=== PATIENT | female | born 1935 | race Caucasian/White ===

== ENCOUNTER → 2016-12-25 | Outpatient (CLI) | payer MEDICARE ==
--- OUTSIDE RECORDS SUMMARY | 2016-12-25 09:49 | XMS REPORT | Continuity of Care Document ---
Author Author [facility] Organization [facility] Address Unknown Phone Unavailable Allergies Medications Problems Date Dx Coded Attending Type Code Diagnosis Diagnosed By 12/08/2014 Ot V76.12 12/08/2014 Ot V16.3 12/08/2014 Ot V76.11 12/08/2014 Ot V76.12 12/08/2014 Ot 793.82 12/08/2014 Ot V76.12 12/08/2014 Ot 793.89 12/08/2014 MALENA ARECHIGA MD Ot V76.12 01/04/2015 Ot V76.12 12/12/2015 Ot V16.3 12/12/2015 Ot V76.11 12/12/2015 Ot V76.12 12/12/2015 Ot 793.82 12/12/2015 Ot V76.12 12/12/2015 Ot 793.89 12/12/2015 MALENA ARECHIGA MD Ot V76.12 12/12/2015 Ot V76.12 01/01/2016 MALENA ARECHIGA MD Ot Z12.31 Procedures Results Encounters ACCT No. Visit Date/Time Discharge Status Pt. Type Provider Facility Loc./Unit Complaint [id number] 12/07/2013 09:19:00 2013 23:59:59 CLS Outpatient MALENA ARECHIGA MD [facility] RAD [id number] 12/12/2015 11:23:00 ACT Outpatient MALENA ARECHIGA MD [facility] RAD [id number] 12/08/2014 15:14:00 Document Registration [id number] 12/08/2012 10:25:00 Document Registration [id number] 12/01/2012 08:50:00 Document Registration [id number] 12/04/2011 08:28:00 Document Registration [id number] 11/28/2010 10:24:00 Document Registration [id number] 12/04/2009 08:27:00 Document Registration
--- NOTE | 2016-12-26 18:31 | Diagnostic Imaging Report ---
Bilateral screening mammogram The current study was also evaluated with a Computer Aided Detection (CAD) system. INDICATION: Screening. No current complaints stated on the questionnaire. COMPARISON: 12/12/2015. FINDINGS: The breasts are composed of heterogeneously dense parenchyma which may decrease mammographic sensitivity. There are stable multiple calcifications seen in the breasts bilaterally. Allowing for technique and positional differences, no suspicious change is seen. IMPRESSION: Dense breasts with no definite change. ACR BI-RADS Category 2: Benign findings. Result letter will be mailed to the patient. Note: At least 10% of breast cancer is not imaged by mammography. Dictated by: Dictated on workstation # [id number]
== END ==
LOC: RAD 09:47
PROVIDERS: ATTEND Family Medicine
DX: Z12.31 Encounter for screening mammogram for malignant neoplasm of breast (principal)
CPT/HCPCS: 77067

== ENCOUNTER 2017-04-15 11:23 | Emergency (ER) | payer MEDICARE ==
[~2017-04-15] VITALS: Ht 157.5 cm; Wt 68.0 kg
--- NOTE | 2017-04-15 13:03 | Diagnostic Imaging Report ---
EXAMINATION: Three views of the left hand. INDICATION: Pain along the ulnar aspect of the left hand. FINDINGS: Degenerative changes along the intercarpal and carpal/metacarpal joints along the base of the thumb are seen. There are also degenerative changes at the DIP joints. No fracture or dislocation is identified. No radiopaque foreign body is seen. IMPRESSION: Osteoarthritis. Dictated by: Dictated on workstation # [id number]
[2017-04-15] MEDS ORDERED: TETANUS,DIPTH,PERTUSS P/F (BOOSTRIX) 0.5 ML VIAL IM STA (13:08)
--- NOTE | 2017-04-15 13:08 | ED Upper Extremity ---
General Chief Complaint: Upper Extremity Stated Complaint: LT HAND INJ//FALL Nursing Triage Note: Pt fell while pulling out a nail. C/O pain to left hand. Mild bruising noted. Nursing Sepsis Screen: No Definite Risk History of Present Illness Time seen by provider: 12:55 Initial Comments Patient was pulling a nail from a board when she lost her balance and fell landing on her left hand. She is mainly complaining of pain at the fourth and fifth MCPs on the left hand. She denies any wrist pain. Pain/Injury Location: left hand Method of Injury: fell Modifying Factors: Improves With Pain Medication (Tylenol prior to arrival), Improves With Rest Allergies and Home Medications Allergies Coded Allergies: No Known Drug Allergies (Unverified , 04/15/17) Constitutional: no symptoms reported, see HPI EENTM: no symptoms reported, see HPI Respiratory: no symptoms reported, see HPI Cardiovascular: no symptoms reported, see HPI Gastrointestinal: no symptoms reported, see HPI Genitourinary: no symptoms reported, see HPI Musculoskeletal: see HPI, other (left TM pain) Skin: no symptoms reported, see HPI Psychiatric/Neurological: No Symptoms Reported, See HPI All Other Systems Reviewed Negative Unless Noted: Yes Past Rglbuzc-Gkdonp-Bmpmut Hx Patient Social History Alcohol Use: Denies Use Recreational Drug Use: No Smoking Status: Never a Smoker Recent Foreign Travel: No Contact w/Someone Who Travel: No Recent Infectious Disease Expo: No Surgeries Surgeries: Appendectomy, Gallbladder Reproductive System : Yes Reviewed Nursing Assessment Reviewed/Agree w Nursing PMH: Yes Physical Exam Vital Signs Vital Sign - Last 12Hours 04/15/17 12:24 Temp 97.5 Pulse 70 Resp 16 B/P (MAP) 167/94 Pulse Ox 98 Capillary Refill : Less Than 3 Seconds General Appearance: WD/WN, no apparent distress HEENT: PERRL/EOMI, normal ENT inspection, TMs normal, pharynx normal Neck: non-tender, full range of motion, supple, normal inspection Cardiovascular: normal peripheral pulses, regular rate, rhythm, no JVD, no murmur Respiratory: chest non-tender, lungs clear, normal breath sounds Wrist: Yes normal inspection (left), Yes non-tender, Yes no evidence of injury , Yes normal ROM Hand: normal inspection, normal ROM (resisted flexion and extension of all fingers and thumb on the left hand V/V), Left, bone tenderness (fourth and fifth metacarpal heads, volar surface), ecchymosis (trace), soft tissue tenderness, swelling (trace) Neurologic/Tendon: normal sensation, normal motor functions, normal tendon functions, responds to pain Neurologic/Psychiatric: no motor/sensory deficits, alert, normal mood/affect, oriented x 3 Skin: normal color, warm/dry Progress/Results/Core Measures Results/Orders My Orders Orders - LILIAN,CARL 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 INDICATION: Pain along the ulnar aspect of the left hand. FINDINGS: Degenerative changes along the intercarpal and carpal/metacarpal joints along the base of the thumb are seen. There are also degenerative changes at the DIP joints. No fracture or dislocation is identified. No radiopaque foreign body is seen. IMPRESSION: Osteoarthritis. Dictated on workstation # [id number] Dict: 04/15/17 1256 Trans: 04/15/17 1302 [id number] Interpreted by: PRASHANTH DIAZ MD Electronically signed by: Reviewed: Reviewed by Me Departure Impression Impression: Primary Impression: Contusion of hand, left Additional Impression: Left wrist sprain Qualified Codes: S63.502A - Unspecified sprain of left wrist, initial encounter Disposition: 01 HOME, SELF-CARE Condition: Improved Departure-Patient Inst. Decision time for Depature: 13:30 Referrals: HERMILA MORENO DO (PCP/Family) Primary Care Physician Patient Instructions: Contusion (DC), Wrist Sprain (DC) Add. Discharge Instructions: Ice to left hand and wrist 20 minutes every 2-3 hours. Use Billy wrap for 2-3 days and then as needed. Activity as tolerated with left hand. Return to emergency department if symptoms worsen or new problems. Follow-up with Dr. Moreno in one week if continued symptoms. May use ibuprofen 600 mg every 8 hours and Tylenol 650 mg every 6 hours for pain All discharge instructions reviewed with patient and/or family. Voiced understanding. Copy Copies To 1: HERMILA MORENO AMY ARNP Apr 15, 2017 13:08
[2017-04-15 13:45] VITALS: BP 160/90
--- OUTSIDE RECORDS SUMMARY | 2017-04-15 18:09 | XMS REPORT | Continuity of Care Document ---
Author Author [facility] Organization [facility] Address Unknown Phone Unavailable Allergies Medications Problems [...] V76.12 01/01/2016 MALENA ARECHIGA MD Ot Z12.31 12/25/2016 Ot V76.12 OTH SCREEN MAMMO-MALIGN NEOPLASM OF VANESSA 12/25/2016 Ot 793.82 INCONCLUSIVE MAMMOGRAM 12/25/2016 Ot V76.12 OTH SCREEN MAMMO-MALIGN NEOPLASM OF VANESSA 12/25/2016 Ot 793.89 OTH (ABN) FINDINGS ON RADIOLOGICAL EXAMI 12/25/2016 MALENA ARECHIGA MD Ot V76.12 OTH SCREEN MAMMO-MALIGN NEOPLASM OF VANESSA 12/25/2016 Ot V76.12 OTH SCREEN MAMMO-MALIGN NEOPLASM OF VANESSA 12/25/2016 MALENA ARECHIGA MD Ot Z12.31 ENCNTR SCREEN MAMMOGRAM FOR MALIGNANT NE 12/25/2016 HERMILA BARRIENTOS DO Ot Z12.31 ENCNTR SCREEN MAMMOGRAM FOR MALIGNANT NE 12/25/2016 HERMILA BARRIENTOS DO Ot Z12.31 ENCNTR SCREEN MAMMOGRAM FOR MALIGNANT NE 01/15/2017 FLOYD HURLEYAIDAHERMILA Saul Ot Z12.31 ENCNTR SCREEN MAMMOGRAM FOR MALIGNANT NE Procedures Results Encounters ACCT No. Visit Date/Time Discharge Status Pt. Type Provider Facility Loc./Unit Complaint [id number] 12/07/2013 09:19:00 2013 23:59:59 CLS Outpatient MALENA ARECHIGA MD [facility] RAD SCREENING [id number] 12/25/2016 09:47:00 ACT Outpatient HERMILA BARRIENTOS DO [facility] RAD SCREENING [id number] 12/12/2015 11:23:00 ACT Outpatient MALENA ARECHIGA MD [facility] RAD SCREENING [id number] 12/08/2014 15:14:00 Document Registration [id number] 12/08/2012 10:25:00 Document Registration [id number] 12/01/2012 08:50:00 Document Registration [id number] 12/04/2011 08:28:00 Document Registration [id number] 11/28/2010 10:24:00 Document Registration [id number] 12/04/2009 08:27:00 Document Registration
--- OUTSIDE RECORDS SUMMARY | 2017-04-15 18:09 | XMS REPORT ---
Author Author LORI REDMAN Organization [employer] Address Unknown Phone Unavailable Care Team Providers Care Benefits Manager Name Role Phone LORI REDMAN CP Unavailable Allergies, Adverse Reactions, Alerts Substance Reaction Event Type N.K.D.A. Info Not Available Non Drug Allergy Problems Problem Type Condition Code Onset Dates Condition Status Assessment Acute cystitis without hematuria N30.00 Active Medications Medication Code System Code Instructions Start Date End Date Status Dosage Simvastatin [facility] [address]-39 20 MG Orally Once a day 1 tablet in the evening AZO Cranberry [facility] [address]71-47890 250-30 MG Orally not defined Macrobid [facility] [address]-74 100 MG Orally every 12 hrs May 25, 2016May 1 capsule with food Procedures Procedure Coding System Code Date Office Visit, New Pt., Level 3 CPT-4 76212 May 25, 2016 URINALYSIS, AUTO, W/O SCOPE CPT-4 52059 May 25, 2016 [facility] VISIT NEW PATIENT CPT-4 G0466 May 25, 2016 [facility]-4 NOBLL May 25, 2016 Vital Signs Date/Time: May 25, 2016 Cardiac Monitoring Heart Rate 66 bpm Weight 155.2 lbs Height 64 in BMI 26.64 Index Blood Pressure Diastolic 90 mmHg Blood Pressure Systolic 104 mmHg Results No Known Results Summary Purpose [employer] Submission
== END 2017-04-15 13:45 | disposition home or self-care (01) ==
LOC: EDUNIT# 11:23 → ER 11:25
DX: S63.502A Unspecified sprain of left wrist, initial encounter (principal); S60.222A Contusion of left hand, initial encounter; Z90.49 Acquired absence of other specified parts of digestive tract; Z87.42 Personal history of other diseases of the female genital tract; W18.39XA Other fall on same level, initial encounter
CPT/HCPCS: 73130; 90471; 90715; 99284

== ENCOUNTER → 2017-12-30 | Outpatient (CLI) | payer MEDICARE ==
--- NOTE | 2017-12-30 09:12 | Diagnostic Imaging Report ---
INDICATION: Routine screening. Comparison is made with prior exam from 12/25/2016 and 12/12/2015. The current study was also evaluated with a Computer Aided Detection (CAD) system. Both breasts remain heterogeneously dense, limiting the sensitivity of mammography. Extensive calcifications are noted throughout both breasts which appear stable. There is a biopsy clip in the outer left breast. No new mass or malignant appearing microcalcifications are seen. The axillae are unremarkable. IMPRESSION: BI-RADS category 2 No mammographic features suspicious for malignancy are identified. ACR BI-RADS Category 2: Benign findings. Result letter will be mailed to the patient. Note: At least 10% of breast cancer is not imaged by mammography. Dictated by: Dictated on workstation # [id number]
== END ==
LOC: RAD 07:42
PROVIDERS: ATTEND Family Medicine
DX: Z12.31 Encounter for screening mammogram for malignant neoplasm of breast (principal)
CPT/HCPCS: 77067

== ENCOUNTER → 2018-05-06 | Outpatient (CLI) | payer MEDICARE ==
--- NOTE | 2018-05-06 12:32 | Diagnostic Imaging Report ---
PROCEDURE: US Renal Bilateral. TECHNIQUE: Multiple real-time grayscale images were obtained over the kidneys in various projections bilaterally. INDICATION: Renal insufficiency. COMPARISON: There are no prior studies available for comparison. FINDINGS: Both kidneys were identified. The right kidney measures 10.4 x 4.8 x 4.6 cm and the left kidney is estimated 11.9 x 4.7 x 3.8 cm. There is no evidence for solid mass involving either kidney. There are cysts associated with both kidneys however. This includes a 2.4 x 1.8 x 2.2 cm cyst along the inferior pole of the right kidney. There is also a 3.5 x 2.5 x 2.6 cm cyst along the superior pole of the left kidney and a 1.9 x 1.4 x 1.6 cm cyst along the inferior pole of the left kidney. There is no evidence for solid renal mass and there is no sign of hydronephrosis. The renal cortices are somewhat more echogenic in appearance than usually seen. This does raise the question of chronic medical renal disease. Cortices do not seem to be significantly thinned. The bladder is only partially filled and consequently not well evaluated. Neither ureteral jet was identified. IMPRESSION: 1. There is no evidence for solid renal mass or for an acute abnormality of either kidney. 2. There are bilateral renal cysts. 3. The slightly increased echogenicity in the renal cortices does raise the question of chronic medical renal disease. 4. The urinary bladder is only partially filled and consequently not optimally evaluated. Dictated by: Dictated on workstation # [id number]
== END ==
LOC: RAD 09:34
PROVIDERS: ATTEND Family Medicine
DX: N18.9 Chronic kidney disease, unspecified (principal); N28.1 Cyst of kidney, acquired
CPT/HCPCS: 76770

== ENCOUNTER → 2018-12-28 | Outpatient (CLI) | payer MEDICARE ==
--- NOTE | 2018-12-28 12:28 | Diagnostic Imaging Report ---
INDICATION Routine screening. Comparison is made with prior mammogram from 12/30/2017 and 12/25/2016. 2-D and 3-D bilateral screening mammography was performed CAD. Both breasts remain heterogeneously dense, limiting the sensitivity of mammography. The parenchyma pattern is stable. There are benign calcifications throughout both breasts. No mass or malignant-appearing microcalcifications are seen. There is a biopsy clip in the left breast, unchanged. Axillae are unremarkable. Impression: BI-RADS grade 2. No mammographic features suspicious for malignancy are identified. Dictated by: Dictated on workstation # [id number]
== END ==
LOC: RAD 07:47
PROVIDERS: ATTEND Family Medicine
DX: Z12.31 Encounter for screening mammogram for malignant neoplasm of breast (principal)
CPT/HCPCS: 77067

== ENCOUNTER 2021-01-21 14:42 | Inpatient (IN) | payer MEDICARE ==
[~2021-01-21] VITALS: Ht 162.5 cm; Wt 73.0 kg
[2021-01-21] MEDS ORDERED: ENOXAPARIN 40 MG/0.4 ML (LOVENOX) SYR SC SCH (15:00)
[2021-01-21] MEDS ORDERED: PATIENT MAY USE OWN MEDS, ALL PO SCH (15:00)
[2021-01-21 15:53] LABS: BILIRUBIN,URINE NEGATIVE (NEGATIVE); CLARITY,URINE CLEAR; COLOR,URINE YELLOW; GLUCOSE, URINE (UA) NEGATIVE (NEGATIVE); KETONES,URINE NEGATIVE (NEGATIVE); LEUKOCYTE ESTERASE ,URINE NEGATIVE (NEGATIVE); NITRITE,URINE NEGATIVE (NEGATIVE); PROTEIN,URINE 2+ (NEGATIVE)
[2021-01-21] MEDS: NS IV 1000 ML 1,000 ML IV SCH (15:55)
[2021-01-21 15:59] LABS: BACTERIA,URINE NEGATIVE /HPF; SQUAMOUS EPITHELIAL CELL,UR RARE /HPF
--- NOTE | 2021-01-21 16:01 | Diagnostic Imaging Report ---
INDICATION: Atrial fibrillation, new onset. EXAMINATION: Portable chest at 3:33 PM. FINDINGS: The heart size and pulmonary vascularity are normal. The lungs are clear. There are no effusions or pneumothoraces. IMPRESSION: Negative chest. Dictated by: Dictated on workstation # [id number]
[2021-01-21 16:36] LABS: BASOPHILS # (AUTO) 0.1 10^3/uL (0.0-0.1); BASOPHILS % (AUTO) 1 % (0-10); EOSINOPHILS # (AUTO) 0.2 10^3/uL (0.0-0.3); EOSINOPHILS % (AUTO) 2 % (0-10); HEMATOCRIT 39 % (35-52); HEMOGLOBIN 12.2 g/dL (11.5-16.0); LYMPHOCYTES # (AUTO) 1.4 10^3/uL (1.0-4.0); LYMPHOCYTES % (AUTO) 14 % (12-44); MEAN CORPUSCULAR HEMOGLOBIN 30 pg (25-34); MEAN CORPUSCULAR HGB CONC 31 g/dL (32-36); MEAN CORPUSCULAR VOLUME 97 fL (80-99); MEAN PLATELET VOLUME 9.3 fL (9.0-12.2); MONOCYTES # (AUTO) 0.7 10^3/uL (0.0-1.0); MONOCYTES % (AUTO) 7 % (0-12); NEUTROPHILS # (AUTO) 7.1 10^3/uL (1.8-7.8); NEUTROPHILS % (AUTO) 76 % (42-75); PLATELET COUNT 201 10^3/uL (130-400); WHITE BLOOD COUNT 9.4 10^3/uL (4.3-11.0)
[2021-01-21 16:41] LABS: CALCIUM 9.4 MG/DL (8.5-10.1)
[2021-01-21 16:43] LABS: TOTAL PROTEIN 6.2 GM/DL (6.4-8.2)
[2021-01-21 16:45] LABS: BILIRUBIN,TOTAL 0.5 MG/DL (0.1-1.0)
[2021-01-21 16:46] LABS: PHOSPHORUS 3.1 MG/DL (2.3-4.7)
[2021-01-21 16:47] LABS: CREATININE SERUM 1.99 MG/DL (0.60-1.30)
[2021-01-21 16:49] LABS: MAGNESIUM 1.8 MG/DL (1.6-2.4)
[2021-01-21 16:51] LABS: PROTHROMBIN TIME PATIENT 13.9 SEC (12.2-14.7)
[2021-01-21 16:56] LABS: CREATINE KINASE MB 2.5 NG/ML (<6.6)
[2021-01-21] MEDS ORDERED: meTOprolol SUCCINATE 100 MG (TOPROL XL) TAB PO NR (17:00)
[2021-01-22] MEDS: NS IV 1000 ML 1,000 ML IV SCH ×4 (01:24→23:10)
[2021-01-22 03:34] LABS: BASOPHILS % (AUTO) 1 % (0-10); EOSINOPHILS # (AUTO) 0.3 10^3/uL (0.0-0.3); EOSINOPHILS % (AUTO) 4 % (0-10); HEMATOCRIT 34 % (35-52); HEMOGLOBIN 10.7 g/dL (11.5-16.0); LYMPHOCYTES # (AUTO) 1.6 10^3/uL (1.0-4.0); LYMPHOCYTES % (AUTO) 22 % (12-44); MEAN CORPUSCULAR HEMOGLOBIN 30 pg (25-34); MEAN CORPUSCULAR HGB CONC 31 g/dL (32-36); MEAN CORPUSCULAR VOLUME 97 fL (80-99); MEAN PLATELET VOLUME 9.7 fL (9.0-12.2); MONOCYTES # (AUTO) 0.7 10^3/uL (0.0-1.0); MONOCYTES % (AUTO) 9 % (0-12); NEUTROPHILS # (AUTO) 4.6 10^3/uL (1.8-7.8); NEUTROPHILS % (AUTO) 63 % (42-75); PLATELET COUNT 176 10^3/uL (130-400); WHITE BLOOD COUNT 7.2 10^3/uL (4.3-11.0)
[2021-01-22 03:49] LABS: POTASSIUM 3.8 MMOL/L (3.6-5.0)
[2021-01-22 03:50] LABS: CALCIUM 8.2 MG/DL (8.5-10.1)
[2021-01-22 03:54] LABS: CREATININE SERUM 1.9 MG/DL (0.60-1.30); PHOSPHORUS 2.9 MG/DL (2.3-4.7)
[2021-01-22 03:56] LABS: MAGNESIUM 1.7 MG/DL (1.6-2.4)
--- NOTE | 2021-01-22 05:38 | Pulmonary Consultation ---
History of Present Illness History of Present Illness Date Seen by Provider: Jan 22, 2021 Time Seen by Provider: 05:38 Date of Admission Allergies and Home Medications Allergies Coded Allergies: aspirin (Verified Allergy, Unknown, Abdominal Pain, 01/21/21) gi upset Past Zagmrhk-Omevgo-Uagnlf Hx Patient Social History Have you traveled recently?: No Alcohol Use?: No Immunizations Up To Date Date of Influenza Vaccine: Jul 12, 2020 Past Medical History Surgeries: Yes Appendectomy, Gallbladder Respiratory: No Cardiac: No Genitourinary: No Gastrointestinal: No Musculoskeletal: No Endocrine: No HEENT: No Cancer: No Psychosocial: No Integumentary: No Blood Disorders: No Review of Systems Time Seen by Provider: 05:38 Sepsis Event Evaluation Height, Weight, BMI Height: 5'2.00" Weight: 150lbs. oz. 68.693553bd; 26.13 BMI Method:Estimated Exam Exam Vital Signs Date Time Temp Pulse Resp B/P (MAP) Pulse Ox O2 Delivery O2 Flow Rate FiO2 01/22/21 04:00 68 145/74 (97) 96 Room Air 01/22/21 03:15 64 162/82 (108) 97 Room Air 01/22/21 02:00 72 125/71 (89) 92 Room Air 01/22/21 01:00 70 01/22/21 01:00 64 115/78 (90) 95 Room Air 01/22/21 00:15 64 126/67 (86) 95 Room Air 01/21/21 23:59 Room Air 01/21/21 23:00 61 22 123/56 (78) 96 Room Air 01/21/21 22:00 56 18 107/65 (79) 94 Room Air 01/21/21 21:00 71 12 141/95 (110) 88 Room Air 01/21/21 20:34 36.3 01/21/21 20:00 Room Air 01/21/21 20:00 64 34 157/99 (118) 97 Room Air 01/21/21 19:00 70 24 151/88 (109) 98 Room Air 01/21/21 19:00 70 01/21/21 18:00 86 25 155/97 (116) 97 01/21/21 17:00 73 25 190/105 (133) 96 01/21/21 16:00 36.5 01/21/21 16:00 95 15 155/101 (119) 96 01/21/21 15:30 87 17 155/92 (113) 96 01/21/21 15:28 101 01/21/21 15:08 Room Air I & O 01/22/21 07:00 Intake Total 1400 ml Output Total 250 ml Balance 1150 ml Height & Weight Height: 5'2.00" Weight: 150lbs. oz. 68.730992im; 26.13 BMI Method:Estimated Results Lab Laboratory Tests 01/21/21 16:23 01/22/21 03:03 IGOR VAZQUEZ DO Jan 22, 2021 05:38
[2021-01-22] MEDS: MAGNESIUM 1 GM/100 ML IVPB 100 ML IV SCH (06:09)
[2021-01-22] MEDS: KCL 20 MEQ TAB (K-DUR) PO SCH (06:09)
[2021-01-22] MEDS: POTASSIUM CL 10MEQ/50ML IVPB 50 ML IV SCH (06:09)
[2021-01-22] MEDS: meTOprolol SUCCINATE 100 MG (TOPROL XL) TAB PO SCH (08:37)
--- NOTE | 2021-01-22 09:13 | Consultation-Cardiology ---
HPI-Cardiology Cardiology Consultation Date of Consultation 01/22/21 Date of Admission Time Seen by Provider: 07:40 Indication: Atrial fibrillation, hypertension HPI Cardiology was consulted for atrial fibrillation and hypertension. Ms. Fabian is an 85-year-old female who is a direct admit from Dr. Moreno's office for new-onset atrial fibrillation. She states she is here due to hypertension. It was first noticed at the eye doctor last , 01/17, and she followed up with Dr. Moreno on Thursday, 01/21. She denies any chest pain, palpitations, shortness of breath, blurred vision, headaches, diaphoresis, weakness, nausea/vomiting. Home Medications & Allergies Allergies: Coded Allergies: aspirin (Verified Allergy, Unknown, Abdominal Pain, 01/21/21) gi upset Home Medication List Reviewed: Yes PUC-Lkdlfq-Byxdrn Hx Patient Social History Marital Status: Recreational Drug Use: No Smoking Status: Never a Smoker Have you traveled recently?: No Alcohol Use?: No Immunizations Up To Date Date of Influenza Vaccine: Jul 12, 2020 Past Medical History PMHx: HTN HLD PSHx: Cholecystectomy Appendectomy Family Medical History Significant Family History: Heart Disease, CAD Over 55 Years Old, Renal Disease, Stroke Review of Systems-General Review of Systems Constitutional: No diaphoresis, No dizziness EENTM: No blurred vision, No double vision Respiratory: No cough, No short of breath Cardiovascular: No chest pain, No palpitations Gastrointestinal: No nausea, No vomiting Genitourinary: no symptoms reported Musculoskeletal: no symptoms reported Skin: no symptoms reported Psychiatric/Neurological: Denies Headache, Denies Weakness Reviewed Test Results Reviewed Test Results Lab Laboratory Tests Test 01/21/21 15:50 01/21/21 16:23 01/22/21 03:03 Range/Units Urine Color YELLOW Urine Clarity CLEAR Urine pH 6.0 5-9 Urine Specific [place] 1.025 H 1.016-1.022 Urine Protein 2+ H NEGATIVE Urine Glucose (UA) NEGATIVE NEGATIVE Urine Ketones NEGATIVE NEGATIVE Urine Nitrite NEGATIVE NEGATIVE Urine Bilirubin NEGATIVE NEGATIVE Urine Urobilinogen 0.2 < = 1.0 MG/DL Urine Leukocyte Esterase NEGATIVE NEGATIVE Urine RBC (Auto) NEGATIVE NEGATIVE Urine RBC NONE /HPF Urine WBC NONE /HPF Urine Squamous Epithelial Cells RARE /HPF Urine Crystals NONE /LPF Urine Bacteria NEGATIVE /HPF Urine Casts NONE /LPF Urine Mucus NEGATIVE /LPF Urine Culture Indicated NO White Blood Count 9.4 7.2 4.3-11.0 10^3/uL Red Blood Count 4.04 3.56 L 3.80-5.11 10^6/uL Hemoglobin 12.2 10.7 L 11.5-16.0 g/dL Hematocrit 39 34 L 35-52 % Mean Corpuscular Volume 97 97 80-99 fL Mean Corpuscular Hemoglobin 30 30 25-34 pg Mean Corpuscular Hemoglobin Concent 31 L 31 L 32-36 g/dL Red Cell Distribution Width 13.5 13.7 10.0-14.5 % Platelet Count 201 176 130-400 10^3/uL Mean Platelet Volume 9.3 9.7 9.0-12.2 fL Immature Granulocyte % (Auto) 0 0 % Neutrophils (%) (Auto) 76 H 63 42-75 % Lymphocytes (%) (Auto) 14 22 12-44 % Monocytes (%) (Auto) 7 9 0-12 % Eosinophils (%) (Auto) 2 4 0-10 % Basophils (%) (Auto) 1 1 0-10 % Neutrophils # (Auto) 7.1 4.6 1.8-7.8 10^3/uL Lymphocytes # (Auto) 1.4 1.6 1.0-4.0 10^3/uL Monocytes # (Auto) 0.7 0.7 0.0-1.0 10^3/uL Eosinophils # (Auto) 0.2 0.3 0.0-0.3 10^3/uL Basophils # (Auto) 0.1 0.0 0.0-0.1 10^3/uL Immature Granulocyte # (Auto) 0.0 0.0 0.0-0.1 10^3/uL Prothrombin Time 13.9 12.2-14.7 SEC INR Comment 1.0 0.8-1.4 Activated Partial Thromboplast Time 27 24-35 SEC Sodium Level 144 144 135-145 MMOL/L Potassium Level 4.0 3.8 3.6-5.0 MMOL/L Chloride Level 108 H 112 H 98-107 MMOL/L Carbon Dioxide Level 25 21 21-32 MMOL/L Anion Gap 11 11 5-14 MMOL/L Blood Urea Nitrogen 31 H 34 H 7-18 MG/DL Creatinine 1.99 H 1.90 H 0.60-1.30 MG/DL Estimat Glomerular Filtration Rate 24 25 BUN/Creatinine Ratio 16 18 Glucose Level 84 84 70-105 MG/DL Calcium Level 9.4 8.2 L 8.5-10.1 MG/DL Corrected Calcium 9.4 8.5-10.1 MG/DL Phosphorus Level 3.1 2.9 2.3-4.7 MG/DL Magnesium Level 1.8 1.7 1.6-2.4 MG/DL Total Bilirubin 0.5 0.1-1.0 MG/DL Aspartate Amino Transf (AST/SGOT) 21 5-34 U/L Alanine Aminotransferase (ALT/SGPT) 19 0-55 U/L Alkaline Phosphatase 101 40-136 U/L Creatine Kinase MB 2.5 <6.6 NG/ML Troponin I 0.046 H <0.028 NG/ML Total Protein 6.2 L 6.4-8.2 GM/DL Albumin 4.0 3.2-4.5 GM/DL Thyroid Stimulating Hormone (TSH) 0.93 0.35-4.94 UIU/ML Physical Exam Physical Exam Vital Signs Vital Signs - First Documented 01/21/21 01/21/21 01/21/21 01/21/21 15:08 15:28 15:30 16:00 Temp 36.5 Pulse 101 Resp 17 B/P (MAP) 155/92 (113) Pulse Ox 96 O2 Delivery Room Air Capillary Refill : Height, Weight, BMI Height: 5'2.00" Weight: 150lbs. oz. 68.375255ed; 26.13 BMI Method:Estimated General Appearance: No Apparent Distress, WD/WN HEENT: PERRL/EOMI, Pharynx Normal Neck: Non Tender, Supple Respiratory: Chest Non Tender, Lungs Clear, Normal Breath Sounds Cardiovascular: No Murmur, Irregularly Irregular Gastrointestinal: Normal Bowel Sounds, Non Tender, Soft Extremity: Normal Capillary Refill, Pedal Edema Neurologic/Psychiatric: Alert, Oriented x3 Skin: Normal Color, Warm/Dry A/P-Cardiology Admission Diagnosis Atrial fibrillation Hypertension Assessment/Plan Paroxysmal atrial fibrillation, no prior history, currently rate controlled on metoprolol 100mg daily. Started lovenox 1mg/kg BID. Plan for cardioversion 01/23. NPO after midnight. I added diltiazem 30 mg every 6 hours we will monitor tolerance and response CHADsVASc score 4, 4.8% stroke risk per year. Will need Eliquis 2.5mg BID for renal dosing. Currently on therapeutic lovenox. Hypertension, continue metoprolol 100mg daily. Add diltiazem 30 mg every 6 hours and monitor tolerance and response Renal insufficiency, likely chronic, Cr 1.9 today with GFR 25, unknown baseline. Renally dose all medications and monitor response. Hyperlipidemia, continue home atorvastatin. Order lipid panel. Extensive family history of heart disease. Supervisory-Addendum Brief Verification & Attestation Participated in pt care: history, MDM, physical Personally performed: exam, history, MDM, supervision of care Care discussed with: Medical Student Procedures: n/a Results interpretation: Verified all documentation Patient was seen and evaluated, examination performed I reviewed the note and made few correction using italic font JOCELYNE CAMARA, Jan 22, 2021 9:12 am SERGIO LOYOLA MD Jan 22, 2021 5:00 pm
[2021-01-22] MEDS ORDERED: METO50TA7 PO (10:26)
[2021-01-22] MEDS ORDERED: ASCO500C17 PO (10:26)
[2021-01-22] MEDS ORDERED: SIMV20TA26 PO (10:26)
[2021-01-22] MEDS ORDERED: CLC600T PO (10:26)
[2021-01-22] MEDS ORDERED: CRAN400C PO (10:26)
[2021-01-22] MEDS: ENOXAPARIN 80 MG/0.8 ML (LOVENOX) SYR SC SCH (11:10)
[2021-01-22] MEDS: PANTOPRAZOLE 40 MG (PROTONIX) TAB PO SCH (11:10)
[2021-01-22] MEDS ORDERED: ACETAMINOPHEN 325 MG TABLET PO PRN (12:45)
--- NOTE | 2021-01-22 16:59 | History & Physical ---
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 She was found to be in hypertensive urgency in my office with a blood pressure of 200/100 and an irregular pulse up to the 140s. Her son was contacted and her granddaughter came and took her to [facility] for direct admission to the ICU. Date of Admission Jan 21, 2021 at 15:08 Date Seen by a Provider: Jan 22, 2021 Time Seen by a Provider: 12:30 I consulted on this patient on 01/22/21 16:54 Attending Physician Lizy Moreno DO Admitting Physician Lizy Moreno DO Consult Allergies and Home Medications Allergies Coded Allergies: aspirin (Verified Allergy, Unknown, Abdominal Pain, 01/21/21) gi upset Home Medications Ascorbic Acid 500 Mg Capsule, 500 MG PO DAILY, (Reported) Last Action: Reviewed Calcium Carbonate 600 Mg Tablet, 600 MG PO DAILY, (Reported) Last Action: Reviewed Cranberry 400 Mg Capsule, 800 MG PO DAILY, (Reported) Last Action: Reviewed Metoprolol Succinate 50 Mg Tab.er.24h, 50 MG PO BID, (Reported) Last Action: Reviewed Simvastatin 20 Mg Tablet, 20 MG PO DAILY, (Reported) Last Action: Reviewed Patient Home Medication List Home Medication List Reviewed: Yes Past Uxeotur-Onozfp-Pftvwe Hx Past Med/Social Hx: Reviewed Nursing Past Med/Soc Hx Patient Social History Marrital Status: Recreational Drug Use: No Smoking Status: Never a Smoker Immunizations Up To Date Date of Influenza Vaccine: Jul 12, 2020 Past Medical History Surgeries: Appendectomy, Gallbladder History of Blood Disorders: No Family History Heart Disease, CAD Over 55 Years Old, Renal Disease, Stroke Review of Systems Constitutional: weakness EENTM: No see HPI, No no symptoms reported, No ear discharge, No hearing loss, No ear pain, No blurred vision, No double vision, No eye pain, No tearing, No vision loss, No dental problems, No hoarseness, No mouth pain, No mouth swelling, No epistaxis, No nose congestion, No nose pain, No throat pain, No throat swelling, No other Respiratory: No no symptoms reported, No see HPI, No cough, No dyspnea on exertion, No hemoptysis, No orthopnea, No phlegm, No short of breath, No stridor, No wheezing, No other Cardiovascular: No no symptoms reported, No see HPI, No chest pain, No edema, No Hx of Intervention, No palpitations, No syncope, No vascular heart diseas, No other Gastrointestinal: No RUQ, No LUQ, No RLQ, No LLQ, No no symptoms reported, No see HPI, No abdominal pain, No constipation, No diarrhea, No dysphagia, No yonatan temesis, No heartburn, No jaundice, No loss of appetite, No melena, No nausea, No vomiting, No other Genitourinary: No no symptoms reported, No see HPI, No decreased output, No discharge, No dysuria, No frequency, No hematuria, No hesitancy, No incontinence, No nocturia, No pain, No other Musculoskeletal: No no symptoms reported, No see HPI, No back pain, No gout, No joint pain, No joint swelling, No muscle pain, No muscle stiffness, No muscle cramps, No muscle twitching, No muscle weakness, No neck pain, No other Skin: No no symptoms reported, No see HPI, No change in color, No change in hair/nails, No dryness, No hx of skin cancer, No lesions, No lumps, No pruritus, No rash, No other Psychiatric/Neurological: Denies No Symptoms Reported, Denies See HPI, Denies Anxiety, Denies Depressed, Denies Emotional Problems, Denies Headache, Denies Numbness, Denies Paresthesia, Denies Pre-Existing Deficit, Denies Seizure, Denies Tingling, Denies Tremors, Denies Weakness, Denies Other Physical Exam Vital Signs Vital Signs - First Documented 01/21/21 01/21/21 01/21/21 01/21/21 15:08 15:28 15:30 16:00 Temp 36.5 Pulse 101 Resp 17 B/P (MAP) 155/92 (113) Pulse Ox 96 O2 Delivery Room Air Capillary Refill : Height, Weight, BMI Height: 5'2.00" Weight: 150lbs. oz. 68.514335ps; 26.13 BMI Method:Estimated General Appearance: No Apparent Distress HEENT: Normal ENT Inspection Neck: Supple Respiratory: Lungs Clear Cardiovascular: Systolic Murmur, Gallop/S4, Irregularly Irregular, Tachycardia Gastrointestinal: Normal Bowel Sounds, Non Tender, Soft Rectal: Deferred Back: No CVA Tenderness Extremity: Non Tender, No Calf Tenderness, No Pedal Edema Neurologic/Psychiatric: Alert, Oriented x3 Skin: Warm/Dry Comments Laboratory Tests 01/22/21 03:03: White Blood Count 7.2, Red Blood Count 3.56L, Hemoglobin 10.7L, Hematocrit 34L, Mean Corpuscular Volume 97, Mean Corpuscular Hemoglobin 30, Mean Corpuscular Hemoglobin Concent 31L, Red Cell Distribution Width 13.7, Platelet Count 176, Mean Platelet Volume 9.7, Immature Granulocyte % (Auto) 0, Neutrophils (%) (Auto) 63, Lymphocytes (%) (Auto) 22, Monocytes (%) (Auto) 9, Eosinophils (%) (Auto) 4, Basophils (%) (Auto) 1, Neutrophils # (Auto) 4.6, Lymphocytes # (Auto) 1.6, Monocytes # (Auto) 0.7, Eosinophils # (Auto) 0.3, Basophils # (Auto) 0.0, Immature Granulocyte # (Auto) 0.0, Sodium Level 144, Potassium Level 3.8, Chloride Level 112H, Carbon Dioxide Level 21, Anion Gap 11, Blood Urea Nitrogen 34H, Creatinine 1.90H, Estimat Glomerular Filtration Rate 25, BUN/Creatinine Ratio 18, Glucose Level 84, Calcium Level 8.2L, Phosphorus Level 2.9, Magnesium Level 1.7 Microbiology 01/21/21 MRSA Screen - Final, Complete MRSA not isolated Assessment/Plan Assessment and Plan 1. New Onset Atrial Fibrillation with RVR--metoprolol has decreased rate so will do high dose lovenox and cardiology consult with plan for cardioversion to [facility], ECHO done on admit 2. Hypertensive Urgency--metoprolol resumed 3. Acute on Chronic Renal Failure--hydrate and monitor BUN/Cr Admission Diagnosis Admission Status: Inpatient Order (span 2 midnights) Reason for Inpatient Admission: Will need monitoring in ICU and cardioversion LIZY MORENO DO Jan 22, 2021 16:59
[2021-01-22] MEDS ORDERED: SIMvastatin 20 MG (ZOCOR) TAB PO SCH (21:00)
[2021-01-23 03:23] LABS: BASOPHILS # (AUTO) 0.1 10^3/uL (0.0-0.1); BASOPHILS % (AUTO) 1 % (0-10); EOSINOPHILS # (AUTO) 0.3 10^3/uL (0.0-0.3); EOSINOPHILS % (AUTO) 5 % (0-10); HEMATOCRIT 38 % (35-52); HEMOGLOBIN 11.8 g/dL (11.5-16.0); LYMPHOCYTES # (AUTO) 1.6 10^3/uL (1.0-4.0); LYMPHOCYTES % (AUTO) 21 % (12-44); MEAN CORPUSCULAR HEMOGLOBIN 30 pg (25-34); MEAN CORPUSCULAR HGB CONC 31 g/dL (32-36); MEAN CORPUSCULAR VOLUME 97 fL (80-99); MEAN PLATELET VOLUME 9.5 fL (9.0-12.2); MONOCYTES # (AUTO) 0.5 10^3/uL (0.0-1.0); MONOCYTES % (AUTO) 7 % (0-12); NEUTROPHILS # (AUTO) 4.8 10^3/uL (1.8-7.8); NEUTROPHILS % (AUTO) 66 % (42-75); PLATELET COUNT 179 10^3/uL (130-400); WHITE BLOOD COUNT 7.2 10^3/uL (4.3-11.0)
[2021-01-23 03:30] LABS: POTASSIUM 3.6 MMOL/L (3.6-5.0)
[2021-01-23 03:31] LABS: CALCIUM 8.3 MG/DL (8.5-10.1)
[2021-01-23 03:36] LABS: CREATININE SERUM 1.63 MG/DL (0.60-1.30); PHOSPHORUS 2.7 MG/DL (2.3-4.7)
[2021-01-23 03:38] LABS: MAGNESIUM 1.7 MG/DL (1.6-2.4)
[2021-01-23] MEDS: NS IV 1000 ML 1,000 ML IV SCH ×3 (04:06→23:19)
[2021-01-23] MEDS: MAGNESIUM 1 GM/100 ML IVPB 100 ML IV SCH (04:09)
[2021-01-23] MEDS: KCL 20 MEQ TAB (K-DUR) PO SCH (04:09)
[2021-01-23] MEDS: POTASSIUM CL 10MEQ/50ML IVPB 50 ML IV SCH (04:09)
[2021-01-23] MEDS ORDERED: proPOfol 200 MG/20 ML (DIPRIVAN) VIAL IV ONE (07:31)
[2021-01-23] MEDS ORDERED: MIDAZOLAM 5 MG/5 ML (VERSED) VIAL ONE (07:31)
--- NOTE | 2021-01-23 07:57 | Cardiology Progress Note ---
Subjective Date Seen by Provider: Jan 23, 2021 Time Seen by Provider: 07:25 Subjective/Events-last exam Ms. Fabian was seen and examined in the ICU this morning. Denies any chest pain or shortness of breath. No concerns today. Discussed upcoming cardioversion this morning, patient had no questions regarding the procedure. Review of Systems General: No Chills, No Night Sweats, No Fatigue, No Malaise, No Appetite, No Other HEENT: No Head Aches, No Visual Changes, No Eye Pain, No Ear Pain, No Dysphasia, No Sinus Congestion, No Post Nasal Drip, No Sore Throat, No Other Pulmonary: No Dyspnea, No Cough, No Pleuritic Chest Pain, No Other Cardiovascular: No: Chest Pain, Palpitations, Orthopnea, Paroxysmal Noc. Dyspnea, Edema, Lt Headedness, Other Objective-Cardiology Exam Last Set of Vital Signs Vital Signs 01/23/21 01/23/21 15:00 15:15 Temp 36.5 Pulse 65 Resp 18 B/P (MAP) 168/90 (116) Pulse Ox 97 O2 Delivery Room Air Capillary Refill : I&O Intake and Output 01/23/21 00:00 Intake Total 2600 ml Output Total 1950 ml Balance 650 ml Intake Oral 1600 ml IV Total 1000 ml Output Urine Total 1950 ml # Voids 2 General: Alert, Oriented X3 HEENT: PERRLA Neck: Supple Lungs: Clear to Auscultation, Normal Air Movement Heart: Normal S1, Normal S2, Other (irregularly irregular) Abdomen: Normal Bowel Sounds, Soft, No Tenderness Extremities: No Clubbing, No Cyanosis, No Edema Skin: No Rashes Neuro: Normal Speech Psych/Mental Status: Mental Status NL Results Lab Laboratory Tests 01/23/21 02:40 A/P-Cardiology Admission Diagnosis Atrial fibrillation Hypertension Assessment/Plan Paroxysmal atrial fibrillation, no prior history, currently rate controlled on metoprolol 100mg daily. Started lovenox 1mg/kg BID. Diltiazem 30 mg every 6 hours, we will monitor tolerance and response, HR down to 60. Cardioversion for today, 01/23. Patient was started on amiodarone bolus and a drip, converted to sinus rhythm spontaneously on amiodarone drip. We will continue with loading with amiodarone and possible discharge in the morning CHADsVASc score 4, 4.8% stroke risk per year. Will need Eliquis 2.5mg BID for renal dosing on discharge. Currently on therapeutic lovenox, I am planning to start Eliquis. Hypertension, continue metoprolol 100mg daily. Diltiazem 30 mg every 6 hours added, HR down to 60 but BP 159/110, may improve post cardioversion. Renal insufficiency, acute on chronic, Cr 1.63 today with GFR 30, unknown baseline. Renally dose all medications and monitor response. Hyperlipidemia, continue home atorvastatin. Extensive family history of heart disease. Supervisory-Addendum Brief Verification & Attestation Participated in pt care: history, MDM, physical Personally performed: exam, history, MDM, supervision of care Care discussed with: Medical Student Procedures: n/a Results interpretation: Verified all documentation Verification and Attestation of Medical Student E/M Service A medical student performed and documented this service in my presence. I reviewed and verified all information documented by the medical student and made modifications to such information, when appropriate. I personally performed the physical exam and medical decision making. Sergio Loyola, Jan 23, 2021,16:05 JOCELYNE CAMARA, Jan 23, 2021 7:57 am SERGIO LOYOLA MD Jan 23, 2021 4:01 pm
[2021-01-23] MEDS: meTOprolol SUCCINATE 100 MG (TOPROL XL) TAB PO SCH (08:15)
[2021-01-23] MEDS: PANTOPRAZOLE 40 MG (PROTONIX) TAB PO SCH (08:15)
[2021-01-23] MEDS ORDERED: amLODIPine 5 MG (NORVASC) TAB PO ONE (08:45)
[2021-01-23] MEDS ORDERED: LIDOCAINE 2% VISCOUS 15 ML UDC ONE (08:50)
--- NOTE | 2021-01-23 09:38 | Cardiac Procedure Note-CS/ASA ---
Pre-Procedure Note Pre-Op Procedure Note H&P Reviewed The H&P was reviewed, patient examined and no changes noted. Date H&P Reviewed: Jan 23, 2021 Time H&P Reviewed: 09:00 Conscious Sedation Pre-Proced Time 09:00 ASA Score 3 For ASA 3 and 4: Consider anesthesia and medical clearance. Also, for patients with a history of failed moderate sedation consider anesthesia. Airway Lungs Heart ASA score ASA 1: a normal healthy patient ASA 2: a patient with a mild systemic disease (mid diabetes, controlled hypertension, obesity x ASA 3: a patient with a severe systemic disease that limits activity (angina, COPD, prior Myocardial infarction) ASA 4: a patient with an incapacitating disease that is a constant threat to life (CHF, renal failure) ASA 5: a moribund patient not expected to survive 24 hrs. (ruptured aneurysm) ASA 6: a declared brain- patient whose organs are being harvested. For emergent operations, add the letter E after the classification Mallampati Classification Grade 3 Sedation Plan Analgesia, Amnesia, Plan communicated to team members, Discussed options with patient/fam, Discussed risks with patient/fam The patient is an appropriate candidate to undergo the planned procedure, sedation, and anesthesia. The patient immediately re-assessed prior to indication. SERGIO LOYOLA MD Jan 23, 2021 09:38
--- NOTE | 2021-01-23 09:41 | Cardioversion ---
Cardioversion PROCEDURE PHYSICIAN: Sergio Lopez DATE OF PROCEDURE: 01/23/21 DIRECT EXTERNAL ELECTRICAL CARDIOVERSION: Indications: Atrial Fibrillation with rapid ventricular rate Preoperative diagnoses: Atrial Fibrillation with rapid ventricular rate Postoperative diagnosis: Sinus rhythm, Successful Electrical Cardioversion Anesthesia: By Anesthesia services Complications: None Specimen: None Contrast: 0 Flouroscopy: none Procedure Details: The patient was brought the lab pack chemist after informed consent was taken, all the risks and complications were explained including the risk of stroke. Electrical cardioversion was carried out with anesthesia support with propofol. 200 joules of synchronized shock was delivered through external patches which promptly twice, didn't convert to sinus rhythm, I decided to proceed with loading with amiodarone and reattempt tomorrow with cardioversion. The patient tolerated the procedure well. Conclusions: Failed to attempt for cardioversion to restore sinus rhythm. Patient will be loaded with amiodarone and we will attempt another cardioversion tomorrow SERGIO LOPEZ MD Jan 23, 2021 09:41
[2021-01-23] MEDS ORDERED: AMIODARONE INJECTION 150 MG in D5W 100 ML IVPB 100 ML IV NR (10:00)
[2021-01-23] MEDS: AMIODARONE INJECTION 450 MG in D5W IV SOLUTION (EXCEL) 250 ML IV SCH ×2 (10:18→18:29)
[2021-01-23] MEDS: ENOXAPARIN 80 MG/0.8 ML (LOVENOX) SYR SC SCH (11:41)
--- NOTE | 2021-01-23 12:00 | Anesthesia-General Post-Op ---
MAC Patient Condition Mental Status/LOC: Same as Preop Cardiovascular: Satisfactory Nausea/Vomiting: Absent Respiratory: Satisfactory Pain: Controlled Complications: Absent Post Op Complications Complications None Follow Up Care/Instructions Patient Instructions None needed. Anesthesiology Discharge Order Discharge Order Patient is doing well, no complaints, stable vital signs, no apparent adverse anesthesia problems. No complications reported per nursing. BILLIE JONES CRNA Jan 23, 2021 12:00
--- NOTE | 2021-01-23 13:36 | Progress Note ---
Subjective Date Seen by a Provider: Jan 23, 2021 Time Seen by a Provider: 08:30 Subjective/Events-last exam Fwup a fib with RVR, hypertensive urgency, acute on chronic renal failure. Nervous about cardioversion. Objective Exam Vital Signs Date Time Temp Pulse Resp B/P (MAP) Pulse Ox O2 Delivery O2 Flow Rate FiO2 01/23/21 12:00 75 21 171/96 (121) 98 Room Air 01/23/21 11:36 36.3 01/23/21 11:00 50 13 166/82 (110) 94 Room Air 01/23/21 10:00 67 12 134/79 (97) 95 Room Air 01/23/21 09:00 81 18 146/80 (102) 100 Room Air 01/23/21 08:00 Room Air 01/23/21 08:00 71 26 167/122 (137) 97 Room Air 01/23/21 07:13 36.5 01/23/21 07:00 67 21 201/99 (133) 95 Room Air 01/23/21 06:42 62 01/23/21 06:00 60 15 159/110 (126) 92 Room Air 01/23/21 05:00 63 19 151/88 (109) 96 Room Air 01/23/21 04:03 68 10 166/97 (120) 97 Room Air 01/23/21 03:12 90 19 173/75 (107) 95 Room Air 01/23/21 03:04 Room Air 01/23/21 03:04 36.6 01/23/21 02:00 59 11 155/93 (113) 98 Room Air 01/23/21 01:00 62 01/23/21 01:00 62 17 151/87 (108) 96 Room Air 01/23/21 00:00 54 15 156/83 (107) 97 Room Air 01/22/21 23:10 Room Air 01/22/21 23:00 36.4 01/22/21 23:00 71 31 158/96 (116) 97 Room Air 01/22/21 22:00 60 13 154/81 (93) 99 Room Air 01/22/21 21:00 57 35 152/74 (101) 97 Room Air 01/22/21 20:42 36.2 Room Air 01/22/21 20:02 50 139/77 (109) Room Air 01/22/21 20:00 Room Air 01/22/21 19:00 53 01/22/21 19:00 53 18 142/62 (88) 95 Room Air 01/22/21 18:00 74 20 156/111 (126) 98 Room Air 01/22/21 17:00 75 96 Room Air 01/22/21 16:00 166/92 (116) 01/22/21 16:00 Room Air 01/22/21 15:40 36.5 01/22/21 15:00 74 22 181/105 (130) 97 Room Air 01/22/21 14:00 80 24 165/138 (147) 92 Room Air I & O 01/23/21 07:00 Intake Total 1525 ml Output Total 4050 ml Balance -2525 ml Capillary Refill : General Appearance: No Apparent Distress Neck: Supple Respiratory: Lungs Clear Cardiovascular: Systolic Murmur, Irregularly Irregular Gastrointestinal: normal bowel sounds, non tender, soft Extremity: Non Tender, No Calf Tenderness, No Pedal Edema Neurologic/Psychiatric: Alert, Oriented x3 Results Lab Laboratory Tests 01/23/21 02:40: White Blood Count 7.2, Red Blood Count 3.92, Hemoglobin 11.8, Hematocrit 38, Mean Corpuscular Volume 97, Mean Corpuscular Hemoglobin 30, Mean Corpuscular Hemoglobin Concent 31L, Red Cell Distribution Width 13.8, Platelet Count 179, Mean Platelet Volume 9.5, Immature Granulocyte % (Auto) 0, Neutrophils (%) (Auto) 66, Lymphocytes (%) (Auto) 21, Monocytes (%) (Auto) 7, Eosinophils (%) (Auto) 5, Basophils (%) (Auto) 1, Neutrophils # (Auto) 4.8, Lymphocytes # (Auto) 1.6, Monocytes # (Auto) 0.5, Eosinophils # (Auto) 0.3, Basophils # (Auto) 0.1, Immature Granulocyte # (Auto) 0.0, Sodium Level 143, Potassium Level 3.6, Chloride Level 111H, Carbon Dioxide Level 22, Anion Gap 10, Blood Urea Nitrogen 26H, Creatinine 1.63H, Estimat Glomerular Filtration Rate 30, BUN/Creatinine Ratio 16, Glucose Level 86, Calcium Level 8.3L, Phosphorus Level 2.7, Magnesium Level 1.7 Microbiology 01/21/21 MRSA Screen - Final, Complete MRSA not isolated Assessment/Plan Assessment/Plan Assess & Plan/Chief Complaint 1. A fib with RVR--cardioversion per cardiology today 2. Hypertensive Urgency--extra amlodopine now 3. Acute on Renal Failure--improving with hydration Clinical Quality Measures Admission Status Admission Dx 1. New Onset Atrial Fibrillation with RVR--metoprolol has decreased rate so will do high dose lovenox and cardiology consult with plan for cardioversion tomorrow, ECHO done on admit 2. Hypertensive Urgency--metoprolol resumed 3. Acute on Chronic Renal Failure--hydrate and monitor BUN/Cr HERMILA BARRIENTOS DO Jan 23, 2021 13:36
[2021-01-23] MEDS ORDERED: APIXABAN 5 MG (ELIQUIS) TABLET PO SCH (21:00)
[2021-01-24] MEDS ORDERED: hydrALAZINE (APESOLINE) 20 MG/ML VIAL ONE (03:08)
[2021-01-24] MEDS ORDERED: hydrALAZINE (APESOLINE) 20 MG/ML VIAL IV PRN ×2 (03:15)
[2021-01-24 03:18] LABS: BASOPHILS % (AUTO) 0 % (0-10); EOSINOPHILS # (AUTO) 0.3 10^3/uL (0.0-0.3); EOSINOPHILS % (AUTO) 3 % (0-10); HEMATOCRIT 37 % (35-52); HEMOGLOBIN 11.6 g/dL (11.5-16.0); LYMPHOCYTES # (AUTO) 1.5 10^3/uL (1.0-4.0); LYMPHOCYTES % (AUTO) 16 % (12-44); MEAN CORPUSCULAR HEMOGLOBIN 30 pg (25-34); MEAN CORPUSCULAR HGB CONC 32 g/dL (32-36); MEAN CORPUSCULAR VOLUME 96 fL (80-99); MEAN PLATELET VOLUME 9.5 fL (9.0-12.2); MONOCYTES # (AUTO) 0.8 10^3/uL (0.0-1.0); MONOCYTES % (AUTO) 9 % (0-12); NEUTROPHILS # (AUTO) 6.8 10^3/uL (1.8-7.8); NEUTROPHILS % (AUTO) 72 % (42-75); PLATELET COUNT 165 10^3/uL (130-400); WHITE BLOOD COUNT 9.4 10^3/uL (4.3-11.0)
[2021-01-24 03:41] LABS: CALCIUM 8.5 MG/DL (8.5-10.1); CREATININE SERUM 1.89 MG/DL (0.60-1.30); MAGNESIUM 1.6 MG/DL (1.6-2.4); PHOSPHORUS 2.7 MG/DL (2.3-4.7); POTASSIUM 3.5 MMOL/L (3.6-5.0)
[2021-01-24] MEDS: KCL 20 MEQ TAB (K-DUR) PO SCH (03:45)
[2021-01-24] MEDS: MAGNESIUM 1 GM/100 ML IVPB 100 ML IV SCH (03:45)
[2021-01-24] MEDS: POTASSIUM CL 10MEQ/50ML IVPB 50 ML IV SCH (03:45)
[2021-01-24] MEDS ORDERED: ONDANSETRON 4 MG/2 ML (SDV) Z0FRAN ONE (04:30)
[2021-01-24] MEDS ORDERED: NS IV 1000 ML 1,000 ML IV SCH (04:45)
[2021-01-24] MEDS ORDERED: ONDANSETRON 4 MG/2 ML (SDV) Z0FRAN IVP ONE (04:45)
[2021-01-24] MEDS: APIXABAN 2.5 MG (ELIQUIS) TABLET PO SCH ×2 (07:47→20:30)
[2021-01-24] MEDS: PANTOPRAZOLE 40 MG (PROTONIX) TAB PO SCH (07:47)
[2021-01-24 08:21] LABS: ALBUMIN 3.5 GM/DL (3.2-4.5)
[2021-01-24 08:24] LABS: TOTAL PROTEIN 5.9 GM/DL (6.4-8.2)
[2021-01-24 08:26] LABS: BILIRUBIN,TOTAL 0.5 MG/DL (0.1-1.0)
[2021-01-24 08:30] LABS: BILIRUBIN,DIRECT 0.2 MG/DL (0.0-0.3); BILIRUBIN,INDIRECT 0.3 MG/DL
--- NOTE | 2021-01-24 08:49 | Cardiology Progress Note ---
Subjective Date Seen by Provider: Jan 24, 2021 Time Seen by Provider: 08:00 Subjective/Events-last exam Ms. Fabian was seen and examined this morning in the ICU. She is feeling pretty horrible this morning, having nausea and vomiting after hydralazine early this am. Denies any chest pain or shortness of breath. Not ready to go home today. Objective-Cardiology Exam Last Set of Vital Signs Vital Signs 01/24/21 01/24/21 07:00 07:48 Temp 36.6 Pulse 61 Resp 21 B/P (MAP) 142/66 (91) Pulse Ox 92 O2 Delivery Room Air Capillary Refill : I&O Intake and Output 01/24/21 00:00 Intake Total 1850 ml Output Total 4050 ml Balance -2200 ml Intake Oral 850 ml IV Total 1000 ml Output Urine Total 4050 ml # Voids 2 # Bowel Movements 2 General: Alert, Oriented X3 HEENT: PERRLA Neck: Supple Lungs: Clear to Auscultation, Normal Air Movement Heart: Regular Rate, Normal S1, Normal S2 Abdomen: Normal Bowel Sounds, Soft, Other (tender to palpation over epigastric region) Extremities: No Clubbing, No Cyanosis, No Edema Skin: No Rashes Neuro: Normal Speech Psych/Mental Status: Mental Status NL Results Lab Laboratory Tests 01/24/21 02:53 A/P-Cardiology Admission Diagnosis Atrial fibrillation Hypertension Assessment/Plan Nausea and vomiting, likely due to hydralazine, given zofran. Liver enzymes are normal, probably gastritis. Started on Protonix Paroxysmal atrial fibrillation, no prior history, currently rate controlled on metoprolol 100mg daily. Started lovenox 1mg/kg BID. Diltiazem 30 mg every 6 hours, we will monitor tolerance and response, HR down to 60. Cardioversion 01/24, spontaneously converted to sinus rhythm on amiodarone drip post cardioversion. Amiodarone 400mg PO BID started today. CHADsVASc score 4, 4.8% stroke risk per year. Will need Eliquis 2.5mg BID for renal dosing on discharge. Starting Eliquis 01/24. Hypertension, continue metoprolol 100mg daily. Discontinue diltiazem and monitor Renal insufficiency, acute on chronic, Cr 1.89 today with GFR 25, unknown baseline. Renally dose all medications and monitor response. Hyperlipidemia, continue home atorvastatin. Extensive family history of heart disease. Supervisory-Addendum Brief Verification & Attestation Participated in pt care: history, MDM, physical Personally performed: exam, history, MDM, supervision of care Care discussed with: Medical Student Procedures: n/a Results interpretation: Verified all documentation Verification and Attestation of Medical Student E/M Service A medical student performed and documented this service in my presence. I reviewed and verified all information documented by the medical student and made modifications to such information, when appropriate. I personally performed the physical exam and medical decision making. Sergio Loyola, Jan 24, 2021,08:53 JOCELYNE CAMARA, Jan 24, 2021 08:49 SERGIO LOYOLA MD Jan 24, 2021 08:53
--- NOTE | 2021-01-24 08:52 | Cardiology Progress Note ---
Subjective Date Seen by Provider: Jan 24, 2021 Time Seen by Provider: 08:49 Subjective/Events-last exam Patient is laying down in bed, having epigastric pain, nausea and vomiting overnight, required Zofran Review of Systems General: No Chills, No Night Sweats; Fatigue; No Malaise, No Appetite, No Other HEENT: No Head Aches, No Visual Changes, No Eye Pain, No Ear Pain, No Dysphasia, No Sinus Congestion, No Post Nasal Drip, No Sore Throat, No Other Pulmonary: No Dyspnea, No Cough, No Pleuritic Chest Pain, No Other Cardiovascular: No: Chest Pain, Palpitations, Orthopnea, Paroxysmal Noc. Dyspnea, Edema, Lt Headedness, Other Objective-Cardiology Exam Last Set of Vital Signs Vital Signs 01/24/21 01/24/21 07:00 07:48 Temp 36.6 Pulse 61 Resp 21 B/P (MAP) 142/66 (91) Pulse Ox 92 O2 Delivery Room Air Capillary Refill : I&O Intake and Output 01/24/21 00:00 Intake Total 1850 ml Output Total 4050 ml Balance -2200 ml Intake Oral 850 ml IV Total 1000 ml Output Urine Total 4050 ml # Voids 2 # Bowel Movements 2 General: Alert, Oriented X3, Cooperative HEENT: Atraumatic, PERRLA Neck: Supple, No JVD Lungs: Clear to Auscultation, Normal Air Movement Heart: Regular Rate, Normal S1, Normal S2 Abdomen: Normal Bowel Sounds, Soft, Other (Mild epigastric tenderness, no guarding) Extremities: No Clubbing, No Cyanosis, No Edema Skin: No Rashes, No Breakdown Neuro: Normal Speech Psych/Mental Status: Mental Status NL Results Lab Laboratory Tests 01/24/21 02:53 A/P-Cardiology Admission Diagnosis Atrial fibrillation Hypertension Assessment/Plan Paroxysmal atrial fibrillation, new onset, underwent CHAYITO showing no thrombus, failed electrical cardioversion, converted on amiodarone drip. We will continue with oral amiodarone loading dose and monitor tolerance and response. CHADsVASc score 4, 4.8% stroke risk per year. Starting Eliquis 2.5 mg twice daily Epigastric discomfort, nausea and vomiting, probably gastritis, started on PPI, given Zofran. Managed by primary care team Hypertension, elevated blood pressure, did not tolerate hydralazine well, had episode of bradycardia while on diltiazem and metoprolol, I will restart metoprolol for now and continue of diltiazem and monitor Renal insufficiency, acute on chronic, continue to monitor renal function Hyperlipidemia, continue home atorvastatin. Extensive family history of heart disease. SERGIO LOYOLA MD Jan 24, 2021 08:52
[2021-01-24] MEDS: AMIODARONE 200 MG (CORDARONE) TAB PO SCH ×2 (09:38→20:30)
[2021-01-24] MEDS ORDERED: ONDANSETRON 4 MG/2 ML (SDV) Z0FRAN IVP PRN (12:30)
[2021-01-24] MEDS: NS IV 1000 ML 1,000 ML IV SCH (14:41)
--- NOTE | 2021-01-24 18:13 | Progress Note ---
Subjective Date Seen by a Provider: Jan 24, 2021 Time Seen by a Provider: 12:30 Subjective/Events-last exam Fwup a fib with RVR, hypertensive urgency, acute on chronic renal failure. Did not convert after cardioversion but converted with amiodarone drip but had hypertensive urgency overnight requiring hydralazine and then had Nausea and vomiting. Objective Exam Vital Signs Date Time Temp Pulse Resp B/P (MAP) Pulse Ox O2 Delivery O2 Flow Rate FiO2 01/24/21 16:43 Room Air 01/24/21 16:00 74 165/89 (114) 91 Room Air 01/24/21 15:53 36.8 01/24/21 15:00 61 21 148/75 (99) 92 Room Air 01/24/21 14:00 76 22 141/64 (89) 92 Room Air 01/24/21 13:00 54 01/24/21 13:00 63 21 146/67 (93) 93 Room Air 01/24/21 12:09 Room Air 01/24/21 12:00 65 24 155/85 (108) 93 Room Air 01/24/21 11:59 36.8 01/24/21 11:00 64 22 152/88 (109) 91 Room Air 01/24/21 10:00 52 17 142/70 (94) 91 Room Air 01/24/21 09:00 59 20 141/71 (94) 92 Room Air 01/24/21 08:00 66 17 139/67 (91) 91 Room Air 01/24/21 08:00 Room Air 01/24/21 07:48 36.6 01/24/21 07:03 67 01/24/21 07:00 61 21 142/66 (91) 92 Room Air 01/24/21 06:00 69 18 127/71 (89) 90 Room Air 01/24/21 05:00 71 19 145/72 (96) 93 Room Air 01/24/21 04:10 36.8 01/24/21 04:00 67 18 155/67 (96) 97 Room Air 01/24/21 03:15 51 21 203/92 (129) 91 Room Air 01/24/21 03:02 Room Air 01/24/21 03:00 57 21 191/97 (128) 92 Room Air 01/24/21 02:00 60 14 185/95 (125) 93 Room Air 01/24/21 01:00 60 15 189/99 (129) 91 Room Air 01/24/21 01:00 53 01/24/21 00:00 57 22 163/82 (109) 94 Room Air 01/23/21 23:10 36.6 01/23/21 23:09 Room Air 01/23/21 23:00 57 20 122/78 (93) 95 Room Air 01/23/21 22:00 61 25 165/94 (117) 96 Room Air 01/23/21 21:00 72 26 170/91 (117) 96 Room Air 01/23/21 20:00 71 23 166/76 (106) 97 Room Air 01/23/21 19:29 36.8 01/23/21 19:13 Room Air 01/23/21 19:00 49 26 158/72 (100) 96 Room Air 01/23/21 19:00 50 I & O 01/24/21 07:00 Intake Total 2150 ml Output Total 3050 ml Balance -900 ml Capillary Refill : General Appearance: Mild Distress Respiratory: Lungs Clear Cardiovascular: Regular Rate, Rhythm (with skipped beats), Systolic Murmur Extremity: Non Tender, No Calf Tenderness, No Pedal Edema Neurologic/Psychiatric: Alert, Oriented x3 Results Lab Laboratory Tests 01/24/21 02:53: White Blood Count 9.4, Red Blood Count 3.81, Hemoglobin 11.6, Hematocrit 37, Mean Corpuscular Volume 96, Mean Corpuscular Hemoglobin 30, Mean Corpuscular Hemoglobin Concent 32, Red Cell Distribution Width 13.9, Platelet Count 165, Mean Platelet Volume 9.5, Immature Granulocyte % (Auto) 0, Neutrophils (%) ( Auto) 72, Lymphocytes (%) (Auto) 16, Monocytes (%) (Auto) 9, Eosinophils (%) (Auto) 3, Basophils (%) (Auto) 0, Neutrophils # (Auto) 6.8, Lymphocytes # (Auto) 1.5, Monocytes # (Auto) 0.8, Eosinophils # (Auto) 0.3, Basophils # (Auto) 0.0, Immature Granulocyte # (Auto) 0.0, Sodium Level 142, Potassium Level 3.5L, Chloride Level 110H, Carbon Dioxide Level 19L, Anion Gap 13, Blood Urea Nitrogen 25H, Creatinine 1.89H, Estimat Glomerular Filtration Rate 25, BUN/Creatinine Ratio 13, Glucose Level 91, Calcium Level 8.5, Phosphorus Level 2.7, Magnesium Level 1.6, Total Bilirubin 0.5, Direct Bilirubin 0.2, Indirect Bilirubin 0.3, Aspartate Amino Transf (AST/SGOT) 34, Alanine Aminotransferase (ALT/SGPT) 30, Alkaline Phosphatase 103, Total Protein 5.9L, Albumin 3.5 Microbiology 01/21/21 MRSA Screen - Final, Complete MRSA not isolated Assessment/Plan Assessment/Plan Assess & Plan/Chief Complaint 1. A fib with RVR--cardioversion failed but then converted on amiodarone drip so now cardiology loading orally with amiodarone, transfer to cardiac stepdown 2. Hypertensive Urgency--resume metoprolol 3. Acute on Renal Failure--continue gentle IV hydration 4. Nausea/Vomiting--likely from hydralazine--on pantoprazole and given zofran I did call her son and update him on her status. Clinical Quality Measures Admission Status Admission Dx 1. New Onset Atrial Fibrillation with RVR--metoprolol has decreased rate so wi ll do high dose lovenox and cardiology consult with plan for cardioversion tomorrow, ECHO done on admit 2. Hypertensive Urgency--metoprolol resumed 3. Acute on Chronic Renal Failure--hydrate and monitor BUN/Cr HERMILA BARRIENTOS DO Jan 24, 2021 18:13
[2021-01-25 02:57] LABS: BASOPHILS % (AUTO) 0 % (0-10); EOSINOPHILS # (AUTO) 0.2 10^3/uL (0.0-0.3); EOSINOPHILS % (AUTO) 2 % (0-10); HEMATOCRIT 37 % (35-52); HEMOGLOBIN 11.5 g/dL (11.5-16.0); LYMPHOCYTES # (AUTO) 1.2 10^3/uL (1.0-4.0); LYMPHOCYTES % (AUTO) 13 % (12-44); MEAN CORPUSCULAR HEMOGLOBIN 30 pg (25-34); MEAN CORPUSCULAR HGB CONC 31 g/dL (32-36); MEAN CORPUSCULAR VOLUME 99 fL (80-99); MEAN PLATELET VOLUME 9.5 fL (9.0-12.2); MONOCYTES % (AUTO) 11 % (0-12); NEUTROPHILS # (AUTO) 6.6 10^3/uL (1.8-7.8); NEUTROPHILS % (AUTO) 73 % (42-75); PLATELET COUNT 150 10^3/uL (130-400); WHITE BLOOD COUNT 9.1 10^3/uL (4.3-11.0)
[2021-01-25 03:10] LABS: POTASSIUM 3.7 MMOL/L (3.6-5.0)
[2021-01-25 03:11] LABS: CALCIUM 8.3 MG/DL (8.5-10.1)
[2021-01-25 03:15] LABS: CREATININE SERUM 1.85 MG/DL (0.60-1.30)
[2021-01-25 03:17] LABS: MAGNESIUM 1.5 MG/DL (1.6-2.4)
[2021-01-25] MEDS: NS IV 1000 ML 1,000 ML IV SCH (05:55)
[2021-01-25] MEDS: KCL 20 MEQ TAB (K-DUR) PO SCH (05:56)
[2021-01-25] MEDS: POTASSIUM CL 10MEQ/50ML IVPB 50 ML IV SCH (05:56)
[2021-01-25] MEDS: MAGNESIUM 1 GM/100 ML IVPB 100 ML IV SCH ×3 (05:56→06:23)
[2021-01-25] MEDS: APIXABAN 2.5 MG (ELIQUIS) TABLET PO SCH ×2 (09:08→19:57)
[2021-01-25] MEDS: meTOprolol SUCCINATE 100 MG (TOPROL XL) TAB PO SCH (09:08)
[2021-01-25] MEDS: amLODIPine 10 MG (NORVASC) TAB PO SCH (09:08)
[2021-01-25] MEDS: PANTOPRAZOLE 40 MG (PROTONIX) TAB PO SCH (09:08)
[2021-01-25] MEDS: AMIODARONE 200 MG (CORDARONE) TAB PO SCH ×2 (09:08→19:57)
--- NOTE | 2021-01-25 12:08 | Cardiology Progress Note ---
Cardiology SOAP Progress Note Subjective: No cardiac complaints. Objective: I&O/Vital Signs 01/25/21 01/25/21 01/25/21 01/25/21 01:44 03:32 04:00 07:00 Temp 36.7 Pulse 60 69 Resp 17 B/P (MAP) 180/84 (116) Pulse Ox 65 O2 Delivery Nasal Cannula Room Air Room Air O2 Flow Rate 1.00 01/25/21 01/25/21 08:00 11:31 Pulse 66 Resp 17 B/P (MAP) 127/63 (84) Pulse Ox 92 O2 Delivery Room Air Room Air 01/25/21 00:00 Intake Total 690 ml Output Total 475 ml Balance 215 ml Weight (Pounds): 150 Weight (Calculated Kilograms): [id number] Constitutional: AAO x 3 Respiratory: chest is bilaterally symmetric, lungs clear to auscultation Cardiovascular: regular rate-rhythm, S1 and S2 Gastrointestional: soft, audible bowel sounds Extremities: no lower extremity edema bilateral Neurologic/Psychiatric: no motor/sensory deficits, alert, normal mood/affect, oriented x 3 Results/Procedures: Labs Laboratory Tests 01/25/21 02:45: White Blood Count 9.1, Red Blood Count 3.79L, Hemoglobin 11.5, Hematocrit 37, Mean Corpuscular Volume 99, Mean Corpuscular Hemoglobin 30, Mean Corpuscular Hemoglobin Concent 31L, Red Cell Distribution Width 14.1, Platelet Count 150, Mean Platelet Volume 9.5, Immature Granulocyte % (Auto) 1, Neutrophils (%) (Auto) 73, Lymphocytes (%) (Auto) 13, Monocytes (%) (Auto) 11, Eosinophils (%) (Auto) 2, Basophils (%) (Auto) 0, Neutrophils # (Auto) 6.6, Lymphocytes # (Auto) 1.2, Monocytes # (Auto) 1.0, Eosinophils # (Auto) 0.2, Basophils # (Auto) 0.0, Immature Granulocyte # (Auto) 0.1, Sodium Level 142, Potassium Level 3.7, Chloride Level 112H, Carbon Dioxide Level 17L, Anion Gap 13, Blood Urea Nitrogen 22H, Creatinine 1.85H, Estimat Glomerular Filtration Rate 26, BUN/Creatinine Ra partha 12, Glucose Level 89, Calcium Level 8.3L, Phosphorus Level 3.0, Magnesium Level 1.5L Microbiology 4/12/21 MRSA Screen - Final, Complete MRSA not isolated A/P: Assessment/Dx: Persistent atrial fibrillation Hypertension Plan: Persistent atrial fibrillation, new onset, underwent CHAYITO showing no thrombus, failed electrical cardioversion, converted on amiodarone drip. We will continue with oral amiodarone loading dose and monitor tolerance and response. CHADsVASc score 4, 4.8% stroke risk per year. Started on low-dose Eliquis. Epigastric discomfort, nausea and vomiting, probably gastritis, started on PPI, given Zofran. Managed by primary care team Hypertension, elevated blood pressure, did not tolerate hydralazine well, had episode of bradycardia while on diltiazem and metoprolol, I will restart metoprolol for now and continue of diltiazem and monitor Renal insufficiency, acute on chronic, continue to monitor renal function Hyperlipidemia, continue home atorvastatin. Extensive family history of heart disease. Thank you for your consultation. Please call me if you have any questions. Carlos Peter MD, FACP, FACC, FSCAI, FHRS, CCDS Interventional Cardiology Cardiac Electrophysiology Vascular Medicine and Endovascular Interventions Alysa PETER MD Jan 25, 2021 12:08
--- NOTE | 2021-01-25 12:19 | Progress Note ---
Subjective Date Seen by a Provider: Jan 25, 2021 Time Seen by a Provider: 12:14 Subjective/Events-last exam Fwup a fib with RVR, hypertensive urgency, acute on chronic renal failure. Just got out of shower. Appetite poor. Had N/V last night after dinner. Objective Exam Vital Signs Date Time Temp Pulse Resp B/P (MAP) Pulse Ox O2 Delivery O2 Flow Rate FiO2 01/25/21 11:31 66 17 127/63 (84) 92 Room Air 01/25/21 08:00 Room Air 01/25/21 07:00 69 01/25/21 04:00 Room Air 01/25/21 03:32 36.7 60 17 180/84 (116) 65 Room Air 01/25/21 01:44 Nasal Cannula 1.00 01/24/21 23:59 Room Air 01/24/21 23:32 36.7 59 15 166/79 (108) 94 Room Air 01/24/21 20:00 Room Air 01/24/21 19:00 36.9 70 16 177/85 (115) 92 Room Air 01/24/21 19:00 61 01/24/21 16:43 Room Air 01/24/21 16:00 74 165/89 (114) 91 Room Air 01/24/21 15:53 36.8 01/24/21 15:00 61 21 148/75 (99) 92 Room Air 01/24/21 14:00 76 22 141/64 (89) 92 Room Air 01/24/21 13:00 54 01/24/21 13:00 63 21 146/67 (93) 93 Room Air I & O 01/25/21 07:00 Intake Total 1149 ml Output Total 925 ml Balance 224 ml Capillary Refill : General Appearance: No Apparent Distress Neck: Supple Respiratory: Lungs Clear Cardiovascular: Systolic Murmur, Irregularly Irregular Gastrointestinal: normal bowel sounds, non tender, soft Extremity: Non Tender, No Calf Tenderness, No Pedal Edema Neurologic/Psychiatric: Alert, Oriented x3 Results Lab Laboratory Tests 01/25/21 02:45: White Blood Count 9.1, Red Blood Count 3.79L, Hemoglobin 11.5, Hematocrit 37, Mean Corpuscular Volume 99, Mean Corpuscular Hemoglobin 30, Mean Corpuscular Hemoglobin Concent 31L, Red Cell Distribution Width 14.1, Platelet Count 150, Mean Platelet Volume 9.5, Immature Granulocyte % (Auto) 1, Neutrophils (%) (Auto) 73, Lymphocytes (%) (Auto) 13, Monocytes (%) (Auto) 11, Eosinophils (%) (Auto) 2, Basophils (%) (Auto) 0, Neutrophils # (Auto) 6.6, Lymphocytes # (Auto) 1.2, Monocytes # (Auto) 1.0, Eosinophils # (Auto) 0.2, Basophils # (Auto) 0.0, Immature Granulocyte # (Auto) 0.1, Sodium Level 142, Potassium Level 3.7, Chlo ride Level 112H, Carbon Dioxide Level 17L, Anion Gap 13, Blood Urea Nitrogen 22H , Creatinine 1.85H, Estimat Glomerular Filtration Rate 26, BUN/Creatinine Ratio 12, Glucose Level 89, Calcium Level 8.3L, Phosphorus Level 3.0, Magnesium Level 1.5L Microbiology 01/21/21 MRSA Screen - Final, Complete MRSA not isolated Assessment/Plan Assessment/Plan Assess & Plan/Chief Complaint 1. A fib with RVR--cardioversion failed but then converted on amiodarone drip so now cardiology loading orally with amiodarone however sounds irregular again this morning, await cardiology recommendations 2. Hypertensive Urgency--improving, back on metoprolol 3. Acute on Renal Failure--continue gentle IV hydration 4. Nausea/Vomiting--continue pantoprazole and has zofran prn, if continues may need to consider amiodarone as the cause Clinical Quality Measures Admission Status Admission Dx 1. New Onset Atrial Fibrillation with RVR--metoprolol has decreased rate so will do high dose lovenox and cardiology consult with plan for cardioversion tomorrow, ECHO done on admit 2. Hypertensive Urgency--metoprolol resumed 3. Acute on Chronic Renal Failure--hydrate and monitor BUN/Cr HERMILA BARRIENTOS DO Jan 25, 2021 12:19
--- NOTE | 2021-01-25 14:01 | Physical Therapy Evaluation ---
PT Evaluation-General Medical Diagnosis Admission Date Jan 21, 2021 at 15:08 Medical Diagnosis: A-fib Onset Date: Jan 21, 2021 Therapy Diagnosis Therapy Diagnosis: debility/weakness Height/Weight Height (Feet): 5 Height (Inches): 2.00 Weight (Pounds): 150 Precautions Precautions/Isolations: Standard Precautions Referral Physician: Tiffanie Reason for Referral: Evaluation/Treatment Medical History Pertinent Medical History: HTN, Renal Insufficiency Current History Direct admit secondary to HTN and A-fib Reviewed History: Yes Social History Home: Single Level Current Living Status: Alone Entry Into Home: Level Entry Prior Prior Level of Function SCALE: Activities may be completed with or without assistive devices. 0-Kwpkfcqfrq-akndvzh completes the activity by him/herself with no assistance from a helper. 5-Set-up or Clean-up Assistance-helper sets up or cleans up; patient completes activity. [place] assists only prior to or following the activity. 4-Supervision or Touching Assistance-helper provides verbal cues and/or touching /steadying and/or contact guard assistance as patient completes activity. Assistance may be provided throughout the activity or intermittently. 3-Partial/Moderate Assistance-helper does LESS THAN HALF the effort. [place] lifts, holds or supports trunk or limbs, but provides less than half the effort. 2-Substantial/Maximal Assistance-helper does MORE THAN HALF the effort. [place] lifts or holds trunk or limbs and provides more than half the effort. 5-Snrfppwcz-rdxxtc does ALL the effort. Patient does none of the effort to complete the activity. Or, the assistance of 2 or more helpers is required for the patient to complete the activity. If activity was not attempted, code reason: 7-Patient Refused. 9-Not Applicable-not attempted and the patient did not perform the activity before the current illness, exacerbation or injury. 10-Not Attempted due to Environmental Limitations-(lack of equipment, weather restraints, etc.). 88-Not Attempted due to Medical Conditions or Safety Concerns. Bed Mobility: 6 Transfers (B,C,W/C): 6 Gait: 6 Indoor Mobility (Ambulation): Independent Prior Devices Use: None PT Evaluation-Current Subjective Patient agrees to PT Objective Patient Orientation: Normal For Age Attachments: Pittman Catheter, IV ROM/Strength ROM Lower Extremities bilateral LE WFL Strength Lower Extremities 4/5 grossly bilateral LE Integumentary/Posture Integumentary refer to nursing notes Bowel Incontinence: No Bladder Incontinence: Pittman Cath Posture WFL Neuromuscular (Tone, Coordination, Reflexes) grossly intact Sensory Vision: Wears Glasses Hearing: Impaired Transfers Roll Left to Right (QC): 6 Lying to Sitting/Side of Bed(Q: 6 Sit to Stand (QC): 4 Chair/Aym-ow-Ufmum Xfer(QC): 4 Gait Does the Patient Walk?: Yes Mode of Locomotion: Walk Anticipated Mode of Locomotion: Walk Walk 10 feet (QC): 4 Walk 50 ft with 2 Turns(QC): 4 Gait Assistive Device: FWW Balance Sitting Static: Normal Sitting Dynamic: Normal Standing Static: Normal Standing Dynamic: Normal Assessment/Needs 85 y.o. female, will benefit from skilled PT to address functional strength and mobility to improve current LOF to safely return to home at maximum LOF. Rehab Potential: Fair PT Director Clinical Applications Goals Director Clinical Applications Goals PT [facility] Goals Time Frame: Feb 02, 2021 Roll Left & Right (QC): 6 Sit to Lying (QC): 6 Lying-Sitting on Side/Bed(QC): 6 Sit to Stand (QC): 6 Chair/Hek-wx-Obakq Xfer(QC): 6 Toilet Transfer (QC): 6 Does the Patient Walk: Yes Walk 10 feet (QC): 6 Walk 50ft with 2 Turns (QC): 6 Walk 150 ft (QC): 6 PT Plan Problem List Problem List: Activity Tolerance, Functional Strength, Safety Treatment/Plan Treatment Plan: Continue Plan of Care Treatment Plan: Education, Functional Activity Richie, Functional Strength, Gait, Safety, Therapeutic Exercise, Transfers Treatment Duration: Feb 02, 2021 Frequency: 6 times per week Estimated Hrs Per Day: .25 hour per day Patient and/or Family Agrees t: Yes Time/GCodes Time In: 1322 Time Out: 1333 Total Billed Treatment Time: 11 Total Billed Treatment 1 visit EVModC 11 min ADRIANA CARTER PT Jan 25, 2021 14:01
[2021-01-26] MEDS: NS IV 1000 ML 1,000 ML IV SCH ×2 (01:31→13:29)
[2021-01-26 01:54] LABS: BASOPHILS % (AUTO) 0 % (0-10); EOSINOPHILS # (AUTO) 0.3 10^3/uL (0.0-0.3); EOSINOPHILS % (AUTO) 2 % (0-10); HEMATOCRIT 36 % (35-52); HEMOGLOBIN 11.1 g/dL (11.5-16.0); LYMPHOCYTES # (AUTO) 1.1 10^3/uL (1.0-4.0); LYMPHOCYTES % (AUTO) 10 % (12-44); MEAN CORPUSCULAR HEMOGLOBIN 30 pg (25-34); MEAN CORPUSCULAR HGB CONC 31 g/dL (32-36); MEAN CORPUSCULAR VOLUME 96 fL (80-99); MEAN PLATELET VOLUME 9.8 fL (9.0-12.2); MONOCYTES # (AUTO) 1.3 10^3/uL (0.0-1.0); MONOCYTES % (AUTO) 11 % (0-12); NEUTROPHILS # (AUTO) 8.8 10^3/uL (1.8-7.8); NEUTROPHILS % (AUTO) 76 % (42-75); PLATELET COUNT 156 10^3/uL (130-400); WHITE BLOOD COUNT 11.5 10^3/uL (4.3-11.0)
[2021-01-26 02:09] LABS: POTASSIUM 3.6 MMOL/L (3.6-5.0)
[2021-01-26 02:10] LABS: CALCIUM 8.4 MG/DL (8.5-10.1)
[2021-01-26 02:14] LABS: PHOSPHORUS 2.6 MG/DL (2.3-4.7)
[2021-01-26 02:15] LABS: CREATININE SERUM 1.86 MG/DL (0.60-1.30)
[2021-01-26 02:17] LABS: MAGNESIUM 1.5 MG/DL (1.6-2.4)
[2021-01-26] MEDS: POTASSIUM CL 10MEQ/50ML IVPB 50 ML IV SCH (03:06)
[2021-01-26] MEDS: KCL 20 MEQ TAB (K-DUR) PO SCH (03:07)
[2021-01-26] MEDS: MAGNESIUM 1 GM/100 ML IVPB 100 ML IV SCH ×3 (03:07→09:05)
--- NOTE | 2021-01-26 07:55 | Progress Note ---
Subjective Subjective Date Seen by Provider: Jan 26, 2021 Time Seen by Provider: 08:15 PT IS AN [address] Y/[address] OF [address]. 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 PT REPORTS THAT HER STOMACH IS LESS UPSET THAN YESTERDAY. SHE REPORTS EATING BREAKFAST - TOAST AND COFFEE THIS MORNING. SHE DENIES CHEST PAIN, SHORTNESS OF BREATH, OR ANY OTHER CONCERNS. Review of Systems General: No Chills, No Night Sweats; Fatigue; No Malaise HEENT: No Head Aches, No Visual Changes, No Eye Pain, No Ear Pain, No Dysphasia, No Sinus Congestion, No Post Nasal Drip, No Sore Throat Pulmonary: No Dyspnea, No Cough, No Pleuritic Chest Pain Cardiovascular: No: Chest Pain, Palpitations, Orthopnea, Paroxysmal Noc. Dyspnea, Edema Gastrointestinal: No: Nausea, Vomiting, Abdominal Pain Genitourinary: No Dysuria Musculoskeletal: No: back pain Neurological: Weakness; No: Confusion All Other Systems Reviewed All Other Systems Reviewed: Yes Objective Exam Vital Signs Vital Signs - First Documented 01/21/21 01/21/21 01/21/21 01/21/21 01/25/21 15:08 15:28 15:30 16:00 01:44 Temp 36.5 Pulse 101 Resp 17 B/P (MAP) 155/92 (113) Pulse Ox 96 O2 Delivery Room Air O2 Flow Rate 1.00 Capillary Refill : General Appearance: No Apparent Distress HEENT: PERRL/EOMI, Pharynx Normal Neck: Supple Respiratory: Lungs Clear Cardiovascular: Systolic Murmur, Irregularly Irregular Gastrointestinal: Normal Bowel Sounds, Non Tender, Soft Rectal: Deferred Back: No CVA Tenderness Extremity: Non Tender, No Calf Tenderness, No Pedal Edema Neurologic/Psychiatric: Alert, Oriented x3 Skin: Normal Color, Warm/Dry Results Lab Laboratory Tests 01/26/21 01:25: White Blood Count 11.5H, Red Blood Count 3.71L, Hemoglobin 11.1L, Hematocrit 36, Mean Corpuscular Volume 96, Mean Corpuscular Hemoglobin 30, Mean Corpuscular Hemoglobin Concent 31L, Red Cell Distribution Width 14.0, Platelet Count 156, Mean Platelet Volume 9.8, Immature Granulocyte % (Auto) 1, Neutrophils (%) (Auto) 76H, Lymphocytes (%) (Auto) 10L, Monocytes (%) (Auto) 11, Eosinophils (%) (Auto) 2, Basophils (%) (Auto) 0, Neutrophils # (Auto) 8.8H, Lymphocytes # (Auto) 1.1, Monocytes # (Auto) 1.3H, Eosinophils # (Auto) 0.3, Basophils # (Auto) 0.0, Immature Granulocyte # (Auto) 0.1, Sodium Level 141, Potassium Level 3.6, Chloride Level 111H, Carbon Dioxide Level 17L, Anion Gap 13, Blood Urea Nitrogen 23H, Creatinine 1.86H, Estimat Glomerular Filtration Rate 26, BUN/Creatinine Ratio 12, Glucose Level 99, Calcium Level 8.4L, Phosphorus Level 2.6, Magnesium Level 1.5L Microbiology 01/21/21 MRSA Screen - Final, Complete MRSA not isolated Assessment/Plan Assessment/Plan Admission Status: Inpatient Order (span 2 midnights) Reason for Inpatient Admission: AFIB, HYPERTENSIVE EMERGENCY - WILL REQUIRE MORE THAN TWO MIDNIGHTS TO STABILIZE PT Assessment and Plan ATRIAL FIBRILLATION WITH RVR HYPERTENSIVE URGENCY ACUTE ON CHRONIC RENAL FAILURE GASTRITIS HYPOMAGNESEMIA MILD LEUKOCYTOSIS MILD ANEMIA ATRIAL FIBRILLATION WITH RVR - STATUS POST CHAYITO AND CARDIOVERSION WHICH FAILED TO CONVERT PT, THEN STARTED ON AMIODARONE DRIP AND THEN ORAL AMIODARONE. - DEFER TO CLINICAL MICROBIOLOGIST RECOMMENDATIONS FOR FURTHER MANAGEMENT. HYPERTENSIVE URGENCY - RESOLVED, PERSISTENT HYPERTENSION, PT ON METOPROLOL XL 100MG DAILY, AND AMLODIPINE 10MG DAILY (WHICH WAS STARTED ON 01/25), PT HAS PRN HYDRALAZINE, WAIT TO ADJUST MEDS FURTHER, HAS NOT USED A DOSE OF PRN HYDRALAZINE SINCE 01/24. ACUTE ON CHRONIC RENAL FAILURE - AGE AND DISEASE RELATED, MONITOR LABS, RENAL ADJUSTMENT OF MEDS. GASTRITIS - APPEARS IMPROVED, AGE BREAKFAST THIS MORNING WITHOUT NAUSEA/EMESIS. HYPOMAGNESEMIA - REPLACE PER PROTOCOL. MILD LEUKOCYTOSIS - CHECK CXR AND REPEAT LABS TOMORROW. MILD ANEMIA - SERIAL LABS, LIKELY MULTIFACTORIAL, AGE AND DISEASE PROCESS RELATED. RIAN BELL MD Jan 26, 2021 07:55
[2021-01-26] MEDS ORDERED: KCL 20 MEQ TAB (K-DUR) PO ONE (09:00)
[2021-01-26] MEDS: AMIODARONE 200 MG (CORDARONE) TAB PO SCH ×2 (09:05→20:42)
[2021-01-26] MEDS: amLODIPine 10 MG (NORVASC) TAB PO SCH (09:05)
[2021-01-26] MEDS: PANTOPRAZOLE 40 MG (PROTONIX) TAB PO SCH (09:06)
[2021-01-26] MEDS: APIXABAN 2.5 MG (ELIQUIS) TABLET PO SCH ×2 (09:06→20:34)
[2021-01-26] MEDS: meTOprolol SUCCINATE 100 MG (TOPROL XL) TAB PO SCH (09:06)
--- NOTE | 2021-01-26 10:17 | Physical Therapy Daily Note ---
PT Daily Note-Current Subjective Pt awake and alert. Requests to be up in chair. Transfers SCALE: Activities may be completed with or without assistive devices. 7-Pyybipppot-npqxtmh completes the activity by him/herself with no assistance from a helper. 5-Set-up or Clean-up Assistance-helper sets up or cleans up; patient completes activity. [place] assists only prior to or following the activity. 4-Supervision or Touching Assistance-helper provides verbal cues and/or touching/steadying and/or contact guard assistance as patient completes activity. Assistance may be provided throughout the activity or intermittently. 3-Partial/Moderate Assistance-helper does LESS THAN HALF the effort. [place] lifts, holds or supports trunk or limbs, but provides less than half the effort. 2-Substantial/Maximal Assistance-helper does MORE THAN HALF the effort. [place] lifts or holds trunk or limbs and provides more than half the effort. 8-Czymcmrtu-rwtgsx does ALL the effort. Patient does none of the effort to complete the activity. Or, the assistance of 2 or more helpers is required for the patient to complete the activity. If activity was not attempted, code reason: 7-Patient Refused. 9-Not Applicable-not attempted and the patient did not perform the activity before the current illness, exacerbation or injury. 10-Not Attempted due to Environmental Limitations-(lack of equipment, weather restraints, etc.). 88-Not Attempted due to Medical Conditions or Safety Concerns. Chair/Mco-zk-Yosuu Xfer(QC): 5 Gait Training Ambulate 250ft on room air, no assistive device, CGA. Pt educated on safety and use of surroundings for stability and steadying of balance. Assessment Pt unsteady without assistive device. Recommend contiued use of walker until balance improves. PT Student Specialist Goals Custodial Goals PT Student Specialist Goals Time Frame: Feb 02, 2021 Roll Left & Right (QC): 6 Sit to Lying (QC): 6 Lying-Sitting on Side/Bed(QC): 6 Sit to Stand (QC): 6 Chair/Jrl-fh-Sbeje Xfer(QC): 6 Toilet Transfer (QC): 6 Does the Patient Walk: Yes Walk 10 feet (QC): 6 Walk 50ft with 2 Turns (QC): 6 Walk 150 ft (QC): 6 PT Plan Treatment/Plan Treatment Plan: Continue Plan of Care Treatment Plan: Education, Functional Activity Richie, Functional Strength, Gait, Safety, Therapeutic Exercise, Transfers Treatment Duration: Feb 02, 2021 Frequency: 6 times per week Estimated Hrs Per Day: .25 hour per day Patient and/or Family Agrees t: Yes Time/GCodes Time In: 929 Time Out: 944 Total Billed Treatment Time: 15 Total Billed Treatment visit, gait 15min JAMILA LUNDY PT Jan 26, 2021 10:17
--- NOTE | 2021-01-26 11:38 | Diagnostic Imaging Report ---
INDICATION: Leukocytosis, atrial fibrillation. TECHNIQUE: Two view chest 11:05 AM CORRELATION STUDY: 01/21/2021 FINDINGS: There is presence of a small to moderate bilateral pleural effusions, change from prior. Likely associated atelectasis, infiltrate and/or edema about both lung bases. Mid and upper lung alvarado are clear. Heart size is partially obscured but is mildly prominent. No evidence of overt failure. Accentuated thoracic kyphosis and degenerative changes thoracic spine. IMPRESSION: 1. Development of small to moderate bilateral pleural effusions. Likely associated infiltrate, atelectasis and/or edema about both lung bases. Dictated by: Dictated on workstation # [id number]
--- NOTE | 2021-01-26 14:52 | Cardiology Progress Note ---
Cardiology SOAP Progress Note Subjective: No cardiac complaints. Objective: I&O/Vital Signs 01/26/21 01/26/21 01/26/21 01/26/21 03:52 07:00 07:29 08:00 Temp 37.0 36.9 Pulse 70 47 61 Resp 20 20 B/P (MAP) 135/73 (93) 174/90 (118) Pulse Ox 90 91 O2 Delivery Nasal Cannula Nasal Cannula Room Air O2 Flow Rate 3.00 3.00 01/26/21 01/26/21 11:34 12:36 Temp 36.6 Pulse 47 49 Resp 22 B/P (MAP) 152/64 (93) Pulse Ox 92 O2 Delivery Nasal Cannula O2 Flow Rate 3.00 01/26/21 00:00 Intake Total 1025 ml Output Total 200 ml Balance 825 ml Weight (Pounds): 150 Weight (Calculated Kilograms): 68.385025 Constitutional: AAO x 3 Respiratory: chest is bilaterally symmetric, lungs clear to auscultation Cardiovascular: regular rate-rhythm, S1 and S2 Gastrointestional: soft, audible bowel sounds Extremities: no lower extremity edema bilateral Neurologic/Psychiatric: no motor/sensory deficits, alert, normal mood/affect, oriented x 3 Results/Procedures: Labs Laboratory Tests 01/26/21 01:25: White Blood Count 11.5H, Red Blood Count 3.71L, Hemoglobin 11.1L, Hematocrit 36, Mean Corpuscular Volume 96, Mean Corpuscular Hemoglobin 30, Mean Corpuscular Hemoglobin Concent 31L, Red Cell Distribution Width 14.0, Platelet Count 156, Mean Platelet Volume 9.8, Immature Granulocyte % (Auto) 1, Neutrophils (%) (Auto) 76H, Lymphocytes (%) (Auto) 10L, Monocytes (%) (Auto) 11, Eosinophils (%) (Auto) 2, Basophils (%) (Auto) 0, Neutrophils # (Auto) 8.8H, Lymphocytes # (Auto) 1.1, Monocytes # (Auto) 1.3H, Eosinophils # (Auto) 0.3, Basophils # (Auto) 0.0, Immature Granulocyte # (Auto) 0.1, Sodium Level 141, Potassium Level 3.6, Chloride Level 111H, Carbon Dioxide Level 17L, Anion Gap 13, Blood Urea Nitrogen 23H, Creatinine 1.86H, Estimat Glomerular Filtration Rate 26, BUN/Creatinine Ratio 12, Glucose Level 99, Calcium Level 8.4L, Phosphorus Level 2.6, Magnesium Level 1.5L Microbiology 01/21/21 MRSA Screen - Final, Complete MRSA not isolated A/P: Assessment/Dx: Persistent atrial fibrillation Hypertension Plan: Persistent atrial fibrillation, new onset, underwent CHAYITO showing no thrombus, failed electrical cardioversion, converted on amiodarone drip. We will continue with oral amiodarone loading dose and monitor tolerance and response. CHADsVASc score 4, 4.8% stroke risk per year. Started on low-dose Eliquis. Epigastric discomfort, nausea and vomiting, probably gastritis, started on PPI, given Zofran. Managed by primary care team Hypertension, elevated blood pressure, did not tolerate hydralazine well, had episode of bradycardia while on diltiazem and metoprolol, I will restart metoprolol for now and continue of diltiazem and monitor Renal insufficiency, acute on chronic, continue to monitor renal function Hyperlipidemia, continue home atorvastatin. Extensive family history of heart disease. Thank you for your consultation. Please call me if you have any questions. Carlos Peter MD, FACP, FACC, FSCAI, FHRS, CCDS Interventional Cardiology Cardiac Electrophysiology Vascular Medicine and Endovascular Interventions Alysa PETER MD Jan 26, 2021 14:51
[2021-01-27 02:57] LABS: BASOPHILS % (AUTO) 0 % (0-10); EOSINOPHILS # (AUTO) 0.3 10^3/uL (0.0-0.3); EOSINOPHILS % (AUTO) 3 % (0-10); HEMATOCRIT 35 % (35-52); HEMOGLOBIN 11.3 g/dL (11.5-16.0); LYMPHOCYTES % (AUTO) 10 % (12-44); MEAN CORPUSCULAR HEMOGLOBIN 31 pg (25-34); MEAN CORPUSCULAR HGB CONC 32 g/dL (32-36); MEAN CORPUSCULAR VOLUME 96 fL (80-99); MEAN PLATELET VOLUME 10.3 fL (9.0-12.2); MONOCYTES # (AUTO) 1.1 10^3/uL (0.0-1.0); MONOCYTES % (AUTO) 11 % (0-12); NEUTROPHILS # (AUTO) 8.1 10^3/uL (1.8-7.8); NEUTROPHILS % (AUTO) 77 % (42-75); PLATELET COUNT 187 10^3/uL (130-400); WHITE BLOOD COUNT 10.6 10^3/uL (4.3-11.0)
[2021-01-27 03:08] LABS: CALCIUM 8.7 MG/DL (8.5-10.1)
[2021-01-27 03:13] LABS: CREATININE SERUM 1.95 MG/DL (0.60-1.30); PHOSPHORUS 2.4 MG/DL (2.3-4.7)
[2021-01-27 03:16] LABS: MAGNESIUM 1.9 MG/DL (1.6-2.4)
[2021-01-27] MEDS: POTASSIUM CL 10MEQ/50ML IVPB 50 ML IV SCH (06:30)
[2021-01-27] MEDS: MAGNESIUM 1 GM/100 ML IVPB 100 ML IV SCH (06:30)
[2021-01-27] MEDS: KCL 20 MEQ TAB (K-DUR) PO SCH (06:30)
--- NOTE | 2021-01-27 07:54 | Progress Note ---
Subjective Subjective Date Seen by Provider: Jan 27, 2021 Time Seen by Provider: 07:40 PT IS AN 85 Y/[address] OF [address] BARRIENTOS FOR WHOM I AM [employer]IDE [employer] THIS WEEKEND - THE PT WAS ADMITTED FOR AFIB RVR AND HYPERTENSIVE URGENCY. PT DENIES UPSET STOMACH - BUT IS NOT HAPPY WITH HER BREAKFAST - SPECIFICALLY HER PANCAKE. SHE REPORTS THAT IT IS DRY AND SHE "SWALLOWED THE WRONG WAY" CAUSING HER TO COUGH BECAUSE IT WAS DRY. SHE ALSO REPORTS THAT HER IV WENT BAD AND THEY WERE UNABLE TO GET HER IV RESTARTED DESPITE SEVERAL ATTEMPTS BY STAFF. SHE DENIES CHEST PAIN, SHORTNESS OF BREATH, ABDOMINAL PAIN, NAUSEA. Review of Systems General: No Chills, No Night Sweats; Fatigue; No Malaise HEENT: No Head Aches, No Visual Changes, No Eye Pain, No Ear Pain, No Dysphasia, No Sinus Congestion, No Post Nasal Drip, No Sore Throat Pulmonary: No Dyspnea; Cough (AFTER CHOKING ON PANCAKE); No Pleuritic Chest Pain Cardiovascular: No: Chest Pain, Palpitations, Orthopnea, Paroxysmal Noc. Dyspnea, Edema Gastrointestinal: No: Nausea, Vomiting, Abdominal Pain Genitourinary: No Dysuria Musculoskeletal: No: back pain Neurological: Weakness; No: Confusion All Other Systems Reviewed All Other Systems Reviewed: Yes Objective Exam Vital Signs Vital Signs - First Documented 01/21/21 01/21/21 01/21/21 01/21/21 01/25/21 15:08 15:28 15:30 16:00 01:44 Temp 36.5 Pulse 101 Resp 17 B/P (MAP) 155/92 (113) Pulse Ox 96 O2 Delivery Room Air O2 Flow Rate 1.00 Capillary Refill : General Appearance: No Apparent Distress HEENT: PERRL/EOMI, Pharynx Normal Neck: Supple Respiratory: Lungs Clear Cardiovascular: Systolic Murmur, Irregularly Irregular Gastrointestinal: Normal Bowel Sounds, Non Tender, Soft Rectal: Deferred Extremity: Non Tender, No Calf Tenderness, No Pedal Edema Neurologic/Psychiatric: Alert, Oriented x3, No Motor/Sensory Deficits, Normal Mood/Affect Skin: Normal Color, Warm/Dry Results Lab Laboratory Tests 01/27/21 02:45: White Blood Count 10.6, Red Blood Count 3.67L, Hemoglobin 11.3L, Hematocrit 35, Mean Corpuscular Volume 96, Mean Corpuscular Hemoglobin 31, Mean Corpuscular Hemoglobin Concent 32, Red Cell Distribution Width 14.1, Platelet Count 187, Mean Platelet Volume 10.3, Immature Granulocyte % (Auto) 0, Neutrophils (%) (Auto) 77H, Lymphocytes (%) (Auto) 10L, Monocytes (%) (Auto) 11, Eosinophils (%) (Auto) 3, Basophils (%) (Auto) 0, Neutrophils # (Auto) 8.1H, Lymphocytes # (Auto) 1.0, Monocytes # (Auto) 1.1H, Eosinophils # (Auto) 0.3, Basophils # (Auto) 0.0, Immature Granulocyte # (Auto) 0.0, Sodium Level 139, Potassium Level 4.0, Chloride Level 110H, Carbon Dioxide Level 16L, Anion Gap 13, Blood Urea Nitrogen 26H, Creatinine 1.95H, Estimat Glomerular Filtration Rate 24, BUN/Creatinine Ratio 13, Glucose Level 99, Calcium Level 8.7, Phosphorus Level 2.4, Magnesium Level 1.9 Microbiology 01/21/21 MRSA Screen - Final, Complete MRSA not isolated Assessment/Plan Assessment/Plan Assessment and Plan ATRIAL FIBRILLATION WITH RVR HYPERTENSIVE URGENCY ACUTE ON CHRONIC RENAL FAILURE GASTRITIS HYPOMAGNESEMIA MILD LEUKOCYTOSIS MILD ANEMIA ATRIAL FIBRILLATION WITH RVR - STATUS POST CHAYITO AND CARDIOVERSION WHICH FAILED TO CONVERT PT, THEN STARTED ON AMIODARONE DRIP AND THEN TRANSITIONED TO ORAL AMIODARONE - PT APPEARS TO BE TOLERATING AMIODARONE AT THIS TIME. - DEFER TO EXHIBITS COORDINATOR RECOMMENDATIONS FOR FURTHER MANAGEMENT. HYPERTENSIVE URGENCY - RESOLVED, PERSISTENT HYPERTENSION, PT ON METOPROLOL XL 100MG DAILY, AND AMLODIPINE 10MG DAILY (WHICH WAS STARTED ON 01/25), PT HAS PRN HYDRALAZINE, WAIT TO ADJUST MEDS FURTHER, HAS NOT USED A DOSE OF PRN HYDRALAZINE SINCE 01/24. ACUTE ON CHRONIC RENAL FAILURE - AGE AND DISEASE RELATED, MONITOR LABS, RENAL ADJUSTMENT OF MEDS. - WORSENING RENAL FUNCTION - DESPITE PT BEING ON MINIMALLY NEPHROTOXIC AGENTS, MONITOR BMP TOMORROW. GASTRITIS - APPEARS RESOLVED HYPOMAGNESEMIA - REPLACE THROUGH ORAL ROUTE IF NEEDED MILD LEUKOCYTOSIS - IMPROVED FROM YESTERDAY - WE WILL REPEAT A CXR AND CBC TOMORROW. CXR REPORT FOLLOWS: Date of Exam:01/26/21 CHEST PA/LAT (2 VIEW) INDICATION: Leukocytosis, atrial fibrillation. TECHNIQUE: Two view chest 11:05 AM CORRELATION STUDY: 01/21/2021 FINDINGS: There is presence of a small to moderate bilateral pleural effusions, change from prior. Likely associated atelectasis, infiltrate and/or edema about both lung bases. Mid and upper lung alvarado are clear. Heart size is partially obscured but is mildly prominent. No evidence of overt failure. Accentuated thoracic kyphosis and degenerative changes thoracic spine. IMPRESSION: 1. Development of small to moderate bilateral pleural effusions. Likely associated infiltrate, atelectasis and/or edema about both lung bases. MILD ANEMIA - SERIAL LABS, LIKELY MULTIFACTORIAL, AGE AND DISEASE PROCESS RELATED. RIAN BELL MD Jan 27, 2021 07:54
[2021-01-27] MEDS: amLODIPine 10 MG (NORVASC) TAB PO SCH (08:35)
[2021-01-27] MEDS: meTOprolol SUCCINATE 100 MG (TOPROL XL) TAB PO SCH (08:35)
[2021-01-27] MEDS: AMIODARONE 200 MG (CORDARONE) TAB PO SCH ×2 (08:35→20:40)
[2021-01-27] MEDS: APIXABAN 2.5 MG (ELIQUIS) TABLET PO SCH ×2 (08:36→20:40)
[2021-01-27] MEDS: PANTOPRAZOLE 40 MG (PROTONIX) TAB PO SCH (08:36)
[2021-01-27] MEDS ORDERED: BISACODYL 10 MG SUPP (DULCOLAX) PR NR (09:15)
--- NOTE | 2021-01-27 14:04 | Cardiology Progress Note ---
Cardiology SOAP Progress Note Subjective: No cardiac complaints. Objective: I&O/Vital Signs 01/27/21 01/27/21 01/27/21 01/27/21 04:00 07:00 07:29 07:31 Temp 36.7 Pulse 58 54 62 Resp 26 29 B/P (MAP) 164/81 (108) 154/75 (101) Pulse Ox 94 91 O2 Delivery Nasal Cannula Nasal Cannula Nasal Cannula O2 Flow Rate 2.50 2.00 2.50 01/27/21 01/27/21 01/27/21 08:32 08:37 11:33 Temp 36.7 36.5 Pulse 70 52 Resp 29 24 B/P (MAP) 161/70 (100) 151/64 (93) Pulse Ox 94 93 O2 Delivery Nasal Cannula Nasal Cannula Nasal Cannula O2 Flow Rate 2.50 2.50 2.50 01/27/21 00:00 Intake Total 1880 ml Output Total 300 ml Balance 1580 ml Weight (Pounds): 150 Weight (Calculated Kilograms): 68.522454 Constitutional: AAO x 3 Respiratory: chest is bilaterally symmetric, lungs clear to auscultation Cardiovascular: regular rate-rhythm, S1 and S2 Gastrointestional: soft, audible bowel sounds Extremities: no lower extremity edema bilateral Neurologic/Psychiatric: no motor/sensory deficits, alert, normal mood/affect, oriented x 3 Results/Procedures: Labs Laboratory Tests 01/27/21 02:45: White Blood Count 10.6, Red Blood Count 3.67L, Hemoglobin 11.3L, Hematocrit 35, Mean Corpuscular Volume 96, Mean Corpuscular Hemoglobin 31, Mean Corpuscular Hemoglobin Concent 32, Red Cell Distribution Width 14.1, Platelet Count 187, Mean Platelet Volume 10.3, Immature Granulocyte % (Auto) 0, Neutrophils (%) (Auto) 77H, Lymphocytes (%) (Auto) 10L, Monocytes (%) (Auto) 11, Eosinophils (%) (Auto) 3, Basophils (%) (Auto) 0, Neutrophils # (Auto) 8.1H, Lymphocytes # (Auto) 1.0, Monocytes # (Auto) 1.1H, Eosinophils # (Auto) 0.3, Basophils # (Auto) 0.0, Immature Granulocyte # (Auto) 0.0, Sodium Level 139, Potassium Level 4.0, Chloride Level 110H, Carbon Dioxide Level 16L, Anion Gap 13, Blood Urea Nitrogen 26H, Creatinine 1.95H, Estimat Glomerular Filtration Rate 24, BUN/Creatinine Ratio 13, Glucose Level 99, Calcium Level 8.7, Phosphorus Level 2.4, Magnesium Level 1.9 Microbiology 01/21/21 MRSA Screen - Final, Complete MRSA not isolated A/P: Assessment/Dx: Persistent atrial fibrillation Hypertension Plan: Persistent atrial fibrillation, new onset, underwent CHAYITO showing no thrombus, failed electrical cardioversion, converted on amiodarone drip. We will continue with oral amiodarone loading dose and monitor tolerance and response. Currently in sinus rhythm. CHADsVASc score 4, 4.8% stroke risk per year. Started on low-dose Eliquis. Epigastric discomfort, nausea and vomiting, probably gastritis, started on PPI, given Zofran. Managed by primary care team Hypertension, elevated blood pressure, did not tolerate hydralazine well, had episode of bradycardia while on diltiazem and metoprolol, I will restart metoprolol for now and continue of diltiazem and monitor Renal insufficiency, acute on chronic, continue to monitor renal function Hyperlipidemia, continue home atorvastatin. Extensive family history of heart disease. Thank you for your consultation. Please call me if you have any questions. Carlos Peter MD, FACP, FACC, FSCAI, FHRS, CCDS Interventional Cardiology Cardiac Electrophysiology Vascular Medicine and Endovascular Interventions Alysa PETER MD Jan 27, 2021 14:04
[2021-01-28 02:28] LABS: BASOPHILS # (AUTO) 0.1 10^3/uL (0.0-0.1); BASOPHILS % (AUTO) 0 % (0-10); EOSINOPHILS # (AUTO) 0.3 10^3/uL (0.0-0.3); EOSINOPHILS % (AUTO) 2 % (0-10); HEMATOCRIT 38 % (35-52); HEMOGLOBIN 11.8 g/dL (11.5-16.0); LYMPHOCYTES # (AUTO) 0.9 10^3/uL (1.0-4.0); LYMPHOCYTES % (AUTO) 8 % (12-44); MEAN CORPUSCULAR HEMOGLOBIN 30 pg (25-34); MEAN CORPUSCULAR HGB CONC 31 g/dL (32-36); MEAN CORPUSCULAR VOLUME 95 fL (80-99); MONOCYTES # (AUTO) 1.2 10^3/uL (0.0-1.0); MONOCYTES % (AUTO) 10 % (0-12); NEUTROPHILS # (AUTO) 9.5 10^3/uL (1.8-7.8); NEUTROPHILS % (AUTO) 80 % (42-75); PLATELET COUNT 210 10^3/uL (130-400); WHITE BLOOD COUNT 11.9 10^3/uL (4.3-11.0)
[2021-01-28 02:40] LABS: POTASSIUM 3.9 MMOL/L (3.6-5.0)
[2021-01-28 02:46] LABS: CREATININE SERUM 1.73 MG/DL (0.60-1.30); PHOSPHORUS 2.6 MG/DL (2.3-4.7)
[2021-01-28 02:48] LABS: MAGNESIUM 1.8 MG/DL (1.6-2.4)
[2021-01-28] MEDS: KCL 20 MEQ TAB (K-DUR) PO SCH (05:11)
[2021-01-28] MEDS: AMIODARONE 200 MG (CORDARONE) TAB PO SCH ×2 (08:21→21:11)
[2021-01-28] MEDS: PANTOPRAZOLE 40 MG (PROTONIX) TAB PO SCH (08:21)
[2021-01-28] MEDS: amLODIPine 10 MG (NORVASC) TAB PO SCH (08:21)
[2021-01-28] MEDS: APIXABAN 2.5 MG (ELIQUIS) TABLET PO SCH ×2 (08:21→21:11)
--- NOTE | 2021-01-28 08:57 | Progress Note - Cardiology ---
Cardiology SOAP Progress Note Subjective: Returned from CXR No c/o CP or palpitations Some SOB with exertion C/O bilat LE swelling, better than yesterday Objective: I&O/Vital Signs 01/29/21 01/29/21 01/29/21 01/29/21 00:00 01:00 03:47 04:04 Temp 36.6 36.4 Pulse 61 56 68 Resp 20 18 B/P (MAP) 156/75 (102) 162/67 (98) Pulse Ox 94 93 O2 Delivery Nasal Cannula Nasal Cannula O2 Flow Rate 2.00 2.00 01/29/21 01/29/21 01/29/21 07:01 08:00 08:19 Temp 37.0 Pulse 70 Resp 22 Pulse Ox 95 O2 Delivery Nasal Cannula Nasal Cannula Nasal Cannula O2 Flow Rate 2.00 2.00 2.00 01/29/21 00:00 Intake Total 650 ml Output Total 1100 ml Balance -450 ml Weight (Pounds): 150 Weight (Calculated Kilograms): 68.476142 Constitutional: AAO x 3, well-developed, well-nourished Respiratory: chest expansion is symmetric, chest is bilaterally symmetric, crackles (bases bilat) Cardiovascular: regular rate-rhythm, S1 and S2 Gastrointestional: No tender; soft, round, audible bowel sounds Extremities: other (bilat pitting LE swelling) Neurologic/Psychiatric: grossly intact (moves all extremities) Skin: No rash on exposed areas, No ulcerations on exposed areas Results/Procedures: Labs Laboratory Tests 01/29/21 03:24: White Blood Count 10.0, Red Blood Count 3.75L, Hemoglobin 11.4L, Hematocrit 35, Mean Corpuscular Volume 92, Mean Corpuscular Hemoglobin 30, Mean Corpuscular Hemoglobin Concent 33, Red Cell Distribution Width 13.5, Platelet Count 256, Mean Platelet Volume 10.4, Immature Granulocyte % (Auto) 0, Neutrophils (%) (Auto) 77H, Lymphocytes (%) (Auto) 9L, Monocytes (%) (Auto) 12, Eosinophils (%) (Auto) 2, Basophils (%) (Auto) 1, Neutrophils # (Auto) 7.7, Lymphocytes # (Auto) 0.9L, Monocytes # (Auto) 1.2H, Eosinophils # (Auto) 0.2, Basophils # (Auto) 0.1, Immature Granulocyte # (Auto) 0.0 01/29/21 03:31: Sodium Level 140, Potassium Level 3.4L, Chloride Level 106, Carbon Dioxide Level 21, Anion Gap 13, Blood Urea Nitrogen 30H, Creatinine 1.93H, Estimat Glomerular Filtration Rate 25, BUN/Creatinine Ratio 16, Glucose Level 93, Calcium Level 9.0, Phosphorus Level 3.1, Magnesium Level 1.6 Microbiology 01/21/21 MRSA Screen - Final, Complete MRSA not isolated A/P: Assessment: Atrial fib new onset this admission - underwent CHAYITO showing no thrombus, failed electrical cardioversion per Dr. Lopez - converted on amiodarone drip - maintaining SR to SB - CHADsVASc score 4, 4.8% stroke risk per year. Continue on low-dose Eliquis Epigastric discomfort, nausea and vomiting, probably gastritis - resolved Hypertension - intolerant to high dose BB d/t bradycardia - albeit asymptomatic CHAYITO of 01-23-[address] Lopez showed severe MR; mild to mod LVH; LVEF 60% Renal insufficiency, acute on chronic - improved Hyperlipidemia - statin tx Extensive family history of heart disease. Plan: Maintaining SR on oral Amiodarone and BB Intolerant to higher dose BB d/t asymptomatic bradycardia (HR in the 40's) CXR this morning - pending Bilat LE swelling with positive fluid balance Continue current regimen We have reviewed Dr. Peter and Dr. Lopez's note NELLA MORENO Jan 28, 2021 08:57
[2021-01-28] MEDS ORDERED: meTOprolol SUCCINATE 100 MG (TOPROL XL) TAB PO SCH (09:00)
[2021-01-28] MEDS ORDERED: FUROSEMIDE 40 MG/4 ML INJ (LASIX) IVP ONE (09:15)
[2021-01-28] MEDS ORDERED: FUROSEMIDE 40 MG (LASIX) TAB PO NR (10:00)
--- NOTE | 2021-01-28 10:13 | Physical Therapy Daily Note ---
PT Daily Note-Current Subjective Patient reports she hopes to go home today. Agrees to PT. Mental Status Patient Orientation: Person, Time, Situation Attachments: Oxygen (2L NC) Transfers SCALE: Activities may be completed with or without assistive devices. 4-Fuhznvjedy-joajwkd completes the activity by him/herself with no assistance from a helper. 5-Set-up or Clean-up Assistance-helper sets up or cleans up; patient completes activity. [place] assists only prior to or following the activity. 4-Supervision or Touching Assistance-helper provides verbal cues and/or touching/steadying and/or contact guard assistance as patient completes activity. Assistance may be provided throughout the activity or intermittently. 3-Partial/Moderate Assistance-helper does LESS THAN HALF the effort. Chester lifts, holds or supports trunk or limbs, but provides less than half the effort. 2-Substantial/Maximal Assistance-helper does MORE THAN HALF the effort. [place] lifts or holds trunk or limbs and provides more than half the effort. 7-Ylfnsygnz-kadqpo does ALL the effort. Patient does none of the effort to complete the activity. Or, the assistance of 2 or more helpers is required for the patient to complete the activity. If activity was not attempted, code reason: 7-Patient Refused. 9-Not Applicable-not attempted and the patient did not perform the activity before the current illness, exacerbation or injury. 10-Not Attempted due to Environmental Limitations-(lack of equipment, weather restraints, etc.). 88-Not Attempted due to Medical Conditions or Safety Concerns. Sit to Stand (QC): 4 (SBA for safety) Gait Training Does the Patient Walk?: Yes Distance: 300' Walk 10 feet (QC): 4 Walk 50 ft with 2 Turns(QC): 4 Walk 150 ft (QC): 4 Gait Assistive Device: FWW Improved stability with FWW use. Per patient, she does not have one for home use. RN and SW notified. Assessment Patient tolerated treatment well. SBA for safety. Patient has new O2 need for home per report. Increase safety concern with O2 tubing negotiating. PT Senior Living Goals Asphalt [place] Goals PT Senior Living Goals Time Frame: Feb 02, 2021 Roll Left & Right (QC): 6 Sit to Lying (QC): 6 Lying-Sitting on Side/Bed(QC): 6 Sit to Stand (QC): 6 Chair/Soe-wf-Gionj Xfer(QC): 6 Toilet Transfer (QC): 6 Does the Patient Walk: Yes Walk 10 feet (QC): 6 Walk 50ft with 2 Turns (QC): 6 Walk 150 ft (QC): 6 PT Plan Treatment/Plan Treatment Plan: Continue Plan of Care Treatment Plan: Education, Functional Activity Richie, Functional Strength, Gait, Safety, Therapeutic Exercise, Transfers Treatment Duration: Feb 02, 2021 Frequency: 6 times per week Estimated Hrs Per Day: .25 hour per day Patient and/or Family Agrees t: Yes Safety Risks/Education Patient Education: Safety Issues Discharge Recommendations Therapy Discharge Recommendati: Post Acute PT (home health to ensure safe return and to address O2 tubing negotiating) Time/GCodes Time In: 830 Time Out: 841 Total Billed Treatment Time: 11 Total Billed Treatment 1 visit FA 11 min ADRIANA CARTER PT Jan 28, 2021 10:13
[2021-01-28] MEDS: meTOproloL SUCCINATE 50 MG (TOPROL XL) TAB PO SCH (10:25)
--- NOTE | 2021-01-28 13:45 | Diagnostic Imaging Report ---
INDICATION: Atelectasis versus pneumonia. COMPARISON STUDY: Chest from 2 days ago. FINDINGS: Two views of the chest demonstrate a slight increase in the small bilateral pleural effusions and adjacent infiltrates or atelectasis. There has been development of some infiltrates in the right upper lobe. The heart size and vascularity are normal. IMPRESSION: 1. New infiltrates are present in the right upper lobe. 2. Small bilateral pleural effusions and adjacent atelectasis or infiltrates have slightly worsened. Dictated by: Dictated on workstation # [id number]
--- NOTE | 2021-01-28 16:58 | Progress Note - Cardiology ---
Cardiology SOAP Progress Note Subjective: Gen malaise and shortness of breath No cp or palp or syncope No fever No n/v/d Objective: I&O/Vital Signs 01/28/21 01/28/21 01/28/21 01/28/21 07:00 07:11 08:11 08:17 Temp 36.1 Pulse 54 58 Resp 22 B/P (MAP) Pulse Ox 90 93 O2 Delivery Nasal Cannula Nasal Cannula O2 Flow Rate 2.00 2.50 2.00 01/28/21 01/28/21 01/28/21 11:55 13:00 15:43 Temp 36.0 36.2 Pulse 63 54 55 Resp 20 18 B/P (MAP) 139/63 (88) Pulse Ox 92 95 O2 Delivery Nasal Cannula Nasal Cannula O2 Flow Rate 2.00 2.00 01/28/21 00:00 Intake Total 910 ml Output Total 800 ml Balance 110 ml Weight (Pounds): 150 Weight (Calculated Kilograms): 68.209129 Constitutional: AAO x 3, well-developed, well-nourished Respiratory: chest expansion is symmetric, chest is bilaterally symmetric, crackles (bases bilat) Cardiovascular: regular rate-rhythm, S1 and S2 Gastrointestional: No tender; soft, round, audible bowel sounds Extremities: other (bilat pitting LE swelling) Neurologic/Psychiatric: grossly intact (moves all extremities) Skin: No rash on exposed areas, No ulcerations on exposed areas Results/Procedures: Labs Laboratory Tests 01/28/21 02:13: White Blood Count 11.9H, Red Blood Count 3.96, Hemoglobin 11.8, Hematocrit 38, Mean Corpuscular Volume 95, Mean Corpuscular Hemoglobin 30, Mean Corpuscular Hemoglobin Concent 31L, Red Cell Distribution Width 13.7, Platelet Count 210, Mean Platelet Volume 10.0, Immature Granulocyte % (Auto) 1, Neutrophils (%) (Auto) 80H, Lymphocytes (%) (Auto) 8L, Monocytes (%) (Auto) 10, Eosinophils (%) (Auto) 2, Basophils (%) (Auto) 0, Neutrophils # (Auto) 9.5H, Lymphocytes # (Auto) 0.9L, Monocytes # (Auto) 1.2H, Eosinophils # (Auto) 0.3, Basophils # (Auto) 0.1, Immature Granulocyte # (Auto) 0.1, Sodium Level 139, Potassium Level 3.9, Chloride Level 107, Carbon Dioxide Level 17L, Anion Gap 15H, Blood Urea Nitrogen 29H, Creatinine 1.73H, Estimat Glomerular Filtration Rate 28, BUN/Creatinine Ratio 17, Glucose Level 110H, Calcium Level 9.0, Phosphorus Level 2.6, Magnesium Level 1.8 Microbiology 01/21/21 MRSA Screen - Final, Complete MRSA not isolated Laboratory Tests 01/27/21 02:45 01/28/21 02:13 A/P: Assessment: Atrial fib new onset this admission - underwent CHAYITO showing no thrombus, failed electrical cardioversion per Dr. Lopez - converted on amiodarone drip - maintaining SR to SB - CHADsVASc score 4, 4.8% stroke risk per year. Continue on low-dose Eliquis Epigastric discomfort, nausea and vomiting, probably gastritis - resolved Hypertension - intolerant to high dose BB d/t bradycardia - albeit asymptomatic CHAYITO of 01-23-[address] Lopez showed severe MR; mild to mod LVH; LVEF 60% Renal insufficiency, acute on chronic - improved Hyperlipidemia - statin tx Extensive family history of heart disease. Plan: Maintaining SR on oral Amiodarone and BB Intolerant to higher dose BB d/t asymptomatic bradycardia (HR in the 40's) CXR this morning - pending Bilat LE swelling with positive fluid balance Continue current regimen We have reviewed Dr. Peter and Dr. Lopez's note HILLARY MORALES [facility] Jan 28, 2021 16:58
--- NOTE | 2021-01-28 17:59 | Progress Note ---
Subjective Date Seen by a Provider: Jan 28, 2021 Time Seen by a Provider: 12:30 Subjective/Events-last exam Fwup a fib with RVR, hypertensive urgency, acute on chronic renal failure. Weak with edema. Objective Exam Vital Signs Date Time Temp Pulse Resp B/P (MAP) Pulse Ox O2 Delivery O2 Flow Rate FiO2 01/28/21 15:43 36.2 55 18 139/63 (88) 95 Nasal Cannula 2.00 01/28/21 13:00 54 01/28/21 11:55 36.0 63 20 92 Nasal Cannula 2.00 01/28/21 08:17 36.1 58 22 93 Nasal Cannula 2.00 01/28/21 08:11 Nasal Cannula 2.50 01/28/21 07:11 90 2.00 01/28/21 07:00 54 01/28/21 04:00 63 24 94 Nasal Cannula 2.00 01/28/21 00:18 48 01/28/21 00:00 57 20 146/68 (94) 91 Nasal Cannula 3.00 01/27/21 20:00 Nasal Cannula 2.50 01/27/21 19:32 36.4 51 30 158/75 (102) 95 Nasal Cannula 2.00 01/27/21 19:00 53 I & O 01/28/21 07:00 Intake Total 1110 ml Output Total 1550 ml Balance -440 ml Capillary Refill : General Appearance: No Apparent Distress Respiratory: Decreased Breath Sounds Cardiovascular: Regular Rate, Rhythm, Systolic Murmur Gastrointestinal: normal bowel sounds, non tender, soft Extremity: Non Tender, No Calf Tenderness, Pedal Edema Neurologic/Psychiatric: Alert, Oriented x3 Results Lab Laboratory Tests 01/28/21 02:13: White Blood Count 11.9H, Red Blood Count 3.96, Hemoglobin 11.8, Hematocrit 38, Mean Corpuscular Volume 95, Mean Corpuscular Hemoglobin 30, Mean Corpuscular Hemoglobin Concent 31L, Red Cell Distribution Width 13.7, Platelet Count 210, Mean Platelet Volume 10.0, Immature Granulocyte % (Auto) 1, Neutrophils (%) (Auto) 80H, Lymphocytes (%) (Auto) 8L, Monocytes (%) (Auto) 10, Eosinophils (%) (Auto) 2, Basophils (%) (Auto) 0, Neutrophils # (Auto) 9.5H, Lymphocytes # (Auto) 0.9L, Monocytes # (Auto) 1.2H, Eosinophils # (Auto) 0.3, Basophils # ( Auto) 0.1, Immature Granulocyte # (Auto) 0.1, Sodium Level 139, Potassium Level 3.9, Chloride Level 107, Carbon Dioxide Level 17L, Anion Gap 15H, Blood Urea Nitrogen 29H, Creatinine 1.73H, Estimat Glomerular Filtration Rate 28, BUN/Creatinine Ratio 17, Glucose Level 110H, Calcium Level 9.0, Phosphorus Level 2.6, Magnesium Level 1.8 Microbiology 01/21/21 MRSA Screen - Final, Complete MRSA not isolated Assessment/Plan Assessment/Plan Assess & Plan/Chief Complaint 1. A fib with RVR--cardioversion failed but then converted on amiodarone drip so now cardiology loading orally with amiodarone 2. Hypertensive Urgency--improving but not metoprolol has been decreased due to bradycardia 3. Acute on Renal Failure--stable 4. Nausea/Vomiting--improved 5. Edema--Lasix given 6. Weakness--will do SWING bed eval Clinical Quality Measures Admission Status Admission Dx 1. New Onset Atrial Fibrillation with RVR--metoprolol has decreased rate so will do high dose lovenox and cardiology consult with plan for cardioversion tomorrow, ECHO done on admit 2. Hypertensive Urgency--metoprolol resumed 3. Acute on Chronic Renal Failure--hydrate and monitor BUN/Cr HERMILA BARRIENTOS DO Jan 28, 2021 17:59
[2021-01-29 03:52] LABS: BASOPHILS # (AUTO) 0.1 10^3/uL (0.0-0.1); BASOPHILS % (AUTO) 1 % (0-10); EOSINOPHILS # (AUTO) 0.2 10^3/uL (0.0-0.3); EOSINOPHILS % (AUTO) 2 % (0-10); HEMATOCRIT 35 % (35-52); HEMOGLOBIN 11.4 g/dL (11.5-16.0); LYMPHOCYTES # (AUTO) 0.9 10^3/uL (1.0-4.0); LYMPHOCYTES % (AUTO) 9 % (12-44); MEAN CORPUSCULAR HEMOGLOBIN 30 pg (25-34); MEAN CORPUSCULAR HGB CONC 33 g/dL (32-36); MEAN CORPUSCULAR VOLUME 92 fL (80-99); MEAN PLATELET VOLUME 10.4 fL (9.0-12.2); MONOCYTES # (AUTO) 1.2 10^3/uL (0.0-1.0); MONOCYTES % (AUTO) 12 % (0-12); NEUTROPHILS # (AUTO) 7.7 10^3/uL (1.8-7.8); NEUTROPHILS % (AUTO) 77 % (42-75); PLATELET COUNT 256 10^3/uL (130-400)
[2021-01-29 03:55] LABS: POTASSIUM 3.4 MMOL/L (3.6-5.0)
[2021-01-29 04:01] LABS: CREATININE SERUM 1.93 MG/DL (0.60-1.30); PHOSPHORUS 3.1 MG/DL (2.3-4.7)
[2021-01-29 04:03] LABS: MAGNESIUM 1.6 MG/DL (1.6-2.4)
[2021-01-29] MEDS: KCL 20 MEQ TAB (K-DUR) PO SCH (05:13)
[2021-01-29] MEDS: amLODIPine 10 MG (NORVASC) TAB PO SCH (08:15)
[2021-01-29] MEDS: AMIODARONE 200 MG (CORDARONE) TAB PO SCH (08:15)
[2021-01-29] MEDS: PANTOPRAZOLE 40 MG (PROTONIX) TAB PO SCH (08:15)
[2021-01-29] MEDS: APIXABAN 2.5 MG (ELIQUIS) TABLET PO SCH (08:15)
[2021-01-29] MEDS: meTOproloL SUCCINATE 50 MG (TOPROL XL) TAB PO SCH (08:15)
--- NOTE | 2021-01-29 08:56 | Progress Note - Cardiology ---
Cardiology SOAP Progress Note Objective: I&O/Vital Signs 01/29/21 01/29/21 01/29/21 01/29/21 00:00 01:00 03:47 04:04 Temp 36.6 36.4 Pulse 61 56 68 Resp 20 18 B/P (MAP) 156/75 (102) 162/67 (98) Pulse Ox 94 93 O2 Delivery Nasal Cannula Nasal Cannula O2 Flow Rate 2.00 2.00 01/29/21 01/29/21 01/29/21 07:01 08:00 08:19 Temp 37.0 Pulse 70 Resp 22 Pulse Ox 95 O2 Delivery Nasal Cannula Nasal Cannula Nasal Cannula O2 Flow Rate 2.00 2.00 2.00 01/29/21 00:00 Intake Total 650 ml Output Total 1100 ml Balance -450 ml Weight (Pounds): 150 Weight (Calculated Kilograms): 68.344679 Constitutional: AAO x 3, well-developed, well-nourished Respiratory: chest expansion is symmetric, chest is bilaterally symmetric, crackles (bases bilat) Cardiovascular: regular rate-rhythm, S1 and S2 Gastrointestional: No tender; soft, round, audible bowel sounds Extremities: other (bilat pitting LE swelling) Neurologic/Psychiatric: grossly intact (moves all extremities) Skin: No rash on exposed areas, No ulcerations on exposed areas Results/Procedures: Labs Laboratory Tests 01/29/21 03:24: White Blood Count 10.0, Red Blood Count 3.75L, Hemoglobin 11.4L, Hematocrit 35, Mean Corpuscular Volume 92, Mean Corpuscular Hemoglobin 30, Mean Corpuscular Hemoglobin Concent 33, Red Cell Distribution Width 13.5, Platelet Count 256, Mean Platelet Volume 10.4, Immature Granulocyte % (Auto) 0, Neutrophils (%) (Auto) 77H, Lymphocytes (%) (Auto) 9L, Monocytes (%) (Auto) 12, Eosinophils (%) (Auto) 2, Basophils (%) (Auto) 1, Neutrophils # (Auto) 7.7, Lymphocytes # (Auto) 0.9L, Monocytes # (Auto) 1.2H, Eosinophils # (Auto) 0.2, Basophils # (Auto) 0.1, Immature Granulocyte # (Auto) 0.0 01/29/21 03:31: Sodium Level 140, Potassium Level 3.4L, Chloride Level 106, Carbon Dioxide Level 21, Anion Gap 13, Blood Urea Nitrogen 30H, Creatinine 1.93H, Estimat Glomerular Filtration Rate 25, BUN/Creatinine Ratio 16, Glucose Level 93, Calcium Level 9.0, Phosphorus Level 3.1, Magnesium Level 1.6 Microbiology 01/21/21 MRSA Screen - Final, Complete MRSA not isolated A/P: Assessment: Atrial fib new onset this admission - underwent CHAYITO showing no thrombus, failed electrical cardioversion per Dr. Lopez - converted on amiodarone drip - maintaining SR to SB - CHADsVASc score 4, 4.8% stroke risk per year. Continue on low-dose Eliquis Epigastric discomfort, nausea and vomiting, probably gastritis - resolved Hypertension - intolerant to high dose BB d/t bradycardia - albeit asymptomatic CHAYITO of 01-23-[address] Lopez showed severe MR; mild to mod LVH; LVEF 60% Renal insufficiency, acute on chronic - improved Hyperlipidemia - statin tx Extensive family history of heart disease. Plan: Maintaining SR on oral Amiodarone and BB Intolerant to higher dose BB d/t asymptomatic bradycardia (HR in the 40's) Continue current regimen Monitor lab and replace electrolytes as indicated We have reviewed Dr. Peter and Dr. Lopez's note NELLA MORENO Jan 29, 2021 08:56
[2021-01-29] MEDS ORDERED: FUROSEMIDE 20 MG (LASIX) TAB PO SCH (09:00)
--- NOTE | 2021-01-29 10:34 | Progress Note - Cardiology ---
Cardiology SOAP Progress Note Subjective: Gen malaise and weakness Swelling better Shortness of breath with mild to mod activity No cp or palp or syncope Objective: I&O/Vital Signs 01/29/21 01/29/21 01/29/21 01/29/21 00:00 01:00 03:47 04:04 Temp 36.6 36.4 Pulse 61 56 68 Resp 20 18 B/P (MAP) 156/75 (102) 162/67 (98) Pulse Ox 94 93 O2 Delivery Nasal Cannula Nasal Cannula O2 Flow Rate 2.00 2.00 01/29/21 01/29/21 01/29/21 07:01 08:00 08:19 Temp 37.0 Pulse 70 Resp 22 Pulse Ox 95 O2 Delivery Nasal Cannula Nasal Cannula Nasal Cannula O2 Flow Rate 2.00 2.00 2.00 01/29/21 00:00 Intake Total 650 ml Output Total 1100 ml Balance -450 ml Weight (Pounds): 150 Weight (Calculated Kilograms): 68.690445 Constitutional: AAO x 3, well-developed, well-nourished Respiratory: chest expansion is symmetric, chest is bilaterally symmetric, crackles (bases bilat) Cardiovascular: regular rate-rhythm, S1 and S2 Gastrointestional: No tender; soft, round, audible bowel sounds Extremities: other (bilat pitting LE swelling) Neurologic/Psychiatric: grossly intact (moves all extremities) Skin: No rash on exposed areas, No ulcerations on exposed areas Results/Procedures: Labs Laboratory Tests 01/29/21 03:24: White Blood Count 10.0, Red Blood Count 3.75L, Hemoglobin 11.4L, Hematocrit 35, Mean Corpuscular Volume 92, Mean Corpuscular Hemoglobin 30, Mean Corpuscular Hemoglobin Concent 33, Red Cell Distribution Width 13.5, Platelet Count 256, Mean Platelet Volume 10.4, Immature Granulocyte % (Auto) 0, Neutrophils (%) (Auto) 77H, Lymphocytes (%) (Auto) 9L, Monocytes (%) (Auto) 12, Eosinophils (%) (Auto) 2, Basophils (%) (Auto) 1, Neutrophils # (Auto) 7.7, Lymphocytes # (Auto) 0.9L, Monocytes # (Auto) 1.2H, Eosinophils # (Auto) 0.2, Basophils # (Auto) 0.1, Immature Granulocyte # (Auto) 0.0 01/29/21 03:31: Sodium Level 140, Potassium Level 3.4L, Chloride Level 106, Carbon Dioxide Level 21, Anion Gap 13, Blood Urea Nitrogen 30H, Creatinine 1.93H, Estimat Glomerular Filtration Rate 25, BUN/Creatinine Ratio 16, Glucose Level 93, Calcium Level 9.0, Phosphorus Level 3.1, Magnesium Level 1.6 Microbiology 01/21/21 MRSA Screen - Final, Complete MRSA not isolated Laboratory Tests 01/28/21 02:13 01/29/21 03:24 01/29/21 03:31 A/P: Assessment: Atrial fib new onset this admission - underwent CHAYITO showing no thrombus, failed electrical cardioversion per Dr. Lopez - converted on amiodarone drip - maintaining SR to SB - CHADsVASc score 4, 4.8% stroke risk per year. Continue on low-dose Eliquis Epigastric discomfort, nausea and vomiting, probably gastritis - resolved Hypertension - intolerant to high dose BB d/t bradycardia - albeit asymptomatic CHAYITO of 01-23-[address] Lopez showed severe MR; mild to mod LVH; LVEF 60% CKD 4 Hyperlipidemia - statin tx Extensive family history of heart disease. Plan: Continue current regimen to which low-dose furosemide and K have been added Monitor lab and replace electrolytes as indicated Increase ambulation HILLARY MORALES MD FACP [facility] Jan 29, 2021 10:34
[2021-01-29] MEDS ORDERED: KCL 20 MEQ TAB (K-DUR) PO NR (10:38)
[2021-01-30] MEDS ORDERED: KCL 10 MEQ TAB (MICRO K) PO SCH (07:00)
== END 2021-01-29 12:27 | DRG 309 ==
LOC: ICU 15:08 → CSD 01-24 16:57 → 4TH 01-29 09:50
PROVIDERS: ADMIT Family Medicine; ATTEND Family Medicine
DX: I48.19 Other persistent atrial fibrillation (principal); N18.4 Chronic kidney disease, stage 4 (severe); I16.1 Hypertensive emergency; N17.9 Acute kidney failure, unspecified; Z90.49 Acquired absence of other specified parts of digestive tract; T46.5X5A Adverse effect of other antihypertensive drugs, initial encounter; K29.70 Gastritis, unspecified, without bleeding; E83.42 Hypomagnesemia; D72.829 Elevated white blood cell count, unspecified; D64.9 Anemia, unspecified; E78.5 Hyperlipidemia, unspecified; I48.0 Paroxysmal atrial fibrillation; Z82.49 Family history of ischemic heart disease and other diseases of the circulatory system; I12.9 Hypertensive chronic kidney disease with stage 1 through stage 4 chronic kidney disease, or unspecified chronic kidney disease
CPT/HCPCS: 36415; 71045; 71046; 80048; 80053; 80076; 81000; 82553; 83735; 84100; 84443; 84484; 85025; 85610; 85730; 87081; 93005; 93306; 93312; 93320; 93325; 94664; 94761

== ENCOUNTER 2021-01-29 12:28 | Inpatient (IN) | payer MEDICARE ==
[~2021-01-29] VITALS: Ht 162.5 cm; Wt 71.0 kg
[~2021-01-29 12:28] MED LIST: ASCO500C17 PO; CALC600T91 PO; CRAN400C PO; METO50TA7 PO; SIMV20TA26 PO
[2021-01-29] MEDS ORDERED: ONDANSETRON 4 MG/2 ML (SDV) Z0FRAN IVP PRN (12:30)
--- NOTE | 2021-01-29 14:11 | Physical Therapy Evaluation ---
PT Evaluation-General Medical Diagnosis Admission Date Jan 29, 2021 at 12:28 Medical Diagnosis: A-fib Onset Date: Jan 29, 2021 Therapy Diagnosis Therapy Diagnosis: debility Height/Weight Height (Feet): 5 Height (Inches): 2.00 Weight (Pounds): 150 Precautions Precautions/Isolations: Standard Precautions Referral Physician: Joseluis Reason for Referral: Evaluation/Treatment Medical History Pertinent Medical History: HTN, Renal Insufficiency Current History SWB status Reviewed History: Yes Social History Home: Single Level Current Living Status: Alone Entry Into Home: Level Entry Prior Prior Level of Function SCALE: Activities may be completed with or without assistive devices. 5-Crnamgcnmw-fnshgle completes the activity by him/herself with no assistance from a helper. 5-Set-up or Clean-up Assistance-helper sets up or cleans up; patient completes activity. [place] assists only prior to or following the activity. 4-Supervision or Touching Assistance-helper provides verbal cues and/or touching/steadying and/or contact guard assistance as patient completes activity. Assistance may be provided throughout the activity or intermittently. 3-Partial/Moderate Assistance-helper does LESS THAN HALF the effort. [place] lifts, holds or supports trunk or limbs, but provides less than half the effort. 2-Substantial/Maximal Assistance-helper does MORE THAN HALF the effort. [place] lifts or holds trunk or limbs and provides more than half the effort. 2-Kccekdazn-tjcape does ALL the effort. Patient does none of the effort to complete the activity. Or, the assistance of 2 or more helpers is required for the patient to complete the activity. If activity was not attempted, code reason: 7-Patient Refused. 9-Not Applicable-not attempted and the patient did not perform the activity before the current illness, exacerbation or injury. 10-Not Attempted due to Environmental Limitations-(lack of equipment, weather restraints, etc.). 88-Not Attempted due to Medical Conditions or Safety Concerns. Bed Mobility: 6 Transfers (B,C,W/C): 6 Gait: 6 Stairs: 6 Wheelchair Mobility: 9 Indoor Mobility (Ambulation): Independent Stairs: Independent Prior Devices Use: None PT Evaluation-Current Subjective Patient agrees to PT. Objective Patient Orientation: Normal For Age Attachments: Oxygen (2L) ROM/Strength ROM Lower Extremities bilateral LE WFL Strength Lower Extremities 4-/5 grossly bilateral LE Integumentary/Posture Integumentary refer to nursing notes Bowel Incontinence: No Bladder Incontinence: No Posture slightly kyphotic Neuromuscular (Tone, Coordination, Reflexes) grossly intact Sensory Vision: Functional Hearing: Impaired Sensation Right Lower Extremit: Intact Sensation Left Lower Extremity: Intact Transfers Roll Left & Right (QC): 6 Sit to Lying (QC): 6 Lying to Sitting/Side of Bed(Q: 6 Sit to Stand (QC): 4 (SBA) Chair/Znj-od-Aefvz Xfer(QC): 4 (SBA) Toilet Transfer (QC): 4 (SBA) Car Transfer (QC): 4 (SBA) Gait Does the Patient Walk?: Yes Mode of Locomotion: Walk Anticipated Mode of Locomotion: Walk Walk 10 feet (QC): 4 (SBA) Walk 50 ft with 2 Turns(QC): 4 (SBA) Walk 150 ft (QC): 4 (SBA) Walking 10ft/uneven surface-QC: 4 (SBA) Distance: 275' Gait Assistive Device: FWW Comments/Gait Description slow, functional gait sequence Wheelchair Training Does the Pt Use a Wheelchair?: No Wheel 50 ft with 2 turns (QC): 9 Wheel 150 ft (QC): 9 Type of Wheelchair: N/A Stairs #of Steps: 1 1 Step (curb) (QC): 4 (SBA) 4 Steps (QC): 9 12 Steps (QC): 9 Balance Sitting Static: Normal Sitting Dynamic: Normal Standing Static: Normal Standing Dynamic: Normal Picking up an Object (QC): 6 (seated position) Treatment Bilateral LE exercises seated AP, LAQ, hip flexion 12 reps/patient toileted self and washed hands independently Assessment/Needs 85 y.o. female, will benefit from skilled PT to address functional strength and mobility to improve current LOF to safely return to home at maximum LOF. Rehab Potential: Fair PT Penitentiary Goals Penitentiary Goals PT Associate Director Career Services Goals Time Frame: February 09, 2021 Roll Left & Right (QC): 6 Sit to Lying (QC): 6 Lying-Sitting on Side/Bed(QC): 6 Sit to Stand (QC): 6 Chair/Bkh-dj-Wcpeb Xfer(QC): 6 Toilet Transfer (QC): 6 Car Transfer (QC): 6 Does the Patient Walk: Yes Walk 10 feet (QC): 6 Walk 50ft with 2 Turns (QC): 6 Walk 150 ft (QC): 6 Walking 10ft on Uneven Surface: 6 1 Step (curb) (QC): 6 4 Steps (QC): 9 12 Steps (QC): 9 Picking up an Object (QC): 6 Does the Pt use WC or Scooter?: No Wheel 50 feet with 2 turns (QC: 9 Type: N/A Wheel 150 feet: 9 Type: N/A PT Plan Problem List Problem List: Activity Tolerance, Safety, Balance, Gait, Transfer Treatment/Plan Treatment Plan: Continue Plan of Care Treatment Plan: Bed Mobility, Education, Functional Activity Richie, Functional Strength, Gait, Safety, Therapeutic Exercise, Transfers Treatment Duration: February 09, 2021 Frequency: 6 times per week Estimated Hrs Per Day: .5 hour per day Time/GCodes Time In: 1300 Time Out: 1323 Total Billed Treatment Time: 23 Total Billed Treatment 1 visit EVModC 8 min FA 15 min ADRIANA CARTER PT Jan 29, 2021 14:11
--- NOTE | 2021-01-29 14:58 | Occupational Therapy Eval ---
OT Evaluation-General/PLF Medical Diagnosis Admission Date Jan 29, 2021 at 12:28 Medical Diagnosis: A-fib Onset Date: Jan 29, 2021 Therapy Diagnosis Therapy Diagnosis: weakness, decreased ADL Status Height/Weight Height (Feet): 5 Height (Inches): 2.00 Weight (Pounds): 150 Precautions Precautions/Isolations: Standard Precautions Referral Physician: Tiffanie Referral Reason: Evaluation/Treatment Medical History Pertinent Medical History: HTN, Renal Insufficiency Current History 01/22/21 direct admit due to elevated BP, irregular heart beat, hypertensive urgency (BP 200/100), and irregular pulse up to 140s. 01/29/21 transfer to [facility] Reviewed History: Yes Social History Home: Single Level Current Living Status: Alone Entry Into Home: Level Entry ADL-Prior Level of Function SCALE: Activities may be completed with or without assistive devices. 3-Zmlsfsianc-xswqhoe completes the activity by him/herself with no assistance from a helper. 5-Set-up or Clean-up Assistance-helper sets up or cleans up; patient completes activity. [place] assists only prior to or following the activity. 4-Supervision or Touching Assistance-helper provides verbal cues and/or touching/steadying and/or contact guard assistance as patient completes activity. Assistance may be provided throughout the activity or intermittently. 3-Partial/Moderate Assistance-helper does LESS THAN HALF the effort. [place] lifts, holds or supports trunk or limbs, but provides less than half the effort. 2-Substantial/Maximal Assistance-helper does MORE THAN HALF the effort. [place] lifts or holds trunk or limbs and provides more than half the effort. 2-Mwynguvgi-cdwmuz does ALL the effort. Patient does none of the effort to complete the activity. Or, the assistance of 2 or more helpers is required for the patient to complete the activity. If activity was not attempted, code reason: 7-Patient Refused. 9-Not Applicable-not attempted and the patient did not perform the activity before the current illness, exacerbation or injury. 10-Not Attempted due to Environmental Limitations-(lack of equipment, weather restraints, etc.). 88-Not Attempted due to Medical Conditions or Safety Concerns. ADL PLOF Comments Pt reports independent with all ADLs and functional mobility at OF, no AD/AE. Self Care: Independent Functional Cognition: Independent DME/Equipment: Tub/Shower Occupation: Works at [employer] Mon & Fri OT Current Status Subjective Pt seated in recliner, agreeable to OT evaluation and tx. Mental Status/Objective Patient Orientation: Person, Place, Time, Situation Attachments: Oxygen Current Glasses/Contacts: Yes Hearing Aids: No Dentures/Partials: Yes Hand Dominance: Right Upper Extremity ROM WFL, BUE shoulder flexion to approx 140 degrees Upper Extremity Coordination WFL Upper Extremity Sensation WFL Upper Extremity Strength grossly 3/5 BUEs ADL-Treatment Eating (QC): 6 (Per pt report) Oral Hygiene (QC): 88 (Pt does not have dentures with her) Shower/Bathe Self (QC): 4 (SBA sponge bath) Upper Body Dressing (QC): 4 (SBA, assist to manage O2 tubing and telemetry) Lower Body Dressing (QC): 10 (Pt does not have LE clothing available on this date) On/Off Footwear (QC): 6 (IND with gripper socks.) Toileting Hygiene (QC): 4 (SBA per clinical judgement and nursing report.) Other Treatments Pt seated in recliner, OT educated pt on purpose and benefit of OT, she verbalized understanding. Pt provided information about PLOF And home set up, and participated in UE Screen. Pt agreeable to ADL tx, but preferred to take a sponge bath vs shower. OT gathered ADL supplies and set up for sponge bath. Pt completed with SBA in stand at [facility]. Pt completed dressing at recliner, as outli cynthia above. Pt expresses desire to return to bed, transferring back to bed, SBA, cues and assistance with managing O2 tubing. Pt transferred supine, SBA. Post tx, pt laying in bed, call light in reach and all needs met. Education OT Patient Education: Correct positioning, Modified ADL techniques, Progress toward Goal/Update tx plan, Purpose of tx/functional activities, Rehab process Teaching Recipient: Patient Teaching Methods: Discussion Response to Teaching: Verbalize Understanding OT Central Control Room Operator Goals Shelter Goals Time Frame: Feb 08, 2021 Eating (QC): 6 Oral Hygiene (QC): 6 Toileting Hygiene (QC): 6 Shower/Bathe Self (QC): 6 Upper Body Dressing (QC): 6 Lower Body Dressing (QC): 6 On/Off Footwear (QC): 6 Additional Goals: 1-Demonstrate ADL Tasks, 2-Verbalize Understanding, 3- ImproveStrength/Richie 1=Demonstrate adherence to instructed precautions during ADL tasks. 2=Patient will verbalize/demonstrate understanding of assistive devices/modifica tions for ADL. 3=Patient will improve strength/tolerance for activity to enable patient to perform ADL's. OT Education/Plan Problem List/Assessment Assessment: Decreased Activ Tolerance, Decreased Safety Aware, Decreased UE Strength, Impaired Funct Balance, Impaired I ADL's, Impaired Self-Care Skills Pt would benefit from skilled OT services in order to increase safety and independence with ADLs and functional mobility, and increase BUE strength and activity tolerance to maximize LOF for safe return home. Discharge Recommendations Plan/Recommendations: Continue POC Treatment Plan/Plan of Care Patient would benefit from OT for education, treatment and training to promote independence in ADL's, mobility, safety and/or upper extremity function for ADL's. Plan of Care: ADL Retraining, Functional Mobility, UE Funct Exercise/Act Treatment Duration: Feb 08, 2021 Frequency: 5 times per week Estimated Hrs Per Day: .25 hour per day Rehab Potential: Fair Time/GCodes Start Time: 14:15 Stop Time: 14:45 Total Time Billed (hr/min): 30 Billed Treatment Time 1, EVM (10'), ADL (20') CINTHIA CARL OT Jan 29, 2021 14:58
[2021-01-29 17:23] VITALS: BP 176/78
[2021-01-29] MEDS: APIXABAN 2.5 MG (ELIQUIS) TABLET PO SCH (20:45)
[2021-01-29] MEDS: AMIODARONE 200 MG (CORDARONE) TAB PO SCH (20:45)
[2021-01-30 06:00] VITALS: BP 160/70
[2021-01-30] MEDS: KCL 10 MEQ TAB (MICRO K) PO SCH (06:21)
[2021-01-30 08:19] VITALS: BP 158/77
[2021-01-30] MEDS: amLODIPine 10 MG (NORVASC) TAB PO SCH (08:50)
[2021-01-30] MEDS: meTOproloL SUCCINATE 50 MG (TOPROL XL) TAB PO SCH (08:50)
[2021-01-30] MEDS: APIXABAN 2.5 MG (ELIQUIS) TABLET PO SCH ×2 (08:51→20:06)
[2021-01-30] MEDS: FUROSEMIDE 20 MG (LASIX) TAB PO SCH (08:51)
[2021-01-30] MEDS: PANTOPRAZOLE 40 MG (PROTONIX) TAB PO SCH (08:52)
[2021-01-30] MEDS: AMIODARONE 200 MG (CORDARONE) TAB PO SCH ×2 (08:52→20:06)
--- NOTE | 2021-01-30 08:59 | Occupational Ther Daily Note ---
OT Current Status-Daily Note Subjective Pt upright in recliner. Denies pain. AxO. Eating breakfast, denies use of RR, stating she has been up/down from bathroom 3x since waking. Pt agrees to ther ex, states she is mainly concerned with strengthening prior to d/c home as well as a fib dx. Mental Status/Objective Patient Orientation: Person, Place, Situation, Normal For Age Attachments: Oxygen (0L, though NC donned), Telemetry ADL-Treatment Therapy Code Descriptions/Definitions Functional [place] Measure: 0=Not Assessed/NA 4=Minimal Assistance 1=Total Assistance 5=Supervision or Setup 2=Maximal Assistance 6=Modified [place] 3=Moderate Assistance 7=Complete IndependenceSCALE: Activities may be completed with or without assistive devices. 2-Lfiuqrnosv-fmfqmnl completes the activity by him/herself with no assistance from a helper. 5-Set-up or Clean-up Assistance-helper sets up or cleans up; patient completes activity. [place] assists only prior to or following the activity. 4-Supervision or Touching Assistance-helper provides verbal cues and/or touching /steadying and/or contact guard assistance as patient completes activity. Assistance may be provided throughout the activity or intermittently. 3-Partial/Moderate Assistance-helper does LESS THAN HALF the effort. [place] lifts, holds or supports trunk or limbs, but provides less than half the effort. 2-Substantial/Maximal Assistance-helper does MORE THAN HALF the effort. [place] lifts or holds trunk or limbs and provides more than half the effort. 9-Upqddfggx-axmoyn does ALL the effort. Patient does none of the effort to complete the activity. Or, the assistance of 2 or more helpers is required for the patient to complete the activity. If activity was not attempted, code reason: 7-Patient Refused. 9-Not Applicable-not attempted and the patient did not perform the activity before the current illness, exacerbation or injury. 10-Not Attempted due to Environmental Limitations-(lack of equipment, weather restraints, etc.). 88-Not Attempted due to Medical Conditions or Safety Concerns. Eating (QC): 6 Oral Hygiene (QC): 7 Shower/Bathe Self (QC): 7 Toileting Hygiene (QC): 7 Toilet Transfer (QC): 7 Other Treatment Pt in chair, completes feeding task with IND as OT demonstrates UE ex. Pt able to multi task with min cues. Pt able to complete UE ex (10 reps, 5 ex) bilaterally with mod-max cues on hand/ UE positioning. Pt states slight fatigue post activity, pt educated to push self to slight fatigue to encourage UE strengthening 2x daily. Pt requires increased time for all these tasks, denies needs end of session. Call light on lap, pt remains in recliner. Education OT Patient Education: Correct positioning, Exercise program, Home exercise program, Purpose of tx/functional activities Teaching Recipient: Patient Teaching Methods: Demonstration, Handout, Discussion Response to Teaching: Verbalize Understanding, Return Demonstration, Reinforcement Needed OT Alf Goals Change Control Manager Goals Time Frame: Feb 08, 2021 Eating (QC): 6 Oral Hygiene (QC): 6 Toileting Hygiene (QC): 6 Shower/Bathe Self (QC): 6 Upper Body Dressing (QC): 6 Lower Body Dressing (QC): 6 On/Off Footwear (QC): 6 Additional Goals: 1-Demonstrate ADL Tasks, 2-Verbalize Understanding, 3- ImproveStrength/Richie 1=Demonstrate adherence to instructed precautions during ADL tasks. 2=Patient will verbalize/demonstrate understanding of assistive devices/modifications for ADL. 3=Patient will improve strength/tolerance for activity to enable patient to perform ADL's. OT Education/Plan Problem List/Assessment Assessment: Decreased Activ Tolerance, Decreased UE Strength, Impaired Funct Balance, Impaired I ADL's, Impaired Self-Care Skills Pt would benefit from skilled OT services in order to increase safety and independence with ADLs and functional mobility, and increase BUE strength and activity tolerance to maximize LOF for safe return home. Discharge Recommendations Plan/Recommendations: Continue POC Therapy Discharge Recommendati: Home & Family, Post Acute OT Treatment Plan/Plan of Care Treatment,Training & Education: Yes Patient would benefit from OT for education, treatment and training to promote independence in ADL's, mobility, safety and/or upper extremity function for ADL's. Plan of Care: ADL Retraining, Functional Mobility, UE Funct Exercise/Act Treatment Duration: Feb 08, 2021 Frequency: 5 times per week Estimated Hrs Per Day: .25 hour per day Rehab Potential: Fair Time/GCodes Start Time: 08:15 Stop Time: 08:41 Total Time Billed (hr/min): 26 Billed Treatment Time 1, EX 2 (26) FELIZ LEACH OTR Jan 30, 2021 08:59
--- NOTE | 2021-01-30 10:23 | Physical Therapy Daily Note ---
PT Daily Note-Current Subjective Patient reports no pain during today's visit, was upright in recliner, and consented to therapy. Oxygen was donned pre tx, but not turned on. Appearance Patient seated upright in chair post tx, with call button within reach. Oxygen doffed. Mental Status Patient Orientation: Person, Place, Time, Normal For Age Transfers SCALE: Activities may be completed with or without assistive devices. 0-Mujnlxkpaw-oazghqn completes the activity by him/herself with no assistance from a helper. 5-Set-up or Clean-up Assistance-helper sets up or cleans up; patient completes activity. [place] assists only prior to or following the activity. 4-Supervision or Touching Assistance-helper provides verbal cues and/or touching/steadying and/or contact guard assistance as patient completes activity. Assistance may be provided throughout the activity or intermittently. 3-Partial/Moderate Assistance-helper does LESS THAN HALF the effort. [place] lifts, holds or supports trunk or limbs, but provides less than half the effort. 2-Substantial/Maximal Assistance-helper does MORE THAN HALF the effort. [place] lifts or holds trunk or limbs and provides more than half the effort. 6-Ztsmnilyh-dlmgau does ALL the effort. Patient does none of the effort to compl ete the activity. Or, the assistance of 2 or more helpers is required for the patient to complete the activity. If activity was not attempted, code reason: 7-Patient Refused. 9-Not Applicable-not attempted and the patient did not perform the activity before the current illness, exacerbation or injury. 10-Not Attempted due to Environmental Limitations-(lack of equipment, weather restraints, etc.). 88-Not Attempted due to Medical Conditions or Safety Concerns. Sit to Stand (QC): 4 Toilet Transfer (QC): 4 SBA Gait Training Does the Patient Walk?: Yes Distance: 150' Walk 10 feet (QC): 4 Walk 50 ft with 2 Turns(QC): 4 Walk 150 ft (QC): 4 Gait Assistive Device: FWW SBA. Checked O2 after ambulation and measured 95%, patient had no complaints of SOB Exercises Seated Therapy Exercises: Ankle pumps, Long arc quads Seated Reps: 20 Treatments LE strengthening, gait training Assessment Current Status: Good Progress good endurance with ambulation, no demonstration of SOB with gait PT Mcc Goals Mcc Goals PT Tempering Oven Operator Goals Time Frame: February 09, 2021 Roll Left & Right (QC): 6 Sit to Lying (QC): 6 Lying-Sitting on Side/Bed(QC): 6 Sit to Stand (QC): 6 Chair/Ljr-px-Lmcnn Xfer(QC): 6 Toilet Transfer (QC): 6 Car Transfer (QC): 6 Does the Patient Walk: Yes Walk 10 feet (QC): 6 Walk 50ft with 2 Turns (QC): 6 Walk 150 ft (QC): 6 Walking 10ft on Uneven Surface: 6 1 Step (curb) (QC): 6 4 Steps (QC): 9 12 Steps (QC): 9 Picking up an Object (QC): 6 Does the Pt use WC or Scooter?: No Wheel 50 feet with 2 turns (QC: 9 Type: N/A Wheel 150 feet: 9 Type: N/A PT Plan Problem List Problem List: Activity Tolerance, Functional Strength, Safety, Balance, Gait, Transfer, Bed Mobility, ROM Treatment/Plan Treatment Plan: Continue Plan of Care Treatment Plan: Bed Mobility, Education, Functional Activity Richie, Functional Strength, Gait, Safety, Therapeutic Exercise, Transfers Treatment Duration: February 09, 2021 Frequency: 6 times per week Estimated Hrs Per Day: .5 hour per day Safety Risks/Education Patient Education: Gait Training, Transfer Techniques, Correct Positioning, Safety Issues Teaching Recipient: Patient Teaching Methods: Demonstration, Discussion Response to Teaching: Verbalize Understanding, Return Demonstration Time/GCodes Time In: 938 Time Out: 09 Total Billed Treatment Time: 19 Total Billed Treatment 1 visit: CALI MASTERS PT Jan 30, 2021 10:23
[2021-01-30] MEDS ORDERED: KCL 20 MEQ TAB (K-DUR) PO NR (10:38)
--- NOTE | 2021-01-30 15:45 | Progress Note - Cardiology ---
Cardiology SOAP Progress Note Subjective: Gen malaise No cp or palp or syncope No shortness of breath at rest No n/v/d Objective: I&O/Vital Signs 01/30/21 01/30/21 01/30/21 01/30/21 06:00 06:31 08:19 09:00 Temp 36.1 36.2 Pulse 62 58 66 Resp 28 16 B/P (MAP) 160/70 (100) 158/77 (104) Pulse Ox 93 91 O2 Delivery Nasal Cannula Nasal Cannula Nasal Cannula O2 Flow Rate 3.00 1.00 1.00 01/30/21 12:13 Pulse 63 01/30/21 00:00 Intake Total 590 ml Balance 590 ml Weight (Pounds): 150 Weight (Calculated Kilograms): 68.458436 Constitutional: AAO x 3, well-developed, well-nourished Respiratory: No accessory muscle use; other (fair to good, bilateral air entry, diminished at the bases) Cardiovascular: regular rate-rhythm, S1 and S2, systolic murmur (soft CODY at card base) Gastrointestional: No tender; soft; No guarding, No rebound; audible bowel sounds Extremities: No clubbing, No cyanosis, No significant edema Neurologic/Psychiatric: oriented x 3, other (moves all limbs equally) Skin: warm/dry; No cyanosis, No cool, No rash on exposed areas, No ulcerations on exposed areas A/P: Assessment: PAF diagnosed in Jan 2021 - converted on amiodarone - Eliquis for stroke prophylaxis Epigastric discomfort, nausea and vomiting, probably gastritis - resolved Hypertension - intolerant to high-dose BB d/t bradycardia - albeit asymptomatic [facility] of 01-23-[address] Lopez showed severe MR; mild to mod LVH; LVEF 60% CKD 4 Hyperlipidemia - statin tx Extensive family history of heart disease. Plan: * Continue current card regimen * Monitor labs from time to time HILLARY MORALES MD FACP FAC CCDS Jan 30, 2021 15:45
--- NOTE | 2021-01-30 17:41 | Progress Note ---
Subjective Date Seen by a Provider: Jan 30, 2021 Time Seen by a Provider: 12:30 Subjective/Events-last exam Fwup a fib with RVR, hypertensive urgency, acute on chronic renal failure. Sitting up in chair. Objective Exam Vital Signs Date Time Temp Pulse Resp B/P (MAP) Pulse Ox O2 Delivery O2 Flow Rate FiO2 01/30/21 12:13 63 01/30/21 09:00 Nasal Cannula 1.00 01/30/21 08:19 36.2 66 16 158/77 (104) 91 Nasal Cannula 1.00 01/30/21 06:31 58 01/30/21 06:00 36.1 62 28 160/70 (100) 93 Nasal Cannula 3.00 01/30/21 01:00 60 01/29/21 22:48 69 01/29/21 20:10 Nasal Cannula 1.00 01/29/21 18:47 90 Nasal Cannula 1.00 I & O 01/30/21 07:00 Intake Total 865 ml Balance 865 ml Capillary Refill : General Appearance: No Apparent Distress Neck: Supple Respiratory: Lungs Clear Cardiovascular: Regular Rate, Rhythm, Systolic Murmur Gastrointestinal: normal bowel sounds, non tender, soft Extremity: Non Tender, No Calf Tenderness, No Pedal Edema Assessment/Plan Assessment/Plan Assess & Plan/Chief Complaint 1. A Fib with RVR--back in NSR with amiodarone 2. Hypertension--improving 3. Acute on Chronic Renal Failure--stable HERMILA BARRIENTOS DO Jan 30, 2021 17:41
[2021-01-30 17:55] VITALS: BP 165/74
[2021-01-30] MEDS: ACETAMINOPHEN 325 MG TABLET PO PRN (20:07)
[2021-01-31] MEDS: KCL 10 MEQ TAB (MICRO K) PO SCH (05:39)
[2021-01-31 06:00] VITALS: BP 176/78
--- NOTE | 2021-01-31 08:59 | Progress Note - Cardiology ---
Cardiology SOAP Progress Note Subjective: Sitting up in recliner at the bedside No c/o CP, SOB or palpitations Objective: I&O/Vital Signs 01/31/21 01/31/21 01/31/21 00:21 06:00 07:00 Temp 36.0 Pulse 47 59 62 Resp 20 B/P (MAP) 176/78 (110) Pulse Ox 93 O2 Delivery Room Air 01/31/21 00:00 Intake Total 1400 ml Balance 1400 ml Weight (Pounds): 150 Weight (Calculated Kilograms): 68.141326 Constitutional: AAO x 3, well-developed, well-nourished Respiratory: No accessory muscle use; other (fair to good, bilateral air entry, diminished at the bases) Cardiovascular: regular rate-rhythm, S1 and S2, systolic murmur (soft CODY at card base) Gastrointestional: No tender; soft; No guarding, No rebound; audible bowel sounds Extremities: No clubbing, No cyanosis, No significant edema Neurologic/Psychiatric: oriented x 3, other (moves all limbs equally) Skin: warm/dry; No cyanosis, No cool, No rash on exposed areas, No ulcerations on exposed areas A/P: Assessment: PAF diagnosed in Jan 2021 - converted on amiodarone - Eliquis for stroke prophylaxis Epigastric discomfort, nausea and vomiting, probably gastritis - resolved Hypertension - intolerant to high-dose BB d/t bradycardia - albeit asymptomatic [facility] of 01-23-[address] Lopez showed severe MR; mild to mod LVH; LVEF 60% CKD 4 Hyperlipidemia - statin tx Extensive family history of heart disease. Plan: * Continue current card regimen * Monitor labs from time to time NELLA MORENO Jan 31, 2021 08:59
[2021-01-31] MEDS: APIXABAN 2.5 MG (ELIQUIS) TABLET PO SCH ×2 (09:05→21:05)
[2021-01-31] MEDS: FUROSEMIDE 20 MG (LASIX) TAB PO SCH (09:05)
[2021-01-31] MEDS: amLODIPine 10 MG (NORVASC) TAB PO SCH (09:05)
[2021-01-31] MEDS: PANTOPRAZOLE 40 MG (PROTONIX) TAB PO SCH (09:06)
[2021-01-31] MEDS: meTOproloL SUCCINATE 50 MG (TOPROL XL) TAB PO SCH (09:06)
[2021-01-31] MEDS: AMIODARONE 200 MG (CORDARONE) TAB PO SCH ×2 (09:07→21:05)
--- NOTE | 2021-01-31 10:47 | Progress Note - Cardiology ---
Cardiology SOAP Progress Note Subjective: No cp or palp or syncope No shortness of breath at rest No n/v/d Gen malaise and weakness present Objective: I&O/Vital Signs 01/31/21 01/31/21 01/31/21 01/31/21 00:21 06:00 07:00 09:00 Temp 36.0 Pulse 47 59 62 Resp 20 B/P (MAP) 176/78 (110) Pulse Ox 93 93 O2 Delivery Room Air Nasal Cannula O2 Flow Rate 1.00 01/31/21 00:00 Intake Total 1400 ml Balance 1400 ml Weight (Pounds): 150 Weight (Calculated Kilograms): 68.508485 Constitutional: AAO x 3, well-developed, well-nourished Respiratory: No accessory muscle use; other (fair to good, bilateral air entry, diminished at the bases) Cardiovascular: regular rate-rhythm, S1 and S2, systolic murmur (soft CODY at card base) Gastrointestional: No tender; soft; No guarding, No rebound; audible bowel sounds Extremities: No clubbing, No cyanosis, No significant edema Neurologic/Psychiatric: oriented x 3, other (moves all limbs equally) Skin: warm/dry; No cyanosis, No cool, No rash on exposed areas, No ulcerations on exposed areas A/P: Assessment: PAF diagnosed in Jan 2021 - converted on amiodarone - Eliquis for stroke prophylaxis Epigastric discomfort, nausea and vomiting, probably gastritis - resolved Hypertension - intolerant to high-dose BB d/t bradycardia - albeit asymptomatic [facility] of 01-23-[address] Lopez showed severe MR; mild to mod LVH; LVEF 60% CKD 4 Hyperlipidemia - statin tx Extensive family history of heart disease. Plan: * Continue current card regimen * Monitor labs from time to time HILLARY MORALES MD FACP FAC CCDS Jan 31, 2021 10:47
--- NOTE | 2021-01-31 11:50 | Physical Therapy Daily Note ---
PT Daily Note-Current Subjective Patient agrees to PT. No c/o. Mental Status Patient Orientation: Normal For Age Transfers SCALE: Activities may be completed with or without assistive devices. 4-Mdgsrklcgz-oyebtsv completes the activity by him/herself with no assistance from a helper. 5-Set-up or Clean-up Assistance-helper sets up or cleans up; patient completes activity. [place] assists only prior to or following the activity. 4-Supervision or Touching Assistance-helper provides verbal cues and/or touching/steadying and/or contact guard assistance as patient completes activity. Assistance may be provided throughout the activity or intermittently. 3-Partial/Moderate Assistance-helper does LESS THAN HALF the effort. [place] lifts, holds or supports trunk or limbs, but provides less than half the effort. 2-Substantial/Maximal Assistance-helper does MORE THAN HALF the effort. [place] lifts or holds trunk or limbs and provides more than half the effort. 5-Gtdexrksd-zqfhxu does ALL the effort. Patient does none of the effort to c omplete the activity. Or, the assistance of 2 or more helpers is required for the patient to complete the activity. If activity was not attempted, code reason: 7-Patient Refused. 9-Not Applicable-not attempted and the patient did not perform the activity before the current illness, exacerbation or injury. 10-Not Attempted due to Environmental Limitations-(lack of equipment, weather restraints, etc.). 88-Not Attempted due to Medical Conditions or Safety Concerns. Sit to Stand (QC): 4 (SBA) Gait Training Does the Patient Walk?: Yes Distance: 600' Walk 10 feet (QC): 4 Walk 50 ft with 2 Turns(QC): 4 Walk 150 ft (QC): 4 Gait Assistive Device: FWW slow, steady gait sequence Exercises Seated Therapy Exercises: Ankle pumps, Long arc quads, Hip flexion Seated Reps: 15 Assessment Patient tolerated treatment well and is up in recliner with needs met. Improved distance with ambulation. PT Assisted Goals Communications Technician Goals PT Communications Technician Goals Time Frame: February 09, 2021 Roll Left & Right (QC): 6 Sit to Lying (QC): 6 Lying-Sitting on Side/Bed(QC): 6 Sit to Stand (QC): 6 Chair/Bjj-lr-Ibrny Xfer(QC): 6 Toilet Transfer (QC): 6 Car Transfer (QC): 6 Does the Patient Walk: Yes Walk 10 feet (QC): 6 Walk 50ft with 2 Turns (QC): 6 Walk 150 ft (QC): 6 Walking 10ft on Uneven Surface: 6 1 Step (curb) (QC): 6 4 Steps (QC): 9 12 Steps (QC): 9 Picking up an Object (QC): 6 Does the Pt use WC or Scooter?: No Wheel 50 feet with 2 turns (QC: 9 Type: N/A Wheel 150 feet: 9 Type: N/A PT Plan Treatment/Plan Treatment Plan: Continue Plan of Care Treatment Plan: Bed Mobility, Education, Functional Activity Richie, Functional Strength, Gait, Safety, Therapeutic Exercise, Transfers Treatment Duration: February 09, 2021 Frequency: 6 times per week Estimated Hrs Per Day: .5 hour per day Time/GCodes Time In: 1126 Time Out: 1144 Total Billed Treatment Time: 18 Total Billed Treatment 1 visit FA 18 min ADRIANA CARTER PT Jan 31, 2021 11:50
--- NOTE | 2021-01-31 12:41 | Progress Note ---
Subjective Date Seen by a Provider: Jan 31, 2021 Time Seen by a Provider: 12:40 Subjective/Events-last exam Fwup a fib with RVR, hypertensive urgency, acute on chronic renal failure. C/O left sided abdominal cramping last night. States is on constipated side and having more gas. Objective Exam Vital Signs Date Time Temp Pulse Resp B/P (MAP) Pulse Ox O2 Delivery O2 Flow Rate FiO2 01/31/21 09:00 93 Nasal Cannula 1.00 01/31/21 07:00 62 01/31/21 06:00 36.0 59 20 176/78 (110) 93 Room Air 01/31/21 00:21 47 01/30/21 20:00 Room Air 01/30/21 19:00 59 01/30/21 17:55 36.1 58 20 165/74 (104) 96 Room Air I & O 01/31/21 07:00 Intake Total 1850 ml Balance 1850 ml Capillary Refill : General Appearance: No Apparent Distress Neck: Supple Respiratory: Lungs Clear Cardiovascular: Regular Rate, Rhythm, Systolic Murmur Gastrointestinal: normal bowel sounds, non tender, soft Extremity: Non Tender, No Calf Tenderness, No Pedal Edema Neurologic/Psychiatric: Alert, Oriented x3 Skin: Warm/Dry Assessment/Plan Assessment/Plan Assess & Plan/Chief Complaint 1. A Fib with RVR--back in NSR with amiodarone, on eliquis 2. Hypertension--on amlodopine and metoprolol 3. Acute on Chronic Renal Failure--stable 4. Constipation with abdominal cramping--start Senokot-S and levsin to use prn HERMILA BARRIENTOS DO Jan 31, 2021 12:41
[2021-01-31] MEDS ORDERED: SENNA W/DOCUSATE (SENOKOT S) TABLET PO NR (12:45)
[2021-01-31] MEDS ORDERED: HYOSCYAMINE 0.125 MG (LEVSIN) TAB PO PRN (12:45)
--- NOTE | 2021-01-31 13:57 | Occupational Ther Daily Note ---
OT Current Status-Daily Note Subjective Pt alert, sitting in recliner. Pt agrees to therapy. No c/o pain at this time. Mental Status/Objective Patient Orientation: Person, Place, Time, Situation Attachments: Telemetry ADL-Treatment Pt agrees to shower. After set up of shower, pt able to complete sitting on shower bench using hand held shower and grabbars with SBA for safety and verbal cues to sit and cleanse lower body. Pt stated that she only had tub at home and sat in tub to complete bathing. Grabbars at home to assist with standing up from tub after bath. Pt completes toilet transfer and toileting independently using FWW and grabbars. After set up, pt able to complete all dressing by self. After session, pt sitting in recliner with call light/phone in reach. All needs met in room. Therapy Code Descriptions/Definitions Functional [place] Measure: 0=Not Assessed/NA 4=Minimal Assistance 1=Total Assistance 5=Supervision or Setup 2=Maximal Assistance 6=Modified [place] 3=Moderate Assistance 7=Complete IndependenceSCALE: Activities may be completed with or without assistive devices. 0-Ufjmeufyms-pmeolzq completes the activity by him/herself with no assistance from a helper. 5-Set-up or Clean-up Assistance-helper sets up or cleans up; patient completes activity. [place] assists only prior to or following the activity. 4-Supervision or Touching Assistance-helper provides verbal cues and/or touching/steadying and/or contact guard assistance as patient completes activity. Assistance may be provided throughout the activity or intermittently. 3-Partial/Moderate Assistance-helper does LESS THAN HALF the effort. [place] lifts, holds or supports trunk or limbs, but provides less than half the effort. 2-Substantial/Maximal Assistance-helper does MORE THAN HALF the effort. [place] lifts or holds trunk or limbs and provides more than half the effort. 5-Jblodeexn-orshzd does ALL the effort. Patient does none of the effort to complete the activity. Or, the assistance of 2 or more helpers is required for the patient to complete the activity. If activity was not attempted, code reason: 7-Patient Refused. 9-Not Applicable-not attempted and the patient did not perform the activity before the current illness, exacerbation or injury. 10-Not Attempted due to Environmental Limitations-(lack of equipment, weather restraints, etc.). 88-Not Attempted due to Medical Conditions or Safety Concerns. Shower/Bathe Self (QC): 4 (SBA and set up) Upper Body Dressing (QC): 5 Lower Body Dressing (QC): 5 On/Off Footwear: 5 Toileting Hygiene (QC): 6 Toilet Transfer (QC): 6 OT Overhead Crane Truck Loader Goals Longterm Goals Time Frame: Feb 08, 2021 Eating (QC): 6 Oral Hygiene (QC): 6 Toileting Hygiene (QC): 6 Shower/Bathe Self (QC): 6 Upper Body Dressing (QC): 6 Lower Body Dressing (QC): 6 On/Off Footwear (QC): 6 Additional Goals: 1-Demonstrate ADL Tasks, 2-Verbalize Understanding, 3- ImproveStrength/Richie 1=Demonstrate adherence to instructed precautions during ADL tasks. 2=Patient will verbalize/demonstrate understanding of assistive devices/modifications for ADL. 3=Patient will improve strength/tolerance for activity to enable patient to perform ADL's. OT Education/Plan Problem List/Assessment Assessment: Decreased Activ Tolerance, Decreased Safety Aware Pt would benefit from skilled OT services in order to increase safety and independence with ADLs and functional mobility, and increase BUE strength and activity tolerance to maximize LOF for safe return home. Discharge Recommendations Plan/Recommendations: Continue POC Treatment Plan/Plan of Care Patient would benefit from OT for education, treatment and training to promote independence in ADL's, mobility, safety and/or upper extremity function for ADL's. Plan of Care: ADL Retraining, Functional Mobility, UE Funct Exercise/Act Treatment Duration: Feb 08, 2021 Frequency: 5 times per week Estimated Hrs Per Day: .25 hour per day Rehab Potential: Fair Time/GCodes Start Time: 13:00 Stop Time: 13:51 Total Time Billed (hr/min): 51 Billed Treatment Time 1 visit-ADL 4 (51 min) WU MENDOZA Jan 31, 2021 13:57
[2021-01-31 17:58] VITALS: BP 146/68
[2021-01-31] MEDS: SENNA W/DOCUSATE (SENOKOT S) TABLET PO SCH (21:05)
[2021-02-01] MEDS: KCL 10 MEQ TAB (MICRO K) PO SCH (05:20)
[2021-02-01 05:22] VITALS: BP 175/78
[2021-02-01] MEDS: APIXABAN 2.5 MG (ELIQUIS) TABLET PO SCH ×2 (09:23→20:08)
[2021-02-01] MEDS: PANTOPRAZOLE 40 MG (PROTONIX) TAB PO SCH (09:24)
[2021-02-01] MEDS: FUROSEMIDE 20 MG (LASIX) TAB PO SCH (09:24)
[2021-02-01] MEDS: AMIODARONE 200 MG (CORDARONE) TAB PO SCH ×2 (09:24→20:08)
[2021-02-01] MEDS: meTOproloL SUCCINATE 50 MG (TOPROL XL) TAB PO SCH (09:25)
[2021-02-01] MEDS: SENNA W/DOCUSATE (SENOKOT S) TABLET PO SCH ×2 (09:25→20:08)
[2021-02-01] MEDS: amLODIPine 10 MG (NORVASC) TAB PO SCH (09:25)
--- NOTE | 2021-02-01 10:03 | Progress Note - Cardiology ---
Cardiology SOAP Progress Note Objective: I&O/Vital Signs 02/01/21 02/01/21 02/01/21 02/01/21 01:00 05:22 07:00 09:00 Temp 36.4 Pulse 46 62 67 Resp 20 B/P (MAP) 175/78 (110) Pulse Ox 92 93 O2 Delivery Room Air Nasal Cannula O2 Flow Rate 1.00 02/01/21 00:00 Intake Total 1740 ml Balance 1740 ml Weight (Pounds): 150 Weight (Calculated Kilograms): 68.667760 Constitutional: AAO x 3, well-developed, well-nourished Respiratory: No accessory muscle use; other (fair to good, bilateral air entry, diminished at the bases) Cardiovascular: regular rate-rhythm, S1 and S2, systolic murmur (soft CODY at card base) Gastrointestional: No tender; soft; No guarding, No rebound; audible bowel sounds Extremities: No clubbing, No cyanosis, No significant edema Neurologic/Psychiatric: oriented x 3, other (moves all limbs equally) Skin: warm/dry; No cyanosis, No cool, No rash on exposed areas, No ulcerations on exposed areas A/P: Assessment: PAF diagnosed in Jan 2021 - converted on amiodarone - Eliquis for stroke prophylaxis Epigastric discomfort, nausea and vomiting, probably gastritis - resolved Hypertension - intolerant to high-dose BB d/t bradycardia - albeit asymptomatic CH[facility]ITO of 01-23-[address] Lopez showed severe MR; mild to mod LVH; LVEF 60% CKD 4 Hyperlipidemia - statin tx Extensive family history of heart disease. Plan: * Continue current card regimen * BP not well controlled - unable to increase BB d/t bradycardia - start doxazosin and adjust as indicated * Monitor labs from time to time NELLA MORENO Feb 01, 2021 10:03
--- NOTE | 2021-02-01 10:04 | Progress Note ---
Subjective Date Seen by a Provider: Feb 01, 2021 Time Seen by a Provider: 10:02 Subjective/Events-last exam Fwup a fib with RVR, hypertensive urgency, acute on chronic renal failure, constipation. Had large BM yesterday and no abdominal cramping overnight. Objective Exam Vital Signs Date Time Temp Pulse Resp B/P (MAP) Pulse Ox O2 Delivery O2 Flow Rate FiO2 02/01/21 09:00 93 Nasal Cannula 1.00 02/01/21 07:00 67 02/01/21 05:22 36.4 62 20 175/78 (110) 92 Room Air 02/01/21 01:00 46 01/31/21 20:28 Room Air 01/31/21 19:00 52 01/31/21 17:58 35.8 54 24 146/68 (94) 96 Room Air 01/31/21 13:10 53 I & O 02/01/21 06:59 Intake Total 1990 ml Balance 1990 ml Capillary Refill : General Appearance: No Apparent Distress Neck: Supple Respiratory: Lungs Clear Cardiovascular: Regular Rate, Rhythm, Systolic Murmur Gastrointestinal: normal bowel sounds, non tender, soft Extremity: Non Tender, No Calf Tenderness, No Pedal Edema, Pedal Edema (trace) Neurologic/Psychiatric: Alert, Oriented x3 Assessment/Plan Assessment/Plan Assess & Plan/Chief Complaint 1. A Fib with RVR--back in NSR with amiodarone, on eliquis 2. Hypertension--on amlodopine and metoprolol 3. Acute on Chronic Renal Failure--stable 4. Constipation with abdominal cramping--Senokot-S has helped HERMILA BARRIENTOS DO Feb 01, 2021 10:04
--- NOTE | 2021-02-01 11:41 | Physical Therapy Daily Note ---
PT Daily Note-Current Subjective Patient just complete with OT. Agrees to PT. Mental Status Patient Orientation: Normal For Age Transfers SCALE: Activities may be completed with or without assistive devices. 5-Rkzvlgypse-kmgdfyf completes the activity by him/herself with no assistance from a helper. 5-Set-up or Clean-up Assistance-helper sets up or cleans up; patient completes activity. [place] assists only prior to or following the activity. 4-Supervision or Touching Assistance-helper provides verbal cues and/or touching/steadying and/or contact guard assistance as patient completes activity. Assistance may be provided throughout the activity or intermittently. 3-Partial/Moderate Assistance-helper does LESS THAN HALF the effort. [place] lifts, holds or supports trunk or limbs, but provides less than half the effort. 2-Substantial/Maximal Assistance-helper does MORE THAN HALF the effort. [place] lifts or holds trunk or limbs and provides more than half the effort. 0-Yxptaeqax-octzcs does ALL the effort. Patient does none of the effort to complete the activity. Or, the assistance of 2 or more helpers is required for the patient to complete the activity. If activity was not attempted, code reason: 7-Patient Refused. 9-Not Applicable-not attempted and the patient did not perform the activity before the current illness, exacerbation or injury. 10-Not Attempted due to Environmental Limitations-(lack of equipment, weather restraints, etc.). 88-Not Attempted due to Medical Conditions or Safety Concerns. Roll Left & Right (QC): 6 Sit to Lying (QC): 6 Lying to Sitting/Side of Bed(Q: 6 Sit to Stand (QC): 6 Chair/Gkd-bv-Szxcy Xfer(QC): 6 Toilet Transfer (QC): 6 Car Transfer (QC): 6 Gait Training Does the Patient Walk?: Yes Distance: 800' Walk 10 feet (QC): 6 Walk 50 ft with 2 Turns(QC): 6 Walk 150 ft (QC): 6 Walking 10ft/uneven surface-QC: 6 Gait Assistive Device: FWW Wheelchair Training Does the Pt Use a Wheelchair?: No Wheel 50 ft with 2 turns (QC): 9 Wheel 150 ft (QC): 9 Stair Training Stair Training: Handrails/: 1 handrail #of Steps: 6 1 Step (curb) (QC): 9 4 Steps (QC): 9 Stairs: Pattern: Step to Balance Picking up an Object (QC): 6 Assessment Patient tolerated treatment well and is up in recliner with needs met. Patient has currently attained all functional goals. PT District Manager In Training Goals Group Home Goals PT District Manager In Training Goals Time Frame: February 09, 2021 Roll Left & Right (QC): 6 (met 02/01/21) Sit to Lying (QC): 6 (met 02/01/21) Lying-Sitting on Side/Bed(QC): 6 (met 02/01/21) Sit to Stand (QC): 6 (met 02/01/21) Chair/Eoh-pl-Pltaa Xfer(QC): 6 (met 02/01/21) Toilet Transfer (QC): 6 (met 02/01/21) Car Transfer (QC): 6 (met 02/01/21) Does the Patient Walk: Yes Walk 10 feet (QC): 6 (met 02/01/21) Walk 50ft with 2 Turns (QC): 6 (met 02/01/21) Walk 150 ft (QC): 6 (met 02/01/21) Walking 10ft on Uneven Surface: 6 (met 02/01/21) 1 Step (curb) (QC): 6 (met 02/01/21) 4 Steps (QC): 9 12 Steps (QC): 9 Picking up an Object (QC): 6 (met 02/01/21) Does the Pt use WC or Scooter?: No Wheel 50 feet with 2 turns (QC: 9 Type: N/A Wheel 150 feet: 9 Type: N/A PT Plan Treatment/Plan Treatment Plan: Continue Plan of Care Treatment Plan: Bed Mobility, Education, Functional Activity Richie, Functional Strength, Gait, Safety, Therapeutic Exercise, Transfers Treatment Duration: February 09, 2021 Frequency: 6 times per week Estimated Hrs Per Day: .5 hour per day Time/GCodes Time In: 1101 Time Out: 1117 Total Billed Treatment Time: 16 Total Billed Treatment 1 visit FA 16 min ADRIANA CARTER PT Feb 01, 2021 11:41
--- NOTE | 2021-02-01 11:49 | Occupational Ther Daily Note ---
OT Current Status-Daily Note Subjective Pt AxO, denies pain. Agrees to tx. Denies ADLs, stating showered yesterday and no need for RR. Mental Status/Objective Patient Orientation: Normal For Age ADL-Treatment Therapy Code Descriptions/Definitions Functional [place] Measure: 0=Not Assessed/NA 4=Minimal Assistance 1=Total Assistance 5=Supervision or Setup 2=Maximal Assistance 6=Modified [place] 3=Moderate Assistance 7=Complete IndependenceSCALE: Activities may be completed with or without assistive devices. 1-Smtptqjghm-wpwitkq completes the activity by him/herself with no assistance from a helper. 5-Set-up or Clean-up Assistance-helper sets up or cleans up; patient completes activity. [place] assists only prior to or following the activity. 4-Supervision or Touching Assistance-helper provides verbal cues and/or touching /steadying and/or contact guard assistance as patient completes activity. Assistance may be provided throughout the activity or intermittently. 3-Partial/Moderate Assistance-helper does LESS THAN HALF the effort. [place] lifts, holds or supports trunk or limbs, but provides less than half the effort. 2-Substantial/Maximal Assistance-helper does MORE THAN HALF the effort. [place] lifts or holds trunk or limbs and provides more than half the effort. 3-Gzgexihkf-ecvjju does ALL the effort. Patient does none of the effort to complete the activity. Or, the assistance of 2 or more helpers is required for the patient to complete the activity. If activity was not attempted, code reason: 7-Patient Refused. 9-Not Applicable-not attempted and the patient did not perform the activity before the current illness, exacerbation or injury. 10-Not Attempted due to Environmental Limitations-(lack of equipment, weather restraints, etc.). 88-Not Attempted due to Medical Conditions or Safety Concerns. Eating (QC): 6 Oral Hygiene (QC): 7 Shower/Bathe Self (QC): 7 Upper Body Dressing (QC): 7 Lower Body Dressing (QC): 7 On/Off Footwear: 6 Toileting Hygiene (QC): 7 Toilet Transfer (QC): 7 Other Treatment Pt completes sock donning in sit (IND). Stands with SBA, completes standing balance/ UE ex in stance with one or both hands off walker depending on ex. Pt completes 10-15 reps of the following ex bilaterally (stating she has been completing some without therapy). Pt completes back flies, bicep curls, shoulder flexions. min cues for positioning and tolerance. Pt returns to sit with fatmata denneyrol. Left with PT end of session. Education OT Patient Education: Exercise program, Home exercise program, Progress toward Goal/Update tx plan, Safety issues Teaching Recipient: Patient Teaching Methods: Demonstration, Handout, Discussion Response to Teaching: Verbalize Understanding, Return Demonstration OT Residential Goals Residential Goals Time Frame: Feb 08, 2021 Eating (QC): 6 Oral Hygiene (QC): 6 Toileting Hygiene (QC): 6 Shower/Bathe Self (QC): 6 Upper Body Dressing (QC): 6 Lower Body Dressing (QC): 6 On/Off Footwear (QC): 6 Additional Goals: 1-Demonstrate ADL Tasks, 2-Verbalize Understanding, 3- ImproveStrength/Richie 1=Demonstrate adherence to instructed precautions during ADL tasks. 2=Patient will verbalize/demonstrate understanding of assistive devices/modifications for ADL. 3=Patient will improve strength/tolerance for activity to enable patient to perform ADL's. OT Education/Plan Problem List/Assessment Assessment: Decreased Activ Tolerance, Decreased UE Strength, Impaired Funct Balance, Impaired I ADL's, Impaired Self-Care Skills Pt would benefit from skilled OT services in order to increase safety and independence with ADLs and functional mobility, and increase BUE strength and activity tolerance to maximize LOF for safe return home. Discharge Recommendations Plan/Recommendations: Continue POC Therapy Discharge Recommendati: Intermittent Supervision, Home & Family Treatment Plan/Plan of Care Treatment,Training & Education: Yes Patient would benefit from OT for education, treatment and training to promote independence in ADL's, mobility, safety and/or upper extremity function for ADL's. Plan of Care: ADL Retraining, Functional Mobility, UE Funct Exercise/Act Treatment Duration: Feb 08, 2021 Frequency: 5 times per week Estimated Hrs Per Day: .25 hour per day Rehab Potential: Fair Time/GCodes Start Time: 10:42 Stop Time: 11:00 Total Time Billed (hr/min): 18 Billed Treatment Time 1, EX (18) FELIZ LEACH OTR Feb 01, 2021 11:49
--- NOTE | 2021-02-01 12:33 | Progress Note - Cardiology ---
Cardiology SOAP Progress Note Subjective: No shortness of breath at rest Malaise is improving No cp or palp or syncope No n/v/d Objective: I&O/Vital Signs 02/01/21 02/01/21 02/01/21 02/01/21 01:00 05:22 07:00 09:00 Temp 36.4 Pulse 46 62 67 Resp 20 B/P (MAP) 175/78 (110) Pulse Ox 92 93 O2 Delivery Room Air Nasal Cannula O2 Flow Rate 1.00 02/01/21 00:00 Intake Total 1740 ml Balance 1740 ml Weight (Pounds): 150 Weight (Calculated Kilograms): 68.248532 Constitutional: AAO x 3, well-developed, well-nourished Respiratory: No accessory muscle use; other (fair to good, bilateral air entry, diminished at the bases) Cardiovascular: regular rate-rhythm, S1 and S2, systolic murmur (soft CODY at card base) Gastrointestional: No tender; soft; No guarding, No rebound; audible bowel soun ds Extremities: No clubbing, No cyanosis, No significant edema Neurologic/Psychiatric: oriented x 3, other (moves all limbs equally) Skin: warm/dry; No cyanosis, No cool, No rash on exposed areas, No ulcerations on exposed areas A/P: Assessment: PAF diagnosed in Jan 2021 - converted on amiodarone - Eliquis for stroke prophylaxis Epigastric discomfort, nausea and vomiting, probably gastritis - resolved Hypertension - intolerant to high-dose BB d/t bradycardia - albeit asymptomatic [place] of 01-23-[address] Lopez showed severe MR; mild to mod LVH; LVEF 60% CKD 4 Hyperlipidemia - statin tx Extensive family history of heart disease. Plan: * BP not well controlled - unable to increase BB d/t bradycardia - start doxazosin and adjust as indicated * Monitor labs from time to time * I discussed her CV issues with her HILLARY MORALES MD FACP FAC CCDS Feb 01, 2021 12:33
[2021-02-01 17:35] VITALS: BP 155/71
[2021-02-01] MEDS: doxAzosin 1 MG (CARDURA) TAB PO SCH (20:08)
[2021-02-02 06:00] VITALS: BP 126/55
[2021-02-02] MEDS: FUROSEMIDE 20 MG (LASIX) TAB PO SCH (08:52)
[2021-02-02] MEDS: AMIODARONE 200 MG (CORDARONE) TAB PO SCH ×2 (08:52→20:32)
[2021-02-02] MEDS: APIXABAN 2.5 MG (ELIQUIS) TABLET PO SCH ×2 (08:52→20:35)
[2021-02-02] MEDS: amLODIPine 10 MG (NORVASC) TAB PO SCH (08:52)
[2021-02-02] MEDS: PANTOPRAZOLE 40 MG (PROTONIX) TAB PO SCH (08:52)
[2021-02-02] MEDS: KCL 10 MEQ TAB (MICRO K) PO SCH (08:52)
[2021-02-02] MEDS: SENNA W/DOCUSATE (SENOKOT S) TABLET PO SCH ×2 (08:52→20:35)
[2021-02-02] MEDS: meTOproloL SUCCINATE 50 MG (TOPROL XL) TAB PO SCH (08:53)
--- NOTE | 2021-02-02 10:56 | Physical Therapy Daily Note ---
PT Daily Note-Current Subjective Pt. up in chair and readily agrees to therapy. She has no c/o pain. Mental Status Patient Orientation: Person, Place, Time, Situation Transfers SCALE: Activities may be completed with or without assistive devices. 7-Bnrekdaynv-mxwaihz completes the activity by him/herself with no assistance from a helper. 5-Set-up or Clean-up Assistance-helper sets up or cleans up; patient completes activity. [place] assists only prior to or following the activity. 4-Supervision or Touching Assistance-helper provides verbal cues and/or touching/steadying and/or contact guard assistance as patient completes activity. Assistance may be provided throughout the activity or intermittently. 3-Partial/Moderate Assistance-helper does LESS THAN HALF the effort. [place] lifts, holds or supports trunk or limbs, but provides less than half the effort. 2-Substantial/Maximal Assistance-helper does MORE THAN HALF the effort. [place] lifts or holds trunk or limbs and provides more than half the effort. 4-Eaaepjtdm-xrvxie does ALL the effort. Patient does none of the effort to complete the activity. Or, the assistance of 2 or more helpers is required for the patient to complete the activity. If activity was not attempted, code reason: 7-Patient Refused. 9-Not Applicable-not attempted and the patient did not perform the activity before the current illness, exacerbation or injury. 10-Not Attempted due to Environmental Limitations-(lack of equipment, weather restraints, etc.). 88-Not Attempted due to Medical Conditions or Safety Concerns. Sit to Stand (QC): 6 Gait Training Does the Patient Walk?: Yes Distance: 500 ft Walk 150 ft (QC): 6 Gait Persons Needed: 1 Gait Assistive Device: FWW Treatments gait training Assessment Current Status: Good Progress Pt. is steady with gait using FWW and (I) with transfers. She is progressing very well with therapy, hopes to discharge on Thursday. Pt. up in chair post session with call light and all needs met. PT Jail Goals [place] Lead Engineer Goals PT Jail Goals Time Frame: February 09, 2021 Roll Left & Right (QC): 6 (met 02/01/21) Sit to Lying (QC): 6 (met 02/01/21) Lying-Sitting on Side/Bed(QC): 6 (met 02/01/21) Sit to Stand (QC): 6 (met 02/01/21) Chair/Fyn-jj-Lsjvc Xfer(QC): 6 (met 02/01/21) Toilet Transfer (QC): 6 (met 02/01/21) Car Transfer (QC): 6 (met 02/01/21) Does the Patient Walk: Yes Walk 10 feet (QC): 6 (met 02/01/21) Walk 50ft with 2 Turns (QC): 6 (met 02/01/21) Walk 150 ft (QC): 6 (met 02/01/21) Walking 10ft on Uneven Surface: 6 (met 02/01/21) 1 Step (curb) (QC): 6 (met 02/01/21) 4 Steps (QC): 9 12 Steps (QC): 9 Picking up an Object (QC): 6 (met 02/01/21) Does the Pt use WC or Scooter?: No Wheel 50 feet with 2 turns (QC: 9 Type: N/A Wheel 150 feet: 9 Type: N/A PT Plan Treatment/Plan Treatment Plan: Continue Plan of Care Treatment Plan: Bed Mobility, Education, Functional Activity Richie, Functional Strength, Gait, Safety, Therapeutic Exercise, Transfers Treatment Duration: February 09, 2021 Frequency: 6 times per week Estimated Hrs Per Day: .5 hour per day Time/GCodes Time In: 901 Time Out: 918 Total Billed Treatment Time: 17 Total Billed Treatment 1, GT 17' PHILLY DOLL PT Feb 02, 2021 10:56
--- NOTE | 2021-02-02 15:11 | Progress Note - Cardiology ---
Cardiology SOAP Progress Note Subjective: No cp or palp or syncope Shortness of breath and malaise present but improving No n/v/d Objective: I&O/Vital Signs 02/02/21 02/02/21 02/02/21 02/02/21 06:00 07:00 09:00 12:36 Temp 36.5 Pulse 59 53 49 Resp 18 B/P (MAP) 126/55 (78) Pulse Ox 90 93 O2 Delivery Room Air Room Air 02/02/21 00:00 Intake Total 1900 ml Balance 1900 ml Weight (Pounds): 150 Weight (Calculated Kilograms): 68.849902 Constitutional: AAO x 3, well-developed, well-nourished Respiratory: No accessory muscle use; other (fair to good, bilateral air entry, diminished at the bases) Cardiovascular: regular rate-rhythm, S1 and S2, systolic murmur (soft CODY at card base) Gastrointestional: No tender; soft; No guarding, No rebound; audible bowel sounds Extremities: No clubbing, No cyanosis, No significant edema Neurologic/Psychiatric: oriented x 3, other (moves all limbs equally) Skin: warm/dry; No cyanosis, No cool, No rash on exposed areas, No ulcerations on exposed areas A/P: Assessment: PAF diagnosed in Jan 2021 - converted on amiodarone - Eliquis for stroke prophylaxis Epigastric discomfort, nausea and vomiting, probably gastritis - resolved Hypertension - intolerant to high-dose BB d/t bradycardia - albeit asymptomatic [place] of 01-23-[address] Lopez showed severe MR; mild to mod LVH; LVEF 60% CKD 4 Hyperlipidemia - statin tx Extensive family history of heart disease. Plan: * BP now better controlled - continue current regimen * I discussed her CV issues with her HILLARY MORALES MD FACP FACC CCDS Feb 02, 2021 15:11
[2021-02-02 17:24] VITALS: BP 128/63
[2021-02-02] MEDS: doxAzosin 1 MG (CARDURA) TAB PO SCH (20:35)
[2021-02-03 05:17] VITALS: BP 128/51
[2021-02-03] MEDS: KCL 10 MEQ TAB (MICRO K) PO SCH (06:07)
[2021-02-03] MEDS: amLODIPine 10 MG (NORVASC) TAB PO SCH (09:55)
[2021-02-03] MEDS: APIXABAN 2.5 MG (ELIQUIS) TABLET PO SCH ×2 (09:55→20:45)
[2021-02-03] MEDS: SENNA W/DOCUSATE (SENOKOT S) TABLET PO SCH ×2 (09:55→20:45)
[2021-02-03] MEDS: PANTOPRAZOLE 40 MG (PROTONIX) TAB PO SCH (09:55)
[2021-02-03] MEDS: FUROSEMIDE 20 MG (LASIX) TAB PO SCH (09:55)
[2021-02-03] MEDS: meTOproloL SUCCINATE 50 MG (TOPROL XL) TAB PO SCH (09:56)
[2021-02-03] MEDS: AMIODARONE 200 MG (CORDARONE) TAB PO SCH ×2 (15:10→20:45)
[2021-02-03 15:32] VITALS: BP 107/55
--- NOTE | 2021-02-03 16:24 | Progress Note - Cardiology ---
Cardiology SOAP Progress Note Subjective: No cp or palp or syncope Shortness fo breath and malaise are better She is concerned that bp is running a little too low No n/v/d Objective: I&O/Vital Signs 02/03/21 02/03/21 02/03/21 02/03/21 05:17 07:00 09:00 12:35 Temp 36.6 Pulse 57 54 46 Resp 20 B/P (MAP) 128/51 (76) Pulse Ox 94 94 O2 Delivery Room Air Room Air 02/03/21 15:32 Temp 35.9 Pulse 50 Resp 18 B/P (MAP) 107/55 (72) Pulse Ox 96 O2 Delivery Room Air 02/03/21 00:00 Intake Total 1320 ml Balance 1320 ml Weight (Pounds): 150 Weight (Calculated Kilograms): 68.932899 Constitutional: AAO x 3, well-developed, well-nourished Respiratory: No accessory muscle use; other (fair to good, bilateral air entry, diminished at the bases) Cardiovascular: regular rate-rhythm, S1 and S2, systolic murmur (soft CODY at card base) Gastrointestional: No tender; soft; No guarding, No rebound; audible bowel sounds Extremities: No clubbing, No cyanosis, No significant edema Neurologic/Psychiatric: oriented x 3, other (moves all limbs equally) Skin: warm/dry; No cyanosis, No cool, No rash on exposed areas, No ulcerations on exposed areas A/P: Assessment: PAF diagnosed in Jan 2021 - converted on amiodarone - Eliquis for stroke prophylaxis Epigastric discomfort, nausea and vomiting, probably gastritis - resolved Hypertension - intolerant to high-dose BB d/t bradycardia - albeit asymptomatic [facility] of 01-23-[address] Lopez showed severe MR; mild to mod LVH; LVEF 60% CKD 4 Hyperlipidemia - statin tx Extensive family history of heart disease. Plan: * BP now low normal. D/c doxazosin * I discussed her CV issues with her HILLARY MORALES MD FACP FACC CCDS Feb 03, 2021 16:24
[2021-02-03 17:07] VITALS: BP 133/66
[2021-02-03 20:42] VITALS: BP 137/65
[2021-02-04 05:32] VITALS: BP 151/69
[2021-02-04] MEDS: KCL 10 MEQ TAB (MICRO K) PO SCH (05:52)
[2021-02-04 08:16] VITALS: BP 155/66
[2021-02-04] MEDS ORDERED: fluCOnazole (DIFLUCAN) 100 MG TAB PO SCH (08:30)
--- NOTE | 2021-02-04 08:34 | Progress Note ---
Subjective Date Seen by a Provider: Feb 04, 2021 Time Seen by a Provider: 08:32 Subjective/Events-last exam Fwup a fib with RVR, hypertensive urgency, acute on chronic renal failure, constipation. C/O rash under right breast. C/O neuropathy in feet. C/O still weak and feels unsure about going home. Objective Exam Vital Signs Date Time Temp Pulse Resp B/P (MAP) Pulse Ox O2 Delivery O2 Flow Rate FiO2 02/04/21 08:16 35.9 67 17 155/66 (95) 96 Room Air 02/04/21 05:32 36.4 63 18 151/69 (96) 96 Room Air 02/04/21 01:00 51 02/03/21 21:00 97 Room Air 02/03/21 20:42 36.2 52 18 137/65 (89) 97 Room Air 02/03/21 19:00 52 02/03/21 17:07 36.4 59 18 133/66 (88) 93 Room Air 02/03/21 15:32 35.9 50 18 107/55 (72) 96 Room Air 02/03/21 12:35 46 02/03/21 09:00 94 Room Air I & O 02/04/21 06:59 Intake Total 2155 ml Balance 2155 ml Capillary Refill : General Appearance: No Apparent Distress Neck: Supple Respiratory: Lungs Clear Cardiovascular: Regular Rate, Rhythm Gastrointestinal: normal bowel sounds, non tender, soft Extremity: Non Tender, No Calf Tenderness, Pedal Edema (trace) Neurologic/Psychiatric: Alert, Oriented x3 Assessment/Plan Assessment/Plan Assess & Plan/Chief Complaint 1. A Fib with RVR--back in NSR with amiodarone, on eliquis 2. Hypertension--on amlodopine and metoprolol 3. Acute on Chronic Renal Failure--stable 4. Constipation with abdominal cramping--Senokot-S has helped 5. Right Intertrigo--start nystatin cream and diflucan x1 6. Neuropathy--add low dose gabapentin HERMILA BARRIENTOS DO Feb 04, 2021 08:34
[2021-02-04] MEDS: PANTOPRAZOLE 40 MG (PROTONIX) TAB PO SCH (09:17)
[2021-02-04] MEDS: FUROSEMIDE 20 MG (LASIX) TAB PO SCH (09:17)
[2021-02-04] MEDS: SENNA W/DOCUSATE (SENOKOT S) TABLET PO SCH ×2 (09:17→20:40)
[2021-02-04] MEDS: AMIODARONE 200 MG (CORDARONE) TAB PO SCH ×2 (09:17→20:47)
[2021-02-04] MEDS: APIXABAN 2.5 MG (ELIQUIS) TABLET PO SCH ×2 (09:18→20:40)
[2021-02-04] MEDS: meTOproloL SUCCINATE 50 MG (TOPROL XL) TAB PO SCH (09:18)
[2021-02-04] MEDS: amLODIPine 10 MG (NORVASC) TAB PO SCH (09:18)
[2021-02-04] MEDS: NYSTATIN CREAM (MYCOSTATIN) 30 GM TUBE TP SCH ×3 (09:19→20:41)
--- NOTE | 2021-02-04 09:24 | Occupational Ther Daily Note ---
OT Current Status-Daily Note Subjective Pt alert, sitting in recliner. No c/o pain. Agrees to therapy. Pt is anxious about going home today. Mental Status/Objective Patient Orientation: Person, Place, Time, Situation Attachments: Telemetry ADL-Treatment Pt retrieved own clothing and transported to bathroom. Completed toileting and toilet transfer independent using FWW and grabbars. Sitting on shower bench, pt completed shower using grabbars and hand held shower independently. Pt donned/doffed clothing independently. Pt states that she has a bath tub and sits in it every morning to take a shower. Pt stood at sink to complete grooming and using clinical judgment oral care independent. After session, pt sitting in recliner with call light/phone in reach. Nrsg in room. All needs met. Therapy Code Descriptions/Definitions Functional [place] Measure: 0=Not Assessed/NA 4=Minimal Assistance 1=Total Assistance 5=Supervision or Setup 2=Maximal Assistance 6=Modified [place] 3=Moderate Assistance 7=Complete IndependenceSCALE: Activities may be completed with or without assistive devices. 2-Fbqachklsj-nyjidgt completes the activity by him/herself with no assistance from a helper. 5-Set-up or Clean-up Assistance-helper sets up or cleans up; patient completes activity. [place] assists only prior to or following the activity. 4-Supervision or Touching Assistance-helper provides verbal cues and/or touching/steadying and/or contact guard assistance as patient completes activity. Assistance may be provided throughout the activity or intermittently. 3-Partial/Moderate Assistance-helper does LESS THAN HALF the effort. [place] lifts, holds or supports trunk or limbs, but provides less than half the effort. 2-Substantial/Maximal Assistance-helper does MORE THAN HALF the effort. [place] lifts or holds trunk or limbs and provides more than half the effort. 2-Whvqzmwhk-wlflwa does ALL the effort. Patient does none of the effort to complete the activity. Or, the assistance of 2 or more helpers is required for the patient to complete the activity. If activity was not attempted, code reason: 7-Patient Refused. 9-Not Applicable-not attempted and the patient did not perform the activity before the current illness, exacerbation or injury. 10-Not Attempted due to Environmental Limitations-(lack of equipment, weather restraints, etc.). 88-Not Attempted due to Medical Conditions or Safety Concerns. Eating (QC): 6 (Independent using clinical judgment.) Oral Hygiene (QC): 6 Shower/Bathe Self (QC): 6 Upper Body Dressing (QC): 6 Lower Body Dressing (QC): 6 On/Off Footwear: 6 Toileting Hygiene (QC): 6 Toilet Transfer (QC): 6 OT Advanced Solutions Architect Goals Residential Goals Time Frame: Feb 08, 2021 Eating (QC): 6 Oral Hygiene (QC): 6 Toileting Hygiene (QC): 6 Shower/Bathe Self (QC): 6 Upper Body Dressing (QC): 6 Lower Body Dressing (QC): 6 On/Off Footwear (QC): 6 Additional Goals: 1-Demonstrate ADL Tasks, 2-Verbalize Understanding, 3-Impro veStrength/Richie 1=Demonstrate adherence to instructed precautions during ADL tasks. 2=Patient will verbalize/demonstrate understanding of assistive devices/modifications for ADL. 3=Patient will improve strength/tolerance for activity to enable patient to perform ADL's. OT Education/Plan Problem List/Assessment Assessment: Decreased Activ Tolerance Pt would benefit from skilled OT services in order to increase safety and independence with ADLs and functional mobility, and increase BUE strength and activity tolerance to maximize LOF for safe return home. Discharge Recommendations Plan/Recommendations: Continue POC Treatment Plan/Plan of Care Patient would benefit from OT for education, treatment and training to promote independence in ADL's, mobility, safety and/or upper extremity function for ADL's. Plan of Care: ADL Retraining, Functional Mobility, UE Funct Exercise/Act Treatment Duration: Feb 08, 2021 Frequency: 5 times per week Estimated Hrs Per Day: .25 hour per day Rehab Potential: Fair Time/GCodes Start Time: 08:45 Stop Time: 09:18 Total Time Billed (hr/min): 33 Billed Treatment Time 1 visit-ADL 2 (33 min) WU MENDOZA Feb 04, 2021 09:23
--- NOTE | 2021-02-04 10:01 | Cardiology Progress Note ---
Subjective Date Seen by Provider: Feb 04, 2021 Time Seen by Provider: 08:25 Subjective/Events-last exam Patient sitting up in chair, no new complaints. Denies any chest pain or in creased dyspnea Review of Systems General: No Chills, No Night Sweats; Fatigue; No Malaise, No Appetite, No Other HEENT: No Head Aches, No Visual Changes, No Eye Pain, No Ear Pain, No Dysphasia, No Sinus Congestion, No Post Nasal Drip, No Sore Throat, No Other Pulmonary: No Dyspnea, No Cough, No Pleuritic Chest Pain, No Other Cardiovascular: No: Chest Pain, Palpitations, Orthopnea, Paroxysmal Noc. Dyspnea, Edema, Lt Headedness, Other Objective-Cardiology Exam Last Set of Vital Signs Vital Signs 02/01/21 02/04/21 02/04/21 02/04/21 09:00 08:16 09:00 12:33 Temp 35.9 Pulse 52 Resp 17 B/P (MAP) 155/66 (95) Pulse Ox 97 O2 Delivery Room Air O2 Flow Rate 1.00 Capillary Refill : I&O Intake and Output 02/04/21 00:00 Intake Total 2080 ml Balance 2080 ml Intake Oral 2080 ml # Voids 8 # Bowel Movements 4 General: Alert, Oriented X3, Cooperative HEENT: Atraumatic, PERRLA Neck: Supple, No JVD, No Thyromegaly Lungs: Clear to Auscultation, Normal Air Movement Heart: Regular Rate, Normal S1, Normal S2, No Murmurs Abdomen: Normal Bowel Sounds, Soft, No Tenderness, No Hepatosplenomegaly, No Masses Extremities: No Clubbing, No Cyanosis, No Edema, Normal Pulses, No Tenderness/Swelling Skin: No Rashes, No Breakdown, No Significant Lesion Neuro: Normal Gait, Normal Speech, Strength at 5/5 X4 Ext, Normal Tone, Se nsation Intact Psych/Mental Status: Mental Status NL, Mood NL A/P-Cardiology Admission Diagnosis PAF HTN HLP CKD Assessment/Plan PAF diagnosed in Jan 2021, converted on amiodarone, maintainted on Eliquis for stroke prophylaxis Epigastric discomfort, nausea and vomiting, probably gastritis - resolved Hypertension, intolerant to high-dose BB d/t bradycardia, continue to monitor BP/HR CHAYITO of 01-23-21 showed severe MR; mild to mod LVH; LVEF 60% CKD 4 Hyperlipidemia - statin tx Extensive family history of heart disease. Patient was seen and evaluated with Aliyah, interviewed the patient and performed physical examination Discussed with the patient the management plan Currently doing better. I will continue monitoring while receiving therapy Discussed follow-up as an outpatient Patient is showing steady improvement Supervisory-Addendum Brief Supervisory Addendum Participated in pt care: history, MDM, physical Personally performed: exam, history, MDM Care discussed with: ALIYAH ROCHE Feb 04, 2021 10:01 SERGIO LOYOLA MD Feb 04, 2021 15:12
--- NOTE | 2021-02-04 10:57 | Physical Therapy Daily Note ---
PT Daily Note-Current Subjective Patient agrees to PT. She reports she doesn't feel ready to go home. Mental Status Patient Orientation: Normal For Age Transfers SCALE: Activities may be completed with or without assistive devices. 5-Uzqrkyxssa-avtdvcw completes the activity by him/herself with no assistance from a helper. 5-Set-up or Clean-up Assistance-helper sets up or cleans up; patient completes activity. [place] assists only prior to or following the activity. 4-Supervision or Touching Assistance-helper provides verbal cues and/or touching/steadying and/or contact guard assistance as patient completes activity. Assistance may be provided throughout the activity or intermittently. 3-Partial/Moderate Assistance-helper does LESS THAN HALF the effort. [place] lifts, holds or supports trunk or limbs, but provides less than half the effort. 2-Substantial/Maximal Assistance-helper does MORE THAN HALF the effort. [place] lifts or holds trunk or limbs and provides more than half the effort. 8-Ekfnzkewl-igpwuv does ALL the effort. Patient does none of the effort to complete the activity. Or, the assistance of 2 or more helpers is required for the patient to complete the activity. If activity was not attempted, code reason: 7-Patient Refused. 9-Not Applicable-not attempted and the patient did not perform the activity before the current illness, exacerbation or injury. 10-Not Attempted due to Environmental Limitations-(lack of equipment, weather restraints, etc.). 88-Not Attempted due to Medical Conditions or Safety Concerns. Roll Left & Right (QC): 6 Sit to Lying (QC): 6 Lying to Sitting/Side of Bed(Q: 6 Sit to Stand (QC): 6 Chair/Mfi-ji-Vfnis Xfer(QC): 6 Toilet Transfer (QC): 6 Car Transfer (QC): 6 Gait Training Does the Patient Walk?: Yes Distance: 800' Walk 10 feet (QC): 6 Walk 50 ft with 2 Turns(QC): 6 Walk 150 ft (QC): 6 Walking 10ft/uneven surface-QC: 6 Gait Assistive Device: FWW safe and functional with no deviation Wheelchair Training Does the Pt Use a Wheelchair?: No Stair Training Stair Training: Handrails/: 2 handrails #of Steps: 1 1 Step (curb) (QC): 6 4 Steps (QC): 9 12 Steps (QC): 9 Stairs: Pattern: Step to Balance Picking up an Object (QC): 6 Exercises Seated Therapy Exercises: Ankle pumps, Long arc quads, Hip flexion Seated Reps: 12 Assessment Patient is up in recliner and has been instructed to perform all in room and hallway activity independently. Nursing notified. All goals address and attained. PT Picker Packer Goals Alf Goals PT Alf Goals Time Frame: February 09, 2021 Roll Left & Right (QC): 6 (met 02/01/21) Sit to Lying (QC): 6 (met 02/01/21) Lying-Sitting on Side/Bed(QC): 6 (met 02/01/21) Sit to Stand (QC): 6 (met 02/01/21) Chair/Cql-ed-Kalhe Xfer(QC): 6 (met 02/01/21) Toilet Transfer (QC): 6 (met 02/01/21) Car Transfer (QC): 6 (met 02/01/21) Does the Patient Walk: Yes Walk 10 feet (QC): 6 (met 02/01/21) Walk 50ft with 2 Turns (QC): 6 (met 02/01/21) Walk 150 ft (QC): 6 (met 02/01/21) Walking 10ft on Uneven Surface: 6 (met 02/01/21) 1 Step (curb) (QC): 6 (met 02/01/21) 4 Steps (QC): 9 12 Steps (QC): 9 Picking up an Object (QC): 6 (met 02/01/21) Does the Pt use WC or Scooter?: No Wheel 50 feet with 2 turns (QC: 9 Type: N/A Wheel 150 feet: 9 Type: N/A PT Plan Treatment/Plan Treatment Plan: Continue Plan of Care Treatment Plan: Bed Mobility, Education, Functional Activity Richie, Functional Strength, Gait, Safety, Therapeutic Exercise, Transfers Treatment Duration: February 09, 2021 Frequency: 6 times per week Estimated Hrs Per Day: .5 hour per day Time/GCodes Time In: 1035 Time Out: [id number] Total Billed Treatment 1 visit FA 15 min ADRIANA CARTER PT Feb 04, 2021 10:57
[2021-02-04 17:41] VITALS: BP 132/61
[2021-02-04] MEDS: GABAPENTIN 100 MG (NEURONTIN) CAP PO SCH (20:40)
[2021-02-05] MEDS: KCL 10 MEQ TAB (MICRO K) PO SCH (05:54)
[2021-02-05 05:57] VITALS: BP 137/66
[2021-02-05] MEDS ORDERED: fluCOnazole (DIFLUCAN) 100 MG TAB PO NR (07:50)
--- NOTE | 2021-02-05 08:05 | Cardiology Progress Note ---
Subjective Date Seen by Provider: Feb 05, 2021 Time Seen by Provider: 08:04 Subjective/Events-last exam Patient sitting up at bedside, no new complaints. Review of Systems General: No Chills, No Night Sweats; Fatigue; No Malaise, No Appetite, No Other HEENT: No Head Aches, No Visual Changes, No Eye Pain, No Ear Pain, No Dysphasia, No Sinus Congestion, No Post Nasal Drip, No Sore Throat, No Other Pulmonary: No Dyspnea, No Cough, No Pleuritic Chest Pain, No Other Cardiovascular: No: Chest Pain, Palpitations, Orthopnea, Paroxysmal Noc. Dyspnea, Edema, Lt Headedness, Other Objective-Cardiology Exam Last Set of Vital Signs Vital Signs 02/01/21 02/05/21 02/05/21 09:00 05:57 06:37 Temp 36.8 Pulse 48 Resp 20 B/P (MAP) 137/66 (89) Pulse Ox 93 O2 Delivery Room Air O2 Flow Rate 1.00 Capillary Refill : I&O Intake and Output 02/05/21 00:00 Intake Total 2480 ml Balance 2480 ml Intake Oral 2480 ml # Voids 10 # Bowel Movements 3 General: Alert, Oriented X3, Cooperative HEENT: Atraumatic, PERRLA Neck: Supple, No JVD, No Thyromegaly Lungs: Clear to Auscultation, Normal Air Movement Heart: Regular Rate, Normal S1, Normal S2, No Murmurs Abdomen: Normal Bowel Sounds, Soft, No Tenderness, No Hepatosplenomegaly, No Masses Extremities: No Clubbing, No Cyanosis, No Edema, Normal Pulses, No Tenderness/Swelling Skin: No Rashes, No Breakdown, No Significant Lesion Neuro: Normal Gait, Normal Speech, Strength at 5/5 X4 Ext, Normal Tone, Sensation Intact Psych/Mental Status: Mental Status NL, Mood NL A/P-Cardiology Admission Diagnosis PAF HTN HLP CKD Assessment/Plan PAF diagnosed in Jan 2021, converted on amiodarone, maintainted on Eliquis for stroke prophylaxis, slightly bradycardic, asymptomatic. Amiodarone decreased to daily, continue to monitor. Severe mitral regurgitation, continue to monitor, possible mitral valve clip, will consider referral to as an outpatient Epigastric discomfort, nausea and vomiting, probably gastritis - resolved Hypertension, intolerant to high-dose BB d/t bradycardia, continue to monitor BP/HR CHAYITO of 01-23-21 showed severe MR; mild to mod LVH; LVEF 60% CKD 4, continue to monitor renal function Hyperlipidemia - statin tx Extensive family history of heart disease. Patient was seen and evaluated with Aliyah, She was sitting at bedside comfortable, denied any chest pain Heart rate is borderline bradycardic, I decreased amiodarone to once a day Continue to monitor blood pressure Continue with physical therapy ALIYAH FROST Feb 05, 2021 08:05 SERGIO LOYOLA MD Feb 05, 2021 08:22
[2021-02-05] MEDS: SENNA W/DOCUSATE (SENOKOT S) TABLET PO SCH ×2 (09:12→21:34)
[2021-02-05] MEDS: APIXABAN 2.5 MG (ELIQUIS) TABLET PO SCH ×2 (09:12→20:49)
[2021-02-05] MEDS: meTOproloL SUCCINATE 50 MG (TOPROL XL) TAB PO SCH (09:12)
[2021-02-05] MEDS: AMIODARONE 200 MG (CORDARONE) TAB PO SCH (09:12)
[2021-02-05] MEDS: amLODIPine 10 MG (NORVASC) TAB PO SCH (09:12)
[2021-02-05] MEDS: FUROSEMIDE 20 MG (LASIX) TAB PO SCH (09:12)
[2021-02-05] MEDS: PANTOPRAZOLE 40 MG (PROTONIX) TAB PO SCH (09:13)
[2021-02-05] MEDS: NYSTATIN CREAM (MYCOSTATIN) 30 GM TUBE TP SCH ×3 (09:13→20:49)
--- NOTE | 2021-02-05 10:02 | Occupational Ther Daily Note ---
OT Current Status-Daily Note Subjective Pt alert, standing beside bed. Pt agrees to therapy. No c/o pain. Pt states that she just woke up. Mental Status/Objective Patient Orientation: Person, Place, Situation Attachments: Telemetry ADL-Treatment Pt states that she has been getting up and going to the bathroom independently. Pt furniture walked to get from bed to recliner and recliner to <--> bathroom sink. Pt completed oral care independently. After therapy, pt sitting in recliner with call light/phone in reach. All needs met in room. Therapy Code Descriptions/Definitions Functional [place] Measure: 0=Not Assessed/NA 4=Minimal Assistance 1=Total Assistance 5=Supervision or Setup 2=Maximal Assistance 6=Modified [place] 3=Moderate Assistance 7=Complete IndependenceSCALE: Activities may be completed with or without assistive devices. 2-Pxqwlidaha-sgyhwum completes the activity by him/herself with no assistance from a helper. 5-Set-up or Clean-up Assistance-helper sets up or cleans up; patient completes activity. [place] assists only prior to or following the activity. 4-Supervision or Touching Assistance-helper provides verbal cues and/or touching/steadying and/or contact guard assistance as patient completes activity. Assistance may be provided throughout the activity or intermittently. 3-Partial/Moderate Assistance-helper does LESS THAN HALF the effort. [place] lifts, holds or supports trunk or limbs, but provides less than half the effort. 2-Substantial/Maximal Assistance-helper does MORE THAN HALF the effort. [place] lifts or holds trunk or limbs and provides more than half the effort. 3-Zvmnfdquo-hkzpns does ALL the effort. Patient does none of the effort to complete the activity. Or, the assistance of 2 or more helpers is required for the patient to complete the activity. If activity was not attempted, code reason: 7-Patient Refused. 9-Not Applicable-not attempted and the patient did not perform the activity before the current illness, exacerbation or injury. 10-Not Attempted due to Environmental Limitations-(lack of equipment, weather restraints, etc.). 88-Not Attempted due to Medical Conditions or Safety Concerns. Oral Hygiene (QC): 6 Toileting Hygiene (QC): 6 Toilet Transfer (QC): 6 OT Snf Goals Snf Goals Time Frame: Feb 08, 2021 Eating (QC): 6 Oral Hygiene (QC): 6 Toileting Hygiene (QC): 6 Shower/Bathe Self (QC): 6 Upper Body Dressing (QC): 6 Lower Body Dressing (QC): 6 On/Off Footwear (QC): 6 Additional Goals: 1-Demonstrate ADL Tasks, 2-Verbalize Understanding, 3-ImproveStrength/Richie 1=Demonstrate adherence to instructed precautions during ADL tasks. 2=Patient will verbalize/demonstrate understanding of assistive devices/modifications for ADL. 3=Patient will improve strength/tolerance for activity to enable patient to perform ADL's. OT Education/Plan Problem List/Assessment Assessment: Decreased Activ Tolerance Pt would benefit from skilled OT services in order to increase safety and independence with ADLs and functional mobility, and increase BUE strength and activity tolerance to maximize LOF for safe return home. Discharge Recommendations Plan/Recommendations: Continue POC Treatment Plan/Plan of Care Patient would benefit from OT for education, treatment and training to promote independence in ADL's, mobility, safety and/or upper extremity function for ADL's. Plan of Care: ADL Retraining, Functional Mobility, UE Funct Exercise/Act Treatment Duration: Feb 08, 2021 Frequency: 5 times per week Estimated Hrs Per Day: .25 hour per day Rehab Potential: Fair Time/GCodes Start Time: 09:45 Stop Time: 10:00 Total Time Billed (hr/min): 15 Billed Treatment Time 1 visit-ADL 1 (15 min) WU MENDOZA Feb 05, 2021 10:02
--- NOTE | 2021-02-05 10:58 | Physical Therapy Daily Note ---
PT Daily Note-Current Subjective Patient agrees to PT. Mental Status Patient Orientation: Normal For Age Transfers SCALE: Activities may be completed with or without assistive devices. 4-Cdlcltodcq-kwzdsmi completes the activity by him/herself with no assistance from a helper. 5-Set-up or Clean-up Assistance-helper sets up or cleans up; patient completes activity. [place] assists only prior to or following the activity. 4-Supervision or Touching Assistance-helper provides verbal cues and/or touching/steadying and/or contact guard assistance as patient completes activity. Assistance may be provided throughout the activity or intermittently. 3-Partial/Moderate Assistance-helper does LESS THAN HALF the effort. [place] lifts, holds or supports trunk or limbs, but provides less than half the effort. 2-Substantial/Maximal Assistance-helper does MORE THAN HALF the effort. [place] lifts or holds trunk or limbs and provides more than half the effort. 3-Wwjsjkuvv-ftbfao does ALL the effort. Patient does none of the effort to complete the activity. Or, the assistance of 2 or more helpers is required for the patient to complete the activity. If activity was not attempted, code reason: 7-Patient Refused. 9-Not Applicable-not attempted and the patient did not perform the activity befo re the current illness, exacerbation or injury. 10-Not Attempted due to Environmental Limitations-(lack of equipment, weather re straints, etc.). 88-Not Attempted due to Medical Conditions or Safety Concerns. Roll Left & Right (QC): 6 Sit to Lying (QC): 6 Lying to Sitting/Side of Bed(Q: 6 Sit to Stand (QC): 6 Chair/Jmn-ez-Ozktl Xfer(QC): 6 Toilet Transfer (QC): 6 Car Transfer (QC): 6 Gait Training Does the Patient Walk?: Yes Distance: 800' Walk 10 feet (QC): 6 Walk 50 ft with 2 Turns(QC): 6 Walk 150 ft (QC): 6 Walking 10ft/uneven surface-QC: 6 Gait Assistive Device: FWW safe and functional with no deviation. Patient reports she is up independently hallway multiple times yesterday. Stair Training Stair Training: Handrails/: 2 handrails #of Steps: 1 1 Step (curb) (QC): 6 Balance Picking up an Object (QC): 6 Exercises Seated Therapy Exercises: Ankle pumps, Long arc quads Seated Reps: 15 Assessment Patient is currently at independent PLOF with all gross motor skills. Plan dismissal to home this week. PT Long-Term Goals Long-Term Goals PT Long-Term Goals Time Frame: February 09, 2021 Roll Left & Right (QC): 6 (met 02/01/21) Sit to Lying (QC): 6 (met 02/01/21) Lying-Sitting on Side/Bed(QC): 6 (met 02/01/21) Sit to Stand (QC): 6 (met 02/01/21) Chair/Nbl-rf-Lcsbb Xfer(QC): 6 (met 02/01/21) Toilet Transfer (QC): 6 (met 02/01/21) Car Transfer (QC): 6 (met 02/01/21) Does the Patient Walk: Yes Walk 10 feet (QC): 6 (met 02/01/21) Walk 50ft with 2 Turns (QC): 6 (met 02/01/21) Walk 150 ft (QC): 6 (met 02/01/21) Walking 10ft on Uneven Surface: 6 (met 02/01/21) 1 Step (curb) (QC): 6 (met 02/01/21) 4 Steps (QC): 9 12 Steps (QC): 9 Picking up an Object (QC): 6 (met 02/01/21) Does the Pt use WC or Scooter?: No Wheel 50 feet with 2 turns (QC: 9 Type: N/A Wheel 150 feet: 9 Type: N/A PT Plan Treatment/Plan Treatment Plan: Continue Plan of Care Treatment Plan: Bed Mobility, Education, Functional Activity Richie, Functional Strength, Gait, Safety, Therapeutic Exercise, Transfers Treatment Duration: February 09, 2021 Frequency: 6 times per week Estimated Hrs Per Day: .5 hour per day Time/GCodes Time In: 1026 Time Out: 1041 Total Billed Treatment Time: 15 Total Billed Treatment 1 visit FA 15 min ADRIANA CARTER PT Feb 05, 2021 10:58
[2021-02-05 17:36] VITALS: BP 158/68
--- NOTE | 2021-02-05 20:37 | Progress Note ---
Subjective Date Seen by a Provider: Feb 05, 2021 Time Seen by a Provider: 20:34 Subjective/Events-last exam Fwup a fib with RVR, hypertensive urgency, acute on chronic renal failure, constipation, neuropathy of feet, intertrigo. C/O feet/ankles swelling. Heart rate has been in 40s-50s. Objective Exam Vital Signs Date Time Temp Pulse Resp B/P (MAP) Pulse Ox O2 Delivery O2 Flow Rate FiO2 02/05/21 19:04 43 02/05/21 17:36 36.0 45 18 158/68 (98) 97 Room Air 02/05/21 12:13 44 02/05/21 08:00 93 Room Air 02/05/21 06:37 48 02/05/21 05:57 36.8 52 20 137/66 (89) 93 Room Air 02/05/21 01:00 48 02/04/21 20:40 95 Room Air I & O 02/05/21 07:00 Intake Total 2330 ml Output Total 1050 ml Balance 1280 ml Capillary Refill : General Appearance: No Apparent Distress Neck: Supple Respiratory: Lungs Clear Cardiovascular: Regular Rate, Rhythm Gastrointestinal: normal bowel sounds, non tender, soft Extremity: No Calf Tenderness, Pedal Edema (2 plus) Assessment/Plan Assessment/Plan Assess & Plan/Chief Complaint 1. A Fib with RVR--back in NSR with amiodarone, on eliquis 2. Hypertension--on amlodopine and metoprolol 3. Acute on Chronic Renal Failure--stable, repeat lab in AM 4. Constipation with abdominal cramping--Senokot-S has helped 5. Right Intertrigo--started nystatin cream 6. Neuropathy--gabapentin has helped 7. Edema of ankles/feet--decrease amlodoine dose 8. Bradycardia--has been asymptomatic but will see if decrease dose in amlodopine helps 9. Weakness--feels stronger so DC plans for tomorrow or at latest HERMILA BARRIENTOS DO Feb 05, 2021 20:37
[2021-02-05] MEDS ORDERED: ACETAMINOPHEN 325 MG TABLET PO ONE (20:45)
[2021-02-05] MEDS: GABAPENTIN 100 MG (NEURONTIN) CAP PO SCH (20:49)
[2021-02-06 03:40] LABS: BASOPHILS # (AUTO) 0.1 10^3/uL (0.0-0.1); BASOPHILS % (AUTO) 1 % (0-10); EOSINOPHILS # (AUTO) 0.3 10^3/uL (0.0-0.3); EOSINOPHILS % (AUTO) 4 % (0-10); HEMATOCRIT 33 % (35-52); HEMOGLOBIN 10.5 g/dL (11.5-16.0); LYMPHOCYTES # (AUTO) 1.4 10^3/uL (1.0-4.0); LYMPHOCYTES % (AUTO) 20 % (12-44); MEAN CORPUSCULAR HEMOGLOBIN 30 pg (25-34); MEAN CORPUSCULAR HGB CONC 32 g/dL (32-36); MEAN CORPUSCULAR VOLUME 93 fL (80-99); MEAN PLATELET VOLUME 9.8 fL (9.0-12.2); MONOCYTES # (AUTO) 0.7 10^3/uL (0.0-1.0); MONOCYTES % (AUTO) 10 % (0-12); NEUTROPHILS # (AUTO) 4.3 10^3/uL (1.8-7.8); NEUTROPHILS % (AUTO) 64 % (42-75); PLATELET COUNT 228 10^3/uL (130-400); WHITE BLOOD COUNT 6.7 10^3/uL (4.3-11.0)
[2021-02-06 03:59] LABS: CALCIUM 8.5 MG/DL (8.5-10.1); CREATININE SERUM 2.69 MG/DL (0.60-1.30); POTASSIUM 3.8 MMOL/L (3.6-5.0)
[2021-02-06 05:23] VITALS: BP 121/61
[2021-02-06] MEDS: KCL 10 MEQ TAB (MICRO K) PO SCH (06:17)
[2021-02-06] MEDS: amLODIPine 10 MG (NORVASC) TAB PO SCH (08:26)
[2021-02-06] MEDS: APIXABAN 2.5 MG (ELIQUIS) TABLET PO SCH ×2 (08:27→20:46)
[2021-02-06] MEDS: PANTOPRAZOLE 40 MG (PROTONIX) TAB PO SCH (08:27)
[2021-02-06] MEDS: FUROSEMIDE 20 MG (LASIX) TAB PO SCH (08:27)
[2021-02-06] MEDS: SENNA W/DOCUSATE (SENOKOT S) TABLET PO SCH ×2 (08:27→20:48)
[2021-02-06] MEDS: meTOproloL SUCCINATE 50 MG (TOPROL XL) TAB PO SCH (08:27)
[2021-02-06] MEDS: NYSTATIN CREAM (MYCOSTATIN) 30 GM TUBE TP SCH ×3 (08:27→20:46)
[2021-02-06] MEDS: AMIODARONE 200 MG (CORDARONE) TAB PO SCH (08:27)
--- NOTE | 2021-02-06 09:02 | Cardiology Progress Note ---
Subjective Date Seen by Provider: Feb 06, 2021 Time Seen by Provider: 09:01 Subjective/Events-last exam Patient is walking with PT, denies any chest pain, dizziness or lightheadedness. Objective-Cardiology Exam Last Set of Vital Signs Vital Signs 02/01/21 02/06/21 02/06/21 02/06/21 09:00 05:23 08:00 12:25 Temp 36.9 Pulse 37 Resp 18 B/P (MAP) 121/61 (81) Pulse Ox 93 O2 Delivery Room Air O2 Flow Rate 1.00 Capillary Refill : I&O Intake and Output 02/06/21 00:00 Intake Total 2525 ml Output Total 1050 ml Balance 1475 ml Intake Oral 2525 ml Output Urine Total 1050 ml # Voids 10 # Bowel Movements 2 General: Alert, Oriented X3, Cooperative HEENT: Atraumatic, PERRLA Neck: Supple, No JVD, No Thyromegaly Lungs: Clear to Auscultation, Normal Air Movement Heart: Regular Rate, Normal S1, Normal S2, No Murmurs Abdomen: Normal Bowel Sounds, Soft, No Tenderness, No Hepatosplenomegaly, No Masses Extremities: No Clubbing, No Cyanosis, No Edema, Normal Pulses, No Tenderness/Swelling Skin: No Rashes, No Breakdown, No Significant Lesion Neuro: Normal Gait, Normal Speech, Strength at 5/5 X4 Ext, Normal Tone, Sensation Intact Psych/Mental Status: Mental Status NL, Mood NL Results Lab Laboratory Tests 02/06/21 03:05 A/P-Cardiology Admission Diagnosis PAF HTN HLP CKD Assessment/Plan PAF diagnosed in Jan 2021, converted on amiodarone, maintainted on Eliquis for stroke prophylaxis, slightly bradycardic, asymptomatic. Amiodarone decreased to daily, I will hold Toprol XL, continue to monitor. Severe mitral regurgitation, continue to monitor, possible mitral valve clip, will consider referral to [facility] as an outpatient Epigastric discomfort, nausea and vomiting, probably gastritis - resolved Hypertension, intolerant to high-dose BB d/t bradycardia, continue to monitor BP/HR CHAYITO of 01-23-21 showed severe MR; mild to mod LVH; LVEF 60% CKD 4, continue to monitor renal function Hyperlipidemia - statin tx Extensive family history of heart disease. Patient was seen and evaluated with Aliyah, has been doing well, has been bradycardic I will discontinue Toprol, decrease the dose of amiodarone, monitor tolerance and response We will require mitral valve clip after discharge ALIYAH FROST Feb 06, 2021 9:02 am SERGIO LOYOLA MD Feb 06, 2021 4:01 pm
--- NOTE | 2021-02-06 10:16 | Physical Therapy Daily Note ---
PT Daily Note-Current Subjective Pt agreeable. Pt denies pain but says she would like to use restroom. Pt states she does not have a FWW at home and has never used FWW before this hospital stay. Mental Status Patient Orientation: Person, Place, Situation Transfers SCALE: Activities may be completed with or without assistive devices. 8-Bhdxfwepog-zbkjapr completes the activity by him/herself with no assistance from a helper. 5-Set-up or Clean-up Assistance-helper sets up or cleans up; patient completes activity. [place] assists only prior to or following the activity. 4-Supervision or Touching Assistance-helper provides verbal cues and/or touching/steadying and/or contact guard assistance as patient completes activity. Assistance may be provided throughout the activity or intermittently. 3-Partial/Moderate Assistance-helper does LESS THAN HALF the effort. [place] lifts, holds or supports trunk or limbs, but provides less than half the effort. 2-Substantial/Maximal Assistance-helper does MORE THAN HALF the effort. [place] lifts or holds trunk or limbs and provides more than half the effort. 5-Jznntqwgm-iktins does ALL the effort. Patient does none of the effort to complete the activity. Or, the assistance of 2 or more helpers is required for the patient to complete the activity. If activity was not attempted, code reason: 7-Patient Refused. 9-Not Applicable-not attempted and the patient did not perform the activity before the current illness, exacerbation or injury. 10-Not Attempted due to Environmental Limitations-(lack of equipment, weather restraints, etc.). 88-Not Attempted due to Medical Conditions or Safety Concerns. Gait Training Gait Assistive Device: FWW Pt amb slow and steady with FWW and SBA-CGA x 800ft. Exercises Seated Therapy Exercises: Ankle pumps, Long arc quads Seated Reps: 15 Treatments Pt used BR (I). Pt tends to amb in room without FWW. Pt used FWW in hallway for gait training/endurance training. Assessment Current Status: Good Progress Pt mod (I) with all functional mobility. Pt would benefit from FWW in her home. Recommend pt have FWW at home for days she is tired of unsteady. Pt appeared mildly SOB with above activities but pt denied fatigue. Pt resting in recliner with call light and all needs met. PT Skilled Nursing Goals Skilled Nursing Goals PT Cnc Lathe Programmer Goals Time Frame: February 09, 2021 Roll Left & Right (QC): 6 (met 02/01/21) Sit to Lying (QC): 6 (met 02/01/21) Lying-Sitting on Side/Bed(QC): 6 (met 02/01/21) Sit to Stand (QC): 6 (met 02/01/21) Chair/Eem-ht-Ptxaj Xfer(QC): 6 (met 02/01/21) Toilet Transfer (QC): 6 (met 02/01/21) Car Transfer (QC): 6 (met 02/01/21) Does the Patient Walk: Yes Walk 10 feet (QC): 6 (met 02/01/21) Walk 50ft with 2 Turns (QC): 6 (met 02/01/21) Walk 150 ft (QC): 6 (met 02/01/21) Walking 10ft on Uneven Surface: 6 (met 02/01/21) 1 Step (curb) (QC): 6 (met 02/01/21) 4 Steps (QC): 9 12 Steps (QC): 9 Picking up an Object (QC): 6 (met 02/01/21) Does the Pt use WC or Scooter?: No Wheel 50 feet with 2 turns (QC: 9 Type: N/A Wheel 150 feet: 9 Type: N/A PT Plan Treatment/Plan Treatment Plan: Continue Plan of Care Treatment Plan: Bed Mobility, Education, Functional Activity Richie, Functional Strength, Gait, Safety, Therapeutic Exercise, Transfers Treatment Duration: February 09, 2021 Frequency: 6 times per week Estimated Hrs Per Day: .5 hour per day Time/GCodes Time In: 830 Time Out: 854 Total Billed Treatment Time: 24 Total Billed Treatment 1, gait 15', ther ex 9' NILSA MEZA CPTA Feb 06, 2021 10:16
--- NOTE | 2021-02-06 10:58 | Occupational Ther Daily Note ---
OT Current Status-Daily Note Subjective Pt alert, sitting in recliner. Son present in room. Pt agrees to therapy. Mental Status/Objective Patient Orientation: Person, Place, Time, Situation Attachments: IV, Telemetry ADL-Treatment Pt agrees to shower. Pt uses furniture surfing to move around room and bathroom. Pt does use FWW for longer distances and in standing for balance when dressing. Pt independent with toileting and toilet transfer. Pt independent with shower using hand held shower, grabbars and shower bench. Pt independent with upper/lower body dressing. Standing at sink, pt able to complete oral care independently. After session, pt sitting in recliner with call light/phone in reach. All needs met in room. Therapy Code Descriptions/Definitions Functional [place] Measure: 0=Not Assessed/NA 4=Minimal Assistance 1=Total Assistance 5=Supervision or Setup 2=Maximal Assistance 6=Modified [place] 3=Moderate Assistance 7=Complete IndependenceSCALE: Activities may be completed with or without assistive devices. 0-Xhbxdkvzkw-vobwpas completes the activity by him/herself with no assistance from a helper. 5-Set-up or Clean-up Assistance-helper sets up or cleans up; patient completes activity. [place] assists only prior to or following the activity. 4-Supervision or Touching Assistance-helper provides verbal cues and/or touching/steadying and/or contact guard assistance as patient completes activity. Assistance may be provided throughout the activity or intermittently. 3-Partial/Moderate Assistance-helper does LESS THAN HALF the effort. [place] lifts, holds or supports trunk or limbs, but provides less than half the effort. 2-Substantial/Maximal Assistance-helper does MORE THAN HALF the effort. [place] lifts or holds trunk or limbs and provides more than half the effort. 9-Yclavapcl-tuwfgy does ALL the effort. Patient does none of the effort to complete the activity. Or, the assistance of 2 or more helpers is required for the patient to complete the activity. If activity was not attempted, code reason: 7-Patient Refused. 9-Not Applicable-not attempted and the patient did not perform the activity before the current illness, exacerbation or injury. 10-Not Attempted due to Environmental Limitations-(lack of equipment, weather restraints, etc.). 88-Not Attempted due to Medical Conditions or Safety Concerns. Oral Hygiene (QC): 6 Shower/Bathe Self (QC): 6 Upper Body Dressing (QC): 6 Lower Body Dressing (QC): 6 On/Off Footwear: 6 Toileting Hygiene (QC): 6 Toilet Transfer (QC): 6 OT Senior Living Goals Senior Living Goals Time Frame: Feb 08, 2021 Eating (QC): 6 Oral Hygiene (QC): 6 Toileting Hygiene (QC): 6 Shower/Bathe Self (QC): 6 Upper Body Dressing (QC): 6 Lower Body Dressing (QC): 6 On/Off Footwear (QC): 6 Additional Goals: 1-Demonstrate ADL Tasks, 2-Verbalize Understanding, 3-ImproveStrength/Richie 1=Demonstrate adherence to instructed precautions during ADL tasks. 2=Patient will verbalize/demonstrate understanding of assistive devices/modifications for ADL. 3=Patient will improve strength/tolerance for activity to enable patient to perform ADL's. OT Education/Plan Problem List/Assessment Assessment: Decreased Activ Tolerance Pt would benefit from skilled OT services in order to increase safety and independence with ADLs and functional mobility, and increase BUE strength and activity tolerance to maximize LOF for safe return home. Discharge Recommendations Plan/Recommendations: Continue POC Treatment Plan/Plan of Care Patient would benefit from OT for education, treatment and training to promote independence in ADL's, mobility, safety and/or upper extremity function for ADL's. Plan of Care: ADL Retraining, Functional Mobility, UE Funct Exercise/Act Treatment Duration: Feb 08, 2021 Frequency: 5 times per week Estimated Hrs Per Day: .25 hour per day Rehab Potential: Fair Time/GCodes Start Time: 10:25 Stop Time: 10:52 Total Time Billed (hr/min): 27 Billed Treatment Time 1 visit-ADL 2 (27 min) WU MENDOZA Feb 06, 2021 10:57
[2021-02-06 17:22] VITALS: BP 136/66
--- NOTE | 2021-02-06 18:21 | Progress Note ---
Subjective Date Seen by a Provider: Feb 06, 2021 Time Seen by a Provider: 12:30 Subjective/Events-last exam Fwup a fib with RVR, hypertensive urgency, acute on chronic renal failure, constipation, neuropathy of feet, intertrigo, bradycardia. Objective Exam Vital Signs Date Time Temp Pulse Resp B/P (MAP) Pulse Ox O2 Delivery O2 Flow Rate FiO2 02/06/21 17:22 36.3 41 18 136/66 (89) 95 Room Air 02/06/21 12:25 37 02/06/21 08:00 Room Air 02/06/21 06:37 44 02/06/21 05:23 36.9 46 18 121/61 (81) 93 Room Air 02/06/21 01:00 39 02/05/21 20:00 95 Room Air 02/05/21 19:04 43 I & O 02/06/21 07:00 Intake Total 2425 ml Balance 2425 ml Capillary Refill : General Appearance: No Apparent Distress Neck: Supple Respiratory: Lungs Clear Cardiovascular: Bradycardia, Systolic Murmur Gastrointestinal: normal bowel sounds, non tender, soft Extremity: Pedal Edema (2 plus) Neurologic/Psychiatric: Alert, Oriented x3 Skin: Warm/Dry Results Lab Laboratory Tests 02/06/21 03:05: White Blood Count 6.7, Red Blood Count 3.50L, Hemoglobin 10.5L, Hematocrit 33L, Mean Corpuscular Volume 93, Mean Corpuscular Hemoglobin 30, Mean Corpuscular Hemoglobin Concent 32, Red Cell Distribution Width 13.1, Platelet Count 228, Mean Platelet Volume 9.8, Immature Granulocyte % (Auto) 1, Neutrophils (%) (Auto) 64, Lymphocytes (%) (Auto) 20, Monocytes (%) (Auto) 10, Eosinophils (%) (Auto) 4, Basophils (%) (Auto) 1, Neutrophils # (Auto) 4.3, Lymphocytes # (Auto) 1.4, Monocytes # (Auto) 0.7, Eosinophils # (Auto) 0.3, Basophils # (Auto) 0.1, Immature Granulocyte # (Auto) 0.1, Sodium Level 136, Potassium Level 3.8, Chloride Level 102, Carbon Dioxide Level 24, Anion Gap 10, Blood Urea Nitrogen 41H, Creatinine 2.69H, Estimat Glomerular Filtration Rate 17, BUN/Creatinine Ratio 15, Glucose Level 83, Calcium Level 8.5 Assessment/Plan Assessment/Plan Assess & Plan/Chief Complaint 1. A Fib with RVR--back in NS[facility] with amiodarone, on eliquis 2. Hypertension-amlodopine decreased and will hold metoprolol 3. Acute on Chronic Renal Failure--worsened--likely from lasix and poor fluid intake 4. Constipation with abdominal cramping--Senokot-S has helped 5. Right Intertrigo--started nystatin cream 6. Neuropathy--gabapentin has helped 7. Edema of ankles/feet--decrease amlodoine dose 8. Bradycardia--DC toprol 9. Weakness--feels stronger so DC plans for tomorrow if bradycardia improving HERMILA BARRIENTOS DO Feb 06, 2021 18:21
[2021-02-06] MEDS: GABAPENTIN 100 MG (NEURONTIN) CAP PO SCH (20:46)
[2021-02-06] MEDS: ACETAMINOPHEN 325 MG TABLET PO PRN (20:46)
[2021-02-07 05:57] VITALS: BP 125/75
[2021-02-07] MEDS: KCL 10 MEQ TAB (MICRO K) PO SCH (06:50)
--- NOTE | 2021-02-07 08:12 | Cardiology Progress Note ---
Subjective Date Seen by Provider: Feb 07, 2021 Time Seen by Provider: 08:11 Subjective/Events-last exam Sitting up in bed, eating breakfast, denies any chest pain or dyspnea. Noted to be bradycardic Review of Systems General: No Chills, No Night Sweats; Fatigue, Malaise; No Appetite, No Other HEENT: No Head Aches, No Visual Changes, No Eye Pain, No Ear Pain, No Dysphasia, No Sinus Congestion, No Post Nasal Drip, No Sore Throat, No Other Pulmonary: No Dyspnea, No Cough, No Pleuritic Chest Pain, No Other Cardiovascular: No: Chest Pain, Palpitations, Orthopnea, Paroxysmal Noc. Dyspnea, Edema, Lt Headedness, Other Objective-Cardiology Exam Last Set of Vital Signs Vital Signs 02/01/21 02/07/21 09:00 05:57 Temp 36.6 Pulse 45 Resp 14 B/P (MAP) 125/75 (92) Pulse Ox 95 O2 Delivery Room Air O2 Flow Rate 1.00 Capillary Refill : I&O Intake and Output 02/06/21 23:59 Intake Total 2020 ml Output Total 200 ml Balance 1820 ml Intake Oral 2020 ml Output Urine Total 200 ml # Voids 7 # Bowel Movements 1 General: Alert, Oriented X3, Cooperative HEENT: Atraumatic, PERRLA Neck: Supple, No JVD, No Thyromegaly Lungs: Clear to Auscultation, Normal Air Movement Heart: Regular Rate, Normal S1, Normal S2, No Murmurs Abdomen: Normal Bowel Sounds, Soft, No Tenderness, No Hepatosplenomegaly, No Masses Extremities: No Clubbing, No Cyanosis, No Edema, Normal Pulses, No Tenderness/Swelling Skin: No Rashes, No Breakdown, No Significant Lesion Neuro: Normal Gait, Normal Speech, Strength at 5/5 X4 Ext, Normal Tone, Sensation Intact Psych/Mental Status: Mental Status NL, Mood NL A/P-Cardiology Admission Diagnosis PAF HTN HLP CKD Assessment/Plan PAF diagnosed in Jan 2021, converted on amiodarone, maintainted on Eliquis for stroke prophylaxis, slightly bradycardic, asymptomatic. Amiodarone decreased to daily, Toprol XL was discontinued yesterday, She received the morning dose on February 06, 2021 Severe mitral regurgitation, continue to monitor, possible mitral valve clip, will consider referral to [facility] as an outpatient Epigastric discomfort, nausea and vomiting, probably gastritis - resolved Hypertension, intolerant to high-dose BB d/t bradycardia, continue to monitor BP/HR CHAYITO of 01-23- showed severe MR; mild to mod LVH; LVEF 60% CKD 4, continue to monitor renal function Hyperlipidemia - statin tx Extensive family history of heart disease. Patient was seen and evaluated with Aliyah, has been doing well. Still having episodes of bradycardia, received Toprol 50 mg yesterday morning, I will give her another 24 hours off Toprol and monitor her heart rate Continue to monitor blood pressure. ALIYAH FROST Feb 07, 2021 08:12 SERGIO LOYOLA MD Feb 07, 2021 09:04
[2021-02-07] MEDS: APIXABAN 2.5 MG (ELIQUIS) TABLET PO SCH ×2 (08:43→20:37)
[2021-02-07] MEDS: amLODIPine 10 MG (NORVASC) TAB PO SCH (08:43)
[2021-02-07] MEDS: SENNA W/DOCUSATE (SENOKOT S) TABLET PO SCH ×2 (08:43→20:00)
[2021-02-07] MEDS: FUROSEMIDE 20 MG (LASIX) TAB PO SCH (08:43)
[2021-02-07] MEDS: NYSTATIN CREAM (MYCOSTATIN) 30 GM TUBE TP SCH ×3 (08:45→20:37)
[2021-02-07] MEDS: AMIODARONE 200 MG (CORDARONE) TAB PO SCH (09:00)
[2021-02-07] MEDS: PANTOPRAZOLE 40 MG (PROTONIX) TAB PO SCH (09:00)
--- NOTE | 2021-02-07 10:08 | Physical Therapy Daily Note ---
PT Daily Note-Current Subjective Patient agrees to PT. Mental Status Patient Orientation: Normal For Age Transfers SCALE: Activities may be completed with or without assistive devices. 6-Yuopiicieg-jbnavbb completes the activity by him/herself with no assistance from a helper. 5-Set-up or Clean-up Assistance-helper sets up or cleans up; patient completes activity. [place] assists only prior to or following the activity. 4-Supervision or Touching Assistance-helper provides verbal cues and/or touching/steadying and/or contact guard assistance as patient completes activity. Assistance may be provided throughout the activity or intermittently. 3-Partial/Moderate Assistance-helper does LESS THAN HALF the effort. [place] lifts, holds or supports trunk or limbs, but provides less than half the effort. 2-Substantial/Maximal Assistance-helper does MORE THAN HALF the effort. [place] lifts or holds trunk or limbs and provides more than half the effort. 0-Dnwtnogeg-fsosqx does ALL the effort. Patient does none of the effort to complete the activity. Or, the assistance of 2 or more helpers is required for the patient to complete the activity. If activity was not attempted, code reason: 7-Patient Refused. 9-Not Applicable-not attempted and the patient did not perform the activity befo re the current illness, exacerbation or injury. 10-Not Attempted due to Environmental Limitations-(lack of equipment, weather re straints, etc.). 88-Not Attempted due to Medical Conditions or Safety Concerns. Roll Left & Right (QC): 6 Sit to Lying (QC): 6 Lying to Sitting/Side of Bed(Q: 6 Sit to Stand (QC): 6 Chair/Wis-ze-Sbjit Xfer(QC): 6 Toilet Transfer (QC): 6 Car Transfer (QC): 6 up ad kathy in room and hallway Gait Training Does the Patient Walk?: Yes Distance: 800' Walk 10 feet (QC): 6 Walk 50 ft with 2 Turns(QC): 6 Walk 150 ft (QC): 6 Walking 10ft/uneven surface-QC: 6 Gait Assistive Device: FWW functional gait sequence with no deviation Wheelchair Training Does the Pt Use a Wheelchair?: No Stair Training Stair Training: Handrails/: 2 handrails #of Steps: 1 1 Step (curb) (QC): 6 4 Steps (QC): 9 12 Steps (QC): 9 Stairs: Pattern: Step to Balance Picking up an Object (QC): 6 Assessment Patient tolerated treatment well and is independent with all gross motor skills. Goals addressed and attained. Patient will require a FWW for home use upon dismissal to home for safety and stability. Patient is up in room ad kathy without FWW. PT instructed patient to use FWW at all times to prevent falls. Patient voices understanding. PT Marine Fuel Dock Attendant Goals Mcc Goals PT Mcc Goals Time Frame: February 09, 2021 Roll Left & Right (QC): 6 (met 02/01/21) Sit to Lying (QC): 6 (met 02/01/21) Lying-Sitting on Side/Bed(QC): 6 (met 02/01/21) Sit to Stand (QC): 6 (met 02/01/21) Chair/Ppg-ag-Zebib Xfer(QC): 6 (met 02/01/21) Toilet Transfer (QC): 6 (met 02/01/21) Car Transfer (QC): 6 (met 02/01/21) Does the Patient Walk: Yes Walk 10 feet (QC): 6 (met 02/01/21) Walk 50ft with 2 Turns (QC): 6 (met 02/01/21) Walk 150 ft (QC): 6 (met 02/01/21) Walking 10ft on Uneven Surface: 6 (met 02/01/21) 1 Step (curb) (QC): 6 (met 02/01/21) 4 Steps (QC): 9 12 Steps (QC): 9 Picking up an Object (QC): 6 (met 02/01/21) Does the Pt use WC or Scooter?: No Wheel 50 feet with 2 turns (QC: 9 Type: N/A Wheel 150 feet: 9 Type: N/A PT Plan Treatment/Plan Treatment Plan: Continue Plan of Care Treatment Plan: Bed Mobility, Education, Functional Activity Richie, Functional Strength, Gait, Safety, Therapeutic Exercise, Transfers Treatment Duration: February 09, 2021 Frequency: 6 times per week Estimated Hrs Per Day: .5 hour per day Time/GCodes Time In: 924 Time Out: 941 Total Billed Treatment Time: 17 Total Billed Treatment 1 visit FA 17 min ADRIANA CARTER PT Feb 07, 2021 10:08
[2021-02-07 10:32] LABS: BILIRUBIN,URINE NEGATIVE (NEGATIVE); CLARITY,URINE CLEAR; COLOR,URINE YELLOW; GLUCOSE, URINE (UA) NEGATIVE (NEGATIVE); KETONES,URINE NEGATIVE (NEGATIVE); LEUKOCYTE ESTERASE ,URINE NEGATIVE (NEGATIVE); NITRITE,URINE NEGATIVE (NEGATIVE); PROTEIN,URINE NEGATIVE (NEGATIVE)
[2021-02-07 10:44] LABS: BACTERIA,URINE NEGATIVE /HPF; SQUAMOUS EPITHELIAL CELL,UR RARE /HPF
--- NOTE | 2021-02-07 14:36 | Occupational Ther Daily Note ---
OT Current Status-Daily Note Subjective Pt alert, sitting in recliner. Pt agrees to therapy. No c/o pain at this time. Mental Status/Objective Patient Orientation: Person, Place, Time, Situation Attachments: IV ADL-Treatment Pt is independent with oral care, toilet transfer and toileting. Pt used furniture and [place] to ambulate into bathroom with no LOB noted. Pt able to set up own meal and use regular utensils to eat. After session, pt sitting in recliner eating lunch. Call light/phone in reach. All needs met in room. Therapy Code Descriptions/Definitions Functional [place] Measure: 0=Not Assessed/NA 4=Minimal Assistance 1=Total Assistance 5=Supervision or Setup 2=Maximal Assistance 6=Modified [place] 3=Moderate Assistance 7=Complete IndependenceSCALE: Activities may be completed with or without assistive devices. 7-Qvszozejwg-vkwjfex completes the activity by him/herself with no assistance from a helper. 5-Set-up or Clean-up Assistance-helper sets up or cleans up; patient completes activity. [place] assists only prior to or following the activity. 4-Supervision or Touching Assistance-helper provides verbal cues and/or touching/steadying and/or contact guard assistance as patient completes activity. Assistance may be provided throughout the activity or intermittently. 3-Partial/Moderate Assistance-helper does LESS THAN HALF the effort. [place] lifts, holds or supports trunk or limbs, but provides less than half the effort. 2-Substantial/Maximal Assistance-helper does MORE THAN HALF the effort. [place] lifts or holds trunk or limbs and provides more than half the effort. 5-Xohjydoch-yrghgb does ALL the effort. Patient does none of the effort to complete the activity. Or, the assistance of 2 or more helpers is required for the patient to complete the activity. If activity was not attempted, code reason: 7-Patient Refused. 9-Not Applicable-not attempted and the patient did not perform the activity befo re the current illness, exacerbation or injury. 10-Not Attempted due to Environmental Limitations-(lack of equipment, weather re straints, etc.). 88-Not Attempted due to Medical Conditions or Safety Concerns. Eating (QC): 6 Oral Hygiene (QC): 6 Toileting Hygiene (QC): 6 Toilet Transfer (QC): 6 OT Fdc Goals Personal Banking Assistant Goals Time Frame: Feb 08, 2021 Eating (QC): 6 Oral Hygiene (QC): 6 Toileting Hygiene (QC): 6 Shower/Bathe Self (QC): 6 Upper Body Dressing (QC): 6 Lower Body Dressing (QC): 6 On/Off Footwear (QC): 6 Additional Goals: 1-Demonstrate ADL Tasks, 2-Verbalize Understanding, 3- ImproveStrength/Richie 1=Demonstrate adherence to instructed precautions during ADL tasks. 2=Patient will verbalize/demonstrate understanding of assistive devices/modifications for ADL. 3=Patient will improve strength/tolerance for activity to enable patient to perform ADL's. OT Education/Plan Problem List/Assessment Assessment: Decreased Activ Tolerance Pt would benefit from skilled OT services in order to increase safety and independence with ADLs and functional mobility, and increase BUE strength and activity tolerance to maximize LOF for safe return home. Discharge Recommendations Plan/Recommendations: Continue POC Treatment Plan/Plan of Care Patient would benefit from OT for education, treatment and training to promote independence in ADL's, mobility, safety and/or upper extremity function for ADL's. Plan of Care: ADL Retraining, Functional Mobility, UE Funct Exercise/Act Treatment Duration: Feb 08, 2021 Frequency: 5 times per week Estimated Hrs Per Day: .25 hour per day Rehab Potential: Fair Time/GCodes Start Time: 11:15 Stop Time: 11:30 Total Time Billed (hr/min): 15 Billed Treatment Time 1 visit-ADL 1 (15 min) WU MENDOZA Feb 07, 2021 14:36
[2021-02-07 17:41] VITALS: BP 152/70
--- NOTE | 2021-02-07 18:02 | Progress Note ---
Subjective Date Seen by a Provider: Feb 07, 2021 Time Seen by a Provider: 12:45 Subjective/Events-last exam Fwup a fib with RVR, hypertensive urgency, acute on chronic renal failure, constipation, neuropathy of feet, intertrigo, bradycardia. Feet still swollen. Objective Exam Vital Signs Date Time Temp Pulse Resp B/P (MAP) Pulse Ox O2 Delivery O2 Flow Rate FiO2 02/07/21 17:41 35.5 46 18 152/70 (97) 96 Room Air 02/07/21 13:00 43 02/07/21 08:00 95 Room Air 02/07/21 06:55 53 02/07/21 05:57 36.6 45 14 125/75 (92) 95 Room Air 02/07/21 01:00 42 02/06/21 20:00 Room Air 02/06/21 19:00 40 I & O 02/07/21 06:59 Intake Total 2120 ml Output Total 200 ml Balance 1920 ml Capillary Refill : General Appearance: No Apparent Distress Respiratory: Lungs Clear Cardiovascular: Bradycardia, Systolic Murmur Gastrointestinal: normal bowel sounds, non tender, soft Extremity: Non Tender, No Calf Tenderness, Pedal Edema Neurologic/Psychiatric: Alert, Oriented x3 Skin: Warm/Dry Results Lab Laboratory Tests 02/07/21 09:35: Urine Color YELLOW, Urine Clarity CLEAR, Urine pH 6.0, Urine Specific [place] <=1.005, Urine Protein NEGATIVE, Urine Glucose (UA) NEGATIVE, Urine Ketones NEGATIVE, Urine Nitrite NEGATIVE, Urine Bilirubin NEGATIVE, Urine Urobilinogen 0.2, Urine Leukocyte Esterase NEGATIVE, Urine RBC (Auto) NEGATIVE, Urine RBC NONE, Urine WBC NONE, Urine Squamous Epithelial Cells RARE, Urine Crystals NONE, Urine Bacteria NEGATIVE, Urine Casts NONE, Urine Mucus NEGATIVE, Urine Culture Indicated NO Assessment/Plan Assessment/Plan Assess & Plan/Chief Complaint 1. A Fib with RVR--back in NSR with amiodarone, on eliquis 2. Hypertension-amlodopine decreased and metoprolol DCed 3. Acute on Chronic Renal Failure--worsened--likely from lasix and poor fluid intake 4. Constipation with abdominal cramping--Senokot-S has helped 5. Right Intertrigo--started nystatin cream 6. Neuropathy--gabapentin has helped 7. Edema of ankles/feet--improved slightly with decreased amlodopine dose 8. Bradycardia--will monitor pulse with DC of metoprolol 9. Weakness--feels stronger so DC plans for tomorrow if bradycardia improving HERMILA BARRIENTOS DO Feb 07, 2021 18:02
[2021-02-07] MEDS: GABAPENTIN 100 MG (NEURONTIN) CAP PO SCH (20:37)
[2021-02-07] MEDS: ACETAMINOPHEN 325 MG TABLET PO PRN (20:37)
[2021-02-08] MEDS: KCL 10 MEQ TAB (MICRO K) PO SCH (05:51)
[2021-02-08 05:53] VITALS: BP 142/75
[2021-02-08] MEDS ORDERED: GABA-486 PO (08:44)
[2021-02-08] MEDS ORDERED: AMLO-251 PO (08:44)
[2021-02-08] MEDS ORDERED: AMIO200T6 PO (08:44)
[2021-02-08] MEDS ORDERED: APIX2.5T PO (08:44)
--- NOTE | 2021-02-08 08:53 | Cardiology Progress Note ---
Subjective Date Seen by Provider: Feb 08, 2021 Time Seen by Provider: 08:52 Subjective/Events-last exam Patient was seen at bedside, laying down comfortably, complaining of fatigue. Review of Systems General: No Chills, No Night Sweats; Fatigue; No Malaise, No Appetite, No Other HEENT: No Head Aches, No Visual Changes, No Eye Pain, No Ear Pain, No Dysphasia, No Sinus Congestion, No Post Nasal Drip, No Sore Throat, No Other Pulmonary: No Dyspnea, No Cough, No Pleuritic Chest Pain, No Other Cardiovascular: No: Chest Pain, Palpitations, Orthopnea, Paroxysmal Noc. Dyspnea, Edema, Lt Headedness, Other Objective-Cardiology Exam Last Set of Vital Signs Vital Signs 02/08/21 02/08/21 02/08/21 05:53 07:00 08:00 Temp 36.5 Pulse 46 Resp 16 B/P (MAP) 142/75 (97) Pulse Ox 97 O2 Delivery Room Air Capillary Refill : I&O Intake and Output 02/08/21 00:00 Intake Total 3020 ml Output Total 2000 ml Balance 1020 ml Intake Oral 3020 ml Output Urine Total 2000 ml # Voids 3 # Bowel Movements 3 General: Alert, Oriented X3, Cooperative HEENT: Atraumatic, PERRLA Neck: Supple, No JVD, No Thyromegaly Lungs: Clear to Auscultation, Normal Air Movement Heart: Regular Rate, Normal S1, Normal S2, No Murmurs Abdomen: Normal Bowel Sounds, Soft, No Tenderness, No Hepatosplenomegaly, No Masses Extremities: No Clubbing, No Cyanosis, No Edema, Normal Pulses, No Tenderness/Swelling Skin: No Rashes, No Breakdown, No Significant Lesion Neuro: Normal Gait, Normal Speech, Strength at 5/5 X4 Ext, Normal Tone, Sensat ion Intact Psych/Mental Status: Mental Status NL, Mood NL A/P-Cardiology Admission Diagnosis PAF HTN HLP CKD Assessment/Plan PAF diagnosed in Jan 2021, converted on amiodarone, maintainted on Eliquis for stroke prophylaxis, slightly bradycardic, asymptomatic. I have stopped Toprol and decreased amiodarone 200 mg daily and decrease amlodipine dose. Continue to monitor Severe mitral regurgitation, continue to monitor, possible mitral valve clip, will consider referral to [facility] as an outpatient Epigastric discomfort, nausea and vomiting, probably gastritis - resolved Hypertension, intolerant to high-dose BB d/t bradycardia, continue to monitor BP/HR CHAYITO of 01-23- showed severe MR; mild to mod LVH; LVEF 60% CKD 4, continue to monitor renal function Hyperlipidemia - statin tx Extensive family history of heart disease. Okay for discharge from cardiology standpoint, I will see her in my office early next week SERGIO LOYOLA MD Feb 08, 2021 8:53 am
[2021-02-08] MEDS ORDERED: AMIODARONE 200 MG (CORDARONE) TAB PO SCH (09:00)
[2021-02-08] MEDS: APIXABAN 2.5 MG (ELIQUIS) TABLET PO SCH (09:43)
[2021-02-08] MEDS: SENNA W/DOCUSATE (SENOKOT S) TABLET PO SCH (09:43)
[2021-02-08] MEDS: amLODIPine 10 MG (NORVASC) TAB PO SCH (09:43)
[2021-02-08] MEDS: FUROSEMIDE 20 MG (LASIX) TAB PO SCH (09:43)
[2021-02-08] MEDS: PANTOPRAZOLE 40 MG (PROTONIX) TAB PO SCH (09:43)
[2021-02-08] MEDS: NYSTATIN CREAM (MYCOSTATIN) 30 GM TUBE TP SCH ×2 (09:45→13:16)
--- NOTE | 2021-02-08 10:47 | Therapy Team Discharge Summary ---
Therapy Discharge Summary Discharge Recommendations Date of Discharge Physical Therapy Patient seen by skilled PT to address functional strength and mobility to safely return to home at maximum LOF. Upon initial evaluation, patient required SBA for all mobility and ambulation with FWW. Patient is currently at independent PLOF with use of FWW for stability and safety. Patient has attained all goals and will dismiss to home with home health per physician. Occupational Therapy Decreased Activ Tolerance PT Paint Tester Goals Nursing Home Goals PT Nursing Home Goals Time Frame: February 09, 2021 Roll Left to Right (QC): 6 (met 02/01/21) Sit to Lying (QC): 6 (met 02/01/21) Lying-Sitting on Side/Bed(QC): 6 (met 02/01/21) Sit to Stand (QC): 6 (met 02/01/21) Chair/Nmm-li-Tdmyb Xfer(QC): 6 (met 02/01/21) Car Transfer (QC): 6 (met 02/01/21) Does the Patient Walk: Yes Walk 10 feet (QC): 6 (met 02/01/21) Walk 10ft-Uneven Surface(QC): 6 (met 02/01/21) Walk 50ft with 2 Turns (QC): 6 (met 02/01/21) Walk 150 ft (QC): 6 (met 02/01/21) Does the Pt use WC or Scooter?: No Wheel 50 feet with 2 turns (QC: 9 1 Step (curb) (QC): 6 (met 02/01/21) 4 Steps (QC): 9 12 Steps (QC): 9 Picking up an Object (QC): 6 (met 02/01/21) OT Nursing Home Goals Paint Tester Goals Time Frame: Feb 08, 2021 Eating (QC): 6 Oral Hygiene (QC): 6 Shower/Bathe Self (QC): 6 Upper Body Dressing (QC): 6 Lower Body Dressing (QC): 6 On/Off Footwear (QC): 6 Toileting Hygiene (QC): 6 Toilet/Commode Transfer (QC): 6 (met 02/01/21) Additional Goals: 1-Demonstrate ADL Tasks, 2-Verbalize Understanding, 3-ImproveStrength/Richie 1=Demonstrate adherence to instructed precautions during ADL tasks. 2=Patient will verbalize/demonstrate understanding of assistive devices/modifications for ADL. 3=Patient will improve strength/tolerance for activity to enable patient to perform ADL's. ADRIANA CARTER PT Feb 08, 2021 10:47
--- NOTE | 2021-02-08 14:56 | Therapy Team Discharge Summary ---
Therapy Discharge Summary Discharge Recommendations Date of Discharge Occupational Therapy Pt admitted to [facility] with Afib. At [facility], pt was independent with all ADLs and functional mobility, no AD. Upon initial evaluation, pt was independent with eating, required SBA with showering and upper body dressing, IND footwear and SBA toileting. OT txs focused on increasing safety and independence with ADLs and functional mobility, as well as increasing BUE Strength and activity tolerance. At discharge, pt was completing all ADLs independently, meeting all LTGs. Pt to d/c from facility on this date, d/c from OT at this time. Decreased Activ Tolerance PT Shelter Goals Pipe Fitter Ammonia Goals PT Pipe Fitter Ammonia Goals Time Frame: February 09, 2021 Roll Left to Right (QC): 6 (met 02/01/21) Sit to Lying (QC): 6 (met 02/01/21) Lying-Sitting on Side/Bed(QC): 6 (met 02/01/21) Sit to Stand (QC): 6 (met 02/01/21) Chair/Kcd-ao-Imjji Xfer(QC): 6 (met 02/01/21) Car Transfer (QC): 6 (met 02/01/21) Does the Patient Walk: Yes Walk 10 feet (QC): 6 (met 02/01/21) Walk 10ft-Uneven Surface(QC): 6 (met 02/01/21) Walk 50ft with 2 Turns (QC): 6 (met 02/01/21) Walk 150 ft (QC): 6 (met 02/01/21) Does the Pt use WC or Scooter?: No Wheel 50 feet with 2 turns (QC: 9 1 Step (curb) (QC): 6 (met 02/01/21) 4 Steps (QC): 9 12 Steps (QC): 9 Picking up an Object (QC): 6 (met 02/01/21) OT Pipe Fitter Ammonia Goals Shelter Goals Time Frame: Feb 08, 2021 Eating (QC): 6 (met) Oral Hygiene (QC): 6 Shower/Bathe Self (QC): 6 (met) Upper Body Dressing (QC): 6 (met) Lower Body Dressing (QC): 6 (met) On/Off Footwear (QC): 6 (met) Toileting Hygiene (QC): 6 (met) Toilet/Commode Transfer (QC): 6 (met 02/01/21) Additional Goals: 1-Demonstrate ADL Tasks, 2-Verbalize Understanding, 3- ImproveStrength/Richie 1=Demonstrate adherence to instructed precautions during ADL tasks. 2=Patient will verbalize/demonstrate understanding of assistive devices/modifications for ADL. 3=Patient will improve strength/tolerance for activity to enable patient to perform ADL's. CINTHIA CARL OT Feb 08, 2021 14:56
== END 2021-02-08 15:45 | disposition home health service (06) | DRG 309 ==
LOC: 4TH 12:28
PROVIDERS: ADMIT Family Medicine; ATTEND Family Medicine
DX: I48.0 Paroxysmal atrial fibrillation (principal); N17.9 Acute kidney failure, unspecified; N18.4 Chronic kidney disease, stage 4 (severe); I16.0 Hypertensive urgency; K59.00 Constipation, unspecified; Z79.01 Long term (current) use of anticoagulants; L30.4 Erythema intertrigo; G62.9 Polyneuropathy, unspecified; R60.0 Localized edema; R53.1 Weakness; K29.70 Gastritis, unspecified, without bleeding; I12.9 Hypertensive chronic kidney disease with stage 1 through stage 4 chronic kidney disease, or unspecified chronic kidney disease; E78.5 Hyperlipidemia, unspecified; Z82.49 Family history of ischemic heart disease and other diseases of the circulatory system; I34.0 Nonrheumatic mitral (valve) insufficiency
CPT/HCPCS: 36415; 80048; 81000; 85025

== ENCOUNTER → 2021-03-25 | Outpatient (CLI) | payer MEDICARE ==
[~2021-03-25] MED LIST changes: +AMIO200T6 PO; +AMLO-251 PO; +APIX2.5T PO; +GABA-486 PO
--- NOTE | 2021-03-25 14:57 | Diagnostic Imaging Report ---
PROCEDURE: US Renal Bilateral. TECHNIQUE: Multiple real-time grayscale images were obtained over the kidneys in various projections bilaterally. INDICATION: Chronic kidney disease. FINDINGS: Right kidney measures 9.5 x 3.7 x 5.3 cm and left kidney is small measuring 6.7 x 3.0 x 3.2 cm. Right kidney does contain a cyst in lower pole measuring 2.9 x 2.3 x 3.1 cm. Left kidney contains 2 cysts. A cyst in the upper pole measures 1.4 x 1.1 x 1.1 cm. A cyst in the lower pole measures 1.7 x 1.5 x 1.1 cm. No definite solid renal mass is detected. No calculi or hydronephrosis is identified. Cortical thickness and echogenicity is normal. Bladder demonstrates bilateral ureteral jets. IMPRESSION: Bilateral renal cysts. There is no evidence of hydronephrosis. Dictated by: Dictated on workstation # [id number]
== END ==
LOC: RAD 13:53
PROVIDERS: ATTEND Family Medicine
DX: N28.1 Cyst of kidney, acquired (principal); N18.4 Chronic kidney disease, stage 4 (severe)
CPT/HCPCS: 76770

== ENCOUNTER → 2021-05-29 | Outpatient (CLI) | payer MEDICARE ==
--- NOTE | 2021-05-29 18:25 | Diagnostic Imaging Report ---
PROCEDURE: US Renal Bilateral. INDICATION: Chronic renal disease, renal cysts. TECHNIQUE: Multiple real-time grayscale sonographic images were obtained of the kidneys. CORRELATION: 03/25/2021. FINDINGS: RIGHT KIDNEY: 9.5 x 4.4 x 5.3 cm. LEFT KIDNEY: 7.5 x 3.1 x 3.9 cm. Again demonstration of asymmetry with the left kidney measuring smaller than the right. Slight generalized increased echogenicity of the renal parenchyma of both kidneys. Bilateral hypoechoic masses are present compatible with cysts. Largest at the inferior pole of the right kidney, 2.7 x 2.3 x 2.7 cm (previous 2.9 x 2.3 x 3.1 cm). Largest superior pole left kidney, 3.1 x 2.3 x 2.9 cm (1.4 x 1.1 x 1.1 cm). No evidence for hydronephrosis or obstruction. URINARY BLADDER: Generally unremarkable in appearance. The ureteral jets are not identified. Examination is reportedly difficult to perform which does limit assessment on this study. IMPRESSION: 1. Slight asymmetrically smaller left kidney again demonstrated. Some generalized increased echogenicity suggestive of chronic medical renal disease. 2. Bilateral renal cysts. 3. No evidence for obstructive uropathy. Dictated by: Dictated on workstation # [id number]
== END ==
LOC: RAD 14:56
PROVIDERS: ATTEND Internal Medicine Nephrology
DX: N28.1 Cyst of kidney, acquired (principal); I12.9 Hypertensive chronic kidney disease with stage 1 through stage 4 chronic kidney disease, or unspecified chronic kidney disease; N18.4 Chronic kidney disease, stage 4 (severe)
CPT/HCPCS: 76770

== ENCOUNTER 2021-05-31 12:51 | Emergency (ER) | payer MEDICARE ==
[~2021-05-31] VITALS: Ht 162.5 cm; Wt 55.0 kg
--- NOTE | 2021-05-31 13:16 | ED EENT ---
History of Present Illness General Chief Complaint: Facial Problems Stated Complaint: FELL HIT FACE Source: patient Exam Limitations: no limitations History of Present Illness Date Seen by Provider: May 31, 2021 Time Seen by Provider: 13:12 Initial Comments To ER with reports of right sided forehead bruising. She fell while gardening about 2 weeks ago. She was in a kneeling position and fell forward striking the right side of her forehead on a brick. No loss of consciousness. Has some ongoing bruising which is spreading inferiorly over the past 2 weeks. No headaches no vomiting. She is on eliquis for afib. Timing/Duration: abrupt Severity: moderate Location: facial Prearrival Treatment: no prearrival treatment Associated Symptoms: denies symptoms Allergies and Home Medications Allergies Coded Allergies: aspirin (Verified Allergy, Unknown, Abdominal Pain, 01/21/21) gi upset Home Medications Amiodarone HCl 200 Mg Tablet, 100 MG PO DAILY Prescribed by: HERMILA BARRIENTOS on 02/08/21 0844 Amlodipine Besylate 10 Mg Tablet, 5 MG PO DAILY Prescribed by: HERMILA BARRIENTOS on 02/08/21 0844 Apixaban 2.5 Mg Tablet, 2.5 MG PO BID Prescribed by: HERMILA BARRIENTOS on 02/08/21 0844 Calcium Carbonate 600 Mg Tablet, 600 MG PO DAILY, (Reported) Cranberry 400 Mg Capsule, 800 MG PO DAILY, (Reported) Gabapentin 100 Mg Capsule, 100 MG PO HS Prescribed by: HERMILA BARRIENTOS on 02/08/21 0844 Simvastatin 20 Mg Tablet, 20 MG PO DAILY, (Reported) Patient Home Medication List Home Medication List Reviewed: Yes Review of Systems Review of Systems Constitutional: see HPI Eyes: No Symptoms Reported Ears: No Symptoms Reported Nose: no symptoms reported Mouth: no symptoms reported Throat: no symptoms reported Respiratory: no symptoms reported Cardiovascular: no symptoms reported Musculoskeletal: no symptoms reported Neurological: Headache Past Pnwwsku-Iodryk-Iwaktf Hx Past Medical History Surgeries: Yes Appendectomy, Gallbladder Respiratory: No Cardiac: No Genitourinary: No Gastrointestinal: No Musculoskeletal: No Endocrine: No HEENT: No Cancer: No Psychosocial: No Integumentary: No Blood Disorders: No Family Medical History Heart Disease, CAD Over 55 Years Old, Renal Disease, Stroke Physical Exam Vital Signs Vital Signs - First Documented 05/31/21 13:07 Temp 36.8 Pulse 63 Resp 18 B/P (MAP) 189/83 (118) Pulse Ox 98 O2 Delivery Room Air Height, Weight, BMI Height: 5'2.00" Weight: 150lbs. oz. 68.621812dt; 26.13 BMI Method:Estimated General Appearance: WD/WN, no apparent distress Eyes: left eye other (There is a right-sided periorbital ecchymosis. Superior to the right side of the forehead and hoahaoism is some yellowish brown-colored bruising consistent with subacute bruise. More inferiorly such as the bridge of the nose there is some more purplish bruising.); bilateral eye normal inspection, bilateral eye PERRL, bilateral eye EOMI Ears: bilateral ear auricle normal, bilateral ear canal normal, bilateral ear TM normal Neck: non-tender, full range of motion Respiratory: no respiratory distress, no accessory muscle use Gastrointestinal: normal bowel sounds, non tender, soft Neurologic/Psychiatric: alert, normal mood/affect, oriented x 3 Skin: normal color, warm/dry Progress/Results/Core Measures Results/Orders My Orders Orders - BRISEIDA LAM APRN Ct Head Wo (05/31/21 13:10) Vital Signs/I&O 05/31/21 13:07 Temp 36.8 Pulse 63 Resp 18 B/P (MAP) 189/83 (118) Pulse Ox 98 O2 Delivery Room Air Departure Communication (Admissions) NAME: KENNEY LATIF [facility] REC#: [id number] PT STATUS: REG ER : 1935 PHYSICIAN: BRISEIDA LAM APRN ADMIT DATE: 05/31/21/ER Draft Date of Exam:05/31/21 CT HEAD WO CLINICAL INDICATION: Patient is status post fall two weeks ago. Patient has bruising above right eye which seems to be getting worse. EXAM: Axial CT scan of the brain without IV contrast with coronal and sagittal reformatted images. Auto Exposure Controls were utilized during the CT exam to meet ALARA standards for radiation dose reduction. COMPARISON: None. FINDINGS: There is no evidence of acute cerebral infarct, intracranial hemorrhage, or gross mass effect. Diffuse brain parenchymal volume loss is seen. There are patchy and confluent areas of low-attenuation white matter changes involving both cerebral hemispheres, likely representing chronic small vessel ischemic disease and leukoaraiosis. There is normal silva-white matter distinction. There is no significant midline shift or herniation. There is no evidence of hydrocephalus. The basal cisterns are unremarkable. There is minimal soft tissue swelling in the right periorbital region. There is no skull fracture. Otherwise, the skull, extracranial soft tissue, and orbits are unremarkable. The paranasal sinuses are unremarkable. Temporal bones show no significant abnormality. IMPRESSION: 1: There is no evidence of acute intracranial process. 2: There is minimal soft tissue swelling in the right periorbital region. There is no skull fracture. 3: There is brain parenchymal volume loss, chronic small vessel ischemic disease, and leukoaraiosis. Dictated on workstation # [id number] Dict: 05/31/21 1408 Trans: 05/31/21 1418 [id number] [id number] Interpreted by: MARY SHIELDS MD Electronically signed by: Impression Primary Impression: Traumatic hematoma of forehead Disposition: 01 HOME, SELF-CARE Condition: Stable Departure-Patient Inst. Decision time for Depature: 13:16 Referrals: HERMILA BARRIENTOS DO (PCP/Family) Primary Care Physician Patient Instructions: HEMATOMA Add. Discharge Instructions: All discharge instructions reviewed with patient and/or family. Voiced unde rstanding. BRISEIDA LAM APRN May 31, 2021 13:16
--- NOTE | 2021-05-31 14:18 | Diagnostic Imaging Report ---
CLINICAL INDICATION: Patient is status post fall two weeks ago. Patient has bruising above right eye which seems to be getting worse. EXAM: Axial CT scan of the brain without IV contrast with coronal and sagittal reformatted images. Auto Exposure Controls were utilized during the CT exam to meet ALARA standards for radiation dose reduction. COMPARISON: None. FINDINGS: There is no evidence of acute cerebral infarct, intracranial hemorrhage, or gross mass effect. Diffuse brain parenchymal volume loss is seen. There are patchy and confluent areas of low-attenuation white matter changes involving both cerebral hemispheres, likely representing chronic small vessel ischemic disease and leukoaraiosis. There is normal silva-white matter distinction. There is no significant midline shift or herniation. There is no evidence of hydrocephalus. The basal cisterns are unremarkable. There is minimal soft tissue swelling in the right periorbital region. There is no skull fracture. Otherwise, the skull, extracranial soft tissue, and orbits are unremarkable. The paranasal sinuses are unremarkable. Temporal bones show no significant abnormality. IMPRESSION: 1: There is no evidence of acute intracranial process. 2: There is minimal soft tissue swelling in the right periorbital region. There is no skull fracture. 3: There is brain parenchymal volume loss, chronic small vessel ischemic disease, and leukoaraiosis. Dictated by: Dictated on workstation # [id number]
[2021-05-31 14:24] VITALS: BP 139/58
== END 2021-05-31 14:24 | disposition home or self-care (01) ==
LOC: EDUNIT# 12:51 → ER 12:53
DX: S05.11XA Contusion of eyeball and orbital tissues, right eye, initial encounter (principal); Z79.01 Long term (current) use of anticoagulants; W22.8XXA Striking against or struck by other objects, initial encounter
CPT/HCPCS: 70450

== ENCOUNTER → 2021-06-25 | Outpatient (CLI) | payer MEDICARE | LOC: CARD 13:48 | PROVIDERS: ATTEND Internal Medicine Cardiovascular Disease | DX: I11.9 Hypertensive heart disease without heart failure (principal); I08.3 Combined rheumatic disorders of mitral, aortic and tricuspid valves | CPT/HCPCS: 93306 ==

== ENCOUNTER 2022-01-26 17:50 | Emergency (ER) | payer MEDICARE ==
[~2022-01-26 17:50] MED LIST changes: -AMIO200T6 PO; +AMIO200T65 PO
[2022-01-26] MEDS ORDERED: TETANUS,DIPTH,PERTUSS P/F (BOOSTRIX) 0.5 ML VIAL IM ONE (19:00)
[2022-01-26 19:21] LABS: BASOPHILS # (AUTO) 0.1 10^3/uL (0.0-0.1); BASOPHILS % (AUTO) 1 % (0-10); EOSINOPHILS # (AUTO) 0.1 10^3/uL (0.0-0.3); EOSINOPHILS % (AUTO) 1 % (0-10); HEMATOCRIT 33 % (35-52); HEMOGLOBIN 10.4 g/dL (11.5-16.0); LYMPHOCYTES # (AUTO) 0.8 10^3/uL (1.0-4.0); LYMPHOCYTES % (AUTO) 9 % (12-44); MEAN CORPUSCULAR HEMOGLOBIN 30 pg (25-34); MEAN CORPUSCULAR HGB CONC 32 g/dL (32-36); MEAN CORPUSCULAR VOLUME 94 fL (80-99); MEAN PLATELET VOLUME 10.2 fL (9.0-12.2); MONOCYTES # (AUTO) 0.9 10^3/uL (0.0-1.0); MONOCYTES % (AUTO) 10 % (0-12); NEUTROPHILS # (AUTO) 7.4 10^3/uL (1.8-7.8); NEUTROPHILS % (AUTO) 79 % (42-75); PLATELET COUNT 192 10^3/uL (130-400); WHITE BLOOD COUNT 9.4 10^3/uL (4.3-11.0)
[2022-01-26 19:31] LABS: INR 1.2 (0.8-1.4); PROTHROMBIN TIME PATIENT 15.4 SEC (12.2-14.7)
[2022-01-26 19:38] LABS: ALBUMIN 3.6 GM/DL (3.2-4.5); BILIRUBIN,TOTAL 0.5 MG/DL (0.1-1.0); CREATININE SERUM 3.02 MG/DL (0.60-1.30); POTASSIUM 4.2 MMOL/L (3.6-5.0); TOTAL PROTEIN 5.9 GM/DL (6.4-8.2)
--- NOTE | 2022-01-26 19:53 | ED Fall/Injury ---
General Chief Complaint: Trauma-Non Activation Stated Complaint: FALL/HEAD LAC/ON BLOOD THINNERS Source: patient History of Present Illness Date Seen by Provider: Jan 26, 2022 Time Seen by Provider: 18:43 Initial Comments PT ARRIVES VIA POV FROM HOME STATES AT 1345 TODAY, SHE WAS WALKING INTO HER HOUSE FROM THE [place] AND SLIPPED/LOST HER BALANCE AND FELL, HITTING HER HEAD ON BRICK ALSO CAUGHT HER LEFT 5TH FINGER ON THE DOOR DENIES LOSS OF CONSCIOUSNESS DENIES HEADACHE DENIES VISION CHANGES DENIES NECK OR BACK PAIN DENIES PARESTHESIAS OR MOTOR DEFICITS' DENIES CHEST OR ABDOMINAL PAIN DENIES HIP OR LEG PAIN DENIES PAIN TO RIGHT ARM HAS ONGOING LEFT SHOULDER PAIN AND STILL HAS A SIGNIFICANT OLD BRUISE TO LEFT SHOULDER--STATES IS FROM A FALL IN OCTOBER PT IS ON ELIQUIS--TOOK A DOSE THIS MORNING PT STATES WOUND TO HER LEFT FOREHEAD CONTINUES TO BLEED PCP: DR. BARRIENTOS Allergies and Home Medications Allergies Coded Allergies: aspirin (Verified Allergy, Unknown, Abdominal Pain, 01/21/21) gi upset Patient Home Medication List Home Medication List Reviewed: Yes Amiodarone HCl (Amiodarone HCl) 200 Mg Tablet, 100 MG PO DAILY Prescribed by: HERMILA BARRIENTOS on 02/08/21 0844 Amlodipine Besylate (Amlodipine Besylate) 10 Mg Tablet, 5 MG PO DAILY Prescribed by: HERMILA BARRIENTOS on 02/08/21 0844 Apixaban (Eliquis) 2.5 Mg Tablet, 2.5 MG PO BID Prescribed by: HERMILA BARRIENTOS on 02/08/21 0844 Calcium Carbonate (Calcium) 600 Mg Tablet, 600 MG PO DAILY, (Reported) Entered as Reported by: ADILIA MARTINEZ on 01/22/21 1026 Cephalexin (Cephalexin) 500 Mg Tablet, 500 MG PO QID Prescribed by: AN OATES on 01/26/222037 Cranberry (Cranberry) 400 Mg Capsule, 800 MG PO DAILY, (Reported) Entered as Reported by: ADILIA MARTINEZ on 01/22/21 1026 Gabapentin (Gabapentin) 100 Mg Capsule, 100 MG PO HS Prescribed by: HERMILA BARRIENTOS on 02/08/21 0844 Simvastatin (Simvastatin) 20 Mg Tablet, 20 MG PO DAILY, (Reported) Entered as Reported by: ADILIA MARTINEZ on 01/22/21 1026 Review of Systems Review of Systems Constitutional: no symptoms reported; No dizziness Eyes: No Symptoms Reported Ears, Nose, Mouth, Throat: no symptoms reported Respiratory: no symptoms reported Cardiovascular: no symptoms reported Genitourinary: no symptoms reported Musculoskeletal: see HPI Skin: see HPI Psychiatric/Neurological: No Symptoms Reported; Denies Headache, Denies Numbness, Denies Seizure, Denies Tingling, Denies Weakness Past Dhuylin-Ngrwpv-Jfkkpx Hx Past Medical History Surgeries: Yes Appendectomy, Gallbladder Respiratory: No Cardiac: Yes Atrial Fibrillation, Chronic Edema/Swelling, High Cholesterol, Hypertension Neuropathy Genitourinary: Yes (NO DIALYSIS) Renal Failure Gastrointestinal: Yes (S/P CHOLECYSTECTOMY AND APPENDECTOMY) Liver Disease/Jaundice Musculoskeletal: Yes Arthritis Endocrine: No HEENT: No Cancer: No Psychosocial: No Integumentary: No Blood Disorders: No Family Medical History Heart Disease, CAD Over 55 Years Old, Renal Disease, Stroke Physical Exam Vital Signs Vital Signs - First Documented 01/26/22 01/26/22 19:00 21:08 Temp 36.3 Pulse 61 Resp 16 B/P (MAP) 168/80 (109) Pulse Ox 98 O2 Delivery Room Air Capillary Refill : Height, Weight, BMI Height: 5'2.00" Weight: 150lbs. oz. 68.439124xf; 20.00 BMI Method:Estimated General Appearance: WD/WN, no apparent distress HEENT: PERRL/EOMI, TMs normal, pharynx normal, other (LARGE HEMATOMA TO LEFT FOREHEAD WITH PERIORBITAL HEMATOMA AND BRUSING TO MOST OF LEFT CHEEK. HAS SUBQ LACERATION TO LEFT BROW WITH SLOW OOZING OF BLOOD. MOST OF SKIN OF LEFT FORE HEAD, INCLUDING LEFT BROW IS COMPLETELY ABRADED AWAY, IS SKIN TO LEFT ZYGOMA. NO HYPHEMA. NO TRISMUS. NO MANDIBLE TENDERNESS OR SWELLING. NO NASAL INJURY OR BLEEDING. ) Neck: non-tender, full range of motion, supple, normal inspection Cardiovascular: regular rate, rhythm, no murmur Respiratory: chest non-tender, normal breath sounds, no respiratory distress Gastrointestinal: non tender, soft Back: no CVA tenderness, no vertebral tenderness Extremities: pedal edema (2+ EDEMA BILATERALLY), other (TENDERNESS WITH OLD BRUSING TO LEFT SHOULDER. TENDERNESS, SWELLING AND BRUISING TO LEFT 5TH FINGER --SENSORY / VASCULAR INTACT, LIMITED ROM DUE TO PAIN . MOTOR/SENSORY/VASCULAR INTACT IN ALL EXTREMITIES. HISTORY OF PERIPHERAL NEUROPATHY. 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, no motor/sensory deficits, alert, normal mood/affect, oriented x 3 Skin: warm/dry, ecchymosis [place] Coma Score Best Eye Response: (4) Open Spontaneously Best Verbal Response: (5) Oriented Best Motor Response: (6) Obeys Commands [place] Total: 15 Procedures/Interventions Wound Location: Face Other Wound Location LEFT BROW Wound Length (cm): 2 Wound's Depth, Shape: linear, sub Q Wound Explored: clean Betadine Prep?: No (BETASEPT) Anesthesia: Lidocaine w/ Epi (1%) Suture: Ethlion Suture Size: 5-0 Number of Sutures: 4 Sterile Dressing Applied?: Yes Splinting and Joint Reduction : Splint Application: Finger Progress/Results/Core Measures Results/Orders Lab Results Laboratory Tests Test 01/26/22 19:13 Range/Units White Blood Count 9.4 4.3-11.0 10^3/uL Red Blood Count 3.47 L 3.80-5.11 10^6/uL Hemoglobin 10.4 L 11.5-16.0 g/dL Hematocrit 33 L 35-52 % Mean Corpuscular Volume 94 80-99 fL Mean Corpuscular Hemoglobin 30 25-34 pg Mean Corpuscular Hemoglobin Concent 32 32-36 g/dL Red Cell Distribution Width 14.7 H 10.0-14.5 % Platelet Count 192 130-400 10^3/uL Mean Platelet Volume 10.2 9.0-12.2 fL Immature Granulocyte % (Auto) 0 % Neutrophils (%) (Auto) 79 H 42-75 % Lymphocytes (%) (Auto) 9 L 12-44 % Monocytes (%) (Auto) 10 0-12 % Eosinophils (%) (Auto) 1 0-10 % Basophils (%) (Auto) 1 0-10 % Neutrophils # (Auto) 7.4 1.8-7.8 10^3/uL Lymphocytes # (Auto) 0.8 L 1.0-4.0 10^3/uL Monocytes # (Auto) 0.9 0.0-1.0 10^3/uL Eosinophils # (Auto) 0.1 0.0-0.3 10^3/uL Basophils # (Auto) 0.1 0.0-0.1 10^3/uL Immature Granulocyte # (Auto) 0.0 0.0-0.1 10^3/uL Prothrombin Time 15.4 H 12.2-14.7 SEC INR Comment 1.2 0.8-1.4 Activated Partial Thromboplast Time 31 24-35 SEC Sodium Level 142 135-145 MMOL/L Potassium Level 4.2 3.6-5.0 MMOL/L Chloride Level 103 98-107 MMOL/L Carbon Dioxide Level 27 21-32 MMOL/L Anion Gap 12 5-14 MMOL/L Blood Urea Nitrogen 42 H 7-18 MG/DL Creatinine 3.02 H 0.60-1.30 MG/DL Estimat Glomerular Filtration Rate 14 BUN/Creatinine Ratio 14 Glucose Level 108 H 70-105 MG/DL Calcium Level 9.0 8.5-10.1 MG/DL Corrected Calcium 9.3 8.5-10.1 MG/DL Total Bilirubin 0.5 0.1-1.0 MG/DL Aspartate Amino Transf (AST/SGOT) 32 5-34 U/L Alanine Aminotransferase (ALT/SGPT) 35 0-55 U/L Alkaline Phosphatase 132 40-136 U/L Total Protein 5.9 L 6.4-8.2 GM/DL Albumin 3.6 3.2-4.5 GM/DL My Orders Orders - AN OATES DO Ct Head/Face/Cervical Wo (01/26/22 18:49) Hand, Left, 3 Views (01/26/22 18:49) Dipht,Pertuss(Acell),Tet Adult (Boostrix (01/26/22 19:00) Cbc With Automated Diff (01/26/22 18:49) Comprehensive Metabolic Panel (01/26/22 18:49) Protime With Inr (01/26/22 18:49) Partial Thromboplastin Time (01/26/22 18:49) Chest 1 View, Ap/Pa Only (01/26/22 18:49) Pelvis (01/26/22 18:49) Lidocaine/Epi 2% 1:100,000 (Xylocaine/Ep (01/26/22 20:15) Lidocaine/Epi 1% 1:100,000 (Xylocaine 1% (01/26/22 20:10) Wound Dressing-Ed (01/26/22 20:38) Rx-Cephalexin Capsule (Rx-Keflex Capsule (01/26/22 20:38) Rx-Cephalexin Capsule (Rx-Keflex Capsule (01/26/22 20:46) Ed Ortho/Other Supplies Order (01/26/22 21:11) Medications Given in ED Current Medications Medications Dose Ordered Sig/Keke Route Start Time Stop Time Status Last Admin Dose Admin Diphtheria/ Tetanus/Acell Pertussis 0.5 ml ONCE ONCE IM 01/26/22 19:00 01/26/22 19:01 DC 01/26/22 20:56 0.5 ML Lidocaine/ Epinephrine 10 ml STK-MED ONCE .ROUTE 01/26/22 20:10 01/26/22 20:13 DC 01/26/22 20:57 10 ML Vital Signs/I&O 01/26/22 01/26/22 19:00 21:08 Temp 36.3 Pulse 61 61 Resp 16 B/P (MAP) 168/80 (109) 162/61 Pulse Ox 98 98 O2 Delivery Room Air Diagnostic Imaging Comments CT HEAD/MAXILLOFACIALS/CERVICAL SPINE--PER RADIOLOGIST REPORT AT 2002 FINDINGS: The silva-white matter differentiation is normal. No mass effect or midline shift. The ventricles are normal in size and configuration. Basilar cisterns are patent. There are no intra-axial or extra-axial fluid collections. There is no intracranial hemorrhage. The orbits are normal. Paranasal sinuses are normal. Mastoid air cells are clear. There is a left periorbital hematoma. No osseus lesions or fractures are seen. No fracture is seen in the face. The nasal bones are normal. Mandible and maxillae are normal. Zygomatic arches are normal. Pterygoid plates are normal. No soft tissue abnormality is seen. The alignment of the cervical spine is normal. There is a mild age-indeterminate T1 compression fracture. The craniocervical junction is normal. There is moderate degenerative disease in the cervical spine. There is no spinal canal stenosis. No soft tissue abnormality is seen in the neck. Limited views of the superior thorax are normal. IMPRESSION: 1. No acute intracranial abnormality. 2. Mild age-indeterminate T1 compression fracture. 3. No fracture in the face. XRAYS--PER RADIOLOGIST REPORTS AT 2028 LEFT HAND-- FINDINGS: There is an intra-articular mildly comminuted fracture of the proximal phalanx of the small finger. No other fracture is seen. No dislocation. IMPRESSION: Intra-articular mildly comminuted fracture of the proximal phalanx of the left 5th finger. CXR-- FINDINGS: The lungs are clear without edema or pneumonia. No pleural effusion or pneumothorax. Heart size is normal. There is calcified granuloma in the right lung base. IMPRESSION: Clear lungs. 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 No fracture. No dislocation. IMPRESSION: No fracture in the pelvis. Reviewed: Reviewed by Me Departure Impression Primary Impression: Fall from standing Additional Impressions: Closed head injury without loss of consciousness LEFT BROW LACERATION Periorbital hematoma of left eye Abrasion of face LEFT FIFTH FINGER FRACTURE Etyaxlopsm-kvhticgwm-bjtwkjo (DPT) vaccination administered at current visit Disposition: HOME, SELF-CARE Condition: Stable Departure-Patient Inst. Decision time for Depature: 20:30 Referrals: HERMILA BARRIENTOS DO (PCP/Family) Primary Care Physician Patient Instructions: Abrasions ED, [place] ED, Closed Head Injury (DC), Diphtheria and Tetanus Toxoids, and Acellular Pertussis Vaccine, Finger Fracture (DC), Laceration Repair With Stitches ED, Preventing Falls in Older Adults Add. Discharge Instructions: ICE TO SORE AREAS AT 20 MINUTE INTERVALS TYLENOL NEEDED FOR PAIN CLEAN WOUNDS TWICE A DAY WITH ANTIBACTERIAL SOAP AND WATER ON A Q-TIP, OTHERWISE KEEP CLEAN AND DRY. SUTURES OUT IN 5-7 DAYS--YOU MAY RETURN TO ER OR YOUR FAMILY DR MAY REMOVE THEM FOLLOW UP WITH DR. BARRIENTOS IN 2-3 DAYS FOR FURTHER CARE FOLLOW UP WITH DR. JUNIOR THIS WEEK FOR FINGER FRACTURE RETURN TO ER IF SYMPTOMS WORSEN All discharge instructions reviewed with patient and/or family. Voiced understanding. Scripts Cephalexin (Cephalexin) 500 Mg Tablet 500 MG PO QID, #20 TAB 0 Refills Prov: AN OATES DO 01/26/22 AN OATES DO Jan 26, 2022 19:53
--- NOTE | 2022-01-26 19:55 | Diagnostic Imaging Report ---
EXAMINATION: CT head, face and CT cervical spine without contrast. TECHNIQUE: Multiple contiguous axial images were obtained through the face, brain and cervical spine without the use of intravenous contrast. Sagittal and coronal reformations through the cervical spine were then performed. All CT scans use one or more of the following dose optimizing techniques: automated exposure control, MA and/or KvP adjustment based on patient size and exam type or iterative reconstruction. HISTORY: Head and neck injury, face injury. COMPARISON: 05/31/2021. FINDINGS: The silva-white matter differentiation is normal. No mass effect or midline shift. The ventricles are normal in size and configuration. Basilar cisterns are patent. There are no intra-axial or extra-axial fluid collections. There is no intracranial hemorrhage. The orbits are normal. Paranasal sinuses are normal. Mastoid air cells are clear. There is a left periorbital hematoma. No osseus lesions or fractures are seen. No fracture is seen in the face. The nasal bones are normal. Mandible and maxillae are normal. Zygomatic arches are normal. Pterygoid plates are normal. No soft tissue abnormality is seen. The alignment of the cervical spine is normal. There is a mild age-indeterminate T1 compression fracture. The craniocervical junction is normal. There is moderate degenerative disease in the cervical spine. There is no spinal canal stenosis. No soft tissue abnormality is seen in the neck. Limited views of the superior thorax are normal. IMPRESSION: 1. No acute intracranial abnormality. 2. Mild age-indeterminate T1 compression fracture. 3. No fracture in the face. Dictated by: Dictated on workstation # [id number]
[2022-01-26] MEDS ORDERED: LIDOCAINE/EPI 1%-1:100,000 (XYLOCAINE) 10 ML ONE (20:10)
[2022-01-26] MEDS ORDERED: LIDOCAINE/EPI 2% 1:100,00 (XYLOCAINE) 20 ML VIAL INJ ONE (20:15)
--- NOTE | 2022-01-26 20:20 | Diagnostic Imaging Report ---
EXAMINATION: Chest, 1 view. HISTORY: Chest pain. COMPARISON: 01/21/2021. FINDINGS: The lungs are clear without edema or pneumonia. No pleural effusion or pneumothorax. Heart size is normal. There is calcified granuloma in the right lung base. IMPRESSION: Clear lungs. Dictated by: Dictated on workstation # [id number]
--- NOTE | 2022-01-26 20:22 | Diagnostic Imaging Report ---
EXAMINATION: Pelvis, 1 or 2 views. HISTORY: Pelvic pain. COMPARISON: None available. FINDINGS: There is mild bilateral hip joint osteoarthritis. No fracture. No dislocation. IMPRESSION: No fracture in the pelvis. Dictated by: Dictated on workstation # [id number]
--- NOTE | 2022-01-26 20:22 | Diagnostic Imaging Report ---
EXAMINATION: Left hand, 3 views. HISTORY: Hand pain. COMPARISON: 04/15/2017. FINDINGS: There is an intra-articular mildly comminuted fracture of the proximal phalanx of the small finger. No other fracture is seen. No dislocation. IMPRESSION: Intra-articular mildly comminuted fracture of the proximal phalanx of the left 5th finger. Dictated by: Dictated on workstation # [id number]
[2022-01-26] MEDS ORDERED: RX-CEPHALEXIN (KEFLEX) 250 MG CAP PPK#4 PO STA (20:38)
[2022-01-26] MEDS ORDERED: CEPH500T PO (20:38)
[2022-01-26] MEDS ORDERED: RX-CEPHALEXIN (KEFLEX) 250 MG CAP PPK#4 PO ONE (20:46)
[2022-01-26 21:08] VITALS: BP 162/61
== END 2022-01-26 21:22 | disposition home or self-care (01) ==
LOC: EDUNIT# 17:50 → ER 17:52
DX: S62.607A Fracture of unspecified phalanx of left little finger, initial encounter for closed fracture (principal); S01.81XA Laceration without foreign body of other part of head, initial encounter; S05.12XA Contusion of eyeball and orbital tissues, left eye, initial encounter; S09.90XA Unspecified injury of head, initial encounter; R40.2410 Glasgow coma scale score 13-15, unspecified time; Z23 Encounter for immunization; W22.8XXA Striking against or struck by other objects, initial encounter
CPT/HCPCS: 12011; 29130; 36415; 70450; 70486; 71045; 72125; 72170; 73130; 80053; 85025; 85610; 85730; 90715

== ENCOUNTER → 2022-02-11 | Outpatient (CLI) | payer MEDICARE ==
[~2022-02-11] MED LIST changes: +CEPH500T PO
--- NOTE | 2022-02-11 12:28 | Diagnostic Imaging Report ---
PROCEDURE: CT head and CT cervical spine without contrast. TECHNIQUE: Multiple contiguous axial images were obtained through the brain and cervical spine without the use of intravenous contrast. Sagittal and coronal reformations through the cervical spine were then performed. Auto Exposure Controls were utilized during the CT exam to meet ALARA standards for radiation dose reduction. INDICATION: Fall with head and neck pain. Correlation is made with prior CT from 01/26/2022. CT HEAD: Left frontal and left periorbital soft tissue swelling has improved since recent CT. Ventricles and sulci appears stable. No sulcal effacement or midline shift is detected. No acute intra-axial or extra-axial hemorrhage is detected. Cisterns are patent. Visualized paranasal sinuses are clear. IMPRESSION: Improving left periorbital and left frontal scalp swelling. No acute intracranial process is detected. CT cervical spine: Curvature of the cervical spine is normal. There is minimal anterolisthesis of C5 on C6. Age-indeterminate superior endplate fracture T1 appears similar to prior exam. No cervical spine fractures are identified. Prevertebral tissues are within normal limits. The odontoid is intact. IMPRESSION: Stable CT cervical spine study since exam from 01/26/2022. No acute cervical spine fracture seen. There is an age-indeterminate superior endplate fracture of T1. Dictated by: Dictated on workstation # [id number]
== END ==
LOC: RAD 12:15
PROVIDERS: ATTEND Family Medicine
DX: R51.9 Headache, unspecified (principal); M54.2 Cervicalgia; W19.XXXA Unspecified fall, initial encounter
CPT/HCPCS: 70450; 72125

== ENCOUNTER 2022-02-23 21:15 | Inpatient (IN) | payer MEDICARE ==
[~2022-02-23] VITALS: Ht 162.5 cm; Wt 62.4 kg
[2022-02-23] MEDS ORDERED: fentaNYL INJ 100 MCG/2 ML AMP IVP STA ×2 (21:21→21:58)
[2022-02-23 21:29] LABS: BASOPHILS # (AUTO) 0.1 10^3/uL (0.0-0.1); BASOPHILS % (AUTO) 0 % (0-10); EOSINOPHILS # (AUTO) 0.1 10^3/uL (0.0-0.3); EOSINOPHILS % (AUTO) 1 % (0-10); HEMATOCRIT 33 % (35-52); HEMOGLOBIN 10.6 g/dL (11.5-16.0); LYMPHOCYTES # (AUTO) 0.6 10^3/uL (1.0-4.0); LYMPHOCYTES % (AUTO) 5 % (12-44); MEAN CORPUSCULAR HEMOGLOBIN 30 pg (25-34); MEAN CORPUSCULAR HGB CONC 32 g/dL (32-36); MEAN CORPUSCULAR VOLUME 92 fL (80-99); MEAN PLATELET VOLUME 9.3 fL (9.0-12.2); MONOCYTES # (AUTO) 0.7 10^3/uL (0.0-1.0); MONOCYTES % (AUTO) 6 % (0-12); NEUTROPHILS # (AUTO) 11.1 10^3/uL (1.8-7.8); NEUTROPHILS % (AUTO) 88 % (42-75); PLATELET COUNT 232 10^3/uL (130-400); WHITE BLOOD COUNT 12.6 10^3/uL (4.3-11.0)
[2022-02-23] MEDS ORDERED: LACTATED RINGERS 1,000 ML IV ONE (21:30)
[2022-02-23 21:40] LABS: ALBUMIN 3.9 GM/DL (3.2-4.5); INR 1.1 (0.8-1.4); PROTHROMBIN TIME PATIENT 14.4 SEC (12.2-14.7)
[2022-02-23 21:41] LABS: CALCIUM 9.5 MG/DL (8.5-10.1)
[2022-02-23 21:43] LABS: TOTAL PROTEIN 6.4 GM/DL (6.4-8.2)
[2022-02-23 21:44] LABS: BILIRUBIN,TOTAL 0.6 MG/DL (0.1-1.0)
[2022-02-23 21:46] LABS: CREATININE SERUM 2.11 MG/DL (0.60-1.30)
[2022-02-23 21:54] LABS: BAND NEUTROPHILS 1 %; BASOPHILS % (MANUAL) 0 %; ELLIPT/OVALOCYTES SLIGHT; EOSINOPHILS % (MANUAL) 0 %; LYMPHOCYTES % (MANUAL) 8 %; MONOCYTES % (MANUAL) 8 %; NEUTROPHILS % (MANUAL) 83 %; POIKILOCYTOSIS SLIGHT
[2022-02-23 21:56] LABS: BILIRUBIN,URINE NEGATIVE (NEGATIVE); CLARITY,URINE CLEAR; COLOR,URINE YELLOW; GLUCOSE, URINE (UA) NEGATIVE (NEGATIVE); KETONES,URINE NEGATIVE (NEGATIVE); LEUKOCYTE ESTERASE ,URINE NEGATIVE (NEGATIVE); NITRITE,URINE NEGATIVE (NEGATIVE); PROTEIN,URINE 2+ (NEGATIVE)
[2022-02-23 22:07] LABS: BACTERIA,URINE NEGATIVE /HPF; SQUAMOUS EPITHELIAL CELL,UR RARE /HPF; WBC,URINE RARE /HPF
--- NOTE | 2022-02-23 22:20 | Diagnostic Imaging Report ---
INDICATION: Pain post fall. TECHNIQUE: Single view chest 9:40 PM. CORRELATION STUDY: 01/26/2022. FINDINGS: Heart size enlarged with vasculature increased. Some fullness of left hilum. Opacity of left lung base likely effusion with atelectasis or infiltrate. No definitive acute displaced fracture. IMPRESSION: Likely combination of effusion with consolidation of the left lung base. Cardiac enlargement with component of mild vascular congestion. Dictated by: Dictated on workstation # [id number]
--- NOTE | 2022-02-23 22:22 | Diagnostic Imaging Report ---
INDICATION: Pain post fall, fracture. TECHNIQUE: AP pelvis along with 2 views left hip, 9:37 PM. CORRELATION STUDY: 01/26/2022. FINDINGS: Comminuted, impacted and angulated left intertrochanteric femur fracture. Significant coxa vera alignment is noted. There is mild medial retraction of lesser trochanter fracture fragment. Femoral head acetabular relationship is maintained. Remainder of the pelvis as well as right hip joint maintained. Leftward curvature of the lumbar spine. IMPRESSION: Comminuted, impacted and angulated proximal left femur fracture. Dictated by: Dictated on workstation # [id number]
--- NOTE | 2022-02-23 22:24 | Diagnostic Imaging Report ---
INDICATION: Leg pain post fall, fracture. TECHNIQUE: AP and lateral view of left femur, 9:38 PM. CORRELATION STUDY: None. FINDINGS: Comminuted, impacted left intertrochanteric femur fracture. There is significant coxa vera alignment present. The lesser trochanter is retracted and displaced medially and superiorly. The mid and distal femur appears intact and unremarkable. Limited visualization of the knee demonstrates mild degenerative change but otherwise unremarkable. Vascular calcification present. IMPRESSION: Comminuted, impacted and angulated left intertrochanteric proximal femur fracture. Dictated by: Dictated on workstation # [id number]
--- NOTE | 2022-02-23 22:25 | Diagnostic Imaging Report ---
INDICATION: Shoulder pain post fall, femur fracture. TECHNIQUE: Three views of the left shoulder. CORRELATION STUDY: None. FINDINGS: The acromioclavicular and glenohumeral joint appear to be maintained. No dislocation. There is questioned irregularity at the lateral body of the scapula for which a nondisplaced fracture is not excluded. IMPRESSION: Negative for dislocation of the left shoulder. Questionable irregularity of the left scapula raising concern for nondisplaced fracture. Dictated by: Dictated on workstation # [id number]
--- NOTE | 2022-02-23 22:29 | ED Fall/Injury ---
General Chief Complaint: Lower Extremity Stated Complaint: FALL FROM STANDING - L HIP FRACTURE Nursing Triage Note: PATIENT STATES THAT SHE STUMBLED AND FELL APPROX A HOUR AND A HALF AGO. SHE WAS UNABLE TO GET UP AND THEN PUSHED HER EMERGENCY ALERT BUTTON THAT SHE HAS WITH HER AT ALL TIMES. SHE C/O LEFT LOWER EXTREM. PAIN. Source: patient, EMS History of Present Illness Date Seen by Provider: February 23, 2022 Time Seen by Provider: 21:17 Initial Comments PT ARRIVES VIA EMS FROM HOME--PT LIVES ALONE PT STATES SHE JUST STUMBLED AND FELL, LANDING ON HER LEFT HIP. OCCURRED APPROXIMATELY 1 1/2 HOURS AGO PT WAS UNABLE TO GET UP, SO SHE PUSHED HER EMERGENCY ALERT BUTTON AND EMS ARRIVED. HER SON WAS ALSO NOTIFED WHEN SHE PUSHED THE ALERT BUTTON. HE LIVES IN [facility], 2 GRAND DAUGHTERS LIVE HERE IN [facility]. PT DENIES HITTING HER HEAD OR HAVING LOSS OF CONSCIOUSNESS DENIES NECK OR BACK PAIN ONLY C/O LEFT HIP PAIN NO PARESTHESIAS OR MOTOR DEFICITS. DENIES ANY OTHER INJURIES OR AREAS OF PAIN AT THIS TIME. EMS GAVE FENTANYL 50 MCG PRIOR TO ARRIVAL. PT WAS SEEN HERE 01/26/22 AFTER A FALL FROM STANDING, SUSTAINING A LARGE HEMATOMA TO HER FACE AND PERIORBITAL AREA. SHE ALSO SUSTAINED A FRACTURE OF HER LEFT 5TH FINGER. SHE WAS ON ELIQUIS AT THAT TIME FOR CHRONIC ATRIAL FIBRILLATION PT STATES THE ELIQUIS WAS STOPPED AFTER THAT FALL. SHE SAW DR. JUNIOR ON Thursday02/20/22 FOR FOLLOW UP ON HER FINGER FRACTURE. PT IS NOT WEARING A SPLINT ON HER FINGER AT THIS TIME. PT HAS AN OLD BRUISE ON HER LEFT SHOULDER AND UPPER ARM--SHE STATES IT HAS BEEN THERE SINCE OCTOBER AFTER A FALL TP HAS FALLEN SEVERAL TIMES IN THE LAST FEW MONTHS. PCP: DR. BARRIENTOS HEEL SEAT FITTER: DR. LOYOLA ORTHOPEDIC SURGEON: Yesica JUNIOR Allergies and Home Medications Allergies Coded Allergies: aspirin (Verified Allergy, Unknown, Abdominal Pain, 01/21/21) gi upset Patient Home Medication List Home Medication List Reviewed: Yes Amiodarone HCl (Amiodarone HCl) 200 Mg Tablet, 100 MG PO DAILY Prescribed by: HERMILA BARRIENTOS on 02/08/21 0844 Amlodipine Besylate (Amlodipine Besylate) 10 Mg Tablet, 5 MG PO DAILY Prescribed by: HERMILA BARRIENTOS on 02/08/21 0844 Apixaban (Eliquis) 2.5 Mg Tablet, 2.5 MG PO BID Prescribed by: HERMILA BARRIENTOS on 02/08/21 08 Calcium Carbonate (Calcium) 600 Mg Tablet, 600 MG PO DAILY, (Reported) Entered as Reported by: ADILIA MARTINEZ on 01/22/21 1026 Cephalexin (Cephalexin) 500 Mg Tablet, 500 MG PO QID Prescribed by: AN OATES on 01/26/222037 Cranberry (Cranberry) 400 Mg Capsule, 800 MG PO DAILY, (Reported) Entered as Reported by: ADILIA MARTINEZ on 01/22/21 1026 Gabapentin (Gabapentin) 100 Mg Capsule, 100 MG PO HS Prescribed by: HERMILA BARRIENTOS on 02/08/21843 Simvastatin (Simvastatin) 20 Mg Tablet, 20 MG PO DAILY, (Reported) Entered as Reported by: ADILIA MARTINEZ on 01/22/21 1026 Review of Systems Review of Systems Constitutional: no symptoms reported Eyes: No Symptoms Reported Ears, Nose, Mouth, Throat: no symptoms reported Respiratory: no symptoms reported Cardiovascular: no symptoms reported Gastrointestinal: no symptoms reported Genitourinary: no symptoms reported Musculoskeletal: see HPI Skin: no symptoms reported Psychiatric/Neurological: No Symptoms Reported Past Wfkewzz-Lxneam-Dgtdjc Hx Patient Social History Tobacco Use?: No Substance use?: No Alcohol Use?: No Immunizations Up To Date First/Initial COVID19 Vaccinat: 01/30 Second COVID19 Vaccination Greyson: 01/30 Third COVID19 Vaccination Date: 01/30 Past Medical History Surgeries: Yes Appendectomy, Gallbladder Respiratory: No Cardiac: Yes Atrial Fibrillation, Chronic Edema/Swelling, High Cholesterol, Hypertension Neurological: Yes Neuropathy Genitourinary: Yes (NO DIALYSIS) Renal Failure Gastrointestinal: Yes (S/P CHOLECYSTECTOMY AND APPENDECTOMY) Liver Disease/Jaundice, Gall Bladder Disease Musculoskeletal: Yes (LEFT 5TH FINGER FX 01/2022) Arthritis, Fractures Endocrine: No HEENT: No Cancer: No Psychosocial: No Integumentary: No Blood Disorders: No Family Medical History Heart Disease, CAD Over 55 Years Old, Renal Disease, Stroke Physical Exam Vital Signs Vital Signs - First Documented 02/23/22 21:18 Temp 37.0 Pulse 66 Resp 22 B/P (MAP) 178/80 (112) Pulse Ox 96 O2 Delivery Room Air Capillary Refill : Less Than 3 Seconds Height, Weight, BMI Height: 5'2.00" Weight: 150lbs. oz. 68.828751ce; 21.00 BMI Method:Estimated General Appearance: WD/WN, no apparent distress Neck: normal inspection Cardiovascular: normal peripheral pulses, regular rate, rhythm, no murmur Respiratory: chest non-tender, normal breath sounds, no respiratory distress, no accessory muscle use Peripheral Pulses: 2+ Dorsalis Pedis (R), 2+ Left Dors-Pedis (L) Gastrointestinal: normal bowel sounds, non tender, soft Back: normal inspection, no CVA tenderness, no vertebral tenderness Extremities: normal capillary refill, pedal edema (1+ EDEMA BILATERALLY), other (OLD BRUISING TO RIGHT SHOULDER-=-PT STATES HAS BEEN PRESENT SINCE OCTOBER AFTER A FALL. NO TENDERENESS OR DEFORMITY. LEFT HIP TENDERNESS. WITH SHORTENING AND EXTERNAL ROTATION. DISTAL MOTOR / SENSORY/VASCULAR INTACT. ) Neurologic/Psychiatric: rn ed II-XII nml as tested, no motor/sensory deficits, alert, normal mood/affect, oriented x 3 Skin: normal color, warm/dry [place] Coma Score Best Eye Response: (4) Open Spontaneously Best Verbal Response: (5) Oriented Best Motor Response: (6) Obeys Commands [place] Total: 15 Procedures/Interventions Suture Size: 5-0 Progress/Results/Core Measures Results/Orders Lab Results Laboratory Tests Test 02/23/22 21:20 02/23/22 21:50 Range/Units White Blood Count 12.6 H 4.3-11.0 10^3/uL Red Blood Count 3.58 L 3.80-5.11 10^6/uL Hemoglobin 10.6 L 11.5-16.0 g/dL Hematocrit 33 L 35-52 % Mean Corpuscular Volume 92 80-99 fL Mean Corpuscular Hemoglobin 30 25-34 pg Mean Corpuscular Hemoglobin Concent 32 32-36 g/dL Red Cell Distribution Width 13.6 10.0-14.5 % Platelet Count 232 130-400 10^3/uL Mean Platelet Volume 9.3 9.0-12.2 fL Immature Granulocyte % (Auto) 1 % Neutrophils (%) (Auto) 88 H 42-75 % Lymphocytes (%) (Auto) 5 L 12-44 % Monocytes (%) (Auto) 6 0-12 % Eosinophils (%) (Auto) 1 0-10 % Basophils (%) (Auto) 0 0-10 % Neutrophils # (Auto) 11.1 H 1.8-7.8 10^3/uL Lymphocytes # (Auto) 0.6 L 1.0-4.0 10^3/uL Monocytes # (Auto) 0.7 0.0-1.0 10^3/uL Eosinophils # (Auto) 0.1 0.0-0.3 10^3/uL Basophils # (Auto) 0.1 0.0-0.1 10^3/uL Immature Granulocyte # (Auto) 0.1 0.0-0.1 10^3/uL Neutrophils % (Manual) 83 % Lymphocytes % (Manual) 8 % Monocytes % (Manual) 8 % Eosinophils % (Manual) 0 % Basophils % (Manual) 0 % Band Neutrophils 1 % Poikilocytosis SLIGHT Elliptocytes SLIGHT Prothrombin Time 14.4 12.2-14.7 SEC INR Comment 1.1 0.8-1.4 Activated Partial Thromboplast Time 27 24-35 SEC Sodium Level 140 135-145 MMOL/L Potassium Level 4.0 3.6-5.0 MMOL/L Chloride Level 102 98-107 MMOL/L Carbon Dioxide Level 22 21-32 MMOL/L Anion Gap 16 H 5-14 MMOL/L Blood Urea Nitrogen 37 H 7-18 MG/DL Creatinine 2.11 H 0.60-1.30 MG/DL Estimat Glomerular Filtration Rate 22 BUN/Creatinine Ratio 18 Glucose Level 114 H 70-105 MG/DL Calcium Level 9.5 8.5-10.1 MG/DL Corrected Calcium 9.6 8.5-10.1 MG/DL Total Bilirubin 0.6 0.1-1.0 MG/DL Aspartate Amino Transf (AST/SGOT) 30 5-34 U/L Alanine Aminotransferase (ALT/SGPT) 28 0-55 U/L Alkaline Phosphatase 155 H 40-136 U/L Total Protein 6.4 6.4-8.2 GM/DL Albumin 3.9 3.2-4.5 GM/DL Urine Color YELLOW Urine Clarity CLEAR Urine pH 6.0 5-9 Urine Specific [place] 1.025 H 1.016-1.022 Urine Protein 2+ H NEGATIVE Urine Glucose (UA) NEGATIVE NEGATIVE Urine Ketones NEGATIVE NEGATIVE Urine Nitrite NEGATIVE NEGATIVE Urine Bilirubin NEGATIVE NEGATIVE Urine Urobilinogen 0.2 < = 1.0 MG/DL Urine Leukocyte Esterase NEGATIVE NEGATIVE Urine RBC (Auto) NEGATIVE NEGATIVE Urine RBC NONE /HPF Urine WBC RARE /HPF Urine Squamous Epithelial Cells RARE /HPF Urine Crystals NONE /LPF Urine Bacteria NEGATIVE /HPF Urine Casts NONE /LPF Urine Mucus NEGATIVE /LPF Urine Culture Indicated NO My Orders Orders - AN OATES DO Ed Iv/Invasive Line Start (02/23/22 21:21) Catheter(Urinary) Insert & Ass ,15 (02/23/22 21:21) Monitor-Rhythm Ecg Trace Only (02/23/22 21:21) Chest 1 View, Ap/Pa Only (02/23/22 21:21) Femur, Left, 2 Views (02/23/22 21:21) Pelvis With Left Hip 2-3 Views (02/23/22 21:21) Cbc With Automated Diff (02/23/22 21:21) Comprehensive Metabolic Panel (02/23/22 21:21) Protime With Inr (02/23/22 21:21) Partial Thromboplastin Time (02/23/22 21:21) Ua Culture If Indicated (02/23/22 21:21) Type And Screen (02/23/22 21:21) Ed Iv/Invasive Line Start (02/23/22 21:21) Lactated Ringers (Lr 1000 Ml Iv Solution (02/23/22 21:30) Fentanyl Inj (Sublimaze Injection) (02/23/22 21:21) Manual Differential (02/23/22 21:20) Shoulder, Left, 3 Views (02/23/22 21:57) Fentanyl Inj (Sublimaze Injection) (02/23/22 21:58) Medications Given in ED Current Medications Medications Dose Ordered Sig/Keke Route Start Time Stop Time Status Last Admin Dose Admin Lactated Ringer's 1,000 ml @ 0 mls/hr Q0M ONCE IV 02/23/22 21:30 02/23/22 21:31 DC 02/23/22 21:27 0 MLS/HR Vital Signs/I&O 02/23/22 21:18 Temp 37.0 Pulse 66 Resp 22 B/P (MAP) 178/80 (112) Pulse Ox 96 O2 Delivery Room Air Blood Pressure Mean: 112 Progress Progress Note : Progress Note GIVEN FENTANYL FOR PAIN WITH MODERATE RELIEF. JUST PRIOR TO BEING TRANSFERRED TO THE FLOOR, PT NOW C/O LEFT SHOULDER PAIN. XRAYS ORDERED. NO DETERIORATION IN PT'S CONDITION DURING ER STAY DISCUSSED WITH PT AND SON, AND PT WISHES TO BE A FULL CODE Diagnostic Imaging Comments XRAYS--PER RADIOLOGIST REPORTS AT 2300 CXR--FINDINGS: Heart size enlarged with vasculature increased. Some fullness of left hilum. Opacity of left lung base likely effusion with atelectasis or infiltrate. No definitive acute displaced fracture. IMPRESSION: Likely combination of effusion with consolidation of the left lung base. Cardiac enlargement with component of mild vascular congestion. PELVIS AND LEFT HIP--FINDINGS: Comminuted, impacted and angulated left intertrochanteric femur fracture. Significant coxa vera alignment is noted. There is mild medial retraction of lesser trochanter fracture fragment. Femoral head acetabular relationship is maintained. Remainder of the pelvis as well as right hip joint maintained. Leftward curvature of the lumbar spine. IMPRESSION: Comminuted, impacted and angulated proximal left femur fracture. LEFT FEMUR--FINDINGS: Comminuted, impacted left intertrochanteric femur fracture. There is significant coxa vera alignment present. The lesser trochanter is retracted and displaced medially and superiorly. The mid and distal femur appears intact and unremarkable. Limited visualization of the knee demonstrates mild degenerative change but otherwise unremarkable. Vascular calcification present. IMPRESSION: Comminuted, impacted and angulated left intertrochanteric proximal femur fracture. LEFT SHOULDER--FINDINGS: The acromioclavicular and glenohumeral joint appear to be maintained. No dislocation. There is questioned irregularity at the lateral body of the scapula for which a nondisplaced fracture is not excluded. IMPRESSION: Negative for dislocation of the left shoulder. Questionable irregularity of the left scapula raising concern for nondisplaced fracture. Reviewed: Reviewed by Me Departure Communication (Admissions) 2153--SPOKE WITH DR. JUNIOR, ORTHOPEDIC SURGEON, HE ADVISES TO ADMIT TO PRIMARY CARE, AND HE PLANS ON TAKING PT TO SURGERY TOMORROW. WILL ALSO CONSULT CARDIOLOGY WITH PT'S HISTORY OF ATRIAL FIBRILLATION 2199--SPOKE WITH DR. BELL, DIGITAL CONTENT PRODUCER FOR DR. BARRIENTOS. ACCEPTS PT FOR ADMIT. Impression Primary Impression: Fall from standing Additional Impressions: Closed left hip fracture Contusion of left shoulder History of atrial fibrillation HTN (hypertension) POSSIBLE LEFT SCAPULAR FRACTURE Disposition: ADMITTED INPATIENT Condition: Stable Admissions Decision to Admit Reason: Admit from ER (Trauma) Decision to Admit/Date: February 23, 2022 Time/Decision to Admit Time: 21:55 Departure-Patient Inst. Referrals: HERMILA BARRIENTOS DO (PCP/Family) Primary Care Physician AN OATES DO February 23, 2022 22:29
[2022-02-23] MEDS ORDERED: D5 1/2 NS W/KCL 20 MEQ/L 1,000 ML IV ONE (22:48)
[2022-02-24] VITALS (12 sets, daily range): BP systolic 129–176; BP diastolic 62–78
[2022-02-24] MEDS: D5 1/2 NS W/KCL 20 MEQ/L 1,000 ML IV SCH ×4 (00:36→20:52)
[2022-02-24] MEDS: fentaNYL INJ 100 MCG/2 ML AMP IV PRN ×4 (00:43→16:14)
[2022-02-24] MEDS ORDERED: ONDANSETRON 4 MG/2 ML (SDV) Z0FRAN IV PRN (00:45)
[2022-02-24 06:22] LABS: BASOPHILS % (AUTO) 0 % (0-10); EOSINOPHILS % (AUTO) 0 % (0-10); HEMATOCRIT 28 % (35-52); LYMPHOCYTES # (AUTO) 0.6 10^3/uL (1.0-4.0); LYMPHOCYTES % (AUTO) 7 % (12-44); MEAN CORPUSCULAR HEMOGLOBIN 30 pg (25-34); MEAN CORPUSCULAR HGB CONC 32 g/dL (32-36); MEAN CORPUSCULAR VOLUME 93 fL (80-99); MEAN PLATELET VOLUME 9.9 fL (9.0-12.2); MONOCYTES # (AUTO) 0.8 10^3/uL (0.0-1.0); MONOCYTES % (AUTO) 9 % (0-12); NEUTROPHILS # (AUTO) 7.9 10^3/uL (1.8-7.8); NEUTROPHILS % (AUTO) 84 % (42-75); PLATELET COUNT 206 10^3/uL (130-400); WHITE BLOOD COUNT 9.4 10^3/uL (4.3-11.0)
[2022-02-24 06:35] LABS: POTASSIUM 4.1 MMOL/L (3.6-5.0)
[2022-02-24 06:36] LABS: CALCIUM 8.8 MG/DL (8.5-10.1)
[2022-02-24 06:40] LABS: CREATININE SERUM 1.76 MG/DL (0.60-1.30)
--- NOTE | 2022-02-24 07:57 | Progress Note-Pre Operative ---
Pre-Operative Progress Note H&P Reviewed The H&P was reviewed, patient examined and no changes noted. Date Seen by Provider: February 24, 2022 Time Seen by Provider: 07:57 Date H&P Reviewed: February 24, 2022 Time H&P Reviewed: 07:57 Pre-Operative Diagnosis: closed, displaced left intertrochanteric femur fracture SILVIO JUNIOR MD February 24, 2022 07:57
--- NOTE | 2022-02-24 07:58 | Progress Note-Post Operative ---
Post-Operative Progess Note Surgeon (s)/Manager Biostatistics (s) Surgeon SILVIO JUNIOR MD Manager Biostatistics: Rob Reeves Pre-Operative Diagnosis closed, displaced left intertrochanteric femur fracture Post-Operative Diagnosis closed, displaced left intertrochanteric femur fracture Procedure & Operative Findings Date of Procedure 02/24/22 Procedure Performed/Findings left hip IM frank Anesthesia Type GETA Estimated Blood Loss Estimated blood loss (mL): 100ml Specimens/Packing Specimens Removed none Packing: none SILVIO JUNIOR MD February 24, 2022 07:58
--- NOTE | 2022-02-24 08:44 | CONSULTATION REPORT ---
DATE OF SERVICE: 02/24/2022 INPATIENT CONSULTATION DIAGNOSIS: Left intertrochanteric femur fracture. HISTORY OF PRESENT ILLNESS: The patient is an 86-year-old independently living female who fell at home and presented to the Emergency Department where she was found to have a left intertrochanteric femur fracture. The patient denies antecedent pain. She has had frequent falls, but reports no antecedent pain prior to her fall. MEDICATIONS: Amiodarone, amlodipine; Eliquis, which she has stopped, calcium, gabapentin, simvastatin. PAST MEDICAL HISTORY: Significant for hypercholesterolemia, hypertension, neuropathy, cholecystectomy, appendectomy. PHYSICAL EXAMINATION: GENERAL: The patient is a well-developed, well-nourished, in mild distress. EXTREMITIES: Left lower extremity shortened and externally rotated. She has symmetric pulses. She has intact dorsiflexion and plantarflexion of the toes. Sensation is intact to light touch throughout. IMPRESSION: Displaced closed left intertrochanteric femur fracture. PLAN: Left hip intramedullary nail. The risks, benefits, options, ramifications and recovery were discussed at length with the patient. She understands and wishes to proceed. In addition, this was discussed with her son. Job ID: [id number] DocumentID: [id number] Dictated Date: 02/24/2022 07:49:34 Inside Sales Associate Date: 02/24/2022 08:43:59 Dictated By: SILVIO JUNIOR MD
--- NOTE | 2022-02-24 09:37 | Consultation-Cardiology ---
HPI-Cardiology Cardiology Consultation Date of Consultation 02/24/22 Date of Admission Time Seen by Provider: 07:57 HPI Patient is an 87 y/o female with history of PAF, severe MR, frequent falls. Presented to the ER with fall at home resulting in left hip fracture and left s houlder contusion. Denies any recent chest pain or dizziness. c/o some dyspnea on exertion. Home Medications & Allergies Allergies: Coded Allergies: aspirin (Verified Allergy, Unknown, Abdominal Pain, 01/21/21) gi upset Home Medication List Reviewed: Yes HPC-Dzgmlg-Egritr Hx Patient Social History Marital Status: Employed/Student: retired Smoking Status: Never a Smoker Have you traveled recently?: No Alcohol Use?: No Immunizations Up To Date Date of Influenza Vaccine: Jul 12, 2020 Past Medical History PAF, HTN, mitral regurgitation Family Medical History Significant Family History: Heart Disease, CAD Over 55 Years Old, Renal Disease, Stroke Family Medical Hx Noncontributory to her current condition Review of Systems-General Review of Systems Constitutional: no symptoms reported, see HPI; No chills, No diaphoresis; fever EENTM: see HPI; No blurred vision, No double vision Respiratory: no symptoms reported; No cough, No dyspnea on exertion Cardiovascular: no symptoms reported; No chest pain, No Hx of Intervention, No syncope, No vascular heart diseas Gastrointestinal: no symptoms reported Genitourinary: no symptoms reported Musculoskeletal: see HPI Skin: no symptoms reported Psychiatric/Neurological: No Symptoms Reported Reviewed Test Results Reviewed Test Results Lab Laboratory Tests 02/23/22 21:20: White Blood Count 12.6H, Red Blood Count 3.58L, Hemoglobin 10.6L, Hematocrit 33L , Mean Corpuscular Volume 92, Mean Corpuscular Hemoglobin 30, Mean Corpuscular Hemoglobin Concent 32, Red Cell Distribution Width 13.6, Platelet Count 232, Mean Platelet Volume 9.3, Immature Granulocyte % (Auto) 1, Neutrophils (%) (Auto) 88H, Lymphocytes (%) (Auto) 5L, Monocytes (%) (Auto) 6, Eosinophils (%) (Auto) 1, Basophils (%) (Auto) 0, Neutrophils # (Auto) 11.1H, Lymphocytes # (Auto) 0.6L, Monocytes # (Auto) 0.7, Eosinophils # (Auto) 0.1, Basophils # (Auto) 0.1, Immature Granulocyte # (Auto) 0.1, Neutrophils % (Manual) 83, Lymphocytes % (Manual) 8, Monocytes % (Manual) 8, Eosinophils % (Manual) 0, Basophils % (Manual) 0, Band Neutrophils 1, Poikilocytosis SLIGHT, Elliptocytes SLIGHT, Prothrombin Time 14.4, INR Comment 1.1, Activated Partial Thromboplast Time 27, Sodium Level 140, Potassium Level 4.0, Chloride Level 102, Carbon Dioxide Level 22, Anion Gap 16H, Blood Urea Nitrogen 37H, Creatinine 2.11H, Estimat Glomerular Filtration Rate 22, BUN/Creatinine Ratio 18, Glucose Level 114H, Calcium Level 9.5, Corrected Calcium 9.6, Total Bilirubin 0.6, Aspartate Amino Transf (AST/SGOT) 30, Alanine Aminotransferase (ALT/SGPT) 28, Alkaline Phosphatase 155H, Total Protein 6.4, Albumin 3.9 02/23/22 21:50: Urine Color YELLOW, Urine Clarity CLEAR, Urine pH 6.0, Urine Specific [place] 1.025H, Urine Protein 2+H, Urine Glucose (UA) NEGATIVE, Urine Ketones NEGATIVE, Urine Nitrite NEGATIVE, Urine Bilirubin NEGATIVE, Urine Urobilinogen 0.2, Urine Leukocyte Esterase NEGATIVE, Urine RBC (Auto) NEGATIVE, Urine RBC NONE, Urine WBC RARE, Urine Squamous Epithelial Cells RARE, Urine Crystals NONE, Urine Bacteria NEGATIVE, Urine Casts NONE, Urine Mucus NEGATIVE, Urine Culture Indicated NO 02/24/22 05:49: White Blood Count 9.4, Red Blood Count 3.04L, Hemoglobin 9.0L, Hematocrit 28L, Mean Corpuscular Volume 93, Mean Corpuscular Hemoglobin 30, Mean Corpuscular Hemoglobin Concent 32, Red Cell Distribution Width 14.0, Platelet Count 206, Mean Platelet Volume 9.9, Immature Granulocyte % (Auto) 1, Neutrophils (%) (Auto) 84H, Lymphocytes (%) (Auto) 7L, Monocytes (%) (Auto) 9, Eosinophils (%) (Auto) 0, Basophils (%) (Auto) 0, Neutrophils # (Auto) 7.9H, Lymphocytes # (Auto) 0.6L, Monocytes # (Auto) 0.8, Eosinophils # (Auto) 0.0, Basophils # (Auto) 0.0, Immature Granulocyte # (Auto) 0.1, Sodium Level 138, Potassium Level 4.1, Chloride Level 103, Carbon Dioxide Level 25, Anion Gap 10, Blood Urea Nitrogen 32H, Creatinine 1.76H, Estimat Glomerular Filtration Rate 27, BUN/C reatinine Ratio 18, Glucose Level 104, Calcium Level 8.8 Physical Exam Physical Exam Vital Signs Vital Signs - First Documented 02/23/22 21:18 Temp 37.0 Pulse 66 Resp 22 B/P (MAP) 178/80 (112) Pulse Ox 96 O2 Delivery Room Air Capillary Refill : Less Than 3 Seconds Height, Weight, BMI Height: 5'2.00" Weight: 150lbs. oz. 68.472182br; 21.77 BMI Method:Estimated General Appearance: No Apparent Distress, WD/WN HEENT: PERRL/EOMI Neck: Non Tender, Supple Respiratory: Chest Non Tender, Lungs Clear Cardiovascular: Regular Rate, Rhythm, No Edema, No JVD, Systolic Murmur Gastrointestinal: Non Tender, Soft Neurologic/Psychiatric: Alert, Oriented x3 Skin: Normal Color, Warm/Dry Lymphatic: No Adenopathy A/P-Cardiology Admission Diagnosis Left hip fx PAF Severe MR HTN Assessment/Plan Fall resulting in left hip fracture, planning for OR later today History of frequent falls Paroxysmal atrial fibrillation, converted to sinus rhythm on amiodarone drip after failing electrical cardioversion in January 2021. Currently in sinus rhythm maintained on low-dose amiodarone as outpatient. [id number] score of 4, yearly risk of stroke without oral anticoagulation is 4%. Geoff currently on hold Sinus node dysfunction, severe bradycardia while on beta-blockers, tolerating low-dose amiodarone and I have stopped Toprol due to severe bradycardia. I am hesitant to proceed with pacemaker placement at this time due to the fact that she might qualify for mitral clip, functioning normally not requiring pacemaker at this point Severe mitral regurgitation, CHAYITO done showing severe mitral regurgitation, dilated left atrium and left atrial appendage. Pulmonary artery pressure of 40 to 45 mmHg. Discussed referral for mitral valve clip evaluation, after long discussion with patient and family they prefer to continue with conservative management without any intervention at this time. We discussed the possibility of referral to [facility] for evaluation for mitral valve clip. A 2D echo was done on June 25, 2021 showing normal left ventricular size, EF 65 to 70%, severe mitral regurgitation, mild aortic regurgitation, severe tricuspid regurgitation, PA pressure 55 to 60 mmHg Severe hypertension, difficult to control blood pressure, had few episode of low blood pressure but generally elevated blood pressure, unable to tolerate multiple medications due to her chronic renal insufficiency and severe bradycardia. Restart home blood pressure and continue to monitor. Chronic kidney disease stage IV, chronic renal insufficiency. Followed and managed by primary care physician Hyperlipidemia maintained on statin, monitored as outpatient. Abdominal pain, nausea and vomiting, gastritis, resolved Mild bilateral carotid stenosis, ultrasound was done in March 2021. Continue to monitor Preoperative cardiovascular clearance- overall, patient is considered intermediate risk for perioperative cardiovascular complications. Risk vs benef its of procedure will be deferred to surgeon Thank you for allowing us to participate in the management of Ms. Fabian. This is Aliyah Lobo PA-C, as a scribe for Dr. Lopez. Patient was seen and evaluated with Aliyah, I interviewed and examined the patient, discussed in detail the management plan, and agree with the current scribed note Patient sustained a nonsyncopal fall resulted in hip fracture. She is scheduled for hip surgery today. She has extensive history including paroxysmal atrial fibrillation, sinus node dysfunction, severe mitral regurgitation, severe hypertension and severe pulmonary hypertension Patient is considered at intermediate risk for perioperative cardiovascular complication, decision regarding the surgery, risk versus benefit is deferred to the surgeon. ALIYAH FROST February 24, 2022 09:37 SERGIO LOPEZ MD February 24, 2022 11:06
[2022-02-24] MEDS ORDERED: POTA10TA PO (11:04)
[2022-02-24] MEDS ORDERED: FLUO40CA PO (11:05)
[2022-02-24] MEDS ORDERED: CALC0.253 PO (11:05)
[2022-02-24] MEDS ORDERED: AMLO2.5T4 PO (11:06)
[2022-02-24] MEDS ORDERED: FURO20TA4 PO (11:07)
[2022-02-24] MEDS ORDERED: GABA-486 PO (11:08)
[2022-02-24] MEDS ORDERED: AMIO200T65 PO (11:08)
[2022-02-24] MEDS ORDERED: DOCU100T7 PO (11:12)
[2022-02-24] MEDS ORDERED: CALC-1102 PO (11:12)
[2022-02-24] MEDS ORDERED: C,E,1CAP PO (11:13)
[2022-02-24] MEDS ORDERED: ACET-2267 PO (11:14)
[2022-02-24] MEDS ORDERED: CARB15DR OP (11:14)
--- NOTE | 2022-02-24 12:38 | Consultation ---
History of Present Illness History of Present Illness Patient Consulted On(greyson/time) 02/24/22 12:33 Date Seen by Provider: February 24, 2022 Time Seen by Provider: 08:30 History of Present Illness This is an 87 year old female with a history of recent falls with head trauma. She has a history of atrial fibrillation, labile hypertension, severe mitral regurgitation and stage 4 kidney disease. Her eliquis has been on hold due to her recurrent falls with head trauma. Homehealth has been started for PT for strengthening and gait due to her recent falls. I also discussed AL vs NH with the patient and family due to her recurrent falls which she refused. She did get a life alert recently which is how she was able to get help after her fall. She states she was cleaning out her cabinets for more space so she was placing things in her porch area. She tripped fell over the items she was moving out to the porch and landed on her left shoulder and hip. She was found to have a proximal left femur fracture. She is admitted for pain control and will go to surgery today with Dr. Mosquera. Allergies and Home Medications Allergies Coded Allergies: aspirin (Verified Allergy, Unknown, Abdominal Pain, 01/21/21) gi upset Patient Home Medication List Home Medication List Reviewed: Yes Acetaminophen (Tylenol Extra Strength) 500 Mg Tablet, 500 MG PO Q8H PRN for PAIN-MILD (1-4), (Reported) Entered as Reported by: ASHLEY CORBETT on 02/24/22 1114 Last Action: Reviewed Amiodarone HCl (Amiodarone HCl) 200 Mg Tablet, 100 MG PO DAILY, (Reported) Entered as Reported by: ASHLEY CORBETT on 02/24/22 1108 Last Action: Reviewed Amlodipine Besylate (Amlodipine Besylate) 2.5 Mg Tablet, 2.5 MG PO DAILY, (Reported) Entered as Reported by: ASHLEY CORBETT on 02/24/22 1106 Last Action: Reviewed C,E,Zinc,Copper 11/Rhcqe5q/Lut (Ocuvite Adult 50 Plus Softgel) 250 Mg (90 Mg-160 Mg)-5 Mg-1 Mg Capsule, 1 EACH PO DAILY, (Reported) Entered as Reported by: ASHLEY CORBETT on 02/24/22 1113 Last Action: Reviewed Calcitriol (Calcitriol) 0.25 Mcg Capsule, 0.25 MG PO MON,WED,FRI, (Reported) Entered as Reported by: ASHLEY CORBETT on 02/24/221104 Last Action: Reviewed Calcium Carbonate/Vitamin D3 (Calcium 500 mg Chewable Tablet) 500 Mg-2.5 Tab.chew, 1 EACH PO DAILY, (Reported) Entered as Reported by: ASHLEY CORBETT on 02/24/221111 Last Action: Reviewed Carboxymethylcellulose Sodium (Refresh Tears) 0.5 % Drops, 1 DROP OP DAILY PRN for DRY EYES, (Reported) Entered as Reported by: ASHLEY CORBETT on 02/24/22 111 Last Action: Reviewed Cranberry (Cranberry) 400 Mg Capsule, 400 MG PO DAILY, (Reported) Entered as Reported by: ADILIA MARTINEZ on 01/22/21 102 Last Action: Reviewed Docusate Sodium (Stool Softener) 100 Mg Tablet, 100 MG PO DAILY, (Reported) Entered as Reported by: ASHLEY CORBETT on 02/24/221111 Last Action: Reviewed Fluoxetine HCl (Fluoxetine HCl) 40 Mg Capsule, 40 MG PO DAILY, (Reported) Entered as Reported by: ASHLEY CORBETT on 02/24/221104 Last Action: Reviewed Furosemide (Furosemide) 20 Mg Tablet, 20 MG PO Q48H, (Reported) Entered as Reported by: ASHLEY CORBETT on 02/24/221106 Last Action: Reviewed Gabapentin (Gabapentin) 100 Mg Capsule, 100 MG PO HS, (Reported) Entered as Reported by: ASHLEY CORBETT on 02/24/221107 Last Action: Reviewed Potassium Chloride (K-Tab ER) 10 Meq Tablet.er, 10 MG PO DAILY, (Reported) Entered as Reported by: ASHLEY CORBETT on 02/24/221103 Last Action: Reviewed Simvastatin (Simvastatin) 20 Mg Tablet, 20 MG PO DAILY, (Reported) Entered as Reported by: ADILIA MARTINEZ on 01/22/21 1026 Last Action: Reviewed Discontinued Medications Amiodarone HCl (Amiodarone HCl) 200 Mg Tablet, 100 MG PO DAILY Discontinued Reason: No Longer Taking Prescribed by: HERMILA BARRIENTOS on 02/08/21843 Last Action: Discontinued Amlodipine Besylate (Amlodipine Besylate) 10 Mg Tablet, 5 MG PO DAILY Discontinued Reason: No Longer Taking Prescribed by: HERMILA BARRIENTOS on 02/08/21843 Last Action: Discontinued Apixaban (Eliquis) 2.5 Mg Tablet, 2.5 MG PO BID Discontinued Reason: No Longer Taking Prescribed by: HERMILA BARRIENTOS on 02/08/21843 Last Action: Discontinued Calcium Carbonate (Calcium) 600 Mg Tablet, 600 MG PO DAILY, (Reported) Discontinued Reason: No Longer Taking Entered as Reported by: ADILIA MARTINEZ on 01/22/21 1026 Last Action: Discontinued Cephalexin (Cephalexin) 500 Mg Tablet, 500 MG PO QID Discontinued Reason: No Longer Taking Prescribed by: AN OATES on 01/26/222037 Last Action: Discontinued Gabapentin (Gabapentin) 100 Mg Capsule, 100 MG PO HS Discontinued Reason: No Longer Taking Prescribed by: HERMILA BARRIENTOS on 02/08/21843 Last Action: Discontinued Past Mjnyoqz-Xdhdfa-Hukixb Hx Patient Social History Marrital Status: Employed/Student: retired Tobacco Use?: No Smoking Status: Never a Smoker Smokeless Tobacco Frequency: Never a User Use of E-Cig and/or Vaping dev: No Substance use?: No Alcohol Use?: No Pt feels they are or have been: No Immunizations Up To Date Date of Influenza Vaccine: Jul 12, 2020 First/Initial COVID19 Vaccinat: 01/30 Second COVID19 Vaccination Greyson: 01/30 Tetanus Booster (TDap): Unknown Current Status status: No Advance Directives: No Communicates: Verbally Primary Language: Korean Preferred Spoken Language: Korean Is interpretation needed?: No Sensory deficits: Vision impairment Implanted or Applied Medical D: None Past Medical History Surgeries: Appendectomy, Gallbladder Atrial Fibrillation, Chronic Edema/Swelling, High Cholesterol, Hypertension Neuropathy Renal Failure Liver Disease/Jaundice, Gall Bladder Disease Arthritis, Fractures Blood Disorders: No Family Medical History Heart Disease, CAD Over 55 Years Old, Renal Disease, Stroke Review of Systems Review of Systems General: Fatigue HEENT: No Head Aches, No Visual Changes, No Eye Pain, No Ear Pain, No Dysphasi a, No Sinus Congestion, No Post Nasal Drip, No Sore Throat, No Other Pulmonary: No Dyspnea, No Cough, No Pleuritic Chest Pain, No Other Cardiovascular: Edema Gastrointestinal: No: Nausea, Vomiting, Abdominal Pain, Diarrhea, Constipation, Melena, Hematochezia, Other Genitourinary: No Dysuria, No Frequency, No Incontinence, No Hematuria, No Retention, No Other Musculoskeletal: shoulder pain (left shoulder), leg pain (left hip) Neurological: Weakness Physical Exam Vital Signs Vital Signs - First Documented 02/23/22 21:18 Temp 37.0 Pulse 66 Resp 22 B/P (MAP) 178/80 (112) Pulse Ox 96 O2 Delivery Room Air Capillary Refill : Less Than 3 Seconds Height, Weight, BMI Height: 5'2.00" Weight: 150lbs. oz. [id number]; 21.77 BMI Method:Estimated General Appearance: No Apparent Distress HEENT: Pharynx Normal Neck: Supple Respiratory: Lungs Clear Cardiovascular: Regular Rate, Rhythm, Systolic Murmur, Gallop/S4 Rectal: Deferred Genital/Rectal: No Normal Genital Exam, No Normal Rectal Exam, No Normal Rectal Tone, No Normal Vaginal Exam, No Heme Negative Stool, No Blood at Uretheral Meatus, No Decreased Rectal Tone, No Heme Positive Stool, No Tenderness, No Other Back: No CVA Tenderness Extremity: No Calf Tenderness, Pedal Edema Neurologic/Psychiatric: Alert, Oriented x3 Skin: Warm/Dry Comments Laboratory Tests 02/23/22 21:20: White Blood Count 12.6H, Red Blood Count 3.58L, Hemoglobin 10.6L, Hematocrit 33L , Mean Corpuscular Volume 92, Mean Corpuscular Hemoglobin 30, Mean Corpuscular Hemoglobin Concent 32, Red Cell Distribution Width 13.6, Platelet Count 232, Mean Platelet Volume 9.3, Immature Granulocyte % (Auto) 1, Neutrophils (%) (Auto) 88H, Lymphocytes (%) (Auto) 5L, Monocytes (%) (Auto) 6, Eosinophils (%) (Auto) 1, Basophils (%) (Auto) 0, Neutrophils # (Auto) 11.1H, Lymphocytes # (Auto) 0.6L, Monocytes # (Auto) 0.7, Eosinophils # (Auto) 0.1, Basophils # (Auto) 0.1, Immature Granulocyte # (Auto) 0.1, Neutrophils % (Manual) 83, Lymphocytes % (Manual) 8, Monocytes % (Manual) 8, Eosinophils % (Manual) 0, Basophils % (Manual) 0, Band Neutrophils 1, Poikilocytosis SLIGHT, Elliptocytes SLIGHT, Prothrombin Time 14.4, INR Comment 1.1, Activated Partial Thromboplast Time 27, Sodium Level 140, Potassium Level 4.0, Chloride Level 102, Carbon Dioxide Level 22, Anion Gap 16H, Blood Urea Nitrogen 37H, Creatinine 2.11H, Estimat Glomerular Filtration Rate 22, BUN/Creatinine Ratio 18, Glucose Level 114H, Calcium Level 9.5, Corrected Calcium 9.6, Total Bilirubin 0.6, Aspartate Amino Transf (AST/SGOT) 30, Alanine Aminotransferase (ALT/SGPT) 28, Alkaline Phosphatase 155H, Total Protein 6.4, Albumin 3.9 02/23/22 21:50: Urine Color YELLOW, Urine Clarity CLEAR, Urine pH 6.0, Urine Specific [place] 1.025H, Urine Protein 2+H, Urine Glucose (UA) NEGATIVE, Urine Ketones NEGATIVE, Urine Nitrite NEGATIVE, Urine Bilirubin NEGATIVE, Urine Urobilinogen 0.2, Urine Leukocyte Esterase NEGATIVE, Urine RBC (Auto) NEGATIVE, Urine RBC NONE, Urine WBC RARE, Urine Squamous Epithelial Cells RARE, Urine Crystals NONE, Urine Ba cteria NEGATIVE, Urine Casts NONE, Urine Mucus NEGATIVE, Urine Culture Indicated NO 02/24/22 05:49: White Blood Count 9.4, Red Blood Count 3.04L, Hemoglobin 9.0L, Hematocrit 28L, Mean Corpuscular Volume 93, Mean Corpuscular Hemoglobin 30, Mean Corpuscular Hemoglobin Concent 32, Red Cell Distribution Width 14.0, Platelet Count 206, Mean Platelet Volume 9.9, Immature Granulocyte % (Auto) 1, Neutrophils (%) (Auto) 84H, Lymphocytes (%) (Auto) 7L, Monocytes (%) (Auto) 9, Eosinophils (%) (Auto) 0, Basophils (%) (Auto) 0, Neutrophils # (Auto) 7.9H, Lymphocytes # (Auto) 0.6L, Monocytes # (Auto) 0.8, Eosinophils # (Auto) 0.0, Basophils # (Auto) 0.0, Immature Granulocyte # (Auto) 0.1, Sodium Level 138, Potassium Level 4.1, Chloride Level 103, Carbon Dioxide Level 25, Anion Gap 10, Blood Urea Nitrogen 32H, Creatinine 1.76H, Estimat Glomerular Filtration Rate 27, BUN/Creatinine Ratio 18, Glucose Level 104, Calcium Level 8.8 Assessment/Plan Assessment/Plan Admission Dx 1. Proximal Left Femur Fracture--surgery today with Dr. Mosquera, will need SNF on discharge 2. Paroxysmal Atrial Fibrillation--in NSR on amidarone, will resume eliquis on DC at low dose for both DVT prophylaxis and her a fib and since will be only up with PT or assist 3. Severe Mitral Regurgitation with left atrial appendage--has refused seeing EP about possible clip to appendage 4. Labile Hypertension--resume low dose amlodopine 5. Chronic Stage IV Kidney Disease--seeing nephrology 6. Recurrent Falls--will go to SNF on discharge then either needs to stay vs transition to AL as has ongoing fall risk HERMILA BARRIENTOS DO February 24, 2022 12:38
[2022-02-24] MEDS ORDERED: ARTIFICAL TEARS 0.4 ML UNIT DOSE (REFRESH PLUS) OP PRN (13:00)
[2022-02-24] MEDS ORDERED: SEVOFLURANE (ULTANE) 15 ML INHAL SOLN ONE ×3 (13:16→15:04)
[2022-02-24] MEDS ORDERED: ONDANSETRON 4 MG/2 ML (SDV) Z0FRAN ONE (13:16)
[2022-02-24] MEDS ORDERED: LIDOCAINE PF 2% 5 ML (XYLOCAINE) VIAL ONE (13:16)
[2022-02-24] MEDS ORDERED: proPOfol 200 MG/20 ML (DIPRIVAN) VIAL IV ONE (13:16)
[2022-02-24] MEDS ORDERED: fentaNYL INJ 100 MCG/2 ML AMP ONE (13:16)
[2022-02-24] MEDS ORDERED: BUPIVACAINE 0.25% 10 ML (SENSORCAINE) VIAL ONE (13:19)
[2022-02-24] MEDS: LACTATED RINGERS 1,000 ML IV PRN ×2 (13:35→15:05)
[2022-02-24] MEDS ORDERED: ceFAZolin 2 GM IV Premixed 50 ML IV NR (14:30)
[2022-02-24] MEDS ORDERED: ONDANSETRON 4 MG/2 ML (SDV) Z0FRAN IVP PRN ×2 (15:30→16:15)
[2022-02-24] MEDS ORDERED: morphine INJ 10 MG/ML 1ML (SYR OR VIAL) IVP ONE (15:30)
[2022-02-24] MEDS ORDERED: morphine INJ 4 MG/ML 1 ML (VIAL/SYRINGE) IVP PRN (16:15)
[2022-02-24] MEDS ORDERED: NALOXONE 0.4 MG/ML 1 ML (NARCAN) VIAL IV PRN (16:15)
--- NOTE | 2022-02-24 16:41 | Diagnostic Imaging Report ---
INDICATION: Left femur fracture. ORIF. COMPARISON: 02/23/2022. TOTAL NUMBER OF FLUOROSCOPIC IMAGES SAVED: 4. TOTAL FLUOROSCOPY TIME: 124 seconds. FINDINGS: Multiple intraoperative image intensifier views of the left hip were obtained during ORIF. Images provided show indwelling short intramedullary frank within the proximal left femoral shaft. Cypress screw is noted. This intersects a screw which also traverses the femoral head and neck. As a result, there is improved alignment of the fracture fragments. Femoroacetabular joint space appears appropriate. Please note, interpreting radiologist was not present during the procedure. IMPRESSION: 1. Fluoroscopic guidance provided during left femoral ORIF. Dictated by: Dictated on workstation # [id number]
[2022-02-24] MEDS: GABAPENTIN 100 MG (NEURONTIN) CAP PO SCH (20:51)
--- NOTE | 2022-02-24 21:37 | OPERATIVE REPORT ---
DATE OF SERVICE: 02/24/2022 PREOPERATIVE DIAGNOSIS: Closed displaced left intertrochanteric femur fracture. POSTOPERATIVE DIAGNOSIS: Closed displaced left intertrochanteric femur fracture. PROCEDURE: Left hip intramedullary nail. SURGEON: Rah Junior MD [employer]AREHOUSE MANAGER: Rob Reeves, who assisted throughout the procedure and closed the incisions. ANESTHESIA: General endotracheal by Ugo Goldberg CRNA. ESTIMATED BLOOD LOSS: 100 mL. DRAINS: None. COMPLICATIONS: None. POSTOPERATIVE PLAN: Weightbearing as tolerated left lower extremity. MATERIALS: Synthes short 11 mm nail with 105 mm blade statically locked. STATEMENT OF MEDICAL NECESSITY: The patient is an 87-year-old female, who fell last evening and presented to the Emergency Department with a closed displaced left intertrochanteric femur fracture. The patient and her family were counseled regarding treatment options and elected to proceed with surgical intervention. DESCRIPTION OF PROCEDURE: After risks and benefits of procedure were discussed and questions were answered, informed consent was signed and placed on chart, the operative site was confirmed in the preoperative holding area initialed by the surgeon. The patient was then transferred to the operating room. After adequate levels of general endotracheal anesthetic were obtained, a timeout was called, confirming the operative site. The patient was carefully placed on the fracture table and gentle longitudinal traction was applied. The fracture was well reduced in the AP and lateral planes. The left hip and lower extremity were prepped and draped in the usual sterile fashion. An incision was made from the greater trochanter extending proximally. The guidewire was passed into the femoral canal. The greater trochanter piece was independent of the remainder of the femur. This made reduction somewhat difficult at the medial calcar. The guidewire was passed. Reamer was placed and then an 11 mm nail was placed. AP and lateral planes revealed a well-aligned fracture with well-placed nail. Through a percutaneous incision, the guidewire was passed into the femoral head. This was felt to be in excellent position. This was then over reamed and a 105 mm blade was placed. This was then compressed and then locked proximally. A distal static screw was then placed with excellent purchase obtained. Fluoroscopy in AP and lateral planes revealed well-reduced fracture with well-placed hardware. Under live time fluoroscopy, the femur was rotated and the fracture moved as a unit. The wound was copiously irrigated. The iliotibial band was closed with #1 Vicryl in [id number] interrupted fashion. The wound was further irrigated, 2-0 Vicryl was used for subcutaneous tissue and vernon used on the skin. Incisions were infiltrated with plain Marcaine. A soft dressing was applied and the patient was transferred to the recovery room awake and in stable condition. Job ID: [id number] DocumentID: [id number] Dictated Date: 02/24/2022 15:09:00 Sample Display Preparer Date: 02/24/2022 21:37:12 Dictated By: RAH JUNIOR MD
[2022-02-25] VITALS (7 sets, daily range): BP systolic 106–135; BP diastolic 51–65
[2022-02-25] MEDS: D5 1/2 NS W/KCL 20 MEQ/L 1,000 ML IV SCH ×2 (00:17→06:22)
[2022-02-25 05:37] LABS: HEMATOCRIT 23 % (35-52); MEAN CORPUSCULAR HEMOGLOBIN 29 pg (25-34); MEAN CORPUSCULAR HGB CONC 31 g/dL (32-36); MEAN CORPUSCULAR VOLUME 95 fL (80-99); MEAN PLATELET VOLUME 10.1 fL (9.0-12.2); PLATELET COUNT 151 10^3/uL (130-400); WHITE BLOOD COUNT 9.4 10^3/uL (4.3-11.0)
[2022-02-25 06:01] LABS: CALCIUM 8.1 MG/DL (8.5-10.1); CREATININE SERUM 1.88 MG/DL (0.60-1.30); POTASSIUM 5.1 MMOL/L (3.6-5.0)
[2022-02-25] MEDS: CALCIUM CARB + VIT D 600 MG (CALCARB + D) TAB PO SCH (06:15)
--- NOTE | 2022-02-25 07:02 | Progress Note ---
Standard Progress Note Progress Notes/Assess & Plan Date Seen by a Provider: February 25, 2022 Time Seen by a Provider: 07:00 Progress/Assessment & Plan no complaints Vital Signs Date Time Temp Pulse Resp B/P (MAP) Pulse Ox O2 Delivery O2 Flow Rate FiO2 02/25/22 04:42 37.0 65 20 111/54 (73) 95 Nasal Cannula 2.00 02/25/22 01:05 62 02/25/22 00:18 36.9 67 20 115/56 (75) 96 Nasal Cannula 2.00 02/24/22 20:00 Room Air 02/24/22 19:19 37.0 67 20 145/67 (93) 99 Nasal Cannula 2.00 02/24/22 19:00 60 02/24/22 16:10 Nasal Cannula 2 02/24/22 16:10 36.4 18 155/76 (102) 96 Nasal Cannula 2 02/24/22 16:00 36.7 60 18 168/70 (102) 97 Nasal Cannula 2.00 02/24/22 16:00 18 148/72 (97) 99 Nasal Cannula 2 02/24/22 16:00 Nasal Cannula 2 02/24/22 15:55 Nasal Cannula 2 02/24/22 15:50 18 151/70 (97) 97 Nasal Cannula 2 02/24/22 15:42 OxyMask 4 02/24/22 15:40 18 159/72 (101) 97 OxyMask 3 02/24/22 15:30 18 160/78 (105) 97 OxyMask 6 02/24/22 15:30 OxyMask 6 02/24/22 15:20 18 176/76 (109) 99 OxyMask 6 02/24/22 15:18 36.2 16 171/78 (109) 97 OxyMask 6 02/24/22 15:18 OxyMask 6 02/24/22 13:00 55 02/24/22 11:23 36.6 55 18 151/70 (97) 95 Room Air 02/24/22 08:00 Room Air 02/24/22 07:51 36.5 54 18 129/62 (84) 94 Room Air I & O 02/25/22 07:00 Intake Total 1200 ml Output Total 935 ml Balance 265 ml Laboratory Tests Test 02/25/22 05:10 Range/Units White Blood Count 9.4 4.3-11.0 10^3/uL Red Blood Count 2.39 L 3.80-5.11 10^6/uL Hemoglobin 7.0 L 11.5-16.0 g/dL Hematocrit 23 L 35-52 % Mean Corpuscular Volume 95 80-99 fL Mean Corpuscular Hemoglobin 29 25-34 pg Mean Corpuscular Hemoglobin Concent 31 L 32-36 g/dL Red Cell Distribution Width 13.8 10.0-14.5 % Platelet Count 151 130-400 10^3/uL Mean Platelet Volume 10.1 9.0-12.2 fL Sodium Level 135 135-145 MMOL/L Potassium Level 5.1 H 3.6-5.0 MMOL/L Chloride Level 106 98-107 MMOL/L Carbon Dioxide Level 21 21-32 MMOL/L Anion Gap 8 5-14 MMOL/L Blood Urea Nitrogen 34 H 7-18 MG/DL Creatinine 1.88 H 0.60-1.30 MG/DL Estimat Glomerular Filtration Rate 25 BUN/Creatinine Ratio 18 Glucose Level 187 H 70-105 MG/DL Calcium Level 8.1 L 8.5-10.1 MG/DL LLE--dressing intact. Intact DF and PF of toes and ankle. intact sensation to light touch throughout s/p L hip IM frank 50% WB LLE will likely require placement SILVIO JUNIOR MD February 25, 2022 07:02
--- NOTE | 2022-02-25 08:04 | Cardiology Progress Note ---
Subjective Date Seen by Provider: February 25, 2022 Time Seen by Provider: 08:02 Subjective/Events-last exam Patient was seen at bedside, laying down comfortably, denied any chest pain. Review of Systems General: No Chills, No Night Sweats; Fatigue; No Malaise, No Appetite, No Other HEENT: No Head Aches, No Visual Changes, No Eye Pain, No Ear Pain, No Dysphasia, No Sinus Congestion, No Post Nasal Drip, No Sore Throat, No Other Pulmonary: No Dyspnea, No Cough, No Pleuritic Chest Pain, No Other Cardiovascular: No: Chest Pain, Palpitations, Orthopnea, Paroxysmal Noc. Dyspnea, Edema, Lt Headedness, Other Objective-Cardiology Exam Last Set of Vital Signs Vital Signs 02/25/22 07:17 Temp 37.2 Pulse 63 Resp 20 B/P (MAP) 135/61 (85) Pulse Ox 98 O2 Delivery Nasal Cannula O2 Flow Rate 2.00 I&O Intake and Output 02/25/22 00:00 Intake Total 1050 ml Output Total 1160 ml Balance -110 ml Intake Oral 0 ml IV Total 1050 ml Output Urine Total 1160 ml General: Alert, Oriented X3, Cooperative HEENT: Atraumatic, PERRLA Neck: Supple, No JVD, No Thyromegaly Lungs: Clear to Auscultation, Normal Air Movement Heart: Regular Rate, Normal S1, Normal S2, No Murmurs Abdomen: Normal Bowel Sounds, Soft, No Tenderness, No Hepatosplenomegaly, No Masses Extremities: No Clubbing, No Cyanosis, No Edema, Normal Pulses, No Tenderness/ Swelling, Other (Health surgery) Skin: No Rashes Neuro: Normal Speech, Strength at 5/5 X4 Ext, Normal Tone, Sensation Intact Psych/Mental Status: Mental Status NL, Mood NL Results Lab Laboratory Tests 02/25/22 05:10 A/P-Cardiology Admission Diagnosis Left hip fx PAF Severe MR HTN Assessment/Plan Status post fall resulting in left hip fracture, hip surgery was done on February 24, 2022, recovering slowly Anemia, postoperatively, possible transfusion today. Monitor H&H History of frequent falls Paroxysmal atrial fibrillation, converted to sinus rhythm on amiodarone drip after failing electrical cardioversion in January 2021. Currently in sinus rhythm maintained on low-dose amiodarone as outpatient. [id number] score of 4, yearly risk of stroke without oral anticoagulation is 4%. Geoff currently on hold Sinus node dysfunction, severe bradycardia while on beta-blockers, tolerating low-dose amiodarone and I have stopped Toprol due to severe bradycardia. I am hesitant to proceed with pacemaker placement at this time due to the fact that she might qualify for mitral clip, functioning normally not requiring pacemaker at this point Severe mitral regurgitation, CHAYITO done showing severe mitral regurgitation, dilated left atrium and left atrial appendage. Pulmonary artery pressure of 40 to 45 mmHg. Discussed referral for mitral valve clip evaluation, after long discussion with patient and family they prefer to continue with conservative management without any intervention at this time. We discussed the possibility of referral to [facility] for evaluation for mitral valve clip. A 2D echo was done on June 25, 2021 showing normal left ventricular size, EF 65 to 70%, severe mitral regurgitation, mild aortic regurgitation, severe tricuspid regurgitation, PA pressure 55 to 60 mmHg Severe hypertension, difficult to control blood pressure, had few episode of low blood pressure but generally elevated blood pressure, unable to tolerate multiple medications due to her chronic renal insufficiency and severe br adycardia. Continue to monitor blood pressure Chronic kidney disease stage IV, chronic renal insufficiency. Followed and managed by primary care physician Hyperlipidemia maintained on statin, monitored as outpatient. Abdominal pain, nausea and vomiting, gastritis, resolved Mild bilateral carotid stenosis, ultrasound was done in March 2021. Continue to monitor SERGIO LOYOLA MD February 25, 2022 08:04
[2022-02-25] MEDS: ENOXAPARIN INJECTION 30 MG/0.3 ML SYR SC SCH (08:19)
[2022-02-25] MEDS: HYDROcodone/APAP 5 MG/325 MG (LORTAB) TAB PO PRN ×2 (08:19→14:17)
[2022-02-25] MEDS: amLODIPine 2.5MG (NORVASC) TAB PO SCH (08:19)
[2022-02-25] MEDS: FLUoxetine HCL 20 MG (PROzac) CAP PO SCH (08:19)
[2022-02-25] MEDS: SIMvastatin 20 MG (ZOCOR) TAB PO SCH (08:19)
[2022-02-25] MEDS ORDERED: PANTOPRAZOLE 40 MG (PROTONIX) TAB PO NR (09:39)
--- NOTE | 2022-02-25 10:08 | Physical Therapy Evaluation ---
PT Evaluation-General Medical Diagnosis Admission Date February 23, 2022 at 22:00 Medical Diagnosis: displaced left intertrochanteric femur fracture Onset Date: February 23, 2022 Therapy Diagnosis Therapy Diagnosis: impaired mobility, strength, endurance Height/Weight Height (Feet): 5 Height (Inches): 2.00 Weight (Pounds): 150 Precautions Precautions/Isolations: Fall Prevention, Standard Precautions Weight Bear Status Right Lower Extremity: Right Full Weight Bearing Left Lower Extremity: Left Partial Weight Bearing Referral Physician: Leandro Reason for Referral: Evaluation/Treatment Medical History Pertinent Medical History: HTN, Renal Insufficiency Current History left IM frank Reviewed History: Yes Social History Home: Single Level Current Living Status: Alone Entry Into Home: Stairs With Railing PT Steps Into Home: 2 Prior Prior Level of Function SCALE: Activities may be completed with or without assistive devices. 8-Deffaocfco-sonerur completes the activity by him/herself with no assistance from a helper. 5-Set-up or Clean-up Assistance-helper sets up or cleans up; patient completes activity. [place] assists only prior to or following the activity. 4-Supervision or Touching Assistance-helper provides verbal cues and/or touching/steadying and/or contact guard assistance as patient completes activity. Assistance may be provided throughout the activity or intermittently. 3-Partial/Moderate Assistance-helper does LESS THAN HALF the effort. [place] lifts, holds or supports trunk or limbs, but provides less than half the effort. 2-Substantial/Maximal Assistance-helper does MORE THAN HALF the effort. [place] lifts or holds trunk or limbs and provides more than half the effort. 0-Kmloixswl-ozharw does ALL the effort. Patient does none of the effort to complete the activity. Or, the assistance of 2 or more helpers is required for the patient to complete the activity. If activity was not attempted, code reason: 7-Patient Refused. 9-Not Applicable-not attempted and the patient did not perform the activity before the current illness, exacerbation or injury. 10-Not Attempted due to Environmental Limitations-(lack of equipment, weather restraints, etc.). 88-Not Attempted due to Medical Conditions or Safety Concerns. Bed Mobility: 6 Transfers (B,C,W/C): 6 Gait: 6 Stairs: 6 Indoor Mobility (Ambulation): Independent Stairs: Independent Patient states she has a walker and SPC PT Evaluation-Current Subjective Patient in bed pre tx, agrees to PT, has unrated but severe pain in left hip Pt/Family Goals to be independent at home Objective Patient Orientation: Person, Place, Situation Attachments: Pittman Catheter, IV Sensory Hearing: Functional Sensation Right Lower Extremit: Intact Sensation Left Lower Extremity: Intact Transfers Roll Left to Right (QC): 2 Lying to Sitting/Side of Bed(Q: 2 Sit to Stand (QC): 3 Chair/Dmy-iy-Tcqbe Xfer(QC): 3 Patient needs max assist for supine to sit, min assist for sit to stand and transfer to the recliner. She is able to take several steps to the recliner before sitting but needs min assist, is very painful, has no foot clearance. Balance Sitting Static: Fair Sitting Dynamic: Fair Standing Static: Poor Standing Dynamic: Poor Treatment BLE seated exercises x20 (AP, LAQ) Assessment/Needs Patient in recliner post tx with nurse call, phone, tray, chair alarm on. Clinton walters has impaired mobility, strength, endurance. She seemed to be compliant with PWB on the left side but most likely due to the pain. Rehab Potential: Fair PT Chcf Goals Chcf Goals PT Chcf Goals Time Frame: March 04, 2022 Roll Left & Right (QC): 3 Sit to Lying (QC): 3 Lying-Sitting on Side/Bed(QC): 3 Sit to Stand (QC): 4 Chair/Qpx-gd-Szipq Xfer(QC): 4 Walk 10 feet (QC): 4 PT Plan Problem List Problem List: Activity Tolerance, Functional Strength, Safety, Balance, Gait, Transfer, Bed Mobility, ROM Treatment/Plan Treatment Plan: Continue Plan of Care Treatment Plan: Bed Mobility, Education, Functional Activity Richie, Functional Strength, Gait, Safety, Therapeutic Exercise, Transfers Treatment Duration: March 04, 2022 Frequency: 11 times per week Estimated Hrs Per Day: .25 hour per day Patient and/or Family Agrees t: Yes Safety Risks/Education Patient Education: Transfer Techniques, Reviewed Precautions, Correct Positioning, Safety Issues Teaching Recipient: Patient Teaching Methods: Demonstration, Discussion Response to Teaching: Reinforcement Needed Discharge Recommendations Plan Patient will perform bed mobility and transfer training, balance and endurance training, functional strengthening, stair training, gait training, and education, to improve functional mobility and independence at home. Therapy Discharge Recommendati: Scheduled Assistance, Home & Family, Post Acute PT Time/GCodes Time In: 930 Time Out: 942 Total Billed Treatment Time: 12 Total Billed Treatment 1 visit CALI ANDRES PT February 25, 2022 10:08
--- NOTE | 2022-02-25 10:09 | Anesthesia-General Post-Op ---
General Patient Condition Mental Status/LOC: Same as Preop Cardiovascular: Satisfactory Nausea/Vomiting: Absent Respiratory: Satisfactory Pain: Controlled Complications: Absent Post Op Complications Complications None Follow Up Care/Instructions Patient Instructions None needed. Anesthesia/Patient Condition Patient Condition Patient is doing well, no complaints, stable vital signs, no apparent adverse anesthesia problems. No complications reported per nursing. YASMEEN SANTOS CRNA February 25, 2022 10:09
--- NOTE | 2022-02-25 15:21 | Physical Therapy Daily Note ---
PT Daily Note-Current Subjective Pt laying Supine in bed upon arrival. Pt advises just got back to bed from recliner. Pt reluctantly agrees to minimal Supine Ex due to fatigue and discomfort with movement. AUTOMATION LEAD encourages pt to try to move to promote strengthening and ROM. Pain Location: Left Location Body Site: Hip Comment: Reported but not rated Mental Status Patient Orientation: Person, Place Transfers SCALE: Activities may be completed with or without assistive devices. 6-Vqloqbbfxw-kiiisia completes the activity by him/herself with no assistance from a helper. 5-Set-up or Clean-up Assistance-helper sets up or cleans up; patient completes activity. [place] assists only prior to or following the activity. 4-Supervision or Touching Assistance-helper provides verbal cues and/or touching/steadying and/or contact guard assistance as patient completes activity. Assistance may be provided throughout the activity or intermittently. 3-Partial/Moderate Assistance-helper does LESS THAN HALF the effort. [place] lifts, holds or supports trunk or limbs, but provides less than half the effort. 2-Substantial/Maximal Assistance-helper does MORE THAN HALF the effort. [place] lifts or holds trunk or limbs and provides more than half the effort. 1-Bdjfwnwxe-uvjotl does ALL the effort. Patient does none of the effort to complete the activity. Or, the assistance of 2 or more helpers is required for the patient to complete the activity. If activity was not attempted, code reason: 7-Patient Refused. 9-Not Applicable-not attempted and the patient did not perform the activity before the current illness, exacerbation or injury. 10-Not Attempted due to Environmental Limitations-(lack of equipment, weather restraints, etc.). 88-Not Attempted due to Medical Conditions or Safety Concerns. Weight Bearing Right Lower Extremity: Right Full Weight Bearing Left Lower Extremity: Left Partial Weight Bearing Exercises Supine Ex: Ankle pumps, Quad Set, Hip abd/add Supine Reps: 10 Treatments Pt completes minimal Supine Ex with increased encouragement before pt stating "I just want to sleep". All needs met, call light in hand. Assessment Current Status: Fair Progress Pt is drowsy and fatigued during tx. Pt needed increased encouragement to complete EX. PT Mcc Goals Mcc Goals PT Mcc Goals Time Frame: March 04, 2022 Roll Left & Right (QC): 3 Sit to Lying (QC): 3 Lying-Sitting on Side/Bed(QC): 3 Sit to Stand (QC): 4 Chair/Glv-rm-Kinwj Xfer(QC): 4 Walk 10 feet (QC): 4 PT Plan Problem List Problem List: Activity Tolerance, Functional Strength Treatment/Plan Treatment Plan: Continue Plan of Care Treatment Plan: Bed Mobility, Education, Functional Activity Richie, Functional Strength, Gait, Safety, Therapeutic Exercise, Transfers Treatment Duration: March 04, 2022 Frequency: 11 times per week Estimated Hrs Per Day: .25 hour per day Patient and/or Family Agrees t: Yes Time/GCodes Time In: 1500 Time Out: 1514 Total Billed Treatment Time: 14 Total Billed Treatment 1, EX (14m) VIC CARDOZO PTA February 25, 2022 15:21
--- NOTE | 2022-02-25 16:46 | Progress Note ---
Subjective Date Seen by a Provider: February 25, 2022 Time Seen by a Provider: 12:45 Subjective/Events-last exam Fwup proximal left femur fracture, PAF, severe mitral regurgitation, anemia of chronic disease, Chronic Stage 4 kidney disease, labile HTN. Up in chair. Pain well controlled. No BM since admission. Objective Exam Vital Signs Date Time Temp Pulse Resp B/P (MAP) Pulse Ox O2 Delivery O2 Flow Rate FiO2 02/25/22 16:00 37.2 61 18 116/56 (76) 93 Room Air 02/25/22 13:00 71 02/25/22 11:33 36.8 70 20 127/65 (85) 92 Room Air 02/25/22 10:38 98 Nasal Cannula 2.00 02/25/22 08:00 Room Air 02/25/22 07:17 37.2 63 20 135/61 (85) 98 Nasal Cannula 2.00 02/25/22 07:00 67 02/25/22 04:42 37.0 65 20 111/54 (73) 95 Nasal Cannula 2.00 02/25/22 01:05 62 02/25/22 00:18 36.9 67 20 115/56 (75) 96 Nasal Cannula 2.00 02/24/22 20:00 Room Air 02/24/22 19:19 37.0 67 20 145/67 (93) 99 Nasal Cannula 2.00 02/24/22 19:00 60 I & O 02/25/22 07:00 Intake Total 1200 ml Output Total 935 ml Balance 265 ml Capillary Refill : Less Than 3 SecondsLess Than 3 Seconds General Appearance: No Apparent Distress Neck: Supple Respiratory: Lungs Clear, Decreased Breath Sounds Cardiovascular: Regular Rate, Rhythm, Systolic Murmur, Gallop/S4 Gastrointestinal: normal bowel sounds, non tender, soft Extremity: No Calf Tenderness, Pedal Edema Neurologic/Psychiatric: Alert, Oriented x3 Skin: Warm/Dry, Other (left hip with dry dressing in place) Results Lab Laboratory Tests 02/25/22 05:10: White Blood Count 9.4, Red Blood Count 2.39L, Hemoglobin 7.0L, Hematocrit 23L, Mean Corpuscular Volume 95, Mean Corpuscular Hemoglobin 29, Mean Corpuscular Hemoglobin Concent 31L, Red Cell Distribution Width 13.8, Platelet Count 151, Mean Platelet Volume 10.1, Sodium Level 135, Potassium Level 5.1H, Chloride Level 106, Carbon Dioxide Level 21, Anion Gap 8, Blood Urea Nitrogen 34H, Creatinine 1.88H, Estimat Glomerular Filtration Rate 25, BUN/Creatinine Ratio 18, Glucose Level 187H, Calcium Level 8.1L 02/25/22 14:02: Hemoglobin 7.0L, Hematocrit 22L Assessment/Plan Assessment/Plan Assess & Plan/Chief Complaint 1. Proximal Left Femur Fracture--S/P left hip IM frank-pain control, lovenox for DVT prophylaxis, PT/OT started, will need SNF on DC 2. Acute on Chronic Anemia--repeat H/H later today and if stable then in AM, add protonix for ulcer prophylaxis 3. Labile HTN--BP stable on low dose amlodopine 4. PAF--Eliquis was being held due to recurrent falls--will plan on resuming at low dose on DC since will be up only with assist 5. Chronic Stage IV Kidney Disease--BUN/Cr stable postoperatively 6. Severe Mitral Regurgitation with Left Atrial Appendage--has refused eval for possible atrial appendage clip Clinical Quality Measures Admission Status Admission Dx 1. Proximal Left Femur Fracture--surgery today with Dr. Mosquera, will need SNF on discharge 2. Paroxysmal Atrial Fibrillation--in NSR on amidarone, will resume eliquis on DC at low dose for both DVT prophylaxis and her a fib and since will be only up with PT or assist 3. Severe Mitral Regurgitation with left atrial appendage--has refused seeing EP about possible clip to appendage 4. Labile Hypertension--resume low dose amlodopine 5. Chronic Stage IV Kidney Disease--seeing nephrology 6. Recurrent Falls--will go to SNF on discharge then either needs to stay vs transition to [place] as has ongoing fall risk HERMILA BARRIENTOS DO February 25, 2022 16:46
[2022-02-25] MEDS: FERROUS SULF 325 MG (IRON) TAB PO SCH (17:29)
[2022-02-25] MEDS: GABAPENTIN 100 MG (NEURONTIN) CAP PO SCH (20:50)
[2022-02-25] MEDS: SENNA W/DOCUSATE (SENOKOT S) TABLET PO SCH (20:51)
[2022-02-26] VITALS (9 sets, daily range): BP systolic 114–165; BP diastolic 58–68
[2022-02-26 06:03] LABS: HEMOGLOBIN 6.8 g/dL (11.5-16.0)
[2022-02-26] MEDS: CALCIUM CARB + VIT D 600 MG (CALCARB + D) TAB PO SCH (06:09)
[2022-02-26 06:13] LABS: POTASSIUM 5.5 MMOL/L (3.6-5.0)
[2022-02-26 06:14] LABS: CALCIUM 8.3 MG/DL (8.5-10.1)
[2022-02-26 06:19] LABS: CREATININE SERUM 2.09 MG/DL (0.60-1.30)
[2022-02-26] MEDS ORDERED: NS IV 500 ML 500 ML IV SCH (07:30)
[2022-02-26] MEDS: SENNA W/DOCUSATE (SENOKOT S) TABLET PO SCH ×2 (08:24→20:06)
[2022-02-26] MEDS: FLUoxetine HCL 20 MG (PROzac) CAP PO SCH (08:24)
[2022-02-26] MEDS: amLODIPine 2.5MG (NORVASC) TAB PO SCH (08:24)
[2022-02-26] MEDS: ENOXAPARIN INJECTION 30 MG/0.3 ML SYR SC SCH (08:24)
[2022-02-26] MEDS: SIMvastatin 20 MG (ZOCOR) TAB PO SCH (08:24)
[2022-02-26] MEDS: FERROUS SULF 325 MG (IRON) TAB PO SCH ×3 (08:24→17:54)
[2022-02-26] MEDS: PANTOPRAZOLE 40 MG (PROTONIX) TAB PO SCH (08:24)
[2022-02-26] MEDS: HYDROcodone/APAP 5 MG/325 MG (LORTAB) TAB PO PRN (08:25)
--- NOTE | 2022-02-26 08:49 | Progress Note ---
Standard Progress Note Progress Notes/Assess & Plan Date Seen by a Provider: February 26, 2022 Time Seen by a Provider: 08:48 Progress/Assessment & Plan no complaints Vital Signs Date Time Temp Pulse Resp B/P (MAP) Pulse Ox O2 Delivery O2 Flow Rate FiO2 02/25/22 04:42 37.0 65 20 111/54 (73) 95 Nasal Cannula 2.00 02/25/22 01:05 62 02/25/22 00:18 36.9 67 20 115/56 (75) 96 Nasal Cannula 2.00 02/24/22 20:00 Room Air 02/24/22 19:19 37.0 67 20 145/67 (93) 99 Nasal Cannula 2.00 02/24/22 19:00 60 02/24/22 16:10 Nasal Cannula 2 02/24/22 16:10 36.4 18 155/76 (102) 96 Nasal Cannula 2 02/24/22 16:00 36.7 60 18 168/70 (102) 97 Nasal Cannula 2.00 02/24/22 16:00 18 148/72 (97) 99 Nasal Cannula 2 02/24/22 16:00 Nasal Cannula 2 02/24/22 15:55 Nasal Cannula 2 02/24/22 15:50 18 151/70 (97) 97 Nasal Cannula 2 02/24/22 15:42 OxyMask 4 02/24/22 15:40 18 159/72 (101) 97 OxyMask 3 02/24/22 15:30 18 160/78 (105) 97 OxyMask 6 02/24/22 15:30 OxyMask 6 02/24/22 15:20 18 176/76 (109) 99 OxyMask 6 02/24/22 15:18 36.2 16 171/78 (109) 97 OxyMask 6 02/24/22 15:18 OxyMask 6 02/24/22 13:00 55 02/24/22 11:23 36.6 55 18 151/70 (97) 95 Room Air 02/24/22 08:00 Room Air 02/24/22 07:51 36.5 54 18 129/62 (84) 94 Room Air I & O 02/25/22 07:00 Intake Total 1200 ml Output Total 935 ml Balance 265 ml Laboratory Tests Test 02/25/22 05:10 Range/Units White Blood Count 9.4 4.3-11.0 10^3/uL Red Blood Count 2.39 L 3.80-5.11 10^6/uL Hemoglobin 7.0 L 11.5-16.0 g/dL Hematocrit 23 L 35-52 % Mean Corpuscular Volume 95 80-99 fL Mean Corpuscular Hemoglobin 29 25-34 pg Mean Corpuscular Hemoglobin Concent 31 L 32-36 g/dL Red Cell Distribution Width 13.8 10.0-14.5 % Platelet Count 151 130-400 10^3/uL Mean Platelet Volume 10.1 9.0-12.2 fL Sodium Level 135 135-145 MMOL/L Potassium Level 5.1 H 3.6-5.0 MMOL/L Chloride Level 106 98-107 MMOL/L Carbon Dioxide Level 21 21-32 MMOL/L Anion Gap 8 5-14 MMOL/L Blood Urea Nitrogen 34 H 7-18 MG/DL Creatinine 1.88 H 0.60-1.30 MG/DL Estimat Glomerular Filtration Rate 25 BUN/Creatinine Ratio 18 Glucose Level 187 H 70-105 MG/DL Calcium Level 8.1 L 8.5-10.1 MG/DL LLE--dressing intact. Intact DF and PF of toes and ankle. intact sensation to light touch throughout s/p L hip IM frank 50% WB LLE will likely require placement Final Diagnosis no complaints Vital Signs Date Time Temp Pulse Resp B/P (MAP) Pulse Ox O2 Delivery O2 Flow Rate FiO2 02/26/22 07:49 36.5 69 18 153/66 (95) 95 Nasal Cannula 2.00 02/26/22 04:04 36.7 61 20 114/66 (82) 93 Nasal Cannula 2.00 02/26/22 01:00 62 02/25/22 23:54 36.9 63 20 106/51 (69) 92 Nasal Cannula 2.00 02/25/22 20:00 Room Air 02/25/22 19:19 37.3 65 20 114/54 (74) 90 Room Air 02/25/22 19:00 71 02/25/22 16:00 37.2 61 18 116/56 (76) 93 Room Air 02/25/22 13:00 71 02/25/22 11:33 36.8 70 20 127/65 (85) 92 Room Air 02/25/22 10:38 98 Nasal Cannula 2.00 I & O 02/26/22 07:00 Intake Total 1140 ml Output Total 430 ml Balance 710 ml Laboratory Tests Test 02/25/22 14:02 02/26/22 05:40 Range/Units Hemoglobin 7.0 L 6.8 *L 11.5-16.0 g/dL Hematocrit 22 L 22 L 35-52 % Sodium Level 133 L 135-145 MMOL/L Potassium Level 5.5 H 3.6-5.0 MMOL/L Chloride Level 103 98-107 MMOL/L Carbon Dioxide Level 20 L 21-32 MMOL/L Anion Gap 10 5-14 MMOL/L Blood Urea Nitrogen 42 H 7-18 MG/DL Creatinine 2.09 H 0.60-1.30 MG/DL Estimat Glomerular Filtration Rate 22 BUN/Creatinine Ratio 20 Glucose Level 91 70-105 MG/DL Calcium Level 8.3 L 8.5-10.1 MG/DL L hip incisions clean and dry no calf tenderness s/p L hip IM frank with post op anemia give 1 Unit of PRBC will likely require placement SILVIO JUNIOR MD February 26, 2022 08:49
--- NOTE | 2022-02-26 08:50 | Cardiology Progress Note ---
Subjective Date Seen by Provider: February 26, 2022 Time Seen by Provider: 08:48 Subjective/Events-last exam Patient in bed, complaining of weakness and fatigue. Denies any chest pain Review of Systems General: No Chills, No Night Sweats; Fatigue, Malaise; No Appetite, No Other HEENT: No Head Aches, No Visual Changes, No Eye Pain, No Ear Pain, No Dysphasia, No Sinus Congestion, No Post Nasal Drip, No Sore Throat, No Other Pulmonary: No Dyspnea, No Cough, No Pleuritic Chest Pain, No Other Cardiovascular: No: Chest Pain, Palpitations, Orthopnea, Paroxysmal Noc. Dyspnea, Edema, Lt Headedness, Other Objective-Cardiology Exam Last Set of Vital Signs Vital Signs 02/26/22 02/26/22 12:13 13:00 Temp 36.7 Pulse 59 Resp 18 B/P (MAP) 145/67 (93) Pulse Ox 95 O2 Delivery Nasal Cannula O2 Flow Rate 3.00 I&O Intake and Output 02/26/22 00:00 Intake Total 1170 ml Output Total 500 ml Balance 670 ml Intake Oral 1170 ml Output Urine Total 500 ml General: Alert, Oriented X3, Cooperative HEENT: Atraumatic, PERRLA Neck: Supple, No JVD, No Thyromegaly Lungs: Clear to Auscultation, Normal Air Movement Heart: Regular Rate, Normal S1, Normal S2, No Murmurs Abdomen: Normal Bowel Sounds, Soft, No Tenderness, No Hepatosplenomegaly, No Masses Extremities: No Clubbing, No Cyanosis, No Edema, Normal Pulses, No Tenderness/Swelling, Other (Health surgery) Skin: No Rashes Neuro: Normal Speech, Strength at 5/5 X4 Ext, Normal Tone, Sensation Intact Psych/Mental Status: Mental Status NL, Mood NL Results Lab Laboratory Tests 02/26/22 05:40 02/26/22 12:14 A/P-Cardiology Admission Diagnosis Left hip fx PAF Severe MR HTN Assessment/Plan Status post fall resulting in left hip fracture, hip surgery was done on February 24, 2022, recovering slowly Anemia, postoperatively, possible transfusion again today. Monitor H&H History of frequent falls Paroxysmal atrial fibrillation, converted to sinus rhythm on amiodarone drip after failing electrical cardioversion in January 2021. Currently in sinus rhythm maintained on low-dose amiodarone as outpatient. [id number] score of 4, yearly risk of stroke without oral anticoagulation is 4%. Not on OAC d/t history of frequent falls Sinus node dysfunction, severe bradycardia while on beta-blockers, tolerating low-dose amiodarone and I have stopped Toprol due to severe bradycardia. I am hesitant to proceed with pacemaker placement at this time due to the fact that she might qualify for mitral clip, functioning normally not requiring pacemaker at this point Severe mitral regurgitation, CHAYITO done showing severe mitral regurgitation, dilated left atrium and left atrial appendage. Pulmonary artery pressure of 40 to 45 mmHg. Discussed referral for mitral valve clip evaluation, after long discussion with patient and family they prefer to continue with conservative management without any intervention at this time. We discussed the possibility of referral to [facility] for evaluation for mitral valve clip. A 2D echo was done on June 25, 2021 showing normal left ventricular size, EF 65 to 70%, severe mitral regurgitation, mild aortic regurgitation, severe tricuspid regurgitation, PA pressure 55 to 60 mmHg Severe hypertension, difficult to control blood pressure, had few episode of low blood pressure but generally elevated blood pressure, unable to tolerate multiple medications due to her chronic renal insufficiency and severe bradycardia. Continue to monitor blood pressure Hyperkalemia, continue to monitor. Chronic kidney disease stage IV, chronic renal insufficiency. Followed and managed by primary care physician Hyperlipidemia maintained on statin, monitored as outpatient. Abdominal pain, nausea and vomiting, gastritis, resolved Mild bilateral carotid stenosis, ultrasound was done in March 2021. Continue to monitor Supervisory-Addendum Brief Supervisory Addendum Participated in pt care: history, MDM, physical Personally performed: exam, history, MDM Care discussed with: LOLLY Results interpretation: Verified all documentation Notes: Patient was seen and evaluated with Aliyah, examination performed, management plan was discussed, agree with the current scribed note, I made few changes to the note using Italic font Patient was seen at bedside laying down comfortably, still having generalized fatigue Continue to monitor H&H Monitor blood pressure Cardiac status is stable. ALIYAH FROST February 26, 2022 08:50 SERGIO LOYOLA MD February 26, 2022 16:15
--- NOTE | 2022-02-26 09:04 | Physical Therapy Daily Note ---
PT Daily Note-Current Subjective Patient in bed pre tx. Her Hgb is only 6.7 this morning, nurse is setting her up with some blood. Patient is very pale and lethargic. Will perform total hip protocol in bed and try getting out of bed this afternoon if she perks up from the blood. Appearance Patient in bed post tx with nurse call, phone, tray, all needs met. Mental Status Patient Orientation: Person, [place] Attachments: Oxygen, Pittman Catheter Transfers SCALE: Activities may be completed with or without assistive devices. 8-Msaponjdzc-bgegckg completes the activity by him/herself with no assistance from a helper. 5-Set-up or Clean-up Assistance-helper sets up or cleans up; patient completes activity. [place] assists only prior to or following the activity. 4-Supervision or Touching Assistance-helper provides verbal cues and/or touching/steadying and/or contact guard assistance as patient completes activity. Assistance may be provided throughout the activity or intermittently. 3-Partial/Moderate Assistance-helper does LESS THAN HALF the effort. [place] lifts, holds or supports trunk or limbs, but provides less than half the effort. 2-Substantial/Maximal Assistance-helper does MORE THAN HALF the effort. [place] lifts or holds trunk or limbs and provides more than half the effort. 5-Gxncbqlwg-cuzpyl does ALL the effort. Patient does none of the effort to complete the activity. Or, the assistance of 2 or more helpers is required for the patient to complete the activity. If activity was not attempted, code reason: 7-Patient Refused. 9-Not Applicable-not attempted and the patient did not perform the activity before the current illness, exacerbation or injury. 10-Not Attempted due to Environmental Limitations-(lack of equipment, weather restraints, etc.). 88-Not Attempted due to Medical Conditions or Safety Concerns. Weight Bearing Right Lower Extremity: Right Full Weight Bearing Left Lower Extremity: Left Partial Weight Bearing Exercises Supine Ex: Ankle pumps, Quad Set, Glut sets, Heel Slides, Short Arc Quads, Straight leg raise, Hip abd/add Supine Reps: 10 (mostly AAROM except for AP, QS, GS) Treatments LLE total hip exercise protocol Assessment Current Status: Poor Progress Patient performed poorly, very lethargic, seems to have more pain today but rated pain at 4-5/10. PT Senior Care Goals Continuous Miner Operator Helper Goals PT Senior Care Goals Time Frame: March 04, 2022 Roll Left & Right (QC): 3 Sit to Lying (QC): 3 Lying-Sitting on Side/Bed(QC): 3 Sit to Stand (QC): 4 Chair/Opj-fd-Lzztm Xfer(QC): 4 Walk 10 feet (QC): 4 PT Plan Problem List Problem List: Activity Tolerance, Functional Strength, Safety, Balance, Gait, Transfer, Bed Mobility, ROM Treatment/Plan Treatment Plan: Continue Plan of Care Treatment Plan: Bed Mobility, Education, Functional Activity Richie, Functional Strength, Gait, Safety, Therapeutic Exercise, Transfers Treatment Duration: March 04, 2022 Frequency: 11 times per week Estimated Hrs Per Day: .25 hour per day Patient and/or Family Agrees t: Yes Safety Risks/Education Patient Education: Correct Positioning, Safety Issues Teaching Recipient: Patient Teaching Methods: Demonstration, Discussion Response to Teaching: Reinforcement Needed Time/GCodes Time In: 0819 Time Out: 0830 Total Billed Treatment Time: 11 Total Billed Treatment 1 visit EX 11' CALI ADKINS PT February 26, 2022 09:04
[2022-02-26 12:21] LABS: HEMOGLOBIN 8.4 g/dL (11.5-16.0)
--- NOTE | 2022-02-26 13:05 | Progress Note ---
Subjective Date Seen by a Provider: February 26, 2022 Time Seen by a Provider: 13:01 Subjective/Events-last exam Fwup proximal left femur fracture, PAF, severe mitral regurgitation, anemia of chronic disease, Chronic Stage 4 kidney disease, labile HTN. In bed eating lunch. Little confusion--states she just got back up here and finally got something to eat. Did not work with PT this morning due to fatigue. Objective Exam Vital Signs Date Time Temp Pulse Resp B/P (MAP) Pulse Ox O2 Delivery O2 Flow Rate FiO2 02/26/22 12:13 36.7 58 18 145/67 (93) 95 Nasal Cannula 3.00 02/26/22 11:41 36.7 58 18 145/67 95 Nasal Cannula 3.00 02/26/22 09:03 37.4 62 18 165/68 96 Nasal Cannula 3.00 02/26/22 08:48 36.8 63 18 152/66 Nasal Cannula 3.00 02/26/22 08:00 95 Nasal Cannula 3.00 02/26/22 07:49 36.5 69 18 153/66 (95) 95 Nasal Cannula 2.00 02/26/22 07:00 62 02/26/22 04:04 36.7 61 20 114/66 (82) 93 Nasal Cannula 2.00 02/26/22 01:00 62 02/25/22 23:54 36.9 63 20 106/51 (69) 92 Nasal Cannula 2.00 02/25/22 20:00 Room Air 02/25/22 19:19 37.3 65 20 114/54 (74) 90 Room Air 02/25/22 19:00 71 02/25/22 16:00 37.2 61 18 116/56 (76) 93 Room Air I & O 02/26/22 07:00 Intake Total 1140 ml Output Total 430 ml Balance 710 ml Capillary Refill : Less Than 3 SecondsLess Than 3 Seconds General Appearance: No Apparent Distress Respiratory: Lungs Clear, Decreased Breath Sounds Cardiovascular: Regular Rate, Rhythm, Systolic Murmur, Extra Beats, Gallop/S4 Gastrointestinal: normal bowel sounds, non tender, soft Extremity: Non Tender, No Calf Tenderness, No Pedal Edema, Other (JASON hose and SCDs in place) Neurologic/Psychiatric: Alert Skin: Warm/Dry, Other (left hip dressing in place and dry) Results Lab Laboratory Tests 02/25/22 14:02: Hemoglobin 7.0L, Hematocrit 22L 02/26/22 05:40: Hemoglobin 6.8*L, Hematocrit 22L, Sodium Level 133L, Potassium Level 5.5H, Chloride Level 103, Carbon Dioxide Level 20L, Anion Gap 10, Blood Urea Nitrogen 42H, Creatinine 2.09H, Estimat Glomerular Filtration Rate 22, BUN/Creatinine Ratio 20, Glucose Level 91, Calcium Level 8.3L 02/26/22 12:14: Hemoglobin 8.4#L, Hematocrit 26L Assessment/Plan Assessment/Plan Assess & Plan/Chief Complaint 1. Proximal Left Femur Fracture--S/P left hip IM frank-pain control, lovenox for DVT prophylaxis, PT/OT started, SS to work on SNF for DC---really needs group home placement due to recurrent falls but patient wants to try to return home after rehab at SNF 2. Acute on Chronic Anemia--H/H improved post 1u pRBCs 3. Labile HTN--BP stable on low dose amlodopine 4. PAF--Eliquis was being held due to recurrent falls--will plan on resuming at low dose on DC since will be up only with assist 5. Chronic Stage IV Kidney Disease--BUN/Cr stable postoperatively 6. Severe Mitral Regurgitation with Left Atrial Appendage--has refused eval for possible atrial appendage clip Clinical Quality Measures Admission Status Admission Dx 1. Proximal Left Femur Fracture--surgery today with Dr. Mosquera, will need SNF on discharge 2. Paroxysmal Atrial Fibrillation--in NSR on amidarone, will resume eliquis on DC at low dose for both DVT prophylaxis and her a fib and since will be only up with PT or assist 3. Severe Mitral Regurgitation with left atrial appendage--has refused seeing EP about possible clip to appendage 4. Labile Hypertension--resume low dose amlodopine 5. Chronic Stage IV Kidney Disease--seeing nephrology 6. Recurrent Falls--will go to SNF on discharge then either needs to stay vs transition to [place] as has ongoing fall risk HERMILA BARRIENTOS DO February 26, 2022 13:05
[2022-02-26] MEDS ORDERED: FUROSEMIDE 40 MG/4 ML INJ (LASIX) IVP ONE (13:15)
--- NOTE | 2022-02-26 14:23 | Physical Therapy Daily Note ---
PT Daily Note-Current Subjective Patient in bed pre tx, agrees reluctantly to PT, has 6-7/10 pain in left hip. Appearance Patient in recliner post tx with nurse call, phone, tray, chair alarm on. Mental Status Patient Orientation: Person, Confused Attachments: Oxygen, Pittman Catheter Transfers SCALE: Activities may be completed with or without assistive devices. 1-Xlpodtfnom-cbllmsj completes the activity by him/herself with no assistance from a helper. 5-Set-up or Clean-up Assistance-helper sets up or cleans up; patient completes activity. [place] assists only prior to or following the activity. 4-Supervision or Touching Assistance-helper provides verbal cues and/or touching/steadying and/or contact guard assistance as patient completes activity. Assistance may be provided throughout the activity or intermittently. 3-Partial/Moderate Assistance-helper does LESS THAN HALF the effort. [place] lifts, holds or supports trunk or limbs, but provides less than half the effort. 2-Substantial/Maximal Assistance-helper does MORE THAN HALF the effort. [place] lifts or holds trunk or limbs and provides more than half the effort. 8-Swegldjgz-qkeqig does ALL the effort. Patient does none of the effort to complete the activity. Or, the assistance of 2 or more helpers is required for the patient to complete the activity. If activity was not attempted, code reason: 7-Patient Refused. 9-Not Applicable-not attempted and the patient did not perform the activity before the current illness, exacerbation or injury. 10-Not Attempted due to Environmental Limitations-(lack of equipment, weather restraints, etc.). 88-Not Attempted due to Medical Conditions or Safety Concerns. Roll Left & Right (QC): 2 Lying to Sitting/Side of Bed(Q: 2 Sit to Stand (QC): 1 Chair/Vgh-qg-Lnmre Xfer(QC): 1 Max assist for supine to sit, patient is not able to stand fully using a walker and therapist assist. A dependent transfer is used to stand and perform transfer to recliner. Weight Bearing Right Lower Extremity: Right Full Weight Bearing Left Lower Extremity: Left Partial Weight Bearing Exercises Seated Therapy Exercises: Ankle pumps, Long arc quads Seated Reps: 20 Treatments bed mobility and transfers, LE ROM Assessment Current Status: Poor Progress Patient performed much worse today, much more assist needed for bed mobility and transfers PT Sole Stapler Welt Goals Sole Stapler Welt Goals PT [facility] Goals Time Frame: March 04, 2022 Roll Left & Right (QC): 3 Sit to Lying (QC): 3 Lying-Sitting on Side/Bed(QC): 3 Sit to Stand (QC): 4 Chair/Osb-kf-Agxpo Xfer(QC): 4 Walk 10 feet (QC): 4 PT Plan Problem List Problem List: Activity Tolerance, Functional Strength, Safety, Balance, Gait, Transfer, Bed Mobility, ROM Treatment/Plan Treatment Plan: Continue Plan of Care Treatment Plan: Bed Mobility, Education, Functional Activity Richie, Functional Strength, Gait, Safety, Therapeutic Exercise, Transfers Treatment Duration: March 04, 2022 Frequency: 11 times per week Estimated Hrs Per Day: .25 hour per day Patient and/or Family Agrees t: Yes Safety Risks/Education Patient Education: Transfer Techniques, Correct Positioning, Safety Issues Teaching Recipient: Patient Teaching Methods: Demonstration, Discussion Response to Teaching: Reinforcement Needed Time/GCodes Time In: 1355 Time Out: 1407 Total Billed Treatment Time: 12 Total Billed Treatment 1 visit FA CALI HARDEN PT February 26, 2022 14:23
[2022-02-26] MEDS: GABAPENTIN 100 MG (NEURONTIN) CAP PO SCH (20:06)
[2022-02-27 04:43] VITALS: BP 136/68
[2022-02-27 05:29] LABS: HEMOGLOBIN 8.7 g/dL (11.5-16.0)
[2022-02-27] MEDS: CALCIUM CARB + VIT D 600 MG (CALCARB + D) TAB PO SCH (06:36)
[2022-02-27 07:33] VITALS: BP 139/60
--- NOTE | 2022-02-27 07:48 | Progress Note ---
Standard Progress Note Progress Notes/Assess & Plan Date Seen by a Provider: February 27, 2022 Time Seen by a Provider: 07:47 Progress/Assessment & Plan no complaints Vital Signs Date Time Temp Pulse Resp B/P (MAP) Pulse Ox O2 Delivery O2 Flow Rate FiO2 02/25/22 04:42 37.0 65 20 111/54 (73) 95 Nasal Cannula 2.00 02/25/22 01:05 62 02/25/22 00:18 36.9 67 20 115/56 (75) 96 Nasal Cannula 2.00 02/24/22 20:00 Room Air 02/24/22 19:19 37.0 67 20 145/67 (93) 99 Nasal Cannula 2.00 02/24/22 19:00 60 02/24/22 16:10 Nasal Cannula 2 02/24/22 16:10 36.4 18 155/76 (102) 96 Nasal Cannula 2 02/24/22 16:00 36.7 60 18 168/70 (102) 97 Nasal Cannula 2.00 02/24/22 16:00 18 148/72 (97) 99 Nasal Cannula 2 02/24/22 16:00 Nasal Cannula 2 02/24/22 15:55 Nasal Cannula 2 02/24/22 15:50 18 151/70 (97) 97 Nasal Cannula 2 02/24/22 15:42 OxyMask 4 02/24/22 15:40 18 159/72 (101) 97 OxyMask 3 02/24/22 15:30 18 160/78 (105) 97 OxyMask 6 02/24/22 15:30 OxyMask 6 02/24/22 15:20 18 176/76 (109) 99 OxyMask 6 02/24/22 15:18 36.2 16 171/78 (109) 97 OxyMask 6 02/24/22 15:18 OxyMask 6 02/24/22 13:00 55 02/24/22 11:23 36.6 55 18 151/70 (97) 95 Room Air 02/24/22 08:00 Room Air 02/24/22 07:51 36.5 54 18 129/62 (84) 94 Room Air I & O 02/25/22 07:00 Intake Total 1200 ml Output Total 935 ml Balance 265 ml Laboratory Tests Test 02/25/22 05:10 Range/Units White Blood Count 9.4 4.3-11.0 10^3/uL Red Blood Count 2.39 L 3.80-5.11 10^6/uL Hemoglobin 7.0 L 11.5-16.0 g/dL Hematocrit 23 L 35-52 % Mean Corpuscular Volume 95 80-99 fL Mean Corpuscular Hemoglobin 29 25-34 pg Mean Corpuscular Hemoglobin Concent 31 L 32-36 g/dL Red Cell Distribution Width 13.8 10.0-14.5 % Platelet Count 151 130-400 10^3/uL Mean Platelet Volume 10.1 9.0-12.2 fL Sodium Level 135 135-145 MMOL/L Potassium Level 5.1 H 3.6-5.0 MMOL/L Chloride Level 106 98-107 MMOL/L Carbon Dioxide Level 21 21-32 MMOL/L Anion Gap 8 5-14 MMOL/L Blood Urea Nitrogen 34 H 7-18 MG/DL Creatinine 1.88 H 0.60-1.30 MG/DL Estimat Glomerular Filtration Rate 25 BUN/Creatinine Ratio 18 Glucose Level 187 H 70-105 MG/DL Calcium Level 8.1 L 8.5-10.1 MG/DL LLE--dressing intact. Intact DF and PF of toes and ankle. intact sensation to light touch throughout s/p L hip IM frank 50% WB LLE will likely require placement Final Diagnosis confused Vital Signs Date Time Temp Pulse Resp B/P (MAP) Pulse Ox O2 Delivery O2 Flow Rate FiO2 02/27/22 07:33 37.7 77 18 139/60 (86) 92 Nasal Cannula 4.00 02/27/22 04:43 36.0 60 18 136/68 (90) 93 Nasal Cannula 4.00 02/27/22 01:00 74 02/26/22 23:28 36.4 65 18 138/67 (90) 92 Nasal Cannula 4.00 02/26/22 20:00 Nasal Cannula 3.00 02/26/22 20:00 36.0 65 18 136/65 (88) 93 Nasal Cannula 4.00 02/26/22 19:50 98 Nasal Cannula 2.00 02/26/22 19:00 69 02/26/22 16:21 37.1 62 18 130/58 (82) 94 Nasal Cannula 4.00 02/26/22 13:00 59 02/26/22 12:13 36.7 58 18 145/67 (93) 95 Nasal Cannula 3.00 02/26/22 11:41 36.7 58 18 145/67 95 Nasal Cannula 3.00 02/26/22 09:03 37.4 62 18 165/68 96 Nasal Cannula 3.00 02/26/22 08:48 36.8 63 18 152/66 Nasal Cannula 3.00 02/26/22 08:00 95 Nasal Cannula 3.00 02/26/22 07:49 36.5 69 18 153/66 (95) 95 Nasal Cannula 2.00 I & O 02/27/22 07:00 Intake Total 2140 ml Output Total 3250 ml Balance -1110 ml Laboratory Tests Test 02/26/22 12:14 02/27/22 05:22 Range/Units Hemoglobin 8.4 #L 8.7 L 11.5-16.0 g/dL Hematocrit 26 L 26 L 35-52 % L hip incision with sl bloody dc but no erythema or warmth s/p L hip IM frank PT as tolerated SILVIO JUNIOR MD February 27, 2022 07:48
--- NOTE | 2022-02-27 08:26 | Cardiology Progress Note ---
Subjective Date Seen by Provider: February 27, 2022 Time Seen by Provider: 08:00 Subjective/Events-last exam Patient appears confused this morning. Oriented to person. Denies any chest pain Objective-Cardiology Exam Last Set of Vital Signs Vital Signs 02/27/22 07:33 Temp 37.7 Pulse 77 Resp 18 B/P (MAP) 139/60 (86) Pulse Ox 92 O2 Delivery Nasal Cannula O2 Flow Rate 4.00 I&O Intake and Output 02/26/22 23:59 Intake Total 1560 ml Output Total 2630 ml Balance -1070 ml Intake Oral 1460 ml IV Total 50 ml Other 50 ml Output Urine Total 2630 ml General: Alert, Oriented X3, Cooperative HEENT: Atraumatic, PERRLA Neck: Supple, No JVD, No Thyromegaly Lungs: Clear to Auscultation, Normal Air Movement Heart: Regular Rate, Normal S1, Normal S2, No Murmurs Abdomen: Normal Bowel Sounds, Soft, No Tenderness, No Hepatosplenomegaly, No Masses Extremities: No Clubbing, No Cyanosis, No Edema, Normal Pulses, No Tenderness/S welling, Other (Health surgery) Skin: No Rashes Neuro: Normal Speech, Strength at 5/5 X4 Ext, Normal Tone, Sensation Intact Psych/Mental Status: Mental Status NL, Mood NL Results Lab Laboratory Tests 02/26/22 12:14 02/27/22 05:22 A/P-Cardiology Admission Diagnosis Left hip fx PAF Severe MR HTN Assessment/Plan Acute delerium, underlying dementia, managed by primary care physician Status post fall resulting in left hip fracture, hip surgery was done on February 24, 2022, recovering slowly Anemia, postoperatively, s/p transfusion Monitor H&H History of frequent falls Paroxysmal atrial fibrillation, converted to sinus rhythm on amiodarone drip after failing electrical cardioversion in January 2021. Currently in sinus rhythm maintained on low-dose amiodarone as outpatient. [id number] score of 4, yearly risk of stroke without oral anticoagulation is 4%. Not on OAC d/t history of frequent falls Sinus node dysfunction, severe bradycardia while on beta-blockers, tolerating low-dose amiodarone and I have stopped Toprol due to severe bradycardia. I am hesitant to proceed with pacemaker placement at this time due to the fact that she might qualify for mitral clip, functioning normally not requiring pacemaker at this point Severe mitral regurgitation, CHAYITO done showing severe mitral regurgitation, dilated left atrium and left atrial appendage. Pulmonary artery pressure of 40 to 45 mmHg. Discussed referral for mitral valve clip evaluation, after long discussion with patient and family they prefer to continue with conservative management without any intervention at this time. We discussed the possibility of referral to [facility] for evaluation for mitral valve clip. A 2D echo was done on June 25, 2021 showing normal left ventricular size, EF 65 to 70%, severe mitral regurgitation, mild aortic regurgitation, severe tricuspid regurgitation, PA pressure 55 to 60 mmHg Severe hypertension, difficult to control blood pressure, had few episode of low blood pressure but generally elevated blood pressure, unable to tolerate multiple medications due to her chronic renal insufficiency and severe b radycardia. Continue to monitor blood pressure Hyperkalemia, continue to monitor. Chronic kidney disease stage IV, chronic renal insufficiency. Followed and managed by primary care physician Hyperlipidemia maintained on statin, monitored as outpatient. Abdominal pain, nausea and vomiting, gastritis, resolved Mild bilateral carotid stenosis, ultrasound was done in March 2021. Continue to monitor Supervisory-Addendum Brief Supervisory Addendum Participated in pt care: history, MDM, physical Personally performed: exam, history, MDM Care discussed with: LOLLY Results interpretation: Verified all documentation Notes: Patient was seen and evaluated with Aliyah, examination performed, management plan was discussed, agree with the current scribed note, I made few changes to the note using Italic font Patient was seen at bedside, sitting comfortably, confused, knows that she is confused. Denies any chest pain or shortness of breath. H&H are better Continue to monitor. ALIYAH FROST February 27, 2022 08:26 SERGIO LOYOLA MD February 27, 2022 08:41
[2022-02-27] MEDS: FLUoxetine HCL 20 MG (PROzac) CAP PO SCH (08:49)
[2022-02-27] MEDS: PANTOPRAZOLE 40 MG (PROTONIX) TAB PO SCH (08:49)
[2022-02-27] MEDS: SIMvastatin 20 MG (ZOCOR) TAB PO SCH (08:49)
[2022-02-27] MEDS: FERROUS SULF 325 MG (IRON) TAB PO SCH ×3 (08:49→18:23)
[2022-02-27] MEDS: amLODIPine 2.5MG (NORVASC) TAB PO SCH (08:49)
[2022-02-27] MEDS: SENNA W/DOCUSATE (SENOKOT S) TABLET PO SCH ×2 (08:49→20:49)
[2022-02-27] MEDS: ENOXAPARIN INJECTION 30 MG/0.3 ML SYR SC SCH (08:50)
--- NOTE | 2022-02-27 10:05 | Physical Therapy Daily Note ---
PT Daily Note-Current Subjective Patient is very confused. Mental Status Patient Orientation: Person, Confused Attachments: Oxygen, Pittman Catheter, IV Transfers SCALE: Activities may be completed with or without assistive devices. 7-Niuhgrbsrz-oifasiz completes the activity by him/herself with no assistance from a helper. 5-Set-up or Clean-up Assistance-helper sets up or cleans up; patient completes activity. [place] assists only prior to or following the activity. 4-Supervision or Touching Assistance-helper provides verbal cues and/or touching/steadying and/or contact guard assistance as patient completes activity. Assistance may be provided throughout the activity or intermittently. 3-Partial/Moderate Assistance-helper does LESS THAN HALF the effort. [place] lifts, holds or supports trunk or limbs, but provides less than half the effort. 2-Substantial/Maximal Assistance-helper does MORE THAN HALF the effort. [place] lifts or holds trunk or limbs and provides more than half the effort. 2-Kwtvxhdql-kulziv does ALL the effort. Patient does none of the effort to complete the activity. Or, the assistance of 2 or more helpers is required for the patient to complete the activity. If activity was not attempted, code reason: 7-Patient Refused. 9-Not Applicable-not attempted and the patient did not perform the activity before the current illness, exacerbation or injury. 10-Not Attempted due to Environmental Limitations-(lack of equipment, weather restraints, etc.). 88-Not Attempted due to Medical Conditions or Safety Concerns. Lying to Sitting/Side of Bed(Q: 1 Sit to Stand (QC): 1 Chair/Tbs-ye-Uabnk Xfer(QC): 1 patient unable to follow simple direction to perform PWB left LE Weight Bearing Right Lower Extremity: Right Full Weight Bearing Left Lower Extremity: Left Partial Weight Bearing Gait Training Does the Patient Walk?: No and Walking Goal IS indicated Exercises Supine Ex: Ankle pumps, Heel Slides, Straight leg raise Supine Reps: 12 (AAROM) Seated Therapy Exercises: Long arc quads Seated Reps: 12 (AAROM) Assessment Patient requires redirection to remain on task and perform exercises. Patient up in recliner with chair alarm activated. PT Learning Analyst Goals Group Home Goals PT Learning Analyst Goals Time Frame: March 04, 2022 Roll Left & Right (QC): 3 Sit to Lying (QC): 3 Lying-Sitting on Side/Bed(QC): 3 Sit to Stand (QC): 4 Chair/Uta-gr-Ykclu Xfer(QC): 4 Walk 10 feet (QC): 4 PT Plan Treatment/Plan Treatment Plan: Continue Plan of Care Treatment Plan: Bed Mobility, Education, Functional Activity Richie, Functional Strength, Gait, Safety, Therapeutic Exercise, Transfers Treatment Duration: March 04, 2022 Frequency: 11 times per week Estimated Hrs Per Day: .25 hour per day Patient and/or Family Agrees t: Yes Time/GCodes Time In: 750 Time Out: 813 Total Billed Treatment Time: 23 Total Billed Treatment 1 visit FA 10 min EX 13 min ADRIANA CARTER PT February 27, 2022 10:05
[2022-02-27 11:14] VITALS: BP 160/67
--- NOTE | 2022-02-27 13:07 | Progress Note ---
Subjective Date Seen by a Provider: February 27, 2022 Time Seen by a Provider: 13:04 Subjective/Events-last exam Fwup proximal left femur fracture, PAF, severe mitral regurgitation, anemia of chronic disease, Chronic Stage 4 kidney disease, labile HTN. Up in chair. More confused today. Did cough up some sputum. Objective Exam Vital Signs Date Time Temp Pulse Resp B/P (MAP) Pulse Ox O2 Delivery O2 Flow Rate FiO2 02/27/22 11:14 37.0 72 18 160/67 (98) 93 Nasal Cannula 4.00 02/27/22 09:58 Nasal Cannula 4.00 02/27/22 08:00 Nasal Cannula 3.00 02/27/22 07:33 37.7 77 18 139/60 (86) 92 Nasal Cannula 4.00 02/27/22 07:00 71 02/27/22 04:43 36.0 60 18 136/68 (90) 93 Nasal Cannula 4.00 02/27/22 01:00 74 02/26/22 23:28 36.4 65 18 138/67 (90) 92 Nasal Cannula 4.00 02/26/22 20:00 Nasal Cannula 3.00 02/26/22 20:00 36.0 65 18 136/65 (88) 93 Nasal Cannula 4.00 02/26/22 19:50 98 Nasal Cannula 2.00 02/26/22 19:00 69 02/26/22 16:21 37.1 62 18 130/58 (82) 94 Nasal Cannula 4.00 I & O 02/27/22 07:00 Intake Total 2140 ml Output Total 3250 ml Balance -1110 ml Capillary Refill : Less Than 3 SecondsLess Than 3 Seconds General Appearance: No Apparent Distress Neck: Supple Respiratory: Decreased Breath Sounds Cardiovascular: Regular Rate, Rhythm, Systolic Murmur Gastrointestinal: normal bowel sounds, non tender, soft Extremity: Non Tender, No Calf Tenderness, No Pedal Edema Neurologic/Psychiatric: Alert, Disoriented Skin: Warm/Dry, Other (left hip dressing in place and dry) Results Lab Laboratory Tests 02/27/22 05:22: Hemoglobin 8.7L, Hematocrit 26L Assessment/Plan Assessment/Plan Assess & Plan/Chief Complaint 1. Proximal Left Femur Fracture--S/P left hip IM frank-pain control, lovenox for DVT prophylaxis, PT/OT started, plan is DC to [facility] tomorrow---really needs retirement placement due to recurrent falls and son is in agreement with this 2. Acute on Chronic Anemia--H/H improved post 1u pRBCs 3. Labile HTN--BP stable on low dose amlodopine 4. PAF--Eliquis was being held due to recurrent falls--will plan on resuming at low dose on DC since will be up only with assist 5. Chronic Stage IV Kidney Disease--BUN/Cr stable postoperatively--will recheck tomorrow 6. Severe Mitral Regurgitation with Left Atrial Appendage--has refused eval for possible atrial appendage clip 7. Confusion--will DC reveles catheter and check UA, will also check CXR due to productive cough Clinical Quality Measures Admission Status Admission Dx 1. Proximal Left Femur Fracture--surgery today with Dr. Mosquera, will need SNF on discharge 2. Paroxysmal Atrial Fibrillation--in NSR on amidarone, will resume eliquis on DC at low dose for both DVT prophylaxis and her a fib and since will be only up with PT or assist 3. Severe Mitral Regurgitation with left atrial appendage--has refused seeing EP about possible clip to appendage 4. Labile Hypertension--resume low dose amlodopine 5. Chronic Stage IV Kidney Disease--seeing nephrology 6. Recurrent Falls--will go to SNF on discharge then either needs to stay vs transition to [place] as has ongoing fall risk HERMILA BARRIENTOS DO February 27, 2022 13:07
--- NOTE | 2022-02-27 13:20 | Diagnostic Imaging Report ---
EXAMINATION: Chest 1 view HISTORY: Cough, hypoxia, confusion COMPARISON: 02/23/2022 FINDINGS: Heart size is enlarged with prominence of pulmonary vasculature. The perihilar hazy opacities. There is a left-sided pleural effusion with left basilar atelectasis or consolidation. No pneumothorax. Degenerative changes of the thoracic spine. Osseous structures are otherwise intact. IMPRESSION: 1. Findings of cardiomegaly and pulmonary vascular congestion. 2. Left pleural effusion and adjacent atelectasis or consolidation. 3. Perihilar patchy interstitial opacities within the lungs which can be seen with pulmonary edema. Dictated by: Dictated on workstation # [id number]
--- NOTE | 2022-02-27 13:24 | Physical Therapy Daily Note ---
PT Daily Note-Current Subjective Patient remains very confused. Physician in for assessment. Mental Status Patient Orientation: Confused Attachments: Oxygen, [place] Catheter Transfers SCALE: Activities may be completed with or without assistive devices. 7-Xpkanxegka-uzazowb completes the activity by him/herself with no assistance from a helper. 5-Set-up or Clean-up Assistance-helper sets up or cleans up; patient completes activity. [place] assists only prior to or following the activity. 4-Supervision or Touching Assistance-helper provides verbal cues and/or touching/steadying and/or contact guard assistance as patient completes act ivity. Assistance may be provided throughout the activity or intermittently. 3-Partial/Moderate Assistance-helper does LESS THAN HALF the effort. [place] lifts, holds or supports trunk or limbs, but provides less than half the effort. 2-Substantial/Maximal Assistance-helper does MORE THAN HALF the effort. [place] lifts or holds trunk or limbs and provides more than half the effort. 5-Kxoehstpt-umuavl does ALL the effort. Patient does none of the effort to complete the activity. Or, the assistance of 2 or more helpers is required for the patient to complete the activity. If activity was not attempted, code reason: 7-Patient Refused. 9-Not Applicable-not attempted and the patient did not perform the activity before the current illness, exacerbation or injury. 10-Not Attempted due to Environmental Limitations-(lack of equipment, weather restraints, etc.). 88-Not Attempted due to Medical Conditions or Safety Concerns. Sit to Lying (QC): 1 Sit to Stand (QC): 1 Chair/Dec-cy-Axamy Xfer(QC): 1 Weight Bearing Right Lower Extremity: Right Full Weight Bearing Left Lower Extremity: Left Partial Weight Bearing Exercises Supine Ex: Heel Slides, Straight leg raise Supine Reps: 10 (PROM) Assessment Patient tolerates minimal activity due to fatigue and confusion. Increase activity as tolerated by patient. PT Long-Term Goals Custodial Manager Goals PT Custodial Manager Goals Time Frame: March 04, 2022 Roll Left & Right (QC): 3 Sit to Lying (QC): 3 Lying-Sitting on Side/Bed(QC): 3 Sit to Stand (QC): 4 Chair/Dov-sk-Zyuoh Xfer(QC): 4 Walk 10 feet (QC): 4 PT Plan Treatment/Plan Treatment Plan: Continue Plan of Care Treatment Plan: Bed Mobility, Education, Functional Activity Richie, Functional Strength, Gait, Safety, Therapeutic Exercise, Transfers Treatment Duration: March 04, 2022 Frequency: 11 times per week Estimated Hrs Per Day: .25 hour per day Patient and/or Family Agrees t: Yes Time/GCodes Time In: 1255 Time Out: 1306 Total Billed Treatment Time: 11 Total Billed Treatment 1 visit FA 11 min ADRIANA CARTER PT February 27, 2022 13:24
[2022-02-27] MEDS: HYDROcodone/APAP 5 MG/325 MG (LORTAB) TAB PO PRN ×2 (14:45→20:49)
[2022-02-27 15:22] VITALS: BP 161/68
[2022-02-27 16:34] LABS: BACTERIA,URINE NEGATIVE /HPF; BILIRUBIN,URINE NEGATIVE (NEGATIVE); CLARITY,URINE CLEAR; COLOR,URINE YELLOW; GLUCOSE, URINE (UA) NEGATIVE (NEGATIVE); KETONES,URINE NEGATIVE (NEGATIVE); LEUKOCYTE ESTERASE ,URINE TRACE (NEGATIVE); NITRITE,URINE NEGATIVE (NEGATIVE); PH,URINE 5.5 (5-9); PROTEIN,URINE TRACE (NEGATIVE); RENAL EPITHELIAL CELLS,URINE 0-2 /HPF; SQUAMOUS EPITHELIAL CELL,UR 0-2 /HPF
[2022-02-27] MEDS ORDERED: FUROSEMIDE 40 MG/4 ML INJ (LASIX) IVP ONE (17:30)
[2022-02-27] MEDS: cefTRIAXone 1 GM PRE-MIX 50 ML IV SCH (18:22)
[2022-02-27] MEDS: RT-ALBUTEROL/IPRATROPIUM 3 ML (DUONEB) VIAL INH SCH ×2 (18:27→21:51)
[2022-02-27 19:29] VITALS: BP 130/73
[2022-02-27] MEDS: GABAPENTIN 100 MG (NEURONTIN) CAP PO SCH (20:49)
[2022-02-28 00:27] VITALS: BP 115/62
[2022-02-28] MEDS: RT-ALBUTEROL/IPRATROPIUM 3 ML (DUONEB) VIAL INH SCH ×6 (01:57→21:48)
[2022-02-28 04:10] VITALS: BP 179/83
[2022-02-28 05:52] LABS: HEMATOCRIT 28 % (35-52); HEMOGLOBIN 9.7 g/dL (11.5-16.0); MEAN CORPUSCULAR HEMOGLOBIN 31 pg (25-34); MEAN CORPUSCULAR HGB CONC 34 g/dL (32-36); MEAN CORPUSCULAR VOLUME 90 fL (80-99); MEAN PLATELET VOLUME 10.2 fL (9.0-12.2); PLATELET COUNT 307 10^3/uL (130-400); WHITE BLOOD COUNT 19.6 10^3/uL (4.3-11.0)
[2022-02-28 05:59] LABS: CALCIUM 8.9 MG/DL (8.5-10.1)
[2022-02-28 06:04] LABS: CREATININE SERUM 1.86 MG/DL (0.60-1.30)
[2022-02-28] MEDS: CALCIUM CARB + VIT D 600 MG (CALCARB + D) TAB PO SCH (06:14)
[2022-02-28 08:24] VITALS: BP 119/67
[2022-02-28] MEDS: SENNA W/DOCUSATE (SENOKOT S) TABLET PO SCH ×2 (08:43→19:42)
[2022-02-28] MEDS: FLUoxetine HCL 20 MG (PROzac) CAP PO SCH (08:43)
[2022-02-28] MEDS: ENOXAPARIN INJECTION 30 MG/0.3 ML SYR SC SCH (08:43)
[2022-02-28] MEDS: FERROUS SULF 325 MG (IRON) TAB PO SCH ×3 (08:43→16:44)
[2022-02-28] MEDS: PANTOPRAZOLE 40 MG (PROTONIX) TAB PO SCH (08:43)
[2022-02-28] MEDS: cefTRIAXone 1 GM PRE-MIX 50 ML IV SCH (08:43)
[2022-02-28] MEDS: SIMvastatin 20 MG (ZOCOR) TAB PO SCH (08:43)
[2022-02-28] MEDS: amLODIPine 2.5MG (NORVASC) TAB PO SCH (08:44)
--- NOTE | 2022-02-28 09:47 | Physical Therapy Daily Note ---
PT Daily Note-Current Subjective Patient very confused and currently on 9L O2 NC Mental Status Patient Orientation: Confused Attachments: Oxygen (9L NC) Transfers SCALE: Activities may be completed with or without assistive devices. 1-Jfblivdgxy-hyhssdm completes the activity by him/herself with no assistance from a helper. 5-Set-up or Clean-up Assistance-helper sets up or cleans up; patient completes activity. [place] assists only prior to or following the activity. 4-Supervision or Touching Assistance-helper provides verbal cues and/or touching/steadying and/or contact guard assistance as patient completes activity. Assistance may be provided throughout the activity or intermittently. 3-Partial/Moderate Assistance-helper does LESS THAN HALF the effort. [place] lifts, holds or supports trunk or limbs, but provides less than half the effort. 2-Substantial/Maximal Assistance-helper does MORE THAN HALF the effort. [place] lifts or holds trunk or limbs and provides more than half the effort. 7-Vsxncfent-yfyawr does ALL the effort. Patient does none of the effort to complete the activity. Or, the assistance of 2 or more helpers is required for the patient to complete the activity. If activity was not attempted, code reason: 7-Patient Refused. 9-Not Applicable-not attempted and the patient did not perform the activity before the current illness, exacerbation or injury. 10-Not Attempted due to Environmental Limitations-(lack of equipment, weather restraints, etc.). 88-Not Attempted due to Medical Conditions or Safety Concerns. Roll Left & Right (QC): 1 Weight Bearing Right Lower Extremity: Right Full Weight Bearing Left Lower Extremity: Left Partial Weight Bearing Exercises Supine Ex: Heel Slides, Straight leg raise Supine Reps: 10 Assessment Patient currently not safe for OOB activity. Patient repositioned in bed to slight side lying right with pillow placement. bilateral PROM performed. Per , patient will dismiss to [place] on this date. PT Senior Care Goals Earth Science Professor Goals PT Senior Care Goals Time Frame: March 04, 2022 Roll Left & Right (QC): 3 Sit to Lying (QC): 3 Lying-Sitting on Side/Bed(QC): 3 Sit to Stand (QC): 4 Chair/Hib-hi-Qjvjv Xfer(QC): 4 Walk 10 feet (QC): 4 PT Plan Treatment/Plan Treatment Plan: Continue Plan of Care Treatment Plan: Bed Mobility, Education, Functional Activity Richie, Functional Strength, Gait, Safety, Therapeutic Exercise, Transfers Treatment Duration: March 04, 2022 Frequency: 11 times per week Estimated Hrs Per Day: .25 hour per day Patient and/or Family Agrees t: Yes Time/GCodes Time In: 932 Time Out: 943 Total Billed Treatment Time: 11 Total Billed Treatment 1 visit FA 11 min ADRIANA CARTER PT February 28, 2022 09:47
--- NOTE | 2022-02-28 10:04 | Progress Note ---
Subjective Date Seen by a Provider: February 28, 2022 Time Seen by a Provider: 10:00 Subjective/Events-last exam Fwup proximal left femur fracture, PAF, severe mitral regurgitation, anemia of chronic disease, Chronic Stage 4 kidney disease, labile HTN. CXR shows left sided pleural effusion with possible infiltrate. WBC count up to 19.000 today. Objective Exam Vital Signs Date Time Temp Pulse Resp B/P (MAP) Pulse Ox O2 Delivery O2 Flow Rate FiO2 02/28/22 08:24 36.4 72 20 119/67 (84) 92 High Flow N/C 8.00 02/28/22 08:09 Nasal Cannula 4.00 02/28/22 07:00 78 02/28/22 06:50 91 Nasal Cannula 8.00 02/28/22 04:10 36.8 80 18 179/83 (115) 92 High Flow N/C 5.00 02/28/22 01:57 96 Nasal Cannula 4.00 02/28/22 01:00 69 02/28/22 00:27 36.6 69 18 115/62 (79) 92 High Flow N/C 5.00 02/27/22 21:51 93 Nasal Cannula 4.00 02/27/22 19:29 36.5 75 18 130/73 (92) 92 Nasal Cannula 4.00 02/27/22 19:20 Nasal Cannula 4.00 02/27/22 19:00 71 02/27/22 18:29 95 Nasal Cannula 4.00 02/27/22 15:22 36.0 71 18 161/68 (99) 92 Nasal Cannula 4.00 02/27/22 13:00 66 02/27/22 11:14 37.0 72 18 160/67 (98) 93 Nasal Cannula 4.00 I & O 02/28/22 07:00 Intake Total 800 ml Output Total 2300 ml Balance -1500 ml Capillary Refill : Less Than 3 SecondsLess Than 3 Seconds General Appearance: No Apparent Distress Neck: Supple Respiratory: Crackles (left side) Cardiovascular: Regular Rate, Rhythm, Systolic Murmur Gastrointestinal: normal bowel sounds, non tender, soft Extremity: Non Tender, No Calf Tenderness, Pedal Edema Neurologic/Psychiatric: Alert Skin: Other (left hip dressing dry and in place) Results Lab Laboratory Tests 02/27/22 13:30: Urine Color YELLOW, Urine Clarity CLEAR, Urine pH 5.5, Urine Specific [place] 1.010L, Urine Protein TRACEH, Urine Glucose (UA) NEGATIVE, Urine Ketones NEGATIVE, Urine Nitrite NEGATIVE, Urine Bilirubin NEGATIVE, Urine Urobilinogen 0.2, Urine Leukocyte Esterase TRACEH, Urine RBC (Auto) 1+H, Urine RBC NONE, Urine WBC 2-5, Urine Squamous Epithelial Cells 0-2, Urine Renal Epithelial Cells 0-2, Urine Crystals NONE, Urine Bacteria NEGATIVE, Urine Casts NONE, Urine Mucus NEGATIVE, Urine Culture Indicated NO 02/28/22 05:43: White Blood Count 19.6H, Red Blood Count 3.14L, Hemoglobin 9.7L, Hematocrit 28L, Mean Corpuscular Volume 90, Mean Corpuscular Hemoglobin 31, Mean Corpuscular Hemoglobin Concent 34, Red Cell Distribution Width 14.0, Platelet Count 307, Mean Platelet Volume 10.2, Sodium Level 131L, Potassium Level 4.0, Chloride Level 99, Carbon Dioxide Level 17L, Anion Gap 15H, Blood Urea Nitrogen 46H, Creatinine 1.86H, Estimat Glomerular Filtration Rate 26, BUN/Creatinine Ratio 25, Glucose Level 108H, Calcium Level 8.9 Assessment/Plan Assessment/Plan Assess & Plan/Chief Complaint 1. Proximal Left Femur Fracture--S/P left hip IM frank-pain control, lovenox for DVT prophylaxis, PT/OT started, plan is DC to [facility] Thursday since WBC count jumped---really needs mcfp placement due to recurrent falls and son is in agreement with this 2. Acute on Chronic Anemia--H/H improved post 1u pRBCs 3. Labile HTN--BP stable on low dose amlodopine 4. PAF--Eliquis was being held due to recurrent falls--will plan on resuming at low dose on DC since will be up only with assist 5. Chronic Stage IV Kidney Disease--BUN/Cr stable postoperatively--will recheck tomorrow 6. Severe Mitral Regurgitation with Left Atrial Appendage--has refused eval for possible atrial appendage clip 7. Confusion--, pain med and infection 8. Acute Respiratory Distress with Left Sided pleural effusion--give lasix now and daily 9. Post-Op Pneumonia--patient has not been doing IS due to confusion, weakness, change to zosyn, continue SVNs with duoneb, discussed with son Clinical Quality Measures Admission Status Admission Dx 1. Proximal Left Femur Fracture--surgery today with Dr. Mosquera, will need SNF on discharge 2. Paroxysmal Atrial Fibrillation--in NSR on amidarone, will resume eliquis on DC at low dose for both DVT prophylaxis and her a fib and since will be only up with PT or assist 3. Severe Mitral Regurgitation with left atrial appendage--has refused seeing EP about possible clip to appendage 4. Labile Hypertension--resume low dose amlodopine 5. Chronic Stage IV Kidney Disease--seeing nephrology 6. Recurrent Falls--will go to SNF on discharge then either needs to stay vs transition to [place] as has ongoing fall risk HERMILA BARRIENTOS DO February 28, 2022 10:03
[2022-02-28] MEDS ORDERED: FUROSEMIDE 20 MG (LASIX) TAB PO NR ×2 (10:15→14:00)
[2022-02-28] MEDS ORDERED: PIPERACILLIN SODIUM/TAZOBACTAM 4.5 GM in NS (IVPB) 100 ML IV NR (10:30)
--- NOTE | 2022-02-28 11:03 | Cardiology Progress Note ---
Subjective Date Seen by Provider: February 28, 2022 Time Seen by Provider: 11:02 Subjective/Events-last exam Patient was seen at bedside. Laying down comfortably, complaining of fatigue and loss of energy. Generalized body ache Review of Systems General: No Chills, No Night Sweats; Fatigue, Malaise; No Appetite, No Other HEENT: No Head Aches, No Visual Changes, No Eye Pain, No Ear Pain, No Dysphasia, No Sinus Congestion, No Post Nasal Drip, No Sore Throat, No Other Pulmonary: Dyspnea; No Cough, No Pleuritic Chest Pain, No Other Cardiovascular: No: Chest Pain, Palpitations, Orthopnea, Paroxysmal Noc. Dyspnea, Edema, Lt Headedness, Other Objective-Cardiology Exam Last Set of Vital Signs Vital Signs 02/28/22 02/28/22 08:24 10:53 Temp 36.4 Pulse 72 Resp 20 B/P (MAP) 119/67 (84) Pulse Ox 93 O2 Delivery Nasal Cannula O2 Flow Rate 8.00 I&O Intake and Output 02/28/22 00:00 Intake Total 1400 ml Output Total 2300 ml Balance -900 ml Intake Oral 1400 ml Output Urine Total 2300 ml General: Alert, Oriented X3, Cooperative HEENT: Atraumatic, PERRLA Neck: Supple, No JVD, No Thyromegaly Lungs: Clear to Auscultation, Normal Air Movement Heart: Regular Rate, Normal S1, Normal S2, No Murmurs Abdomen: Normal Bowel Sounds, Soft, No Tenderness, No Hepatosplenomegaly, No Masses Extremities: No Clubbing, No Cyanosis, No Edema, Normal Pulses, No Tenderness/Swelling, Other (Health surgery) Skin: No Rashes Neuro: Normal Speech, Sensation Intact Psych/Mental Status: Mental Status NL, Mood NL Results Lab Laboratory Tests 02/28/22 05:43 A/P-Cardiology Admission Diagnosis Left hip fx PAF Severe MR HTN Assessment/Plan Acute delerium, underlying dementia, confused today, managed by primary care physician Status post fall resulting in left hip fracture, hip surgery was done on February 24, 2022, recovering slowly Anemia, postoperatively, s/p transfusion Monitor H&H History of frequent falls Paroxysmal atrial fibrillation, converted to sinus rhythm on amiodarone drip after failing electrical cardioversion in January 2021. Currently in sinus rhythm maintained on low-dose amiodarone as outpatient. [id number] score of 4, yearly risk of stroke without oral anticoagulation is 4%. Not on OAC d/t history of frequent falls Sinus node dysfunction, severe bradycardia while on beta-blockers, tolerating low-dose amiodarone and I have stopped Toprol due to severe bradycardia. I am hesitant to proceed with pacemaker placement at this time due to the fact that she might qualify for mitral clip, functioning normally not requiring pacemaker at this point Severe mitral regurgitation, CHAYITO done showing severe mitral regurgitation, dilated left atrium and left atrial appendage. Pulmonary artery pressure of 40 to 45 mmHg. Discussed referral for mitral valve clip evaluation, after long discussion with patient and family they prefer to continue with conservative management without any intervention at this time. We discussed the possibility of referral to [facility] for evaluation for mitral valve clip. A 2D echo was done on June 25, 2021 showing normal left ventricular size, EF 65 to 70%, severe mitral regurgitation, mild aortic regurgitation, severe tricuspid regurgitation, PA pressure 55 to 60 mmHg Severe hypertension, difficult to control blood pressure, had few episode of low blood pressure but generally elevated blood pressure, unable to tolerate multiple medications due to her chronic renal insufficiency and severe bradyc ardia. Continue to monitor blood pressure Hyperkalemia, continue to monitor. Chronic kidney disease stage IV, chronic renal insufficiency. Followed and managed by primary care physician Hyperlipidemia maintained on statin, monitored as outpatient. Abdominal pain, nausea and vomiting, gastritis, resolved Mild bilateral carotid stenosis, ultrasound was done in March 2021. Continue to monitor SERGIO LOYOLA MD February 28, 2022 11:03
[2022-02-28 11:44] VITALS: BP 115/61
--- NOTE | 2022-02-28 13:41 | Progress Note ---
Standard Progress Note Progress Notes/Assess & Plan Date Seen by a Provider: February 28, 2022 Time Seen by a Provider: 13:40 Progress/Assessment & Plan no complaints Vital Signs Date Time Temp Pulse Resp B/P (MAP) Pulse Ox O2 Delivery O2 Flow Rate FiO2 02/25/22 04:42 37.0 65 20 111/54 (73) 95 Nasal Cannula 2.00 02/25/22 01:05 62 02/25/22 00:18 36.9 67 20 115/56 (75) 96 Nasal Cannula 2.00 02/24/22 20:00 Room Air 02/24/22 19:19 37.0 67 20 145/67 (93) 99 Nasal Cannula 2.00 02/24/22 19:00 60 02/24/22 16:10 Nasal Cannula 2 02/24/22 16:10 36.4 18 155/76 (102) 96 Nasal Cannula 2 02/24/22 16:00 36.7 60 18 168/70 (102) 97 Nasal Cannula 2.00 02/24/22 16:00 18 148/72 (97) 99 Nasal Cannula 2 02/24/22 16:00 Nasal Cannula 2 02/24/22 15:55 Nasal Cannula 2 02/24/22 15:50 18 151/70 (97) 97 Nasal Cannula 2 02/24/22 15:42 OxyMask 4 02/24/22 15:40 18 159/72 (101) 97 OxyMask 3 02/24/22 15:30 18 160/78 (105) 97 OxyMask 6 02/24/22 15:30 OxyMask 6 02/24/22 15:20 18 176/76 (109) 99 OxyMask 6 02/24/22 15:18 36.2 16 171/78 (109) 97 OxyMask 6 02/24/22 15:18 OxyMask 6 02/24/22 13:00 55 02/24/22 11:23 36.6 55 18 151/70 (97) 95 Room Air 02/24/22 08:00 Room Air 02/24/22 07:51 36.5 54 18 129/62 (84) 94 Room Air I & O 02/25/22 07:00 Intake Total 1200 ml Output Total 935 ml Balance 265 ml Laboratory Tests Test 02/25/22 05:10 Range/Units White Blood Count 9.4 4.3-11.0 10^3/uL Red Blood Count 2.39 L 3.80-5.11 10^6/uL Hemoglobin 7.0 L 11.5-16.0 g/dL Hematocrit 23 L 35-52 % Mean Corpuscular Volume 95 80-99 fL Mean Corpuscular Hemoglobin 29 25-34 pg Mean Corpuscular Hemoglobin Concent 31 L 32-36 g/dL Red Cell Distribution Width 13.8 10.0-14.5 % Platelet Count 151 130-400 10^3/uL Mean Platelet Volume 10.1 9.0-12.2 fL Sodium Level 135 135-145 MMOL/L Potassium Level 5.1 H 3.6-5.0 MMOL/L Chloride Level 106 98-107 MMOL/L Carbon Dioxide Level 21 21-32 MMOL/L Anion Gap 8 5-14 MMOL/L Blood Urea Nitrogen 34 H 7-18 MG/DL Creatinine 1.88 H 0.60-1.30 MG/DL Estimat Glomerular Filtration Rate 25 BUN/Creatinine Ratio 18 Glucose Level 187 H 70-105 MG/DL Calcium Level 8.1 L 8.5-10.1 MG/DL LLE--dressing intact. Intact DF and PF of toes and ankle. intact sensation to light touch throughout s/p L hip IM frank 50% WB LLE will likely require placement Final Diagnosis no complaints sitting up Vital Signs Date Time Temp Pulse Resp B/P (MAP) Pulse Ox O2 Delivery O2 Flow Rate FiO2 02/28/22 11:44 36.7 81 17 115/61 (79) 93 High Flow N/C 9.00 02/28/22 10:53 93 Nasal Cannula 8.00 02/28/22 08:24 36.4 72 20 119/67 (84) 92 High Flow N/C 8.00 02/28/22 08:09 Nasal Cannula 4.00 02/28/22 07:00 78 02/28/22 06:50 91 Nasal Cannula 8.00 02/28/22 04:10 36.8 80 18 179/83 (115) 92 High Flow N/C 5.00 02/28/22 01:57 96 Nasal Cannula 4.00 02/28/22 01:00 69 02/28/22 00:27 36.6 69 18 115/62 (79) 92 High Flow N/C 5.00 02/27/22 21:51 93 Nasal Cannula 4.00 02/27/22 19:29 36.5 75 18 130/73 (92) 92 Nasal Cannula 4.00 02/27/22 19:20 Nasal Cannula 4.00 02/27/22 19:00 71 02/27/22 18:29 95 Nasal Cannula 4.00 02/27/22 15:22 36.0 71 18 161/68 (99) 92 Nasal Cannula 4.00 I & O 02/28/22 07:00 Intake Total 800 ml Output Total 2300 ml Balance -1500 ml Laboratory Tests Test 02/28/22 05:43 Range/Units White Blood Count 19.6 H 4.3-11.0 10^3/uL Red Blood Count 3.14 L 3.80-5.11 10^6/uL Hemoglobin 9.7 L 11.5-16.0 g/dL Hematocrit 28 L 35-52 % Mean Corpuscular Volume 90 80-99 fL Mean Corpuscular Hemoglobin 31 25-34 pg Mean Corpuscular Hemoglobin Concent 34 32-36 g/dL Red Cell Distribution Width 14.0 10.0-14.5 % Platelet Count 307 130-400 10^3/uL Mean Platelet Volume 10.2 9.0-12.2 fL Sodium Level 131 L 135-145 MMOL/L Potassium Level 4.0 3.6-5.0 MMOL/L Chloride Level 99 98-107 MMOL/L Carbon Dioxide Level 17 L 21-32 MMOL/L Anion Gap 15 H 5-14 MMOL/L Blood Urea Nitrogen 46 H 7-18 MG/DL Creatinine 1.86 H 0.60-1.30 MG/DL Estimat Glomerular Filtration Rate 26 BUN/Creatinine Ratio 25 Glucose Level 108 H 70-105 MG/DL Calcium Level 8.9 8.5-10.1 MG/DL L hip dressings intact no calf tenderness s/p L hip IM frank mobilize as able SILVIO JUNIOR MD February 28, 2022 13:41
[2022-02-28] MEDS ORDERED: KCL 8 MEQ (MICRO K) TABLET PO NR (14:00)
[2022-02-28 15:34] VITALS: BP 144/64
[2022-02-28] MEDS: PIPERACILLIN SODIUM/TAZOBACTAM 4.5 GM in NS (IVPB) 100 ML IV SCH ×2 (16:45→23:47)
[2022-02-28] MEDS: GABAPENTIN 100 MG (NEURONTIN) CAP PO SCH (19:42)
[2022-02-28 20:07] VITALS: BP 114/60
[2022-02-28] MEDS: HYDROcodone/APAP 5 MG/325 MG (LORTAB) TAB PO PRN (22:13)
[2022-03-01 00:23] VITALS: BP 146/57
[2022-03-01] MEDS: RT-ALBUTEROL/IPRATROPIUM 3 ML (DUONEB) VIAL INH SCH ×6 (02:34→21:04)
[2022-03-01 04:28] VITALS: BP 127/64
[2022-03-01] MEDS: CALCIUM CARB + VIT D 600 MG (CALCARB + D) TAB PO SCH (05:32)
[2022-03-01 05:54] LABS: HEMATOCRIT 27 % (35-52); HEMOGLOBIN 8.9 g/dL (11.5-16.0); MEAN CORPUSCULAR HEMOGLOBIN 31 pg (25-34); MEAN CORPUSCULAR HGB CONC 34 g/dL (32-36); MEAN CORPUSCULAR VOLUME 91 fL (80-99); MEAN PLATELET VOLUME 10.1 fL (9.0-12.2); PLATELET COUNT 301 10^3/uL (130-400); WHITE BLOOD COUNT 17.8 10^3/uL (4.3-11.0)
[2022-03-01 06:27] LABS: ALBUMIN 2.9 GM/DL (3.2-4.5); BILIRUBIN,TOTAL 1.7 MG/DL (0.1-1.0); CALCIUM 8.4 MG/DL (8.5-10.1); CREATININE SERUM 1.86 MG/DL (0.60-1.30); POTASSIUM 3.4 MMOL/L (3.6-5.0); TOTAL PROTEIN 5.2 GM/DL (6.4-8.2)
[2022-03-01 07:37] VITALS: BP 177/76
[2022-03-01] MEDS: SENNA W/DOCUSATE (SENOKOT S) TABLET PO SCH ×2 (08:50→19:31)
[2022-03-01] MEDS: PIPERACILLIN SODIUM/TAZOBACTAM 4.5 GM in NS (IVPB) 100 ML IV SCH ×2 (08:50→19:31)
[2022-03-01] MEDS: FLUoxetine HCL 20 MG (PROzac) CAP PO SCH (08:51)
[2022-03-01] MEDS: FERROUS SULF 325 MG (IRON) TAB PO SCH ×3 (08:51→17:51)
[2022-03-01] MEDS: PANTOPRAZOLE 40 MG (PROTONIX) TAB PO SCH (08:51)
[2022-03-01] MEDS: ENOXAPARIN INJECTION 30 MG/0.3 ML SYR SC SCH (08:52)
[2022-03-01] MEDS ORDERED: FUROSEMIDE 20 MG (LASIX) TAB PO SCH (09:00)
[2022-03-01] MEDS: amLODIPine 5 MG (NORVASC) TAB PO SCH (09:05)
[2022-03-01] MEDS: HYDROcodone/APAP 5 MG/325 MG (LORTAB) TAB PO PRN (09:08)
[2022-03-01] MEDS ORDERED: KCL 8 MEQ (MICRO K) TABLET PO ONE (10:30)
[2022-03-01 11:03] VITALS: BP 114/57
--- NOTE | 2022-03-01 11:06 | Cardiology Progress Note ---
Subjective Date Seen by Provider: March 01, 2022 Time Seen by Provider: 11:04 Subjective/Events-last exam Patient was seen at bedside, laying down comfortably, complaining of fatigue and shortness of breath in addition to cough. Review of Systems General: No Chills, No Night Sweats; Fatigue, Malaise; No Appetite, No Other HEENT: No Head Aches, No Visual Changes, No Eye Pain, No Ear Pain, No Dysphasia, No Sinus Congestion, No Post Nasal Drip, No Sore Throat, No Other Pulmonary: Dyspnea, Cough; No Pleuritic Chest Pain, No Other Cardiovascular: No: Chest Pain, Palpitations, Orthopnea, Paroxysmal Noc. Dyspnea, Edema, Lt Headedness, Other Objective-Cardiology Exam Last Set of Vital Signs Vital Signs 03/01/22 11:03 Temp 36.2 Pulse 67 Resp 16 B/P (MAP) 114/57 (76) Pulse Ox 95 O2 Delivery High Flow N/C O2 Flow Rate 9.00 I&O Intake and Output 03/01/22 00:00 Intake Total 1110 ml Output Total 1450 ml Balance -340 ml Intake Oral 810 ml IV Total 300 ml Output Urine Total 1450 ml # Voids 2 General: Alert, Oriented X3, Cooperative HEENT: Atraumatic, PERRLA Neck: Supple, No JVD, No Thyromegaly Lungs: Clear to Auscultation, Normal Air Movement Heart: Regular Rate, Normal S1, Normal S2, No Murmurs Abdomen: Normal Bowel Sounds, Soft, No Tenderness, No Hepatosplenomegaly, No Masses Extremities: No Clubbing, No Cyanosis, No Edema, Normal Pulses, No Tenderness/Swelling, Other (Health surgery) Skin: No Rashes Neuro: Normal Speech, Sensation Intact Psych/Mental Status: Mental Status NL, Mood NL Results Lab Laboratory Tests 03/01/22 05:35 A/P-Cardiology Admission Diagnosis Left hip fx PAF Severe MR HTN Assessment/Plan Acute delerium, underlying dementia, slightly better today. Continue to monitor, managed by primary care physician. Shortness of breath, cough, pulmonary infiltrate on chest x-ray Started empirically on antibiotics. Managed by primary care physician Status post fall resulting in left hip fracture, hip surgery was done on February 24, 2022, recovering slowly Anemia, postoperatively, s/p transfusion Monitor H&H History of frequent falls Paroxysmal atrial fibrillation, converted to sinus rhythm on amiodarone drip after failing electrical cardioversion in January 2021. Currently in sinus rhythm maintained on low-dose amiodarone as outpatient. [id number] score of 4, yearly risk of stroke without oral anticoagulation is 4%. Not on OAC d/t history of frequent falls Sinus node dysfunction, severe bradycardia while on beta-blockers, tolerating low-dose amiodarone and I have stopped Toprol due to severe bradycardia. I am hesitant to proceed with pacemaker placement at this time due to the fact that she might qualify for mitral clip, functioning normally not requiring pacemaker at this point Severe mitral regurgitation, CHAYITO done showing severe mitral regurgitation, dilated left atrium and left atrial appendage. Pulmonary artery pressure of 40 to 45 mmHg. Discussed referral for mitral valve clip evaluation, after long d iscussion with patient and family they prefer to continue with conservative management without any intervention at this time. We discussed the possibility of referral to [facility] for evaluation for mitral valve clip. A 2D echo was done on June 25, 2021 showing normal left ventricular size, EF 65 to 70%, severe mitral regurgitation, mild aortic regurgitation, severe tricuspid regurgitation, PA pressure 55 to 60 mmHg Severe hypertension, difficult to control blood pressure, had few episode of low blood pressure but generally elevated blood pressure, unable to tolerate multi ple medications due to her chronic renal insufficiency and severe bradycardia. I increased her amlodipine to 5 mg daily. Continue to monitor Hyperlipidemia, was maintained on simvastatin, I changed it to Lipitor after increasing amlodipine dose Continue to monitor. Chronic kidney disease stage IV, chronic renal insufficiency. Followed and managed by primary care physician Hyperlipidemia maintained on statin, monitored as outpatient. Abdominal pain, nausea and vomiting, gastritis, resolved Mild bilateral carotid stenosis, ultrasound was done in March 2021. Continue to monitor SERGIO LOYOLA MD March 01, 2022 11:06
--- NOTE | 2022-03-01 11:16 | Progress Note ---
Subjective Date Seen by a Provider: March 01, 2022 Time Seen by a Provider: 11:12 Subjective/Events-last exam Fwup proximal left femur fracture, PAF, severe mitral regurgitation, anemia of chronic disease, Chronic Stage 4 kidney disease, labile HTN, left pleural effusion, pneumonia. Seems less confused today. Knows she is in [place] and reported that Dr. Lopez was just in. Objective Exam Vital Signs Date Time Temp Pulse Resp B/P (MAP) Pulse Ox O2 Delivery O2 Flow Rate FiO2 03/01/22 11:03 36.2 67 16 114/57 (76) 95 High Flow N/C 9.00 03/01/22 10:51 High Flow N/C 9.00 03/01/22 07:38 94 High Flow N/C 9.00 03/01/22 07:37 36.3 70 16 177/76 (109) 94 High Flow N/C 9.00 03/01/22 07:00 71 03/01/22 04:28 36.5 69 18 127/64 (85) 91 High Flow N/C 9.00 03/01/22 02:35 91 Nasal Cannula 9.00 03/01/22 01:00 66 03/01/22 00:23 36.6 73 18 146/57 (86) 94 High Flow N/C 9.00 02/28/22 21:49 91 Nasal Cannula 9.00 02/28/22 20:07 35.9 81 18 114/60 (78) 92 High Flow N/C 9.00 02/28/22 19:40 High Flow N/C 9.00 02/28/22 19:00 70 02/28/22 18:32 90 Nasal Cannula 9.00 02/28/22 15:34 36.7 79 24 144/64 (90) 90 High Flow N/C 9.00 02/28/22 14:13 85 Nasal Cannula 8.00 02/28/22 13:00 79 02/28/22 11:44 36.7 81 17 115/61 (79) 93 High Flow N/C 9.00 I & O 03/01/22 07:00 Intake Total 1110 ml Output Total 850 ml Balance 260 ml Capillary Refill : Less Than 3 SecondsLess Than 3 Seconds General Appearance: No Apparent Distress Respiratory: Crackles (left), Decreased Breath Sounds Cardiovascular: Regular Rate, Rhythm, Systolic Murmur, Gallop/S4 Gastrointestinal: normal bowel sounds, non tender, soft Extremity: Non Tender, No Calf Tenderness, No Pedal Edema Neurologic/Psychiatric: Alert Skin: Other (left hip wound with dry dressing in place) Results Lab Laboratory Tests 03/01/22 05:35: White Blood Count 17.8H, Red Blood Count 2.90L, Hemoglobin 8.9L, Hematocrit 27L, Mean Corpuscular Volume 91, Mean Corpuscular Hemoglobin 31, Mean Corpuscular Hemoglobin Concent 34, Red Cell Distribution Width 14.0, Platelet Count 301, Mean Platelet Volume 10.1, Sodium Level 136, Potassium Level 3.4L, Chloride Level 101, Carbon Dioxide Level 20L, Anion Gap 15H, Blood Urea Nitrogen 51H, Creatinine 1.86H, Estimat Glomerular Filtration Rate 26, BUN/Creatinine Ratio 27, Glucose Level 98, Calcium Level 8.4L, Corrected Calcium 9.3, Total Bilirubin 1.7H, Aspartate Amino Transf (AST/SGOT) 97H, Alanine Aminotransferase (ALT/SGPT) 73H, Alkaline Phosphatase 114, Total Protein 5.2L, Albumin 2.9L Microbiology 02/27/22 Gram Stain - Final, Resulted 02/27/22 Sputum Culture - Preliminary, Resulted Usual upper respiratory erinn Assessment/Plan Assessment/Plan Assess & Plan/Chief Complaint 1. Proximal Left Femur Fracture--S/P left hip IM frank-pain control, lovenox for DVT prophylaxis, PT/OT started, plan [facility]--really needs penitentiary placement due to recurrent falls and son is in agreement with this 2. Acute on Chronic Anemia--H/H improved post 1u pRBCs 3. Labile HTN--BP jumped this morning so Dr. Lopez increased amlodopine dose 4. PAF--Eliquis was being held due to recurrent falls--will plan on resuming at low dose on DC since will be up only with assist 5. Chronic Stage IV Kidney Disease--BUN/Cr stable postoperatively--will recheck tomorrow 6. Severe Mitral Regurgitation with Left Atrial Appendage--has refused eval for possible atrial appendage clip 7. Confusion--owning, pain med and infection, more oriented today 8. Acute Respiratory Distress with Left Sided pleural effusion--extra lasix t samm and repeat CXR in AM, on oxygen via NC 9. Post-Op Pneumonia--patient has not been doing IS due to confusion, weakness, continue zosyn, continue SVNs with duoneb, repeat CXR in AM Clinical Quality Measures Admission Status Admission Dx 1. Proximal Left Femur Fracture--surgery today with Dr. Mosquera, will need SNF on discharge 2. Paroxysmal Atrial Fibrillation--in NSR on amidarone, will resume eliquis on DC at low dose for both DVT prophylaxis and her a fib and since will be only up with PT or assist 3. Severe Mitral Regurgitation with left atrial appendage--has refused seeing EP about possible clip to appendage 4. Labile Hypertension--resume low dose amlodopine 5. Chronic Stage IV Kidney Disease--seeing nephrology 6. Recurrent Falls--will go to SNF on discharge then either needs to stay vs transition to [place] as has ongoing fall risk HERMILA BARRIENTOS DO March 01, 2022 11:16
--- NOTE | 2022-03-01 11:36 | Physical Therapy Daily Note ---
PT Daily Note-Current Subjective Pt is not alert during treatment. Mental Status Patient Orientation: Unresponsive Transfers SCALE: Activities may be completed with or without assistive devices. 9-[id number]-[id number] completes the activity by him/herself with no assistance from a helper. 5-Set-up or Clean-up Assistance-helper sets up or cleans up; patient completes activity. [place] assists only prior to or following the activity. 4-Supervision or Touching Assistance-helper provides verbal cues and/or touching/steadying and/or contact guard assistance as patient completes activity. Assistance may be provided throughout the activity or intermittently. 3-Partial/Moderate Assistance-helper does LESS THAN HALF the effort. [place] lifts, holds or supports trunk or limbs, but provides less than half the effort. 2-Substantial/Maximal Assistance-helper does MORE THAN HALF the effort. [place] lifts or holds trunk or limbs and provides more than half the effort. 8-Imsaoqyaz-tqranj does ALL the effort. Patient does none of the effort to complete the activity. Or, the assistance of 2 or more helpers is required for the patient to complete the activity. If activity was not attempted, code reason: 7-Patient Refused. 9-Not Applicable-not attempted and the patient did not perform the activity before the current illness, exacerbation or injury. 10-Not Attempted due to Environmental Limitations-(lack of equipment, weather restraints, etc.). 88-Not Attempted due to Medical Conditions or Safety Concerns. Weight Bearing Right Lower Extremity: Right Full Weight Bearing Left Lower Extremity: Left Partial Weight Bearing Exercises Supine Ex: LE Protocol Supine Reps: 20 PROM for (B) LEs Assessment Current Status: Poor Progress Pt is not alert during treatment and was not able to participate with treatment. PT Customer Advisor Specialist Goals Customer Advisor Specialist Goals PT Snf Goals Time Frame: March 04, 2022 Roll Left & Right (QC): 3 Sit to Lying (QC): 3 Lying-Sitting on Side/Bed(QC): 3 Sit to Stand (QC): 4 Chair/Kyd-nn-Bdfkt Xfer(QC): 4 Walk 10 feet (QC): 4 PT Plan Treatment/Plan Treatment Plan: Continue Plan of Care Treatment Plan: Bed Mobility, Education, Functional Activity Richie, Functional Strength, Gait, Safety, Therapeutic Exercise, Transfers Treatment Duration: March 04, 2022 Frequency: 11 times per week Estimated Hrs Per Day: .25 hour per day Patient and/or Family Agrees t: Yes Time/GCodes Time In: 819 Time Out: 829 Total Billed Treatment Time: 10 Total Billed Treatment 1, ex 10 LUZ MARIA DILL PT March 01, 2022 11:36
[2022-03-01] MEDS ORDERED: FUROSEMIDE 20 MG (LASIX) TAB PO ONE (12:00)
[2022-03-01 15:20] VITALS: BP 121/58
[2022-03-01 19:13] VITALS: BP 139/63
[2022-03-01] MEDS: GABAPENTIN 100 MG (NEURONTIN) CAP PO SCH (19:31)
[2022-03-01] MEDS: AtorvaSTATin TABLET 10 MG TABLET PO SCH (19:31)
[2022-03-02] VITALS (7 sets, daily range): BP systolic 119–171; BP diastolic 56–80
[2022-03-02] MEDS: RT-ALBUTEROL/IPRATROPIUM 3 ML (DUONEB) VIAL INH SCH ×6 (02:26→20:44)
[2022-03-02] MEDS ORDERED: methylPREDNISolone 40 MG/ML (Solu-MEDROL) VIAL IV ONE (02:45)
[2022-03-02] MEDS ORDERED: FUROSEMIDE 40 MG/4 ML INJ (LASIX) IVP ONE (02:45)
[2022-03-02] MEDS ORDERED: FUROSEMIDE 40 MG/4 ML INJ (LASIX) ONE (02:50)
[2022-03-02] MEDS ORDERED: methylPREDNISolone 40 MG/ML (Solu-MEDROL) VIAL ONE (02:51)
[2022-03-02] MEDS: CALCIUM CARB + VIT D 600 MG (CALCARB + D) TAB PO SCH (05:38)
[2022-03-02 05:44] LABS: HEMATOCRIT 28 % (35-52); HEMOGLOBIN 8.9 g/dL (11.5-16.0); MEAN CORPUSCULAR HEMOGLOBIN 30 pg (25-34); MEAN CORPUSCULAR HGB CONC 32 g/dL (32-36); MEAN CORPUSCULAR VOLUME 92 fL (80-99); MEAN PLATELET VOLUME 9.5 fL (9.0-12.2); PLATELET COUNT 277 10^3/uL (130-400); WHITE BLOOD COUNT 15.2 10^3/uL (4.3-11.0)
[2022-03-02 05:57] LABS: POTASSIUM 3.4 MMOL/L (3.6-5.0)
[2022-03-02 05:58] LABS: CALCIUM 8.5 MG/DL (8.5-10.1)
[2022-03-02 06:02] LABS: CREATININE SERUM 2.16 MG/DL (0.60-1.30)
[2022-03-02] MEDS ORDERED: KCL 8 MEQ (MICRO K) TABLET PO SCH (07:00)
--- NOTE | 2022-03-02 07:01 | Progress Note ---
Standard Progress Note Progress Notes/Assess & Plan Date Seen by a Provider: March 02, 2022 Time Seen by a Provider: 07:00 Progress/Assessment & Plan no complaints Vital Signs Date Time Temp Pulse Resp B/P (MAP) Pulse Ox O2 Delivery O2 Flow Rate FiO2 02/25/22 04:42 37.0 65 20 111/54 (73) 95 Nasal Cannula 2.00 02/25/22 01:05 62 02/25/22 00:18 36.9 67 20 115/56 (75) 96 Nasal Cannula 2.00 02/24/22 20:00 Room Air 02/24/22 19:19 37.0 67 20 145/67 (93) 99 Nasal Cannula 2.00 02/24/22 19:00 60 02/24/22 16:10 Nasal Cannula 2 02/24/22 16:10 36.4 18 155/76 (102) 96 Nasal Cannula 2 02/24/22 16:00 36.7 60 18 168/70 (102) 97 Nasal Cannula 2.00 02/24/22 16:00 18 148/72 (97) 99 Nasal Cannula 2 02/24/22 16:00 Nasal Cannula 2 02/24/22 15:55 Nasal Cannula 2 02/24/22 15:50 18 151/70 (97) 97 Nasal Cannula 2 02/24/22 15:42 OxyMask 4 02/24/22 15:40 18 159/72 (101) 97 OxyMask 3 02/24/22 15:30 18 160/78 (105) 97 OxyMask 6 02/24/22 15:30 OxyMask 6 02/24/22 15:20 18 176/76 (109) 99 OxyMask 6 02/24/22 15:18 36.2 16 171/78 (109) 97 OxyMask 6 02/24/22 15:18 OxyMask 6 02/24/22 13:00 55 02/24/22 11:23 36.6 55 18 151/70 (97) 95 Room Air 02/24/22 08:00 Room Air 02/24/22 07:51 36.5 54 18 129/62 (84) 94 Room Air I & O 02/25/22 07:00 Intake Total 1200 ml Output Total 935 ml Balance 265 ml Laboratory Tests Test 02/25/22 05:10 Range/Units White Blood Count 9.4 4.3-11.0 10^3/uL Red Blood Count 2.39 L 3.80-5.11 10^6/uL Hemoglobin 7.0 L 11.5-16.0 g/dL Hematocrit 23 L 35-52 % Mean Corpuscular Volume 95 80-99 fL Mean Corpuscular Hemoglobin 29 25-34 pg Mean Corpuscular Hemoglobin Concent 31 L 32-36 g/dL Red Cell Distribution Width 13.8 10.0-14.5 % Platelet Count 151 130-400 10^3/uL Mean Platelet Volume 10.1 9.0-12.2 fL Sodium Level 135 135-145 MMOL/L Potassium Level 5.1 H 3.6-5.0 MMOL/L Chloride Level 106 98-107 MMOL/L Carbon Dioxide Level 21 21-32 MMOL/L Anion Gap 8 5-14 MMOL/L Blood Urea Nitrogen 34 H 7-18 MG/DL Creatinine 1.88 H 0.60-1.30 MG/DL Estimat Glomerular Filtration Rate 25 BUN/Creatinine Ratio 18 Glucose Level 187 H 70-105 MG/DL Calcium Level 8.1 L 8.5-10.1 MG/DL LLE--dressing intact. Intact DF and PF of toes and ankle. intact sensation to light touch throughout s/p L hip IM frank 50% WB LLE will likely require placement Final Diagnosis resting Vital Signs Date Time Temp Pulse Resp B/P (MAP) Pulse Ox O2 Delivery O2 Flow Rate FiO2 03/02/22 03:00 37.5 82 24 145/56 (85) 90 High Flow N/C 10.00 03/02/22 02:26 92 High Flow N/C 9.00 03/02/22 01:00 74 03/02/22 00:00 37.0 78 18 136/60 (85) 91 High Flow N/C 9.00 03/01/22 21:04 92 High Flow N/C 9.00 03/01/22 19:30 High Flow N/C 9.00 03/01/22 19:13 36.4 79 18 139/63 (88) 90 High Flow N/C 9.00 03/01/22 19:00 80 03/01/22 18:25 92 High Flow N/C 9.00 03/01/22 15:20 36.2 70 18 121/58 (79) 91 High Flow N/C 9.00 03/01/22 15:00 High Flow N/C 9.00 03/01/22 13:00 73 03/01/22 11:03 36.2 67 16 114/57 (76) 95 High Flow N/C 9.00 03/01/22 10:51 High Flow N/C 9.00 03/01/22 08:00 95 High Flow N/C 9.00 03/01/22 07:38 94 High Flow N/C 9.00 03/01/22 07:37 36.3 70 16 177/76 (109) 94 High Flow N/C 9.00 I & O 03/02/22 07:00 Intake Total 860 ml Output Total 1050 ml Balance -190 ml Laboratory Tests Test 03/02/22 05:25 Range/Units White Blood Count 15.2 H 4.3-11.0 10^3/uL Red Blood Count 3.00 L 3.80-5.11 10^6/uL Hemoglobin 8.9 L 11.5-16.0 g/dL Hematocrit 28 L 35-52 % Mean Corpuscular Volume 92 80-99 fL Mean Corpuscular Hemoglobin 30 25-34 pg Mean Corpuscular Hemoglobin Concent 32 32-36 g/dL Red Cell Distribution Width 14.2 10.0-14.5 % Platelet Count 277 130-400 10^3/uL Mean Platelet Volume 9.5 9.0-12.2 fL Sodium Level 139 135-145 MMOL/L Potassium Level 3.4 L 3.6-5.0 MMOL/L Chloride Level 102 98-107 MMOL/L Carbon Dioxide Level 21 21-32 MMOL/L Anion Gap 16 H 5-14 MMOL/L Blood Urea Nitrogen 56 H 7-18 MG/DL Creatinine 2.16 H 0.60-1.30 MG/DL Estimat Glomerular Filtration Rate 21 BUN/Creatinine Ratio 26 Glucose Level 123 H 70-105 MG/DL Calcium Level 8.5 8.5-10.1 MG/DL L hip dressing intact echymotic but no erythema or warmth s/p L hip IM frank mobilize as able SILVIO JUNIOR MD March 02, 2022 07:01
--- NOTE | 2022-03-02 08:02 | Diagnostic Imaging Report ---
EXAMINATION: Chest 1 view HISTORY: Pneumonia COMPARISON: 02/27/2022 FINDINGS: There has been progressive airspace opacification in the right upper zone. Stable airspace opacities in left mid and lower zone. Small left pleural effusion appears slightly decreased in size from prior exam. No pneumothorax. Heart size is normal. IMPRESSION: 1. Increasing airspace opacity in the right upper zone stable airspace opacities in left mid zone consistent with pneumonia. 2. Decrease in size small left pleural effusion. Dictated by: Dictated on workstation # [id number]
--- NOTE | 2022-03-02 08:34 | Progress Note ---
Subjective Date Seen by a Provider: March 02, 2022 Time Seen by a Provider: 08:28 Subjective/Events-last exam Fwup proximal left femur fracture, PAF, severe mitral regurgitation, anemia of chronic disease, Chronic Stage 4 kidney disease, labile HTN, left pleural effusion, pneumonia. Sitting up in chair eating breakfast. Objective Exam Vital Signs Date Time Temp Pulse Resp B/P (MAP) Pulse Ox O2 Delivery O2 Flow Rate FiO2 03/02/22 07:44 37.3 81 22 171/80 (110) 92 High Flow N/C 10.00 03/02/22 07:07 91 High Flow N/C 9.00 03/02/22 07:00 76 03/02/22 03:00 37.5 82 24 145/56 (85) 90 High Flow N/C 10.00 03/02/22 02:26 92 High Flow N/C 9.00 03/02/22 01:00 74 03/02/22 00:00 37.0 78 18 136/60 (85) 91 High Flow N/C 9.00 03/01/22 21:04 92 High Flow N/C 9.00 03/01/22 19:30 High Flow N/C 9.00 03/01/22 19:13 36.4 79 18 139/63 (88) 90 High Flow N/C 9.00 03/01/22 19:00 80 03/01/22 18:25 92 High Flow N/C 9.00 03/01/22 15:20 36.2 70 18 121/58 (79) 91 High Flow N/C 9.00 03/01/22 15:00 High Flow N/C 9.00 03/01/22 13:00 73 03/01/22 11:03 36.2 67 16 114/57 (76) 95 High Flow N/C 9.00 03/01/22 10:51 High Flow N/C 9.00 I & O 03/02/22 07:00 Intake Total 860 ml Output Total 1050 ml Balance -190 ml Capillary Refill : Less Than 3 SecondsLess Than 3 Seconds General Appearance: No Apparent Distress Neck: Supple Respiratory: Crackles (left), Decreased Breath Sounds (right) Cardiovascular: Regular Rate, Rhythm, Systolic Murmur, Gallop/S4 Gastrointestinal: normal bowel sounds, non tender, soft Extremity: Non Tender, No Calf Tenderness, No Pedal Edema Neurologic/Psychiatric: Alert Skin: Other (left hip dressing in place and dry/JASON hose on) Results Lab Laboratory Tests 03/02/22 05:25: White Blood Count 15.2H, Red Blood Count 3.00L, Hemoglobin 8.9L, Hematocrit 28L, Mean Corpuscular Volume 92, Mean Corpuscular Hemoglobin 30, Mean Corpuscular Hemoglobin Concent 32, Red Cell Distribution Width 14.2, Platelet Count 277, Mean Platelet Volume 9.5, Sodium Level 139, Potassium Level 3.4L, Chloride Level 102, Carbon Dioxide Level 21, Anion Gap 16H, Blood Urea Nitrogen 56H, Creatinine 2.16H, Estimat Glomerular Filtration Rate 21, BUN/Creatinine Ratio 26, Glucose Level 123H, Calcium Level 8.5 Microbiology 02/27/22 Gram Stain - Final, Complete 02/27/22 Sputum Culture - Final, Complete Usual upper respiratory erinn Assessment/Plan Assessment/Plan Assess & Plan/Chief Complaint 1. Proximal Left Femur Fracture--S/P left hip IM frank-pain control, lovenox for DVT prophylaxis, PT/OT started, plan is [facility]--really needs skilled nursing placement due to recurrent falls and son is in agreement with this 2. Acute on Chronic Anemia--H/H improved post 1u pRBCs 3. Labile HTN--amlodopine dose increased 4. PAF--Eliquis was being held due to recurrent falls--will plan on resuming at low dose on DC since will be up only with assist 5. Chronic Stage IV Kidney Disease--BUN/Cr elevated post IV lasix 6. Severe Mitral Regurgitation with Left Atrial Appendage--has refused eval for possible atrial appendage clip 7. Confusion--ing, pain med and infection 8. Acute Respiratory Distress with Left Sided pleural effusion--change lasix to IV, on oxygen via NC 9. Post-Op Pneumonia--patient has not been doing IS due to confusion, weakness, continue zosyn, continue SVNs with duoneb Clinical Quality Measures Admission Status Admission Dx 1. Proximal Left Femur Fracture--surgery today with Dr. Mosquera, will need SNF on discharge 2. Paroxysmal Atrial Fibrillation--in NSR on amidarone, will resume eliquis on DC at low dose for both DVT prophylaxis and her a fib and since will be only up with PT or assist 3. Severe Mitral Regurgitation with left atrial appendage--has refused seeing EP about possible clip to appendage 4. Labile Hypertension--resume low dose amlodopine 5. Chronic Stage IV Kidney Disease--seeing nephrology 6. Recurrent Falls--will go to SNF on discharge then either needs to stay vs transition to [place] as has ongoing fall risk HERMILA BARRIENTOS DO March 02, 2022 08:34
[2022-03-02] MEDS ORDERED: FUROSEMIDE 40 MG/4 ML INJ (LASIX) IVP SCH (09:00)
[2022-03-02] MEDS: SENNA W/DOCUSATE (SENOKOT S) TABLET PO SCH ×2 (09:12→19:14)
[2022-03-02] MEDS: PANTOPRAZOLE 40 MG (PROTONIX) TAB PO SCH (09:13)
[2022-03-02] MEDS: KCL 8 MEQ (MICRO K) TABLET PO SCH ×2 (09:13→19:14)
[2022-03-02] MEDS: PIPERACILLIN SODIUM/TAZOBACTAM 4.5 GM in NS (IVPB) 100 ML IV SCH ×2 (09:13→19:13)
[2022-03-02] MEDS: FLUoxetine HCL 20 MG (PROzac) CAP PO SCH (09:13)
[2022-03-02] MEDS: ENOXAPARIN INJECTION 30 MG/0.3 ML SYR SC SCH (09:13)
[2022-03-02] MEDS: FERROUS SULF 325 MG (IRON) TAB PO SCH ×3 (09:13→17:07)
[2022-03-02] MEDS: amLODIPine 5 MG (NORVASC) TAB PO SCH (09:13)
--- NOTE | 2022-03-02 10:42 | Cardiology Progress Note ---
Subjective Date Seen by Provider: March 02, 2022 Time Seen by Provider: 10:40 Subjective/Events-last exam Patient was seen at bedside, sitting comfortably Feeling better today. No new complaint Review of Systems General: No Chills, No Night Sweats; Fatigue, Malaise; No Appetite, No Other HEENT: No Head Aches, No Visual Changes, No Eye Pain, No Ear Pain, No Dysphasia, No Sinus Congestion, No Post Nasal Drip, No Sore Throat, No Other Pulmonary: No Dyspnea, No Cough, No Pleuritic Chest Pain, No Other Cardiovascular: No: Chest Pain, Palpitations, Orthopnea, Paroxysmal Noc. Dyspnea, Edema, Lt Headedness, Other Objective-Cardiology Exam Last Set of Vital Signs Vital Signs 03/02/22 03/02/22 07:44 08:00 Temp 37.3 Pulse 81 Resp 22 B/P (MAP) 171/80 (110) Pulse Ox 92 O2 Delivery High Flow N/C O2 Flow Rate 10.00 I&O Intake and Output 03/02/22 00:00 Intake Total 960 ml Output Total 700 ml Balance 260 ml Intake Oral 860 ml IV Total 100 ml Output Urine Total 700 ml # Voids 1 General: Alert, Oriented X3, Cooperative HEENT: Atraumatic, PERRLA Neck: Supple, No JVD, No Thyromegaly Lungs: Clear to Auscultation, Normal Air Movement Heart: Regular Rate, Normal S1, Normal S2, No Murmurs Abdomen: Normal Bowel Sounds, Soft, No Tenderness, No Hepatosplenomegaly, No Masses Extremities: No Clubbing, No Cyanosis, No Edema, Normal Pulses, No Tenderness/Swelling, Other (Health surgery) Skin: No Rashes Neuro: Normal Speech, Sensation Intact Psych/Mental Status: Mental Status NL, Mood NL Results Lab Laboratory Tests 03/02/22 05:25 A/P-Cardiology Admission Diagnosis Left hip fx PAF Severe MR HTN Assessment/Plan Acute delerium, underlying dementia. Better today. Continue to monitor, managed by primary care physician. Shortness of breath, cough, pulmonary infiltrate on chest x-ray Started empirically on antibiotics. Patient is breathing and feeling better today. Managed by primary care physician Status post fall resulting in left hip fracture, hip surgery was done on February 24, 2022, recovering slowly Anemia, postoperatively, s/p transfusion Monitor H&H History of frequent falls Paroxysmal atrial fibrillation, converted to sinus rhythm on amiodarone drip after failing electrical cardioversion in January 2021. Currently in sinus rhythm maintained on low-dose amiodarone as outpatient. [id number] score of 4, yearly risk of stroke without oral anticoagulation is 4%. Not on OAC d/t history of frequent falls Sinus node dysfunction, severe bradycardia while on beta-blockers, tolerating low-dose amiodarone and I have stopped Toprol due to severe bradycardia. I am hesitant to proceed with pacemaker placement at this time due to the fact that she might qualify for mitral clip, functioning normally not requiring pacemaker at this point Severe mitral regurgitation, CHAYITO done showing severe mitral regurgitation, dilated left atrium and left atrial appendage. Pulmonary artery pressure of 40 to 45 mmHg. Discussed referral for mitral valve clip evaluation, after long discussion with patient and family they prefer to continue with conservative management without any intervention at this time. We discussed the possibility of referral to [facility] for evaluation for mitral valve clip. A 2D echo was done on June 25, 2021 showing normal left ventricular size, EF 65 to 70%, severe mitral regurgitation, mild aortic regurgitation, severe tricuspid regurgitation, PA pressure 55 to 60 mmHg Severe hypertension, difficult to control blood pressure, had few episode of low blood pressure but generally elevated blood pressure, unable to tolerate multiple medications due to her chronic renal insufficiency and severe edna cardia. Blood pressure is still elevated. Amlodipine was increased to 5 mg daily I am hesitant to do significant changes due to history of hypotension. I will monitor on amlodipine 5 mg daily. Hyperlipidemia, started on Lipitor 10 mg daily on March 01, 2022 after stopping simvastatin during this admission Chronic kidney disease stage IV, chronic renal insufficiency. Followed and managed by primary care physician Abdominal pain, nausea and vomiting, gastritis, resolved Mild bilateral carotid stenosis, ultrasound was done in March 2021. Continue to monitor SERGIO LOYOLA MD March 02, 2022 10:42
[2022-03-02] MEDS: HYDROcodone/APAP 5 MG/325 MG (LORTAB) TAB PO PRN (12:55)
[2022-03-02] MEDS: GABAPENTIN 100 MG (NEURONTIN) CAP PO SCH (19:14)
[2022-03-02] MEDS: AtorvaSTATin TABLET 10 MG TABLET PO SCH (19:14)
[2022-03-03] MEDS: RT-ALBUTEROL/IPRATROPIUM 3 ML (DUONEB) VIAL INH SCH ×6 (02:07→22:06)
[2022-03-03 03:02] VITALS: BP 113/55
[2022-03-03] MEDS: CALCIUM CARB + VIT D 600 MG (CALCARB + D) TAB PO SCH (05:35)
[2022-03-03 05:43] LABS: HEMATOCRIT 25 % (35-52); HEMOGLOBIN 8.4 g/dL (11.5-16.0); MEAN CORPUSCULAR HEMOGLOBIN 30 pg (25-34); MEAN CORPUSCULAR HGB CONC 33 g/dL (32-36); MEAN CORPUSCULAR VOLUME 92 fL (80-99); MEAN PLATELET VOLUME 9.4 fL (9.0-12.2); PLATELET COUNT 298 10^3/uL (130-400)
[2022-03-03 06:01] LABS: ALBUMIN 2.7 GM/DL (3.2-4.5); BILIRUBIN,TOTAL 1.4 MG/DL (0.1-1.0); CALCIUM 8.4 MG/DL (8.5-10.1); CREATININE SERUM 2.53 MG/DL (0.60-1.30); POTASSIUM 3.5 MMOL/L (3.6-5.0)
[2022-03-03 07:38] VITALS: BP 122/66
--- NOTE | 2022-03-03 08:44 | Progress Note ---
Subjective Date Seen by a Provider: March 03, 2022 Time Seen by a Provider: 08:41 Subjective/Events-last exam Fwup proximal left femur fracture, PAF, severe mitral regurgitation, anemia of chronic disease, Chronic Stage 4 kidney disease, labile HTN, left pleural effusion, pneumonia. Sitting up in chair eating breakfast. More dyspneic at rest. Objective Exam Vital Signs Date Time Temp Pulse Resp B/P (MAP) Pulse Ox O2 Delivery O2 Flow Rate FiO2 03/03/22 07:38 36.7 83 22 122/66 (84) 92 High Flow N/C 9.00 03/03/22 07:24 94 High Flow N/C 10.00 03/03/22 03:02 37.2 83 18 113/55 (74) 92 High Flow N/C 9.00 03/03/22 02:07 95 High Flow N/C 10.00 03/03/22 01:00 92 03/02/22 23:59 70 03/02/22 23:19 37.0 70 18 138/65 (89) 93 High Flow N/C 9.00 03/02/22 20:44 93 High Flow N/C 10.00 03/02/22 20:00 37.0 74 18 119/57 (77) 95 High Flow N/C 7.00 03/02/22 19:20 High Flow N/C 10.00 03/02/22 19:00 70 03/02/22 18:28 96 High Flow N/C 10.00 03/02/22 16:00 36.6 78 20 129/60 (83) 94 High Flow N/C 7.00 03/02/22 14:36 100 High Flow N/C 9.00 03/02/22 13:00 68 03/02/22 11:19 36.7 70 20 136/63 (87) 98 High Flow N/C 7.00 03/02/22 11:10 97 High Flow N/C 9.00 I & O 03/03/22 07:00 Intake Total 1260 ml Output Total 2250 ml Balance -990 ml Capillary Refill : Less Than 3 SecondsLess Than 3 Seconds General Appearance: Mild Distress Neck: Supple Respiratory: Crackles, Decreased Breath Sounds, Respiratory Distress (mild) Cardiovascular: Regular Rate, Rhythm, Systolic Murmur, Irregularly Irregular Gastrointestinal: normal bowel sounds, non tender, soft Extremity: Non Tender, No Calf Tenderness, No Pedal Edema Neurologic/Psychiatric: Alert Results Lab Laboratory Tests 03/03/22 05:26: White Blood Count 17.0H, Red Blood Count 2.76L, Hemoglobin 8.4L, Hematocrit 25L, Mean Corpuscular Volume 92, Mean Corpuscular Hemoglobin 30, Mean Corpuscular Hemoglobin Concent 33, Red Cell Distribution Width 14.5, Platelet Count 298, Aranza n Platelet Volume 9.4, Sodium Level 141, Potassium Level 3.5L, Chloride Level 103, Carbon Dioxide Level 24, Anion Gap 14, Blood Urea Nitrogen 66H, Creatinine 2.53H, Estimat Glomerular Filtration Rate 18, BUN/Creatinine Ratio 26, Glucose Level 115H, Calcium Level 8.4L, Corrected Calcium 9.4, Total Bilirubin 1.4H, Aspartate Amino Transf (AST/SGOT) 51H, Alanine Aminotransferase (ALT/SGPT) 58H, Alkaline Phosphatase 135, Total Protein 5.0L, Albumin 2.7L Microbiology 02/27/22 Gram Stain - Final, Complete 02/27/22 Sputum Culture - Final, Complete Usual upper respiratory erinn Assessment/Plan Assessment/Plan Assess & Plan/Chief Complaint 1. Proximal Left Femur Fracture--S/P left hip IM frank-pain control, lovenox for DVT prophylaxis, PT/OT started, plan [facility]--really needs [facility] placement due to recurrent falls and son is in agreement with this 2. Acute on Chronic Anemia--H/H improved post 1u pRBCs 3. Labile HTN--amlodopine dose increased 4. PAF--change lovenox to eliquis 5. Chronic Stage IV Kidney Disease--BUN/Cr elevated post IV lasix 6. Severe Mitral Regurgitation with Left Atrial Appendage--has refused eval for possible atrial appendage clip 7. Confusion--sundowning, pain med and infection 8. Acute Respiratory Distress with Left Sided pleural effusion--restart lasix IV, on oxygen via [place] 9. Post-Op Pneumonia--patient has not been doing IS due to confusion, weakness, change zosyn to cefepime and doxycycline due to worsening WBC and worsening dypnea Clinical Quality Measures Admission Status Admission Dx 1. Proximal Left Femur Fracture--surgery today with Dr. Mosquera, will need SNF on discharge 2. Paroxysmal Atrial Fibrillation--in NSR on amidarone, will resume eliquis on DC at low dose for both DVT prophylaxis and her a fib and since will be only up with PT or assist 3. Severe Mitral Regurgitation with left atrial appendage--has refused seeing EP about possible clip to appendage 4. Labile Hypertension--resume low dose amlodopine 5. Chronic Stage IV Kidney Disease--seeing nephrology 6. Recurrent Falls--will go to SNF on discharge then either needs to stay vs transition to [place] as has ongoing fall risk HERMILA BARRIENTOS DO March 03, 2022 08:44
[2022-03-03] MEDS ORDERED: ACETAMINOPHEN 500 MG TAB (TYLENOL) PO PRN (08:45)
--- NOTE | 2022-03-03 09:11 | Physical Therapy Daily Note ---
PT Daily Note-Current Subjective Patient continues to be confused. Mental Status Patient Orientation: Confused Attachments: Oxygen Transfers SCALE: Activities may be completed with or without assistive devices. 5-Ibopuyuqnp-qfvgtqr completes the activity by him/herself with no assistance from a helper. 5-Set-up or Clean-up Assistance-helper sets up or cleans up; patient completes activity. [place] assists only prior to or following the activity. 4-Supervision or Touching Assistance-helper provides verbal cues and/or touching/steadying and/or contact guard assistance as patient completes activity. Assistance may be provided throughout the activity or intermittently. 3-Partial/Moderate Assistance-helper does LESS THAN HALF the effort. [place] lifts, holds or supports trunk or limbs, but provides less than half the effort. 2-Substantial/Maximal Assistance-helper does MORE THAN HALF the effort. [place] lifts or holds trunk or limbs and provides more than half the effort. 4-Yayajlanw-pdpyeg does ALL the effort. Patient does none of the effort to complete the activity. Or, the assistance of 2 or more helpers is required for the patient to complete the activity. If activity was not attempted, code reason: 7-Patient Refused. 9-Not Applicable-not attempted and the patient did not perform the activity before the current illness, exacerbation or injury. 10-Not Attempted due to Environmental Limitations-(lack of equipment, weather restraints, etc.). 88-Not Attempted due to Medical Conditions or Safety Concerns. Lying to Sitting/Side of Bed(Q: 1 Sit to Stand (QC): 1 Chair/Nkg-dh-Ilswv Xfer(QC): 1 Weight Bearing Right Lower Extremity: Right Full Weight Bearing Left Lower Extremity: Left Partial Weight Bearing unable to maintain PWB left LE due to confusion and weakness Exercises Seated Therapy Exercises: Ankle pumps, Long arc quads Seated Reps: 12 (AAROM) Assessment Patient up in recliner with needs met. Patient tolerates minimal activity due to current status. PT Fpc Goals Fpc Goals PT Information Security Associate Goals Time Frame: March 04, 2022 Roll Left & Right (QC): 3 Sit to Lying (QC): 3 Lying-Sitting on Side/Bed(QC): 3 Sit to Stand (QC): 4 Chair/Peo-ry-Onfcg Xfer(QC): 4 Walk 10 feet (QC): 4 PT Plan Treatment/Plan Treatment Plan: Continue Plan of Care Treatment Plan: Bed Mobility, Education, Functional Activity Richie, Functional Strength, Gait, Safety, Therapeutic Exercise, Transfers Treatment Duration: March 04, 2022 Frequency: 11 times per week Estimated Hrs Per Day: .25 hour per day Patient and/or Family Agrees t: Yes Time/GCodes Time In: 809 Time Out: 820 Total Billed Treatment Time: 11 Total Billed Treatment 1 visit FA 11 min ADRIANA CARTER PT March 03, 2022 09:11
[2022-03-03] MEDS: SENNA W/DOCUSATE (SENOKOT S) TABLET PO SCH ×2 (09:34→20:49)
--- NOTE | 2022-03-03 09:35 | Cardiology Progress Note ---
Subjective Date Seen by Provider: March 03, 2022 Time Seen by Provider: 08:30 Subjective/Events-last exam Patient is sitting up in chair, eating breakfast. Denies any chest pain. Review of Systems General: No Chills, No Night Sweats; Fatigue, Malaise; No Appetite, No Other HEENT: No Head Aches, No Visual Changes, No Eye Pain, No Ear Pain, No Dysphasia, No Sinus Congestion, No Post Nasal Drip, No Sore Throat, No Other Pulmonary: Dyspnea; No Cough, No Pleuritic Chest Pain, No Other Objective-Cardiology Exam Last Set of Vital Signs Vital Signs 03/03/22 07:38 Temp 36.7 Pulse 83 Resp 22 B/P (MAP) 122/66 (84) Pulse Ox 92 O2 Delivery High Flow N/C O2 Flow Rate 9.00 I&O Intake and Output 03/03/22 00:00 Intake Total 1060 ml Output Total 1950 ml Balance -890 ml Intake Oral 960 ml IV Total 100 ml Output Urine Total 1950 ml General: Alert, Oriented X3, Cooperative HEENT: Atraumatic, PERRLA Neck: Supple, No JVD, No Thyromegaly Lungs: Normal Air Movement, Other (diminished breath sounds) Heart: Regular Rate, Normal S1, Normal S2, No Murmurs Abdomen: Normal Bowel Sounds, Soft, No Tenderness, No Hepatosplenomegaly, No Masses Extremities: No Clubbing, No Cyanosis, No Edema, Normal Pulses, No Tenderness/Swelling, Other (Health surgery) Skin: No Rashes Neuro: Normal Speech, Sensation Intact Psych/Mental Status: Mental Status NL, Mood NL Results Lab Laboratory Tests 03/03/22 05:26 A/P-Cardiology Admission Diagnosis Left hip fx PAF Severe MR HTN Assessment/Plan Acute delerium, underlying dementia. Continue to monitor, managed by primary care physician. Shortness of breath, cough, pulmonary infiltrate on chest x-ray Started empirically on antibiotics. More dyspneic today. Managed by primary care physician Status post fall resulting in left hip fracture, hip surgery was done on February 24, 2022, recovering slowly Anemia, postoperatively, s/p transfusion Monitor H&H History of frequent falls Paroxysmal atrial fibrillation, converted to sinus rhythm on amiodarone drip after failing electrical cardioversion in January 2021. Currently in sinus rhythm maintained on low-dose amiodarone as outpatient. [id number] score of 4, yearly risk of stroke without oral anticoagulation is 4%. Not on OAC d/t history of frequent falls Sinus node dysfunction, severe bradycardia while on beta-blockers, tolerating low-dose amiodarone and I have stopped Toprol due to severe bradycardia. I am hesitant to proceed with pacemaker placement at this time due to the fact that she might qualify for mitral clip, functioning normally not requiring pacemaker at this point Severe mitral regurgitation, CHAYITO done showing severe mitral regurgitation, dilated left atrium and left atrial appendage. Pulmonary artery pressure of 40 to 45 mmHg. Discussed referral for mitral valve clip evaluation, after long discussion with patient and family they prefer to continue with conservative management without any intervention at this time. We discussed the possibility of referral to [facility] for evaluation for mitral valve clip. A 2D echo was done on June 25, 2021 showing normal left ventricular size, EF 65 to 70%, severe mitral regurgitation, mild aortic regurgitation, severe tricuspid regurgitation, PA pressure 55 to 60 mmHg Severe hypertension, difficult to control blood pressure, had few episode of low blood pressure but generally elevated blood pressure, unable to tolerate multiple medications due to her chronic renal insufficiency and severe bradycardia. Blood pressure better controlled. Hyperlipidemia, started on Lipitor 10 mg daily on March 01, 2022 after stopping simvastatin during this admission Chronic kidney disease stage IV, chronic renal insufficiency. Slightly worse renal function today, continue to monitor closely Abdominal pain, nausea and vomiting, gastritis, resolved Mild bilateral carotid stenosis, ultrasound was done in March 2021. Continue to monitor Supervisory-Addendum Brief Supervisory Addendum Participated in pt care: history, MDM, physical Personally performed: exam, history, MDM Care discussed with: LOLLY Results interpretation: Verified all documentation Notes: Patient was seen and evaluated with Aliyah, examination performed, management plan was discussed, agree with the current scribed note, I made few changes to the note using Italic font Patient was seen at bedside, sitting comfortably, having more dyspnea today I examined and interviewed the patient. Visited with Dr. Moreno. Antibiotics were changed today due to worsening lung sounds Given Lasix today, continue to monitor renal function closely Monitor blood pressure. ALIYAH FROST March 03, 2022 09:35 SERGIO LOYOLA MD March 03, 2022 09:38
[2022-03-03] MEDS: FUROSEMIDE 40 MG/4 ML INJ (LASIX) IVP SCH (09:42)
[2022-03-03] MEDS: KCL 8 MEQ (MICRO K) TABLET PO SCH ×3 (09:43→20:04)
[2022-03-03] MEDS: FLUoxetine HCL 20 MG (PROzac) CAP PO SCH (09:43)
[2022-03-03] MEDS: FERROUS SULF 325 MG (IRON) TAB PO SCH ×3 (09:43→18:24)
[2022-03-03] MEDS: amLODIPine 5 MG (NORVASC) TAB PO SCH (09:43)
[2022-03-03] MEDS: ENOXAPARIN INJECTION 30 MG/0.3 ML SYR SC SCH (09:43)
[2022-03-03] MEDS: PANTOPRAZOLE 40 MG (PROTONIX) TAB PO SCH (09:43)
[2022-03-03] MEDS: fluCOnazole (DIFLUCAN) 100 MG TAB PO SCH (09:43)
[2022-03-03] MEDS: HYDROcodone/APAP 5 MG/325 MG (LORTAB) TAB PO PRN (09:44)
[2022-03-03] MEDS: CEFEPIME INJECTION 1,000 MG in NS (IVPB) 50 ML IV SCH ×2 (10:23→20:04)
[2022-03-03] MEDS: DOXYCYCLINE INJECTION 100 MG in NS (IVPB) 100 ML IV SCH ×2 (10:28→20:49)
[2022-03-03 11:25] VITALS: BP 131/58
[2022-03-03 15:56] VITALS: BP 129/88
[2022-03-03 19:52] VITALS: BP 141/67
[2022-03-03] MEDS: GABAPENTIN 100 MG (NEURONTIN) CAP PO SCH (20:04)
[2022-03-03] MEDS: AtorvaSTATin TABLET 10 MG TABLET PO SCH (20:04)
[2022-03-04 00:27] VITALS: BP 116/66
[2022-03-04] MEDS: RT-ALBUTEROL/IPRATROPIUM 3 ML (DUONEB) VIAL INH SCH ×4 (02:02→15:19)
[2022-03-04 04:06] VITALS: BP 128/71
[2022-03-04 05:59] LABS: HEMATOCRIT 30 % (35-52); HEMOGLOBIN 9.7 g/dL (11.5-16.0); MEAN CORPUSCULAR HEMOGLOBIN 30 pg (25-34); MEAN CORPUSCULAR HGB CONC 32 g/dL (32-36); MEAN CORPUSCULAR VOLUME 93 fL (80-99); MEAN PLATELET VOLUME 9.3 fL (9.0-12.2); PLATELET COUNT 361 10^3/uL (130-400); WHITE BLOOD COUNT 15.4 10^3/uL (4.3-11.0)
[2022-03-04 06:23] LABS: ALBUMIN 3.1 GM/DL (3.2-4.5); POTASSIUM 3.2 MMOL/L (3.6-5.0)
[2022-03-04 06:24] LABS: CALCIUM 9.3 MG/DL (8.5-10.1)
[2022-03-04 06:25] LABS: TOTAL PROTEIN 5.9 GM/DL (6.4-8.2)
[2022-03-04 06:27] LABS: BILIRUBIN,TOTAL 1.6 MG/DL (0.1-1.0)
[2022-03-04 06:29] LABS: CREATININE SERUM 2.15 MG/DL (0.60-1.30)
[2022-03-04] MEDS: CALCIUM CARB + VIT D 600 MG (CALCARB + D) TAB PO SCH (06:57)
[2022-03-04 07:46] VITALS: BP 141/66
--- NOTE | 2022-03-04 08:59 | Cardiology Progress Note ---
Subjective Date Seen by Provider: March 04, 2022 Time Seen by Provider: 08:25 Subjective/Events-last exam Patient having progressing shortness of breath. Review of Systems General: No Chills, No Night Sweats; Fatigue, Malaise; No Appetite, No Other HEENT: No Head Aches, No Visual Changes, No Eye Pain, No Ear Pain, No Dysphasia, No Sinus Congestion, No Post Nasal Drip, No Sore Throat, No Other Pulmonary: Dyspnea; No Cough, No Pleuritic Chest Pain, No Other Cardiovascular: No: Chest Pain, Palpitations, Orthopnea, Paroxysmal Noc. Dyspnea, Edema, Lt Headedness, Other Objective-Cardiology Exam Last Set of Vital Signs Vital Signs 03/04/22 03/04/22 10:54 11:22 Temp 37.1 Pulse 97 Resp 17 B/P (MAP) 144/76 (98) Pulse Ox 95 O2 Delivery Vapotherm O2 Flow Rate 100.00 30.00 FiO2 75 I&O Intake and Output 03/03/22 23:59 Intake Total 1260 ml Output Total 1225 ml Balance 35 ml Intake Oral 1260 ml Output Urine Total 1225 ml General: Alert, Oriented X3, Cooperative HEENT: Atraumatic, PERRLA Neck: Supple, No JVD, No Thyromegaly Lungs: Normal Air Movement, Other (diminished breath sounds) Heart: Regular Rate, Normal S1, Normal S2, No Murmurs Abdomen: Normal Bowel Sounds, Soft, No Tenderness, No Hepatosplenomegaly, No Masses Extremities: No Clubbing, No Cyanosis, No Edema, Normal Pulses, No Tenderness/Swelling, Other (Health surgery) Skin: No Rashes Neuro: Normal Speech, Sensation Intact Psych/Mental Status: Mental Status NL, Mood NL Results Lab Laboratory Tests 03/04/22 05:55 A/P-Cardiology Admission Diagnosis Left hip fx PAF Severe MR HTN Assessment/Plan Acute delerium, underlying dementia. Continue to monitor, managed by primary care physician. Shortness of breath, worsening, pulmonary infiltrate on chest x-ray Started empirically on antibiotics. Currently on Vapotherm. Repeat chest x-ray showed worsening pulmonary edema, underlying pneumonia cannot be excluded Started on Lasix 40 mg IV daily, I will give Zaroxolyn 5 mg p.o. once today and evaluate tolerance and response. Status post fall resulting in left hip fracture, hip surgery was done on February 24, 2022, recovering slowly Anemia, postoperatively, s/p transfusion Monitor H&H History of frequent falls Paroxysmal atrial fibrillation, converted to sinus rhythm on amiodarone drip after failing electrical cardioversion in January 2021. Currently in sinus rhythm maintained on low-dose amiodarone as outpatient. [id number] score of 4, yearly risk of stroke without oral anticoagulation is 4%. Not on OAC d/t history of frequent falls Sinus node dysfunction, severe bradycardia while on beta-blockers, tolerating low-dose amiodarone and I have stopped Toprol due to severe bradycardia. I am hesitant to proceed with pacemaker placement at this time due to the fact that she might qualify for mitral clip, functioning normally not requiring pacemaker at this point Severe mitral regurgitation, CHAYITO done showing severe mitral regurgitation, dilated left atrium and left atrial appendage. Pulmonary artery pressure of 40 to 45 mmHg. Discussed referral for mitral valve clip evaluation, after long discussion with patient and family they prefer to continue with conservative management without any intervention at this time. We discussed the possibility of referral to [facility] for evaluation for mitral valve clip. A 2D echo was done on June 25, 2021 showing normal left ventricular size, EF 65 to 70%, severe mitral regurgitation, mild aortic regurgitation, severe tricuspid regurgitation, PA pressure 55 to 60 mmHg Severe hypertension, difficult to control blood pressure, had few episode of low blood pressure but generally elevated blood pressure, unable to tolerate multiple medications due to her chronic renal insufficiency and severe bradycardia. Blood pressure better controlled. Hyperlipidemia, started on Lipitor 10 mg daily on March 01, 2022 after stopping simvastatin during this admission Chronic kidney disease stage IV, chronic renal insufficiency. Continue to monitor. Abdominal pain, nausea and vomiting, gastritis, resolved Mild bilateral carotid stenosis, ultrasound was done in March 2021. Continue to monitor Supervisory-Addendum Brief Supervisory Addendum Participated in pt care: history, MDM, physical Personally performed: exam, history, MDM Care discussed with: LOLLY Results interpretation: Verified all documentation Notes: Patient was seen and evaluated with Aliyah, examination performed, management plan was discussed, agree with the current scribed note, I made few changes to the note using Italic font Patient was seen at bedside sedated comfortably, having worsening dyspnea Will give additional Zaroxolyn dose today Continue on Lasix 40 mg IV daily Monitor renal function Chest x-ray results reviewed and discussed ALIYAH FROST March 04, 2022 08:59 SERGIO LOYOLA MD March 04, 2022 13:52
[2022-03-04] MEDS: POTASSIUM CL 10MEQ/50ML IVPB 50 ML IV SCH ×2 (10:14→11:02)
[2022-03-04] MEDS: CEFEPIME INJECTION 1,000 MG in NS (IVPB) 50 ML IV SCH (10:15)
[2022-03-04] MEDS: FUROSEMIDE 40 MG/4 ML INJ (LASIX) IVP SCH (10:16)
[2022-03-04] MEDS: amLODIPine 5 MG (NORVASC) TAB PO SCH (10:17)
[2022-03-04] MEDS: ENOXAPARIN INJECTION 30 MG/0.3 ML SYR SC SCH (10:17)
[2022-03-04] MEDS: PANTOPRAZOLE 40 MG (PROTONIX) TAB PO SCH (10:17)
[2022-03-04] MEDS: FLUoxetine HCL 20 MG (PROzac) CAP PO SCH (10:17)
[2022-03-04] MEDS: fluCOnazole (DIFLUCAN) 100 MG TAB PO SCH (10:17)
[2022-03-04] MEDS: KCL 8 MEQ (MICRO K) TABLET PO SCH ×2 (10:17→13:59)
[2022-03-04] MEDS: FERROUS SULF 325 MG (IRON) TAB PO SCH ×3 (10:18→17:18)
[2022-03-04] MEDS: SENNA W/DOCUSATE (SENOKOT S) TABLET PO SCH (10:24)
--- NOTE | 2022-03-04 11:18 | Diagnostic Imaging Report ---
Indication: Cough. Pneumonia. Comparison 01/28/2021. FINDINGS: 2 views. There are dense alveolar infiltrates perihilar distribution bilaterally as well as left basilar effusion. There is cardiomegaly. No evidence of pneumothorax. No bony abnormalities. IMPRESSION: Dense bilateral alveolar infiltrates and pleural effusion likely secondary to congestive failure and pulmonary edema. Superimposed pneumonia cannot be excluded. Dictated by: Dictated on workstation # [id number]
[2022-03-04 11:22] VITALS: BP 144/76
[2022-03-04] MEDS: DOXYCYCLINE INJECTION 100 MG in NS (IVPB) 100 ML IV SCH (12:10)
[2022-03-04] MEDS ORDERED: methylPREDNISolone 40 MG/ML (Solu-MEDROL) VIAL IV ONE (13:00)
--- NOTE | 2022-03-04 13:03 | Progress Note ---
Subjective Date Seen by a Provider: March 04, 2022 Time Seen by a Provider: 13:00 Subjective/Events-last exam Fwup proximal left femur fracture, PAF, severe mitral regurgitation, anemia of chronic disease, Chronic Stage 4 kidney disease, labile HTN, left pleural effusion, pneumonia, hypokalemia. Sitting up in chair. Now on Vapotherm. Objective Exam Vital Signs Date Time Temp Pulse Resp B/P (MAP) Pulse Ox O2 Delivery O2 Flow Rate FiO2 03/04/22 11:22 37.1 97 17 144/76 (98) 95 Vapotherm 100.00 30.00 03/04/22 10:54 95 Vapotherm 30.00 75 03/04/22 08:06 94 Vapotherm 30.00 100 03/04/22 08:00 95 Vapotherm 30.00 03/04/22 07:46 37.0 96 19 141/66 (91) 100 Vapotherm 100.00 30.00 03/04/22 07:38 79 03/04/22 07:09 93 High Flow N/C 10.00 03/04/22 04:06 36.6 85 20 128/71 (90) 92 High Flow N/C 10.00 03/04/22 02:02 91 High Flow N/C 10.00 03/04/22 01:00 86 03/04/22 00:27 36.1 85 18 116/66 (83) 93 High Flow N/C 10.00 03/03/22 22:07 94 High Flow N/C 10.00 03/03/22 20:00 High Flow N/C 10.00 03/03/22 19:52 35.9 87 18 141/67 (91) 92 High Flow N/C 10.00 03/03/22 19:00 92 03/03/22 18:44 93 High Flow N/C 10.00 03/03/22 15:56 36.2 93 18 129/88 (102) 90 High Flow N/C 9.00 03/03/22 14:42 94 High Flow N/C 10.00 I & O 03/04/22 07:00 Intake Total 1160 ml Output Total 1025 ml Balance 135 ml Capillary Refill : Less Than 3 SecondsLess Than 3 Seconds General Appearance: Mild Distress Neck: Supple Respiratory: Crackles, Decreased Breath Sounds Cardiovascular: Regular Rate, Rhythm, Systolic Murmur Gastrointestinal: normal bowel sounds, non tender, soft Extremity: Non Tender, No Calf Tenderness, No Pedal Edema Neurologic/Psychiatric: Alert Results Lab Laboratory Tests 03/04/22 05:55: White Blood Count 15.4H, Red Blood Count 3.24L, Hemoglobin 9.7L, Hematocrit 30L, Mean Corpuscular Volume 93, Mean Corpuscular Hemoglobin 30, Mean Corpuscular Hemoglobin Concent 32, Red Cell Distribution Width 14.6H, Platelet Count 361, Mean Platelet Volume 9.3, Sodium Level 142, Potassium Level 3.2L, Chloride Level 103, Carbon Dioxide Level 23, Anion Gap 16H, Blood Urea Nitrogen 64H, Creatinine 2.15H, Estimat Glomerular Filtration Rate 21, BUN/Creatinine Ratio 30, Glucose Level 108H, Calcium Level 9.3, Corrected Calcium 10.0, Total Bilirubin 1.6H, Aspartate Amino Transf (AST/SGOT) 55H, Alanine Aminotransferase (ALT/SGPT) 68H, Alkaline Phosphatase 160H, Total Protein 5.9L, Albumin 3.1L 03/04/22 07:00: Magnesium Level 2.0 Microbiology 02/27/22 Gram Stain - Final, Complete 02/27/22 Sputum Culture - Final, Complete Usual upper respiratory erinn Assessment/Plan Assessment/Plan Assess & Plan/Chief Complaint 1. Proximal Left Femur Fracture--S/P left hip IM frank-pain control, lovenox for DVT prophylaxis, PT/OT started, [facility]--really needs [facility] due to recurrent falls and son is in agreement with this 2. Acute on Chronic Anemia--H/H improved post 1u pRBCs 3. Labile HTN--amlodopine dose increased 4. PAF--change lovenox to eliquis 5. Chronic Stage IV Kidney Disease--BUN/Cr elevated post IV lasix 6. Severe Mitral Regurgitation with Left Atrial Appendage--has refused eval for possible atrial appendage clip 7. Confusion--ing, pain med and infection 8. Acute Respiratory Distress with Left Sided pleural effusion--0n lasix IV, on vapotherm 9. Post-Op Pneumonia--patient has not been doing IS due to confusion, weakness, changed to cefepime and doxycycline due to worsening WBC and worsening dypnea yesterday 10. Hypokalemia--replace potassium Discussed with son Clinical Quality Measures Admission Status Admission Dx 1. Proximal Left Femur Fracture--surgery today with Dr. Mosquera, will need SNF on discharge 2. Paroxysmal Atrial Fibrillation--in NSR on amidarone, will resume eliquis on DC at low dose for both DVT prophylaxis and her a fib and since will be only up with PT or assist 3. Severe Mitral Regurgitation with left atrial appendage--has refused seeing EP about possible clip to appendage 4. Labile Hypertension--resume low dose amlodopine 5. Chronic Stage IV Kidney Disease--seeing nephrology 6. Recurrent Falls--will go to SNF on discharge then either needs to stay vs transition to [place] as has ongoing fall risk HERMILA BARRIENTOS DO March 04, 2022 13:03
[2022-03-04] MEDS ORDERED: methylPREDNISolone 125 MG (Solu-MEDROL) VIAL ONE (13:54)
[2022-03-04] MEDS ORDERED: METOLAZONE 5 MG (ZAROXOLYN) TAB PO ONE (14:00)
--- NOTE | 2022-03-04 14:11 | Physical Therapy Daily Note ---
PT Daily Note-Current Subjective Patient up in recliner, currently on Vapotherm 100% with NC off. SAO2 70%. RN notified. Patient requested toilet use for BM Mental Status Patient Orientation: Confused Attachments: Oxygen (vapotherm 100%), IV Transfers SCALE: Activities may be completed with or without assistive devices. 1-Gnunoolbbg-kmadfum completes the activity by him/herself with no assistance from a helper. 5-Set-up or Clean-up Assistance-helper sets up or cleans up; patient completes activity. [place] assists only prior to or following the activity. 4-Supervision or Touching Assistance-helper provides verbal cues and/or touc jeaneth/steadying and/or contact guard assistance as patient completes activity. Assistance may be provided throughout the activity or intermittently. 3-Partial/Moderate Assistance-helper does LESS THAN HALF the effort. [place] lifts, holds or supports trunk or limbs, but provides less than half the effort. 2-Substantial/Maximal Assistance-helper does MORE THAN HALF the effort. [place] lifts or holds trunk or limbs and provides more than half the effort. 3-Qeazcdlqw-vtwyuv does ALL the effort. Patient does none of the effort to complete the activity. Or, the assistance of 2 or more helpers is required for the patient to complete the activity. If activity was not attempted, code reason: 7-Patient Refused. 9-Not Applicable-not attempted and the patient did not perform the activity before the current illness, exacerbation or injury. 10-Not Attempted due to Environmental Limitations-(lack of equipment, weather restraints, etc.). 88-Not Attempted due to Medical Conditions or Safety Concerns. Sit to Lying (QC): 1 Sit to Stand (QC): 1 Chair/Ivt-qs-Azfzt Xfer(QC): 1 Toilet Transfer (QC): 1 Weight Bearing Right Lower Extremity: Right Full Weight Bearing Left Lower Extremity: Left Partial Weight Bearing unable to maintain PWB left LE due to confusion and weakness Assessment Patient had large BM requiring dependent assist to cleanse with dependent assist for sit to stand and SPT recliner to commode to bed. Dependent with all bed mobility. Patient unable to maintain PWB left LE. 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 Goals N[employer] Pit Crew Person Goals 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 Goals Time Frame: March 04, 2022 Roll Left & Right (QC): 3 Sit to Lying (QC): 3 Lying-Sitting on Side/Bed(QC): 3 Sit to Stand (QC): 4 Chair/Jhk-ie-Rlxes Xfer(QC): 4 Walk 10 feet (QC): 4 PT Plan Treatment/Plan Treatment Plan: Continue Plan of Care Treatment Plan: Bed Mobility, Education, Functional Activity Richie, Functional Strength, Gait, Safety, Therapeutic Exercise, Transfers Treatment Duration: March 04, 2022 Frequency: 11 times per week Estimated Hrs Per Day: .25 hour per day Patient and/or Family Agrees t: Yes Time/GCodes Time In: 1330 Time Out: 1340 Total Billed Treatment Time: 10 Total Billed Treatment 1 visit FA 10 min ADRIANA CARTER PT March 04, 2022 14:11
[2022-03-04 16:00] VITALS: BP 146/74
--- NOTE | 2022-03-04 16:04 | Progress Note ---
Standard Progress Note Progress Notes/Assess & Plan Date Seen by a Provider: March 04, 2022 Time Seen by a Provider: 16:02 Progress/Assessment & Plan no complaints Vital Signs Date Time Temp Pulse Resp B/P (MAP) Pulse Ox O2 Delivery O2 Flow Rate FiO2 02/25/22 04:42 37.0 65 20 111/54 (73) 95 Nasal Cannula 2.00 02/25/22 01:05 62 02/25/22 00:18 36.9 67 20 115/56 (75) 96 Nasal Cannula 2.00 02/24/22 20:00 Room Air 02/24/22 19:19 37.0 67 20 145/67 (93) 99 Nasal Cannula 2.00 02/24/22 19:00 60 02/24/22 16:10 Nasal Cannula 2 02/24/22 16:10 36.4 18 155/76 (102) 96 Nasal Cannula 2 02/24/22 16:00 36.7 60 18 168/70 (102) 97 Nasal Cannula 2.00 02/24/22 16:00 18 148/72 (97) 99 Nasal Cannula 2 02/24/22 16:00 Nasal Cannula 2 02/24/22 15:55 Nasal Cannula 2 02/24/22 15:50 18 151/70 (97) 97 Nasal Cannula 2 02/24/22 15:42 OxyMask 4 02/24/22 15:40 18 159/72 (101) 97 OxyMask 3 02/24/22 15:30 18 160/78 (105) 97 OxyMask 6 02/24/22 15:30 OxyMask 6 02/24/22 15:20 18 176/76 (109) 99 OxyMask 6 02/24/22 15:18 36.2 16 171/78 (109) 97 OxyMask 6 02/24/22 15:18 OxyMask 6 02/24/22 13:00 55 02/24/22 11:23 36.6 55 18 151/70 (97) 95 Room Air 02/24/22 08:00 Room Air 02/24/22 07:51 36.5 54 18 129/62 (84) 94 Room Air I & O 02/25/22 07:00 Intake Total 1200 ml Output Total 935 ml Balance 265 ml Laboratory Tests Test 02/25/22 05:10 Range/Units White Blood Count 9.4 4.3-11.0 10^3/uL Red Blood Count 2.39 L 3.80-5.11 10^6/uL Hemoglobin 7.0 L 11.5-16.0 g/dL Hematocrit 23 L 35-52 % Mean Corpuscular Volume 95 80-99 fL Mean Corpuscular Hemoglobin 29 25-34 pg Mean Corpuscular Hemoglobin Concent 31 L 32-36 g/dL Red Cell Distribution Width 13.8 10.0-14.5 % Platelet Count 151 130-400 10^3/uL Mean Platelet Volume 10.1 9.0-12.2 fL Sodium Level 135 135-145 MMOL/L Potassium Level 5.1 H 3.6-5.0 MMOL/L Chloride Level 106 98-107 MMOL/L Carbon Dioxide Level 21 21-32 MMOL/L Anion Gap 8 5-14 MMOL/L Blood Urea Nitrogen 34 H 7-18 MG/DL Creatinine 1.88 H 0.60-1.30 MG/DL Estimat Glomerular Filtration Rate 25 BUN/Creatinine Ratio 18 Glucose Level 187 H 70-105 MG/DL Calcium Level 8.1 L 8.5-10.1 MG/DL LLE--dressing intact. Intact DF and PF of toes and ankle. intact sensation to light touch throughout s/p L hip IM frank 50% WB LLE will likely require placement Final Diagnosis resting SOB Vital Signs Date Time Temp Pulse Resp B/P (MAP) Pulse Ox O2 Delivery O2 Flow Rate FiO2 03/04/22 15:19 94 Vapotherm 30.00 100 03/04/22 13:00 94 03/04/22 11:22 37.1 97 17 144/76 (98) 95 Vapotherm 100.00 30.00 03/04/22 10:54 95 Vapotherm 30.00 75 03/04/22 08:06 94 Vapotherm 30.00 100 03/04/22 08:00 95 Vapotherm 30.00 03/04/22 07:46 37.0 96 19 141/66 (91) 100 Vapotherm 100.00 30.00 03/04/22 07:38 79 03/04/22 07:09 93 High Flow N/C 10.00 03/04/22 04:06 36.6 85 20 128/71 (90) 92 High Flow N/C 10.00 03/04/22 02:02 91 High Flow N/C 10.00 03/04/22 01:00 86 03/04/22 00:27 36.1 85 18 116/66 (83) 93 High Flow N/C 10.00 03/03/22 22:07 94 High Flow N/C 10.00 03/03/22 20:00 High Flow N/C 10.00 03/03/22 19:52 35.9 87 18 141/67 (91) 92 High Flow N/C 10.00 03/03/22 19:00 92 03/03/22 18:44 93 High Flow N/C 10.00 I & O 03/04/22 07:00 Intake Total 1160 ml Output Total 1025 ml Balance 135 ml Laboratory Tests Test 03/04/22 05:55 03/04/22 07:00 Range/Units White Blood Count 15.4 H 4.3-11.0 10^3/uL Red Blood Count 3.24 L 3.80-5.11 10^6/uL Hemoglobin 9.7 L 11.5-16.0 g/dL Hematocrit 30 L 35-52 % Mean Corpuscular Volume 93 80-99 fL Mean Corpuscular Hemoglobin 30 25-34 pg Mean Corpuscular Hemoglobin Concent 32 32-36 g/dL Red Cell Distribution Width 14.6 H 10.0-14.5 % Platelet Count 361 130-400 10^3/uL Mean Platelet Volume 9.3 9.0-12.2 fL Sodium Level 142 135-145 MMOL/L Potassium Level 3.2 L 3.6-5.0 MMOL/L Chloride Level 103 98-107 MMOL/L Carbon Dioxide Level 23 21-32 MMOL/L Anion Gap 16 H 5-14 MMOL/L Blood Urea Nitrogen 64 H 7-18 MG/DL Creatinine 2.15 H 0.60-1.30 MG/DL Estimat Glomerular Filtration Rate 21 BUN/Creatinine Ratio 30 Glucose Level 108 H 70-105 MG/DL Calcium Level 9.3 8.5-10.1 MG/DL Corrected Calcium 10.0 8.5-10.1 MG/DL Total Bilirubin 1.6 H 0.1-1.0 MG/DL Aspartate Amino Transf (AST/SGOT) 55 H 5-34 U/L Alanine Aminotransferase (ALT/SGPT) 68 H 0-55 U/L Alkaline Phosphatase 160 H 40-136 U/L Total Protein 5.9 L 6.4-8.2 GM/DL Albumin 3.1 L 3.2-4.5 GM/DL Magnesium Level 2.0 1.6-2.4 MG/DL L hip incisions clean and dry s/p L hip IM frank medically appears to be deteriorating SILVIO JUNIOR MD March 04, 2022 16:04
[2022-03-04] MEDS ORDERED: methylPREDNISolone 40 MG/ML (Solu-MEDROL) VIAL IV SCH (18:00)
[2022-03-04] MEDS ORDERED: EPINEPHrine 0.1 MG/ML 10 ML (HOSPIRA) SYR IJ ONE (18:47)
[2022-03-04] MEDS ORDERED: ATROPINE INJECTION 1 MG/10 ML SYR (ABBOTT) INJ ONE (18:47)
--- NOTE | 2022-03-04 19:08 | ED General ---
General Chief Complaint: Lower Extremity Stated Complaint: FALL FROM STANDING - L HIP FRACTURE Nursing Triage Note: PATIENT STATES THAT SHE STUMBLED AND FELL APPROX A HOUR AND A HALF AGO. SHE WAS UNABLE TO GET UP AND THEN PUSHED HER EMERGENCY ALERT BUTTON THAT SHE HAS WITH HER AT ALL TIMES. SHE C/O LEFT LOWER EXTREM. PAIN. Nursing Sepsis Screen: No Definite Risk History of Present Illness Date Seen by Provider: March 04, 2022 Time Seen by Provider: 18:25 Initial Comments CALLED FROM ER TO ATTEND CODE BLUE IN PROGRESS PT RECENTLY ADMITTED FOR LEFT HIP FRACTURE AND HAD SURGICAL REPAIR RECENT PROGRESS NOTES FROM PHYSICIANS INDICATE THAT PT HAS BEEN DETERIORATING MEDICALLY AND WAS STARTED ON VAPOTHERM FOR INCREASING RESPIRATORY DIFFICULTY, PT ALSO HAS MULTIPLE CO-MORBIDITIES--SEE THEIR NOTES FOR DETAILS CODE LIMITATIONS: PT IS DO NOT INTUBATE, DO NOT INITIATE RAPID RESPONSE. NURSING STAFF REPORT THAT PT HAD SUDDEN BRADYCARDIA NOTED ON TELEMETRY, AND ON ARRIVAL IN PT'S ROOM, SHE WAS THEN IN ASYSTOLE, PULSELESS AND APNEIC/RARE AGONAL BREATHING RT STAFF ARE BAGGING PT CPR WAS INITIATED PRIOR TO MY ARRIVAL TO ROOM PT RECEIVED EPINEPRINE X 2, ATROPINE X 1 WITH VERY BRIEF RETURN OF PULSE, WITH VERY RARE AGONAL BREATHS PT QUICKLY DETERIORATED TO ASYSTOLE/PULSELESS CPR AND ALL RESUSCITATION EFFORTS WERE DISCONTINUED SON WAS CONTACTED WHILE CPR WAS IN PROGRESS AND HE ADVISES TO "LET HER GO" AND NO FURTHER CPR OR RESUSCITATION. CODE WAS CALLED AT THAT TIME Allergies and Home Medications Allergies Coded Allergies: aspirin (Verified Allergy, Unknown, Abdominal Pain, 01/21/21) gi upset Patient Home Medication List Acetaminophen (Tylenol Extra Strength) 500 Mg Tablet, 500 MG PO Q8H PRN for PAIN-MILD (1-4), (Reported) Entered as Reported by: ASHLEY CORBETT on 02/24/22 1114 Last Action: Reviewed Amiodarone HCl (Amiodarone HCl) 200 Mg Tablet, 100 MG PO DAILY, (Reported) Entered as Reported by: ASHLEY CORBETT on 02/24/22 1108 Last Action: Reviewed Amlodipine Besylate (Amlodipine Besylate) 2.5 Mg Tablet, 2.5 MG PO DAILY, (Reported) Entered as Reported by: ASHLEY CORBETT on 02/24/22 1106 Last Action: Reviewed C,E,Zinc,Copper 11/Zwwck2o/Lut (Ocuvite Adult 50 Plus Softgel) 250 Mg (90 Mg-160 Mg)-5 Mg-1 Mg Capsule, 1 EACH PO DAILY, (Reported) Entered as Reported by: ASHLEY CORBETT on 02/24/22 111 Last Action: Reviewed Calcitriol (Calcitriol) 0.25 Mcg Capsule, 0.25 MG PO MON,WED,FRI, (Reported) Entered as Reported by: ASHLEY CORBETT on 02/24/22 110 Last Action: Reviewed Calcium Carbonate/Vitamin D3 (Calcium 500 mg Chewable Tablet) 500 Mg-2.5 Tab.chew, 1 EACH PO DAILY, (Reported) Entered as Reported by: ASHLEY CORBETT on 02/24/22 111 Last Action: Converted Carboxymethylcellulose Sodium (Refresh Tears) 0.5 % Drops, 1 DROP OP DAILY PRN for DRY EYES, (Reported) Entered as Reported by: ASHLEY CORBETT on 02/24/22 111 Last Action: Converted Cranberry (Cranberry) 400 Mg Capsule, 400 MG PO DAILY, (Reported) Entered as Reported by: ADILIA MARTINEZ on 01/22/21 102 Last Action: Reviewed Docusate Sodium (Stool Softener) 100 Mg Tablet, 100 MG PO DAILY, (Reported) Entered as Reported by: ASHLEY CORBETT on 02/24/22 111 Last Action: Reviewed Fluoxetine HCl (Fluoxetine HCl) 40 Mg Capsule, 40 MG PO DAILY, (Reported) Entered as Reported by: ASHLEY CORBETT on 02/24/221104 Last Action: Converted Furosemide (Furosemide) 20 Mg Tablet, 20 MG PO Q48H, (Reported) Entered as Reported by: ASHLEY CORBETT on 02/24/22 110 Last Action: Reviewed Gabapentin (Gabapentin) 100 Mg Capsule, 100 MG PO HS, (Reported) Entered as Reported by: ASHLEY CORBETT on 02/24/22 110 Last Action: Continued Potassium Chloride (K-Tab ER) 10 Meq Tablet.er, 10 MG PO DAILY, (Reported) Entered as Reported by: ASHLEY CORBETT on 02/24/22 110 Last Action: Reviewed Simvastatin (Simvastatin) 20 Mg Tablet, 20 MG PO DAILY, (Reported) Entered as Reported by: ADILIA MARTINEZ on 01/22/21 1026 Last Action: Continued Past Rwylovg-Izwkxj-Kkyoxw Hx Patient Social History Tobacco Use?: No Smoking Status: Never a Smoker Smokeless Tobacco Frequency: Never a User Use of E-Cig and/or Vaping dev: No Substance use?: No Alcohol Use?: No Pt feels they are or have been: No Immunizations Up To Date Influenza Vaccine Up-to-Date: Yes; Up-to-Date First/Initial COVID19 Vaccinat: 01/30 Second COVID19 Vaccination [place]: 01/30 Third COVID19 Vaccination Date: 01/30 Past Medical History Surgeries: Yes Appendectomy, Gallbladder Respiratory: No Cardiac: Yes Atrial Fibrillation, Chronic Edema/Swelling, High Cholesterol, Hypertension Neurological: Yes Neuropathy Genitourinary: Yes (NO DIALYSIS) Renal Failure Gastrointestinal: Yes (S/P CHOLECYSTECTOMY AND APPENDECTOMY) Liver Disease/Jaundice, Gall Bladder Disease Musculoskeletal: Yes (LEFT 5TH FINGER FX 01/2022) Arthritis, Fractures Endocrine: No HEENT: No Cancer: No Psychosocial: No Integumentary: No Blood Disorders: No Family Medical History Heart Disease, CAD Over 55 Years Old, Renal Disease, Stroke Physical Exam Vital Signs Capillary Refill : Less Than 3 SecondsLess Than 3 Seconds Height, Weight, BMI Height: 5'2.00" Weight: 150lbs. oz. [id number]; 23.63 BMI Method:Estimated Procedures/Interventions Suture Size: 5-0 Progress/Results/Core Measures Suspected Sepsis Infection Criteria Present: Documented Infection Sepsis Screen: No Definite Risk SIRS Temperature: Pulse: 90 Respiratory Rate: 18 Blood Pressure 146 /74 Mean: 98 Laboratory Tests 02/23/22 21:20: INR Comment 1.1 Results/Orders Lab Results Laboratory Tests Test 02/23/22 21:20 02/23/22 21:50 Range/Units White Blood Count 12.6 H 4.3-11.0 10^3/uL Red Blood Count 3.58 L 3.80-5.11 10^6/uL Hemoglobin 10.6 L 11.5-16.0 g/dL Hematocrit 33 L 35-52 % Mean Corpuscular Volume 92 80-99 fL Mean Corpuscular Hemoglobin 30 25-34 pg Mean Corpuscular Hemoglobin Concent 32 32-36 g/dL Red Cell Distribution Width 13.6 10.0-14.5 % Platelet Count 232 130-400 10^3/uL Mean Platelet Volume 9.3 9.0-12.2 fL Immature Granulocyte % (Auto) 1 % Neutrophils (%) (Auto) 88 H 42-75 % Lymphocytes (%) (Auto) 5 L 12-44 % Monocytes (%) (Auto) 6 0-12 % Eosinophils (%) (Auto) 1 0-10 % Basophils (%) (Auto) 0 0-10 % Neutrophils # (Auto) 11.1 H 1.8-7.8 10^3/uL Lymphocytes # (Auto) 0.6 L 1.0-4.0 10^3/uL Monocytes # (Auto) 0.7 0.0-1.0 10^3/uL Eosinophils # (Auto) 0.1 0.0-0.3 10^3/uL Basophils # (Auto) 0.1 0.0-0.1 10^3/uL Immature Granulocyte # (Auto) 0.1 0.0-0.1 10^3/uL Neutrophils % (Manual) 83 % Lymphocytes % (Manual) 8 % Monocytes % (Manual) 8 % Eosinophils % (Manual) 0 % Basophils % (Manual) 0 % Band Neutrophils 1 % Poikilocytosis SLIGHT Elliptocytes SLIGHT Prothrombin Time 14.4 12.2-14.7 SEC INR Comment 1.1 0.8-1.4 Activated Partial Thromboplast Time 27 24-35 SEC Sodium Level 140 135-145 MMOL/L Potassium Level 4.0 3.6-5.0 MMOL/L Chloride Level 102 98-107 MMOL/L Carbon Dioxide Level 22 21-32 MMOL/L Anion Gap 16 H 5-14 MMOL/L Blood Urea Nitrogen 37 H 7-18 MG/DL Creatinine 2.11 H 0.60-1.30 MG/DL Estimat Glomerular Filtration Rate 22 BUN/Creatinine Ratio 18 Glucose Level 114 H 70-105 MG/DL Calcium Level 9.5 8.5-10.1 MG/DL Corrected Calcium 9.6 8.5-10.1 MG/DL Total Bilirubin 0.6 0.1-1.0 MG/DL Aspartate Amino Transf (AST/SGOT) 30 5-34 U/L Alanine Aminotransferase (ALT/SGPT) 28 0-55 U/L Alkaline Phosphatase 155 H 40-136 U/L Total Protein 6.4 6.4-8.2 GM/DL Albumin 3.9 3.2-4.5 GM/DL Urine Color YELLOW Urine Clarity CLEAR Urine pH 6.0 5-9 Urine Specific [place] 1.025 H 1.016-1.022 Urine Protein 2+ H NEGATIVE Urine Glucose (UA) NEGATIVE NEGATIVE Urine Ketones NEGATIVE NEGATIVE Urine Nitrite NEGATIVE NEGATIVE Urine Bilirubin NEGATIVE NEGATIVE Urine Urobilinogen 0.2 < = 1.0 MG/DL Urine Leukocyte Esterase NEGATIVE NEGATIVE Urine RBC (Auto) NEGATIVE NEGATIVE Urine RBC NONE /HPF Urine WBC RARE /HPF Urine Squamous Epithelial Cells RARE /HPF Urine Crystals NONE /LPF Urine Bacteria NEGATIVE /HPF Urine Casts NONE /LPF Urine Mucus NEGATIVE /LPF Urine Culture Indicated NO My Orders Orders - AN OATES DO Ed Iv/Invasive Line Start (02/23/22 21:21) Catheter(Urinary) Insert & Ass (02/23/22 21:21) Monitor-Rhythm Ecg Trace Only (02/23/22 21:21) Chest 1 View, Ap/Pa Only (02/23/22 21:21) Femur, Left, 2 Views (02/23/22 21:21) Pelvis With Left Hip 2-3 Views (02/23/22 21:21) Cbc With Automated Diff (02/23/22 21:21) Comprehensive Metabolic Panel (02/23/22 21:21) Protime With Inr (02/23/22 21:21) Partial Thromboplastin Time (02/23/22 21:21) Ua Culture If Indicated (02/23/22 21:21) Type And Screen (02/23/22 21:21) Ed Iv/Invasive Line Start (02/23/22 21:21) Lactated Ringers (Lr 1000 Ml Iv Solution (02/23/22 21:30) Fentanyl Inj (Sublimaze Injection) (02/23/22 21:21) Manual Differential (02/23/22 21:20) Shoulder, Left, 3 Views (02/23/22 21:57) Fentanyl Inj (Sublimaze Injection) (02/23/22 21:58) Vital Signs/I&O Capillary Refill : Less Than 3 SecondsLess Than 3 Seconds Blood Pressure Mean: 98 Diagnostic Imaging Reviewed: Reviewed by Me Critical Care Note Critical Care Date of : March 04, 2022 Progress SEE CODE BLUE NURSING NOTES FOR DETAILS. Departure Impression Primary Impression: Fall from standing Additional Impressions: HTN (hypertension) Closed left hip fracture History of atrial fibrillation Contusion of left shoulder POSSIBLE LEFT SCAPULAR FRACTURE Cardiopulmonary arrest Disposition: 20 Condition: Admissions Decision to Admit Reason: Admit from ER (Trauma) Decision to Admit/Date: February 23, 2022 Time/Decision to Admit Time: 21:55 Departure-Patient Inst. Referrals: HERMILA BARRIENTOS DO (PCP) Primary Care Physician AN OATES DO March 04, 2022 19:08
[2022-03-04] MEDS ORDERED: APIXABAN 2.5 MG (ELIQUIS) TABLET PO SCH (21:00)
[2022-03-04] MEDS ORDERED: guaiFENesin (MUCINEX) 600 MG TAB PO SCH (21:00)
== END 2022-03-04 18:48 | disposition expired | DRG 480 ==
LOC: EDUNIT# 21:15 → ER 21:16 → 4TH 22:00
PROVIDERS: ADMIT Family Medicine; ATTEND Family Medicine
PROC: 0QS706Z Reposition Left Upper Femur with Intramedullary Internal Fixation Device, Open Approach (ICD-10-PCS; principal; 2022-02-24 13:46)
PROC: 5A0945A Assistance with Respiratory Ventilation, 24-96 Consecutive Hours, High Flow/Velocity Cannula (ICD-10-PCS; 2022-03-01)
PROC: 5A12012 Performance of Cardiac Output, Single, Manual (ICD-10-PCS; 2022-03-04)
DX: S72.142A Displaced intertrochanteric fracture of left femur, initial encounter for closed fracture (principal); J18.9 Pneumonia, unspecified organism; N18.4 Chronic kidney disease, stage 4 (severe); J90 Pleural effusion, not elsewhere classified; J95.89 Other postprocedural complications and disorders of respiratory system, not elsewhere classified; F05 Delirium due to known physiological condition; J81.1 Chronic pulmonary edema; W18.30XA Fall on same level, unspecified, initial encounter; S40.012A Contusion of left shoulder, initial encounter; I48.0 Paroxysmal atrial fibrillation; I12.9 Hypertensive chronic kidney disease with stage 1 through stage 4 chronic kidney disease, or unspecified chronic kidney disease; E78.00 Pure hypercholesterolemia, unspecified; G62.9 Polyneuropathy, unspecified; M19.90 Unspecified osteoarthritis, unspecified site; I49.5 Sick sinus syndrome; R00.0 Tachycardia, unspecified; D64.89 Other specified anemias; Z66 Do not resuscitate; I46.9 Cardiac arrest, cause unspecified; R10.9 Unspecified abdominal pain; R11.2 Nausea with vomiting, unspecified; I34.0 Nonrheumatic mitral (valve) insufficiency; D63.8 Anemia in other chronic diseases classified elsewhere; R06.03 Acute respiratory distress; F03.90 Unspecified dementia, unspecified severity, without behavioral disturbance, psychotic disturbance, mood disturbance, and anxiety; I65.23 Occlusion and stenosis of bilateral carotid arteries
CPT/HCPCS: 36415; 51702; 71045; 71046; 73030; 73552; 76000; 80048; 80053; 81000; 83735; 85007; 85014; 85018; 85025; 85027; 85610; 85730; 86850; 86900; 86901; 86920; 87070; 87205; 93041; 94640; 94664; 94760; 96374; 96375